=== PATIENT | female | born 1940 | race Caucasian/White ===

== ENCOUNTER 2016-05-11 00:45 | Inpatient (IN) | payer MEDICARE, OTHER ==
[2016-05-11] MEDS ORDERED: ONDANSETRON 4 MG TAB.RAPDIS PO ONE (01:03)
[2016-05-11] MEDS ORDERED: NORMAL SALINE 1000 ML 1,000 ML IV ONE (01:06)
--- NOTE | 2016-05-11 01:10 | ER Document Report ---
ED Medical Screen (RME) - General Stated Complaint: VOMITING Time seen by provider: 01:00 Notes: 75 year old female that comes to the ED for repeated vomiting, vomiting started after [facility] tonight, non-bloody. Patient reports chills, she has an ileostomy bag which she has seen stool fill into, denies blood in stool. Denies fever, chest pain, shortness of breath. She states right now she is very nauseated but she denies current abdominal pain. TRAVEL OUTSIDE OF THE [place] IN LAST 30 DAYS: No - Related Data Allergies/Adverse Reactions: meperidine HCl [From Demerol] Allergy (Intermediate, Verified 05/11/16 00:57) Hives Sulfa (Sulfonamide Antibiotics) Allergy (Intermediate, Verified 05/11/16 00:57) Hives ciprofloxacin HCl [From Cipro] Allergy (Verified 05/11/16 00:57) RASH prednisone [Prednisone] Allergy (Verified 05/11/16 00:57) MAKES HER CRAZY Past Medical History - Past Medical History Cardiac Medical History: Reports: Hx Heart Attack - 2001 HAD STENTS, Hx Hypertension Pulmonary Medical History: Denies: Hx Asthma, Hx Tuberculosis Neurological Medical History: Reports: Hx Cerebrovascular Accident - AFFECTED LEFT EYE. Denies: Hx Seizures Malignancy Medical History: Reports: Hx Renal (Kidney) Cancer - Left GI Medical History: Denies: Hx Hepatitis, Hx Hiatal Hernia, Hx Ulcer Musculoskeltal Medical History: Reports Hx Gout - left foot Psychiatric Medical History: Denies: Hx Depression Infectious Medical History: Denies: Hx Hepatitis Past Surgical History: Reports: Hx Abdominal Surgery, Hx Bowel Surgery - colostomy, Hx Cardiac Catheterization, Hx Kidney (Renal Surgery) - left removed , Hx Orthopedic Surgery - bilat cataracts. Denies: Hx Mastectomy, Hx Open Heart Surgery, Hx Pacemaker - Immunizations Hx Diphtheria, Pertussis, Tetanus Vaccination: Yes Physical Exam - Cardiovascular Rhythm: Regular, Bradycardia - borderline. No: Tachycardia Heart sounds: Normal auscultation, S1 appreciated, S2 appreciated - Abdominal Inspection: Normal Tenderness: Nontender. No: Tender Course - Re-evaluation Re-evalutation: Soft belly, but patient did vomit at triage. Denies any abd or chest pain. Giving meds, ordering workup.
[2016-05-11] MEDS ORDERED: DIPHENHYDRAMINE HCL 50 MG/ML VIAL IV ONE (01:50)
[2016-05-11 02:01] LABS: ABSOLUTE BASOPHILS # (AUTO) 0.1 10^3/uL (0.0-0.2); ABSOLUTE LYMPHOCYTES (AUTO) 1.8 10^3/uL (0.5-4.7); ABSOLUTE MONOCYTES (AUTO) 0.6 10^3/uL (0.1-1.4); ABSOLUTE NEUT (AUTO) 10.8 10^3/uL (1.7-8.2); BASOPHILS % (AUTO) 0.4 % (0-2); EOSINOPHILS % (AUTO) 0.3 % (0-6); HEMATOCRIT 33.2 % (36.0-47.0); HEMOGLOBIN 11.1 g/dL (12.0-15.5); HGB HCT DIFFERENCE 0.1; LYMPHOCYTES % (AUTO) 13.6 % (13-45); MEAN CORPUSCULAR HEMOGLOBIN 31.2 pg (27.0-33.4); MEAN CORPUSCULAR HGB CONC 33.4 g/dL (32.0-36.0); MEAN CORPUSCULAR VOLUME 94 fl (80-97); MONOCYTES % (AUTO) 4.2 % (3-13); RED BLOOD COUNT 3.55 10^6/uL (3.72-5.28); RED CELL DISTRIBUTION WIDTH 15.3 % (11.5-14.0); SEGMENTED NEUTROPHILS % (AUTO) 81.5 % (42-78); WHITE BLOOD COUNT 13.3 10^3/uL (4.0-10.5)
[2016-05-11] MEDS ORDERED: PROMETHAZINE HCL INJ 25 MG/1 ML VIAL IM ONE (03:31)
--- NOTE | 2016-05-11 03:34 | ER Document Report ---
ED General - General TRAVEL OUTSIDE OF THE [place] IN LAST 30 DAYS: No <CONCETTA GOULD - Last Filed: 05/11/16 03:32> <BORIS DENNEY - Last Filed: 05/11/16 10:11> - General Chief Complaint: Nausea/Vomiting Stated Complaint: VOMITING Notes: Patient is a 75-year-old female who presents with complaint of vomiting since eating at [facility]. No associated abdominal pain. She does have an ileostomy bag which has been draining a properly. No fevers. No blood in emesis. No other complaints at this time. Patient says that she had pot roast and clam chowder at [facility]. (CONCETTA GOULD) - Related Data Allergies/Adverse Reactions: meperidine HCl [From Demerol] Allergy (Intermediate, Verified 05/11/16 00:57) Hives Sulfa (Sulfonamide Antibiotics) Allergy (Intermediate, Verified 05/11/16 00:57) Hives ciprofloxacin HCl [From Cipro] Allergy (Verified 05/11/16 00:57) RASH prednisone [Prednisone] Allergy (Verified 05/11/16 00:57) MAKES HER CRAZY Past Medical History - Social History Smoking Status: Never Smoker Chew tobacco use (# tins/day): No Frequency of alcohol use: None Drug Abuse: None Family History: Reviewed & Not Pertinent Patient has suicidal ideation: No Patient has homicidal ideation: No - Past Medical History Cardiac Medical History: Reports: Hx Heart Attack - 2001 HAD STENTS, Hx Hypertension Pulmonary Medical History: Denies: Hx Asthma, Hx Tuberculosis Neurological Medical History: Reports: Hx Cerebrovascular Accident - AFFECTED LEFT EYE. Denies: Hx Seizures Renal/ Medical History: Denies: Hx Peritoneal Dialysis Malignancy Medical History: Reports: Hx Renal (Kidney) Cancer - Left GI Medical History: Denies: Hx Hepatitis, Hx Hiatal Hernia, Hx Ulcer Musculoskeltal Medical History: Reports Hx Gout - left foot Psychiatric Medical History: Denies: Hx Depression Infectious Medical History: Denies: Hx Hepatitis Past Surgical History: Reports: Hx Abdominal Surgery, Hx Bowel Surgery - colostomy, Hx Cardiac Catheterization, Hx Kidney (Renal Surgery) - left removed , Hx Orthopedic Surgery - bilat cataracts. Denies: Hx Mastectomy, Hx Open Heart Surgery, Hx Pacemaker - Immunizations Hx Diphtheria, Pertussis, Tetanus Vaccination: Yes <CONCETTA GOULD - Last Filed: 05/11/16 03:32> Review of Systems <CONCETTA GOULD - Last Filed: 05/11/16 03:32> <BORIS DENNEY - Last Filed: 05/11/16 10:11> - Review of Systems Notes: My Normal Review Basic REVIEW OF SYSTEMS: CONSTITUTIONAL : Denies fever, chills, or sweats. Denies recent illness. EENT: Denies eye, ear, throat, or mouth pain or symptoms. Denies nasal or sinus congestion. CARDIOVASCULAR: Denies chest pain. RESPIRATORY: Denies cough, cold, or chest congestion. Denies shortness of breath, difficulty breathing, or wheezing. GASTROINTESTINAL: Denies abdominal pain. Vomiting. GENITOURINARY: Denies difficulty urinating, painful urination, burning, frequency, or blood in urine. MUSCULOSKELETAL: Denies neck or back pain or joint pain or swelling. SKIN: Denies rash or skin lesions. NEUROLOGICAL: Denies altered mental status or loss of consciousness. Denies headache. Denies weakness or paralysis or loss of use of either side. Denies problems with gait or speech. Denies sensory or motor loss. ALL OTHER SYSTEMS REVIEWED AND NEGATIVE. (CONCETTA GOULD) Physical Exam <CONCETTA GOULD - Last Filed: 05/11/16 03:32> <BORIS DENNEY - Last Filed: 05/11/16 10:11> - Vital signs Vitals: Temp Pulse Resp BP Pulse Ox 97.9 F 57 L 24 H 120/44 L 100 05/11/16 01:08 05/11/16 01:08 05/11/16 01:08 05/11/16 01:08 05/11/16 01:08 - Notes Notes: General Appearance: Well nourished, alert, cooperative, no acute distress, no obvious discomfort. Well-appearing. Vitals: reviewed, See vital signs table. Head: no swelling or tenderness to the head Eyes: PERRL, EOMI, Conjuctiva clear Mouth: No decreasd moisture Neck: Supple, no neck tenderness, No thyromegaly Lungs: No wheezing, No rales, No rhonci, No accessory muscle use, good air exchange bilaterally. Heart: Normal rate, Regular rythm, No murmur, no rub Abdomen: Normal BS, soft, No rigidity, No abdominal tenderness, No guarding, no rebound, no abdominal masses, no organomegaly. Ileostomy bag in place. Normal- appearing no stool coming from ileostomy site. No blood in the back. Extremities: strength 5/5 in all extremities, good pulses in all extremities, no swelling or tenderness in the extremities, no edema. Skin: warm, dry, appropriate color, no rash Neuro: speech clear, oriented x 3, normal affect, responds appropriately to questions. (CONCETTA GOULD) Course - Laboratory Result Diagrams: 05/11/16 01:40 05/11/16 03:05 <CONCETTA GOULD - Last Filed: 05/11/16 03:32> - Laboratory Result Diagrams: 05/11/16 01:40 05/11/16 03:29 - Diagnostic Test Radiology reviewed: Reports reviewed - CT scan is read as questionable ileus versus distal ileum obstruction at the level of the ostomy - Consults Dr. Castle Time consulted: 10:00 Consulted provider: other - Does not feel this is a surgical problem and requests the hospitalist be called. Dr. Hampton Time consulted: 10:05 Consulted provider: will come to ER <BORIS DENNEY - Last Filed: 05/11/16 10:11> - Vital Signs Vital signs: Temp Pulse Resp BP Pulse Ox 98.6 F 61 18 127/68 H 99 05/11/16 08:21 05/11/16 08:21 05/11/16 08:21 05/11/16 08:21 05/11/16 08:21 - Laboratory Laboratory results interpreted by me: 05/11/16 05/11/16 05/11/16 01:25 01:40 03:29 WBC 13.3 H RBC 3.55 L Hgb 11.1 L Hct 33.2 L RDW 15.3 H Seg Neutrophils % 81.5 H Absolute Neutrophils 10.8 H Chloride 109 H BUN 26 H Creatinine 2.02 H Est GFR ( Amer) 29 L Est GFR (Non-Af Amer) 24 L Glucose 121 H POC Glucose 118 H AST 44 H Discharge <CONCETTA GOULD - Last Filed: 05/11/16 03:32> - Discharge Admitting Provider: Hospitalist Unit Admitted: Telemetry <BORIS DENNEY - Last Filed: 05/11/16 10:11> - Discharge Clinical Impression: Ileus versus distal ileum obstruction, Ileostomy present Nausea and vomiting Qualifiers: Vomiting type: unspecified Vomiting Intractability: intractable Qualified Code( s): R11.2 - Nausea with vomiting, unspecified Condition: Stable Disposition: ADMITTED INPATIENT
[2016-05-11 03:57] LABS: ALANINE AMINOTRANSFERASE 31 U/L (9-52); ALBUMIN 3.7 g/dL (3.5-5.0); ALKALINE PHOSPHATASE 117 U/L (38-126); ANION GAP 13 (5-19); ASPARTATE AMINO TRANSFERASE 44 U/L (14-36); BILIRUBIN,DIRECT 0.3 mg/dL (0.0-0.4); BILIRUBIN,TOTAL 0.7 mg/dL (0.2-1.3); BLOOD UREA NITROGEN 26 mg/dL (7-20); CALCIUM 9.2 mg/dL (8.4-10.2); CARBON DIOXIDE 23 mmol/L (22-30); CHLORIDE 109 mmol/L (98-107); CREATININE RESULT 2.02 mg/dL (0.52-1.25); GLUCOSE 121 mg/dL (75-110); POTASSIUM 4.2 mmol/L (3.6-5.0); SODIUM 144.8 mmol/L (137-145); TOTAL PROTEIN 6.8 g/dL (6.3-8.2)
[2016-05-11] MEDS ORDERED: PROMETHAZINE HCL INJ 25 MG/1 ML VIAL ONE (04:15)
[2016-05-11] MEDS ORDERED: ONDANSETRON HCL INJ/PF 4 MG/2 ML SDV IV ONE (09:20)
[2016-05-11] MEDS ORDERED: MORPHINE SULFATE 10 MG/ML INJ IV ONE (10:04)
[2016-05-11 11:22] LABS: APPEARANCE,URINE CLEAR; BILIRUBIN,URINE NEGATIVE (NEGATIVE); GLUCOSE, URINE NEGATIVE (NEGATIVE); KETONES,URINE NEGATIVE (NEGATIVE); LEUKOCYTE ESTERASE,URINE NEGATIVE (NEGATIVE); NITRITE,URINE NEGATIVE (NEGATIVE); PROTEIN,URINE NEGATIVE (NEGATIVE); URINE SPECIFIC GRAVITY 1.013; UROBILINOGEN,URINE NEGATIVE mg/dL (<2.0)
[2016-05-11] MEDS ORDERED: ACETAMINOPHEN 325 MG TABLET PO PRN (13:26)
[2016-05-11] MEDS ORDERED: ONDANSETRON 4 MG TAB.RAPDIS PO PRN (13:36)
[2016-05-11] MEDS ORDERED: PROMETHAZINE HCL INJ 25 MG/1 ML VIAL IV PRN (13:36)
--- NOTE | 2016-05-11 15:22 | PDOC H&P ---
History of Present Illness Admission Date/PCP: 05/11/16 10:50 BETH WYATT MD Patient complains of: Nausea and vomiting History of Present Illness: SOURAV ALVES is a 75 year old female, with history of renal cell carcinoma, colostomy placement and bowel resection apparently had multiple small bowel obstruction episodes in the past presents to the hospital with nausea and vomiting and abdominal pain of one-day duration. Patient was doing well in her usual state of health until about last night after eating from [employer], the patient started to develop abdominal cramping with associated nausea and vomiting. She is the only one sick compared to the rest of the family with her. There is no noted increasing output on the colostomy. Patient developed chills but no definite fever. The patient thought she only had foot poisoning went home and rest however the symptoms persisted the following day therefore she was concerned about obstruction which she had in the past, went to the emergency room where CT of the abdomen suggestive of ileus, patient was then referred for admission. No obstruction was noted as the contrast went through all the way to the ostomy bag. Past Medical History Past Medical History: Medication reconciliation pending verification from the patient's pharmacist. Cardiac Medical History: Reports: Myocardial Infarction - 2001 HAD STENTS, Hypertension Pulmonary Medical History: Denies: Asthma, Tuberculosis Neurological Medical History: Denies: Seizures Renal/ Medical History: Reports: Chronic Kidney Disease Malignancy Medical History: Reports: Renal (Kidney) Cancer - Left GI Medical History: Denies: Hepatitis, Hiatal Hernia Musculoskeltal Medical History: Reports: Gout - left foot Psychiatric Medical History: Denies: Depression Hematology: Reports: Anemia - AFTER SURGERY FEB 16 2011 Denies: Sickle Cell Disease Past Surgical History Past Surgical History: Reports: Cardiac Catheterization, Orthopedic Surgery - bilat cataracts, Other - Colostomy and bowel resection, nephrectomy Denies: Amputation, Mastectomy, Pacemaker Social History Information Source: Patient Smoking Status: Never Smoker Frequency of Alcohol Use: None Hx Recreational Drug Use: No Drugs: None Hx Prescription Drug Abuse: No - Advance Directive Resuscitation Status: Full Code Family History Family History: None Parental Family History Reviewed: Yes Children Family History Reviewed: Yes Sibling(s) Family History Reviewed.: Yes Medication/Allergy Home Medications: Bupropion HCl [Bupropion Xl] 150 mg PO DAILY 05/11/16 Cyanocobalamin (Vitamin B-12) [Vitamin B-12 1000 mcg Tablet] 1,000 mcg PO DAILY 05/11/16 Folic Acid 1 mg PO DAILY 05/11/16 Gabapentin [Neurontin 100 mg Capsule] 100 mg PO BIDBL 05/11/16 Gabapentin [Neurontin 100 mg Capsule] 200 mg PO QHS 05/11/16 Magnesium Oxide [Mag-Ox 400 mg Tablet] 400 mg PO Q12 05/11/16 Oxycodone HCl [Oxy-Ir 5 mg Tablet] 5 mg PO Q6HP PRN 05/11/16 Propranolol HCl [Inderal 10 mg Tablet] 10 mg PO Q8 05/11/16 Pyridoxine HCl [Vitamin B-6 Tablet 50 mg] 50 mg PO BID 05/11/16 Zolpidem Tartrate [Ambien] 10 mg PO QHS 05/11/16 Allergies/Adverse Reactions: meperidine HCl [From Demerol] Allergy (Intermediate, Verified 05/11/16 00:57) Hives Sulfa (Sulfonamide Antibiotics) Allergy (Intermediate, Verified 05/11/16 00:57) Hives ciprofloxacin HCl [From Cipro] Allergy (Verified 05/11/16 00:57) RASH prednisone [Prednisone] Allergy (Verified 05/11/16 00:57) MAKES HER CRAZY Review of Systems Constitutional: PRESENT: chills. ABSENT: fever(s), headache(s), weight gain, weight loss Eyes: ABSENT: visual disturbances Ears: ABSENT: hearing changes Nose, Mouth, and Throat: ABSENT: mouth pain, sore throat Cardiovascular: ABSENT: chest pain, dyspnea on exertion, edema, orthropnea, palpitations Respiratory: ABSENT: cough, hemoptysis, sputum Gastrointestinal: PRESENT: abdominal pain, nausea, vomiting. ABSENT: constipation, diarrhea, hematemesis, hematochezia, melena Genitourinary: ABSENT: difficulty urinating, dysuria, hematuria Musculoskeletal: PRESENT: other - Recent left shoulder surgery for a remote fracture. ABSENT: joint swelling Integumentary: ABSENT: rash, wounds Neurological: ABSENT: abnormal gait, abnormal speech, confusion, dizziness, focal weakness, syncope Psychiatric: ABSENT: anxiety, depression, homidical ideation, suicidal ideation Endocrine: ABSENT: cold intolerance, heat intolerance, polydipsia, polyuria Hematologic/Lymphatic: ABSENT: easy bleeding, easy bruising Physical Exam Vital Signs: Temp Pulse Resp BP Pulse Ox 97.4 F 54 L 16 142/55 H 100 05/11/16 14:30 05/11/16 14:30 05/11/16 14:30 05/11/16 14:30 05/11/16 14:30 Intake & Output 05/10/16 05/11/16 05/12/16 06:59 06:59 06:59 Weight 62.7 kg General appearance: PRESENT: no acute distress, cooperative, well-developed, well-nourished Head exam: PRESENT: atraumatic, normocephalic Eye exam: PRESENT: conjunctiva pink, EOMI, PERRLA. ABSENT: scleral icterus Ear exam: PRESENT: normal external ear exam. ABSENT: drainage Mouth exam: PRESENT: moist, neck supple, tongue midline Neck exam: ABSENT: carotid bruit, JVD, lymphadenopathy, thyromegaly Respiratory exam: PRESENT: clear to auscultation randa, unlabored. ABSENT: rales , rhonchi, wheezes Cardiovascular exam: PRESENT: RRR, +S1, +S2. ABSENT: diastolic murmur, gallop, rubs, systolic murmur Pulses: PRESENT: normal dorsalis pedis pul Vascular exam: PRESENT: normal capillary refill GI/Abdominal exam: PRESENT: hyperactive bowel sounds, soft, tenderness - Mild diffusely, other - Colostomy in place in the left. ABSENT: distended, guarding , mass, organolmegaly, rebound Rectal exam: PRESENT: deferred Extremities exam: PRESENT: full ROM. ABSENT: calf tenderness, clubbing, pedal edema Musculoskeletal exam: PRESENT: other - Patient wears a shoulder sling left side Neurological exam: PRESENT: alert, awake, oriented to person, oriented to place , oriented to time, oriented to situation Psychiatric exam: PRESENT: appropriate affect, normal mood. ABSENT: homicidal ideation, suicidal ideation Skin exam: PRESENT: dry, intact, warm. ABSENT: cyanosis, rash Results Laboratory Results: 05/11/16 11:10 Urine Color YELLOW Urine Appearance CLEAR Urine pH 5.0 Ur Specific Tony 1.013 Urine Protein NEGATIVE Urine Glucose (UA) NEGATIVE Urine Ketones NEGATIVE Urine Blood NEGATIVE Urine Nitrite NEGATIVE Ur Leukocyte Esterase NEGATIVE Urine WBC (Auto) 1 Urine RBC (Auto) 1 Impressions: Acute Abdomen Series 05/11/16 01:04 IMPRESSION: Air-fluid levels within nondilated small bowel loops, may represent ileus versus developing obstruction. Abdomen/Pelvis CT 05/11/16 05:51 IMPRESSION: Oral contrast is seen throughout the distended stomach and small bowel down to the level of the ileostomy. There is contrast in the ileostomy bag. No intra-abdominal transition point identified. Question ileus versus distal ileum obstruction at the level of the ostomy. Tiny stones in the gallbladder Old left nephrectomy Assessment & Plan - Diagnosis (1) Nausea and vomiting Qualifiers: Vomiting type: unspecified Vomiting Intractability: intractable Qualified Code(s): R11.2 - Nausea with vomiting, unspecified Is this a current diagnosis for this admission?: Yes (2) Adynamic ileus Is this a current diagnosis for this admission?: Yes (3) Leukocytosis Qualifiers: Leukocytosis type: unspecified Qualified Code(s): D72.829 - Elevated white blood cell count, unspecified Is this a current diagnosis for this admission?: Yes (4) Cholelithiasis Qualifiers: Cholelithiasis location: gallbladder Cholecystitis presence: without cholecystitis Biliary obstruction: without biliary obstruction Qualified Code(s): K80.20 - Calculus of gallbladder without cholecystitis without obstruction Is this a current diagnosis for this admission?: Yes (5) Gout Qualifiers: Gout etiology: unspecified cause Laterality: unspecified laterality Chronicity: unspecified Is this a current diagnosis for this admission?: Yes (6) Renal carcinoma Qualifiers: Laterality: unspecified laterality Qualified Code(s): C64.9 - Malignant neoplasm of unspecified kidney, except renal pelvis Is this a current diagnosis for this admission?: Yes (7) Hypertension Qualifiers: Hypertension type: essential hypertension Qualified Code(s): I10 - Essential (primary) hypertension Is this a current diagnosis for this admission?: Yes (8) Chronic kidney disease, stage IV (severe) Is this a current diagnosis for this admission?: Yes (9) Coronary artery disease Qualifiers: Coronary Disease-Associated Artery/Lesion type: [place] artery [place] vs. transplanted heart: tribe heart Associated angina: without angina Qualified Code(s): I25.10 - Atherosclerotic heart disease of tribe coronary artery without angina pectoris Is this a current diagnosis for this admission?: Yes - Time Time Spent: 30 to 50 Minutes - Inpatient Certification Based on my medical assessment, after consideration of the patient's comorbidities, presenting symptoms, or acuity I expect that the services needed warrant INPATIENT care.: Yes I certify that my determination is in accordance with my understanding of Medicare's requirements for reasonable and necessary INPATIENT services [42 CFR 412.3e].: Yes Medical Necessity: Need Close Monitoring Due to Risk of Patient Decompensation, Need For IV Fluids, Risk of Complication if Not Cared For in Hospital, Risk of Diagnosis Which Will Require Inpatient Eval/Care/Monitoring Post Hospital Care: 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 I will keep her nothing by mouth except medications. I will hydrate her with normal saline, give DVT prophylaxis with Lovenox, monitor electrolytes and KUB. Further testing depends on the initial evaluation as outlined above. Unlikely to have obstruction due to passage of contrast material down to the osteotomy bag.
[2016-05-11] MEDS: MORPHINE SULFATE 10 MG/ML INJ IV PRN (18:10)
[2016-05-11] MEDS: NORMAL SALINE 1000 ML 1,000 ML IV PRN (18:11)
[2016-05-11] MEDS: FAMOTIDINE INJ/PF 20 MG/2 ML SDV IV SCH (21:31)
[2016-05-11] MEDS: GABAPENTIN 100 MG CAPSULE PO SCH (21:32)
[2016-05-12] MEDS: NORMAL SALINE 1000 ML 1,000 ML IV PRN ×2 (02:11→20:54)
[2016-05-12 06:06] LABS: ABSOLUTE EOSINOPHILS # (AUTO) 0.2 10^3/uL (0.0-0.6); ABSOLUTE MONOCYTES (AUTO) 0.6 10^3/uL (0.1-1.4); ABSOLUTE NEUT (AUTO) 4.2 10^3/uL (1.7-8.2); BASOPHILS % (AUTO) 0.4 % (0-2); EOSINOPHILS % (AUTO) 2.3 % (0-6); HEMATOCRIT 30.8 % (36.0-47.0); HGB HCT DIFFERENCE -0.8; LYMPHOCYTES % (AUTO) 28.9 % (13-45); MEAN CORPUSCULAR HEMOGLOBIN 30.9 pg (27.0-33.4); MEAN CORPUSCULAR HGB CONC 32.5 g/dL (32.0-36.0); MEAN CORPUSCULAR VOLUME 95 fl (80-97); MONOCYTES % (AUTO) 9.2 % (3-13); RED BLOOD COUNT 3.24 10^6/uL (3.72-5.28); RED CELL DISTRIBUTION WIDTH 15.5 % (11.5-14.0); SEGMENTED NEUTROPHILS % (AUTO) 59.2 % (42-78); WHITE BLOOD COUNT 7.1 10^3/uL (4.0-10.5)
[2016-05-12 06:26] LABS: ANION GAP 15 (5-19); BLOOD UREA NITROGEN 24 mg/dL (7-20); CALCIUM 9.1 mg/dL (8.4-10.2); CARBON DIOXIDE 22 mmol/L (22-30); CHLORIDE 109 mmol/L (98-107); CREATININE RESULT 2.38 mg/dL (0.52-1.25); GLUCOSE 85 mg/dL (75-110); MAGNESIUM 1.8 mg/dL (1.6-2.3); PHOSPHORUS 4.5 mg/dL (2.5-4.5); POTASSIUM 4.1 mmol/L (3.6-5.0); SODIUM 145.6 mmol/L (137-145)
[2016-05-12] MEDS ORDERED: ENOXAPARIN SODIUM INJ 40 MG/0.4 ML DISP.SYRIN SUBCUT SCH (08:00)
[2016-05-12] MEDS: ENOXAPARIN SODIUM INJ 30 MG/0.3 ML DISP.SYRIN SUBCUT SCH (09:14)
--- NOTE | 2016-05-12 09:59 | PDOC PROGRESS REPORT ---
Subjective Progress Note for:: 05/12/16 Subjective:: Patient is feeling much better this morning. Abdominal pain resolved. Nausea and vomiting resolved as well. No increasing output on the osteotomy. Denies any chills or fever. No shortness of breath or chest pain. Creatinine slightly worse today. Physical Exam Vital Signs: Temp Pulse Resp BP Pulse Ox 97.4 F 58 L 17 127/59 H 99 05/12/16 07:29 05/12/16 07:29 05/12/16 07:29 05/12/16 07:29 05/12/16 07:29 Intake & Output 05/11/16 05/12/16 05/13/16 06:59 06:59 06:59 Intake Total 300 Output Total 1120 Balance -820 Weight 63.2 kg General appearance: PRESENT: no acute distress, cooperative Head exam: PRESENT: normocephalic Eye exam: PRESENT: EOMI Mouth exam: PRESENT: moist, neck supple Neck exam: ABSENT: JVD Respiratory exam: PRESENT: clear to auscultation randa. ABSENT: rhonchi, wheezes Cardiovascular exam: PRESENT: RRR. ABSENT: gallop GI/Abdominal exam: PRESENT: hyperactive bowel sounds, soft. ABSENT: distended, tenderness Extremities exam: PRESENT: other - Trace pretibial edema Neurological exam: PRESENT: alert, awake, oriented to situation Skin exam: PRESENT: dry, warm. ABSENT: cyanosis Results Laboratory Results: 05/12/16 05:30 05/12/16 05:30 05/12/16 05/12/16 05:30 05:30 WBC 7.1 RBC 3.24 L Hgb 10.0 L Hct 30.8 L MCV 95 MCH 30.9 MCHC 32.5 RDW 15.5 H Plt Count 207 Seg Neutrophils % 59.2 Lymphocytes % 28.9 Monocytes % 9.2 Eosinophils % 2.3 Basophils % 0.4 Absolute Neutrophils 4.2 Absolute Lymphocytes 2.0 Absolute Monocytes 0.6 Absolute Eosinophils 0.2 Absolute Basophils 0.0 Sodium 145.6 H Potassium 4.1 Chloride 109 H Carbon Dioxide 22 Anion Gap 15 BUN 24 H Creatinine 2.38 H Est GFR ( Amer) 24 L Est GFR (Non-Af Amer) 20 L Glucose 85 Calcium 9.1 Phosphorus 4.5 Magnesium 1.8 Impressions: Acute Abdomen Series 05/11/16 01:04 IMPRESSION: Air-fluid levels within nondilated small bowel loops, may represent ileus versus developing obstruction. Abdomen/Pelvis CT 05/11/16 05:51 IMPRESSION: Oral contrast is seen throughout the distended stomach and small bowel down to the level of the ileostomy. There is contrast in the ileostomy bag. No intra-abdominal transition point identified. Question ileus versus distal ileum obstruction at the level of the ostomy. Tiny stones in the gallbladder Old left nephrectomy KUB X-Ray 05/12/16 06:00 IMPRESSION: MILD PROMINENCE OF THE SMALL BOWEL LOOPS IN THE LOWER ABDOMEN. POSSIBLE ILEUS. NO CHANGE. Assessment & Plan - Diagnosis (1) Nausea and vomiting Qualifiers: Vomiting type: unspecified Vomiting Intractability: intractable Qualified Code(s): R11.2 - Nausea with vomiting, unspecified Is this a current diagnosis for this admission?: Yes (2) Adynamic ileus Is this a current diagnosis for this admission?: Yes (3) Leukocytosis Qualifiers: Leukocytosis type: unspecified Qualified Code(s): D72.829 - Elevated white blood cell count, unspecified Is this a current diagnosis for this admission?: Yes (4) Cholelithiasis Qualifiers: Cholelithiasis location: gallbladder Cholecystitis presence: without cholecystitis Biliary obstruction: without biliary obstruction Qualified Code(s): K80.20 - Calculus of gallbladder without cholecystitis without obstruction Is this a current diagnosis for this admission?: Yes (5) Gout Qualifiers: Gout etiology: unspecified cause Laterality: unspecified laterality Chronicity: unspecified Is this a current diagnosis for this admission?: Yes (6) Renal carcinoma Qualifiers: Laterality: unspecified laterality Qualified Code(s): C64.9 - Malignant neoplasm of unspecified kidney, except renal pelvis Is this a current diagnosis for this admission?: Yes (7) Hypertension Qualifiers: Hypertension type: essential hypertension Qualified Code(s): I10 - Essential (primary) hypertension Is this a current diagnosis for this admission?: Yes (8) Chronic kidney disease, stage IV (severe) Is this a current diagnosis for this admission?: Yes (9) Coronary artery disease Qualifiers: Coronary Disease-Associated Artery/Lesion type: [place] artery [place] vs. transplanted heart: [place] heart Associated angina: without angina Qualified Code(s): I25.10 - Atherosclerotic heart disease of [place] coronary artery without angina pectoris Is this a current diagnosis for this admission?: Yes - Time Time Spent with patient: 25-34 minutes - Plan Summary Plan Summary: We will try the patient on liquid diet today. We will increase intravenous fluids and recheck creatinine in the morning. Continue current medication and supportive care. Patient clinically improving and if continues to improve we' ll discharge in the morning..
[2016-05-12] MEDS: MORPHINE SULFATE 10 MG/ML INJ IV PRN (20:35)
[2016-05-13] MEDS: FAMOTIDINE INJ/PF 20 MG/2 ML SDV IV SCH (00:16)
[2016-05-13] MEDS: GABAPENTIN 100 MG CAPSULE PO SCH (00:16)
[2016-05-13] MEDS: NORMAL SALINE 1000 ML 1,000 ML IV PRN (04:32)
[2016-05-13 05:10] LABS: ANION GAP 10 (5-19); BLOOD UREA NITROGEN 20 mg/dL (7-20); CALCIUM 8.6 mg/dL (8.4-10.2); CARBON DIOXIDE 21 mmol/L (22-30); CHLORIDE 113 mmol/L (98-107); CREATININE RESULT 2.01 mg/dL (0.52-1.25); GLUCOSE 81 mg/dL (75-110); POTASSIUM 3.8 mmol/L (3.6-5.0); SODIUM 143.5 mmol/L (137-145)
[2016-05-13] MEDS: ENOXAPARIN SODIUM INJ 30 MG/0.3 ML DISP.SYRIN SUBCUT SCH (08:17)
--- NOTE | 2016-05-13 09:25 | PDOC DISCHARGE SUMMARY ---
General - Admit/Disc Date/PCP Admission Date/Primary Care Provider: 05/11/16 13:27 BETH WYATT MD Discharge Date: 05/13/16 - Discharge Diagnosis (1) Adynamic ileus Is this a current diagnosis for this admission?: Yes (2) Acute gastroenteritis Is this a current diagnosis for this admission?: Yes (3) Cholelithiasis Is this a current diagnosis for this admission?: Yes (4) Gout Is this a current diagnosis for this admission?: Yes (5) Renal carcinoma Is this a current diagnosis for this admission?: Yes (6) Hypertension Is this a current diagnosis for this admission?: Yes (7) Chronic kidney disease, stage IV (severe) Is this a current diagnosis for this admission?: Yes (8) Coronary artery disease Is this a current diagnosis for this admission?: Yes - Additional Information Resuscitation Status: Full Code Discharge Diet: Cardiac - low fat, low salt, Other (Comments) - soft, mechanical , ground meats Discharge Activity: Activity As Tolerated, Balance Activity w/Rest Home Medications: Bupropion HCl [Bupropion Xl] 150 mg PO DAILY 05/11/16 Cyanocobalamin (Vitamin B-12) [Vitamin B-12 1000 mcg Tablet] 1,000 mcg PO DAILY 05/11/16 Folic Acid 1 mg PO DAILY 05/11/16 Gabapentin [Neurontin 100 mg Capsule] 100 mg PO BIDBL 05/11/16 Gabapentin [Neurontin 100 mg Capsule] 200 mg PO QHS 05/11/16 Magnesium Oxide [Mag-Ox 400 mg Tablet] 400 mg PO Q12 05/11/16 Oxycodone HCl [Oxy-Ir 5 mg Tablet] 5 mg PO Q6HP PRN 05/11/16 Propranolol HCl [Inderal 10 mg Tablet] 10 mg PO Q8 05/11/16 Pyridoxine HCl [Vitamin B-6 Tablet 50 mg] 50 mg PO BID 05/11/16 Zolpidem Tartrate [Ambien] 10 mg PO QHS 05/11/16 Additional Information: Return to the emergency room if symptoms recur. History of Present Illness Patient complains of: Abdominal pain nausea or vomiting History of Present Illness: SOURAV ALVES is a 75 year old female, with history of renal cell carcinoma, colostomy placement and bowel resection apparently had multiple small bowel obstruction episodes in the past presents to the hospital with nausea and vomiting and abdominal pain of one-day duration. Patient was doing well in her usual state of health until about last night after eating from [employer], the patient started to develop abdominal cramping with associated nausea and vomiting. She is the only one sick compared to the rest of the family with her. There is no noted increasing output on the colostomy. Patient developed chills but no definite fever. The patient thought she only had foot poisoning went home and rest however the symptoms persisted the following day therefore she was concerned about obstruction which she had in the past, went to the emergency room where CT of the abdomen suggestive of ileus, patient was then referred for admission. No obstruction was noted as the contrast went through all the way to the ostomy bag. Hospital Course Hospital Course: The patient was admitted to telemetry. Patient was placed on nothing by mouth, intravenous fluid was administered, electrolytes were monitored. Anti-emetics and analgesics were given as needed for comfort. Patient did well with conservative measures. Diet eventually was resumed and the patient tolerated it. She requested to be discharged and she stated she is back to baseline. She has been dealing with this done within 24 while. The rest of the hospital stays unremarkable. She was advised to return back to the emergency room if symptoms recur. No noted increasing output in the osteotomy bag. Patient had a CT scan however showing flow of contrast through the osteotomy. No obstruction was reported. Physical Exam Vital Signs: Temp Pulse Resp BP Pulse Ox 97.9 F 58 L 17 130/53 H 100 05/13/16 07:00 05/13/16 07:00 05/13/16 07:00 05/13/16 07:00 05/13/16 07:00 Intake & Output 05/12/16 05/13/16 05/14/16 06:59 06:59 06:59 Intake Total 300 3880 Output Total 1120 2200 Balance -820 1680 Weight 63.2 kg 63.5 kg General appearance: PRESENT: no acute distress, cooperative Head exam: PRESENT: normocephalic Eye exam: PRESENT: EOMI Mouth exam: PRESENT: moist, neck supple Neck exam: ABSENT: JVD Respiratory exam: PRESENT: clear to auscultation randa Cardiovascular exam: PRESENT: RRR. ABSENT: gallop GI/Abdominal exam: PRESENT: normal bowel sounds, soft. ABSENT: distended, tenderness Extremities exam: ABSENT: pedal edema Neurological exam: PRESENT: alert, awake, oriented to situation Skin exam: PRESENT: dry, warm. ABSENT: cyanosis Results Laboratory Results: 05/12/16 05:30 05/13/16 04:05 05/13/16 04:05 Sodium 143.5 Potassium 3.8 Chloride 113 H Carbon Dioxide 21 L Anion Gap 10 BUN 20 Creatinine 2.01 H Est GFR ( Amer) 29 L Est GFR (Non-Af Amer) 24 L Glucose 81 Calcium 8.6 Impressions: Acute Abdomen Series 05/11/16 01:04 IMPRESSION: Air-fluid levels within nondilated small bowel loops, may represent ileus versus developing obstruction. Abdomen/Pelvis CT 05/11/16 05:51 IMPRESSION: Oral contrast is seen throughout the distended stomach and small bowel down to the level of the ileostomy. There is contrast in the ileostomy bag. No intra-abdominal transition point identified. Question ileus versus distal ileum obstruction at the level of the ostomy. Tiny stones in the gallbladder Old left nephrectomy KUB X-Ray 05/12/16 06:00 IMPRESSION: MILD PROMINENCE OF THE SMALL BOWEL LOOPS IN THE LOWER ABDOMEN. POSSIBLE ILEUS. NO CHANGE. Qualifiers PATEINT BEING DISCHARGED WITH ANY OF THE FOLLOWING DIAGNOSIS?: No Plan Discharge Plan: Follow-up with primary care physician in one week. Time Spent: Less than 30 Minutes
[2016-05-13 12:13] VITALS: BP 133/50
== END 2016-05-13 12:30 | disposition home health service (06) | DRG 389 ==
LOC: ER 00:45 → EH 10:50 → UNDOADMIN 10:50 → EH 13:27 → 5 14:29
DX: K56.0 Paralytic ileus (principal); N18.4 Chronic kidney disease, stage 4 (severe); K52.9 Noninfective gastroenteritis and colitis, unspecified; M10.9 Gout, unspecified; I25.2 Old myocardial infarction; I12.9 Hypertensive chronic kidney disease with stage 1 through stage 4 chronic kidney disease, or unspecified chronic kidney disease; K80.20 Calculus of gallbladder without cholecystitis without obstruction; Z93.2 Ileostomy status; Z90.5 Acquired absence of kidney; Z90.49 Acquired absence of other specified parts of digestive tract; Z85.528 Personal history of other malignant neoplasm of kidney; Z95.5 Presence of coronary angioplasty implant and graft; Z79.82 Long term (current) use of aspirin; Z79.899 Other long term (current) drug therapy; Z88.2 Allergy status to sulfonamides; Z88.6 Allergy status to analgesic agent; Z88.3 Allergy status to other anti-infective agents; Z88.8 Allergy status to other drugs, medicaments and biological substances; D72.829 Elevated white blood cell count, unspecified
CPT/HCPCS: 36415; 74000; 74022; 74176; 80048; 80053; 81001; 82962; 83735; 84100; 84443; 85025; J1200; J1650; J2270; J2405; J2550; J7030; S0028; S0119

== ENCOUNTER 2016-12-08 07:28 | Emergency (ER) | payer MEDICARE, OTHER ==
--- NOTE | 2016-12-08 08:02 | ER Document Report ---
ED Extremity Problem, Lower - General Chief Complaint: Leg Injury Stated Complaint: FALL/LEFT LEG INJURY Time Seen by Provider: 12/08/16 07:59 Mode of Arrival: Ambulatory Information source: Patient Notes: Patient is a 68-year-old female who presents to the ER today for fall that happened prior to arrival where she tripped while walking and fell onto her left leg and left shoulder. Patient denies hitting her head. She is concerned because she has a blood blister that has popped up on her left lower leg and is "very scared that there is a blood clot." Patient is also concerned because she had a left shoulder replacement in April of this year and is hoping that everything still looks okay surgically. She denies any pain or limited range of motion that is abnormal for her to that left arm/shoulder. Patient denies any history of blood clots. She is not on any blood thinners. TRAVEL OUTSIDE OF THE [place] IN LAST 30 DAYS: No - Related Data Allergies/Adverse Reactions: meperidine HCl [From Demerol] Allergy (Intermediate, Verified 12/08/16 07:30) Hives Sulfa (Sulfonamide Antibiotics) Allergy (Intermediate, Verified 12/08/16 07:30) Hives ciprofloxacin HCl [From Cipro] Allergy (Verified 12/08/16 07:30) RASH prednisone [Prednisone] Allergy (Verified 12/08/16 07:30) MAKES HER CRAZY Home Medications: Current Home Medications Cholecalciferol (Vitamin D3) [Vitamin D3 5000 unit Capsule] 5,000 unit PO [id number] 12/08/16 [History] Past Medical History - General Information source: Patient - Social History Smoking Status: Never Smoker Family History: None Patient has suicidal ideation: No Patient has homicidal ideation: No - Past Medical History Cardiac Medical History: Reports: Hx Heart Attack - 2001 HAD STENTS, Hx Hypertension Pulmonary Medical History: Denies: Hx Asthma, Hx Tuberculosis Neurological Medical History: Reports: Hx Cerebrovascular Accident - AFFECTED LEFT EYE. Denies: Hx Seizures Renal/ Medical History: Denies: Hx Peritoneal Dialysis Malignancy Medical History: Reports: Hx Renal (Kidney) Cancer - Left GI Medical History: Denies: Hx Hepatitis, Hx Hiatal Hernia, Hx Ulcer Musculoskeltal Medical History: Reports Hx Gout - left foot Psychiatric Medical History: Denies: Hx Depression Infectious Medical History: Denies: Hx Hepatitis Past Surgical History: Reports: Hx Abdominal Surgery, Hx Bowel Surgery - colostomy, Hx Cardiac Catheterization, Hx Kidney (Renal Surgery) - left removed , Hx Orthopedic Surgery - bilat cataracts, Other - Colostomy and bowel resection , nephrectomy. Denies: Hx Mastectomy, Hx Open Heart Surgery, Hx Pacemaker - Immunizations Hx Diphtheria, Pertussis, Tetanus Vaccination: Yes Review of Systems - Review of Systems Constitutional: No symptoms reported EENT: No symptoms reported Cardiovascular: No symptoms reported Respiratory: No symptoms reported Gastrointestinal: No symptoms reported Genitourinary: No symptoms reported Female Genitourinary: No symptoms reported Musculoskeletal: See HPI Skin: See HPI Hematologic/Lymphatic: No symptoms reported Neurological/Psychological: No symptoms reported Physical Exam - Vital signs Vitals: Temp Pulse Resp BP Pulse Ox 97.5 F 63 20 131/57 H 96 12/08/16 07:31 12/08/16 07:31 12/08/16 07:31 12/08/16 07:31 12/08/16 07:31 - Notes Notes: PHYSICAL EXAMINATION: GENERAL: Well-appearing and in no acute distress. HEAD: Atraumatic, normocephalic. EYES: Pupils equal round and reactive to light, extraocular movements intact, sclera anicteric, conjunctiva are normal. NECK: Normal range of motion, supple without lymphadenopathy LUNGS: CTAB and equal. No wheezes rales or rhonchi. HEART: Regular rate and rhythm without murmurs ABDOMEN: Soft, no tenderness. No guarding, no rebound BACK: no vertebral tenderness, normal ROM GI/: no CVA tenderness EXTREMITIES: limited range of motion of the left shoulder, can only abduct to 90 degrees, no tenderness, no pitting edema. No cyanosis. NEUROLOGICAL: Cranial nerves grossly intact. Normal sensory/motor exams. PSYCH: Normal mood, normal affect. SKIN: Warm, Dry, normal turgor, 3cm by 1cm hematoma to anterior left lower leg Course - Re-evaluation Re-evalutation: 12/08/16 09:18 doppler negative for DVT, left shoulder x ray negative for acute pathology, surgical equipment in place appropriately. - Vital Signs Vital signs: Temp Pulse Resp BP Pulse Ox 97.5 F 63 20 131/57 H 96 12/08/16 07:31 12/08/16 07:31 12/08/16 07:31 12/08/16 07:31 12/08/16 07:31 Discharge - Discharge Clinical Impression: Hematoma Fall Qualifiers: Encounter type: initial encounter Qualified Code(s): W19.XXXA - Unspecified fall, initial encounter Condition: Stable Disposition: HOME, SELF-CARE Additional Instructions: Return immediately for any new or worsening symptoms. Follow up with primary care provider, call tomorrow to make followup appointment.
--- NOTE | 2016-12-08 08:31 | RADIOLOGY REPORT (SQ) ---
EXAM DESCRIPTION: SHOULDER LEFT 2 OR MORE VIEWS COMPLETED DATE/TIME: 12/08/2016 8:13 am REASON FOR STUDY: fall, recent surgery COMPARISON: None. NUMBER OF VIEWS: Three views. TECHNIQUE: Internal rotation, external rotation, and Y view images acquired of the left shoulder. LIMITATIONS: None. FINDINGS: MINERALIZATION: Normal. BONES: No acute fracture is identified. JOINTS: Patient is status post left total shoulder replacement. The prosthesis appears well seated i n the glenoid and proximal humeral medullary canal. VISUALIZED LUNGS AND RIBS: No pneumothorax. No rib fracture. SOFT TISSUES: No radiopaque foreign body. OTHER: No other significant finding. IMPRESSION: Status post left total shoulder replacement. No acute fractures are identified. Other findings as noted above TECHNICAL DOCUMENTATION: JOB ID: [id number] [employer]- All Rights Reserved
[2016-12-08 09:34] VITALS: BP 127/69
--- NOTE | 2016-12-08 11:37 | XCELERA REPORT ---
[address] [address] Lower Extremity Venous Evaluation Name: SOUARV ALVES Age: 76 yrs Gender: Female : 1940 Patient Status: Emergency Patient Location: ER Study Date: 12/08/2016 08:37 AM Procedure: Color flow and duplex imaging of the veins of the left lower extremity as well as the right Common Femoral vein. Reason For Study: fall, left leg injury, concern for dvt by pt Ordering Physician: BRIANNA RAMOS PA-C Performed By: Akua Mike Right Sided Venous Evaluation The right common femoral vein is fully compressible. Spontaneous and phasic flow is present in the right common femoral vein. Left Sided Venous Evaluation Normal vessel filling wall to wall, compression and augmentation as well as Colour flow down to the infrageniculate veins. Interpretation Summary No duplex evidence of DVT or obstruction in the left lower extremity nor in the right Common Femoral vein. : BRIANNA RAMOS PA-C > [facility] [place]
== END 2016-12-08 09:33 | disposition home or self-care (01) ==
LOC: ER 07:28
DX: S80.12XA Contusion of left lower leg, initial encounter (principal); W19.XXXA Unspecified fall, initial encounter; Y93.01 Activity, walking, marching and hiking; Z96.612 Presence of left artificial shoulder joint; Z88.5 Allergy status to narcotic agent; Z88.2 Allergy status to sulfonamides; Z88.1 Allergy status to other antibiotic agents; Z88.8 Allergy status to other drugs, medicaments and biological substances; I10 Essential (primary) hypertension; I25.2 Old myocardial infarction; Z95.5 Presence of coronary angioplasty implant and graft; Z85.528 Personal history of other malignant neoplasm of kidney; Z90.5 Acquired absence of kidney
CPT/HCPCS: 93971; 99284

== ENCOUNTER 2017-05-07 00:02 | Inpatient (IN) | payer MEDICARE, OTHER ==
[2017-05-07] MEDS ORDERED: NORMAL SALINE 500 ML IV ONE (01:38)
[2017-05-07] MEDS ORDERED: NORMAL SALINE 1000 ML 1,000 ML IV ONE ×2 (01:38→05:00)
[2017-05-07] MEDS ORDERED: ONDANSETRON HCL INJ/PF 4 MG/2 ML SDV IV ONE (01:39)
--- NOTE | 2017-05-07 02:18 | ER Document Report ---
ED General - General Chief Complaint: Abdominal Pain Stated Complaint: ABDOMINAL PAIN Time Seen by Provider: 05/07/17 01:25 TRAVEL OUTSIDE OF THE [place] IN LAST 30 DAYS: No - HPI Patient complains to provider of: Abdominal pain Notes: Patient coming in for a four-day history of nausea vomiting abdominal pain. Patient has history of ileus and small bowel obstruction in the past due to multiple abdominal surgeries. Patient does have ileostomy. Patient states decreased output from the ileostomy over the last 2 days. Patient does have his emesis bag at bedside with vomitus in it. Patient denies any fevers chills. States abdominal pain as diffuse achy. - Related Data Allergies/Adverse Reactions: meperidine HCl [From Demerol] Allergy (Intermediate, Verified 12/08/16 07:30) Hives Sulfa (Sulfonamide Antibiotics) Allergy (Intermediate, Verified 12/08/16 07:30) Hives ciprofloxacin HCl [From Cipro] Allergy (Verified 12/08/16 07:30) RASH prednisone [Prednisone] Allergy (Verified 12/08/16 07:30) MAKES HER CRAZY Past Medical History - Social History Smoking Status: Unknown if Ever Smoked Family History: None - Past Medical History Cardiac Medical History: Reports: Hx Heart Attack - 2001 HAD STENTS, Hx Hypertension Pulmonary Medical History: Denies: Hx Asthma, Hx Tuberculosis Neurological Medical History: Reports: Hx Cerebrovascular Accident - AFFECTED LEFT EYE. Denies: Hx Seizures Renal/ Medical History: Denies: Hx Peritoneal Dialysis Malignancy Medical History: Reports: Hx Renal (Kidney) Cancer - Left GI Medical History: Denies: Hx Hepatitis, Hx Hiatal Hernia, Hx Ulcer Musculoskeltal Medical History: Reports Hx Gout - left foot Psychiatric Medical History: Denies: Hx Depression Infectious Medical History: Denies: Hx Hepatitis Past Surgical History: Reports: Hx Abdominal Surgery, Hx Bowel Surgery - colostomy, Hx Cardiac Catheterization, Hx Kidney (Renal Surgery) - left removed , Hx Orthopedic Surgery - bilat cataracts, Other - Colostomy and bowel resection , nephrectomy. Denies: Hx Mastectomy, Hx Open Heart Surgery, Hx Pacemaker - Immunizations Hx Diphtheria, Pertussis, Tetanus Vaccination: Yes Review of Systems - Review of Systems Constitutional: No symptoms reported EENT: No symptoms reported Cardiovascular: No symptoms reported Respiratory: No symptoms reported Gastrointestinal: Abdominal pain, Nausea, Vomiting Genitourinary: No symptoms reported Female Genitourinary: No symptoms reported Musculoskeletal: No symptoms reported Skin: No symptoms reported Hematologic/Lymphatic: No symptoms reported Neurological/Psychological: No symptoms reported -: Yes All other systems reviewed and negative Physical Exam - Vital signs Vitals: Temp Pulse Resp BP Pulse Ox 98.0 F 91 20 118/74 97 05/07/17 00:21 05/07/17 00:21 05/07/17 00:21 05/07/17 00:21 05/07/17 00:21 Interpretation: Normal - General General appearance: Appears well, Alert - HEENT Head: Normocephalic, Atraumatic Eyes: Normal Pupils: PERRL - Respiratory Respiratory status: No respiratory distress Chest status: Nontender Breath sounds: Normal Chest palpation: Normal - Cardiovascular Rhythm: Regular Heart sounds: Normal auscultation Murmur: No - Abdominal Inspection: Other - Ileostomy midline incision. Light brown material in the back stoma for malignancy looks to be pink no signs of ischemia Distension: No distension Bowel sounds: Normal Tenderness: Nontender Organomegaly: No organomegaly - Back Back: Normal, Nontender - Extremities General upper extremity: Normal inspection, Nontender, Normal color, Normal ROM , Normal temperature General lower extremity: Normal inspection, Nontender, Normal color, Normal ROM , Normal temperature, Normal weight bearing. No: Florence's sign - Neurological Neuro grossly intact: Yes Cognition: Normal Orientation: AAOx4 Joselo Coma Scale Eye Opening: Spontaneous Brinson Coma Scale Verbal: Oriented Joselo Coma Scale Motor: Obeys Commands Brinson Coma Scale Total: 15 Speech: Normal Motor strength normal: LUE, RUE, LLE, RLE Sensory: Normal - Psychological Associated symptoms: Normal affect, Normal mood - Skin Skin Temperature: Warm Skin Moisture: Dry Skin Color: Normal Course - Re-evaluation Re-evalutation: 05/07/17 05:22 Concern for SBO upon initial evaluation of the patient. Patient was unable to tolerate oral contrast therefore CT scan was performed without which shows SPO2. Did consult our surgical team Dr. Zurita at bedside to evaluate patient initially requesting a hospitalist admission discussed with hospitalist Dr. Andre who at this time declines to be the primary on patient states that he would not be the attending on a small bowel obstruction to admit to surgery and they can consult for the acute renal failure. I did inform Dr. Meredith of this information who agreed to admit the patient to the surgical service - Vital Signs Vital signs: Temp Pulse Resp BP Pulse Ox 98.0 F 91 20 118/74 97 05/07/17 00:21 05/07/17 00:21 05/07/17 00:21 05/07/17 00:21 05/07/17 00:21 - Laboratory Result Diagrams: 05/07/17 02:20 05/07/17 02:20 Laboratory results interpreted by me: 05/07/17 05/07/17 02:20 02:20 RDW 14.6 H Carbon Dioxide 15 L BUN 56 H Creatinine 4.34 H Est GFR ( Amer) 12 L Est GFR (Non-Af Amer) 10 L Glucose 115 H Direct Bilirubin 0.6 H Alkaline Phosphatase 138 H Lipase 19.2 L Critical Care Note - Critical Care Note Total time excluding time spent on procedures (mins): 35 Comments: Multiple evaluation for someone with small bowel obstruction acute on chronic renal failure Discharge - Discharge Clinical Impression: SBO (small bowel obstruction), Solitary kidney, acquired, Dehydration Acute on chronic kidney failure Qualifiers: Acute renal failure type: unspecified Chronic kidney disease stage: unspecified stage Qualified Code(s): N17.9 - Acute kidney failure, unspecified Condition: Fair Disposition: ADMITTED INPATIENT Admitting Provider: Surgicalist Unit Admitted: Surgical Floor
[2017-05-07 02:37] LABS: ABSOLUTE EOSINOPHILS # (AUTO) 0.1 10^3/uL (0.0-0.6); ABSOLUTE LYMPHOCYTES (AUTO) 1.5 10^3/uL (0.5-4.7); ABSOLUTE MONOCYTES (AUTO) 0.9 10^3/uL (0.1-1.4); BASOPHILS % (AUTO) 0.2 % (0-2); EOSINOPHILS % (AUTO) 0.9 % (0-6); HEMATOCRIT 36.6 % (36.0-47.0); HEMOGLOBIN 12.3 g/dL (12.0-15.5); LYMPHOCYTES % (AUTO) 20.4 % (13-45); MEAN CORPUSCULAR HEMOGLOBIN 30.1 pg (27.0-33.4); MEAN CORPUSCULAR HGB CONC 33.6 g/dL (32.0-36.0); MEAN CORPUSCULAR VOLUME 89 fl (80-97); MONOCYTES % (AUTO) 11.6 % (3-13); PLATELET COUNT 315 10^3/uL (150-450); RED CELL DISTRIBUTION WIDTH 14.6 % (11.5-14.0); SEGMENTED NEUTROPHILS % (AUTO) 66.9 % (42-78); TOTAL CELLS COUNTED % (AUTO) 100 %; WHITE BLOOD COUNT 7.5 10^3/uL (4.0-10.5)
[2017-05-07 02:58] LABS: ALANINE AMINOTRANSFERASE 29 U/L (9-52); ALBUMIN 3.7 g/dL (3.5-5.0); ALKALINE PHOSPHATASE 138 U/L (38-126); ANION GAP 16 (5-19); ASPARTATE AMINO TRANSFERASE 25 U/L (14-36); BILIRUBIN,DIRECT 0.6 mg/dL (0.0-0.4); BILIRUBIN,TOTAL 0.6 mg/dL (0.2-1.3); BLOOD UREA NITROGEN 56 mg/dL (7-20); CALCIUM 9.3 mg/dL (8.4-10.2); CARBON DIOXIDE 15 mmol/L (22-30); CHLORIDE 107 mmol/L (98-107); GLUCOSE 115 mg/dL (75-110); LIPASE 19.2 U/L (23-300); POTASSIUM 4.4 mmol/L (3.6-5.0); TOTAL PROTEIN 6.8 g/dL (6.3-8.2)
--- NOTE | 2017-05-07 03:52 | RADIOLOGY REPORT (SQ) ---
EXAM DESCRIPTION: CT ABD/PELVIS ORAL ONLY CLINICAL HISTORY: 76 years Female, sbo COMPARISON: 3. TECHNIQUE: No contrast. Oral contrast. Coronal and sagittal reformat. This exam was performed according to our departmental dose-optimization program, which includes automated exposure control, adjustment of the mA and/or kV according to patient size and/or use of iterative reconstruction technique. FINDINGS: 4.2 cm diameter small bowel dilation with air-fluid levels extending to the left lower abdominal ileostomy site. Orally administered contrast is seen mildly diffuse through a distended stomach and proximal small bowel. Mid and distal small bowel is not opacified. No significant free fluid. No free air. Moderate coronary arterial calcification stent. Atherosclerosis. Small atelectasis or scar bilateral lower lungs. Left nephrectomy clips. Severe fatty replacement of the pancreas. Contrast material is seen within the colon. Moderate L5-S1 vacuum disc. Unenhanced inferior chest, remaining abdominopelvic structures, and musculoskeleton appear otherwise grossly unremarkable. IMPRESSION: 1. Moderate grade small bowel obstruction/ileus pattern. 2. Left nephrectomy.
--- NOTE | 2017-05-07 04:22 | PDOC H&P ---
History of Present Illness Admission Date/PCP: 05/07/17 Patient complains of: obstipation x 3 days History of Present Illness: SOURAV ALVES is a 76 year old female with a 3 day hx of obstipation via endileostomy bag. A CT scan A/P with oral contrast was attempted but she is vomited most of the contrast. Since then she feels better and there is brown liquid matter in the ileostomy bag. The CT scan A/P shows oral contrast in the stomach and proximal small bowel. The patient has a hx of left nephrectomy for cancer @ 8 years ago complicated by colon injury, colectomy, endileostomy. Since then she has been admitted several time for partial mechanical small bowel obstruction and treated conservatively. She has developed ARF on CRF due to dehydration. Past Medical History Cardiac Medical History: Reports: Myocardial Infarction - 2001 HAD STENTS, Hypertension Pulmonary Medical History: Denies: Asthma, Tuberculosis Neurological Medical History: Denies: Seizures Malignancy Medical History: Reports: Renal (Kidney) Cancer - Left GI Medical History: Denies: Hepatitis, Hiatal Hernia Musculoskeltal Medical History: Reports: Gout - left foot Psychiatric Medical History: Denies: Depression Hematology: Reports: Anemia - AFTER SURGERY FEB 16 2011 Denies: Sickle Cell Disease Past Surgical History Past Surgical History: Reports: Cardiac Catheterization, Orthopedic Surgery - bilat cataracts, Other - Ileostomy and colon resection, left nephrectomy Denies: Amputation, Mastectomy, Pacemaker Social History Smoking Status: Unknown if Ever Smoked Frequency of Alcohol Use: None Hx Recreational Drug Use: No Drugs: None Hx Prescription Drug Abuse: No Family History Family History: None Parental Family History Reviewed: No Children Family History Reviewed: No Sibling(s) Family History Reviewed.: No Medication/Allergy Home Medications: Cyanocobalamin (Vitamin B-12) [Vitamin B-12 1000 mcg Tablet] 1,000 mcg PO DAILY 05/11/16 Folic Acid 1 mg PO DAILY 05/11/16 Gabapentin [Neurontin 100 mg Capsule] 400 mg PO TID 05/11/16 Magnesium Oxide [Mag-Ox 400 mg Tablet] 400 mg PO Q12 05/11/16 Pyridoxine HCl [Vitamin B-6 Tablet 50 mg] 50 mg PO BID 05/11/16 Zolpidem Tartrate [Ambien] 5 mg PO QHS 05/11/16 Cholecalciferol (Vitamin D3) [Vitamin D3 5000 unit Capsule] 5,000 unit PO [id number] 12/08/16 Allergies/Adverse Reactions: meperidine HCl [From Demerol] Allergy (Intermediate, Verified 12/08/16 07:30) Hives Sulfa (Sulfonamide Antibiotics) Allergy (Intermediate, Verified 12/08/16 07:30) Hives ciprofloxacin HCl [From Cipro] Allergy (Verified 12/08/16 07:30) RASH prednisone [Prednisone] Allergy (Verified 12/08/16 07:30) MAKES HER CRAZY Physical Exam Vital Signs: Temp Pulse Resp BP Pulse Ox 98.0 F 91 20 118/74 97 05/07/17 00:21 05/07/17 00:21 05/07/17 00:21 05/07/17 00:21 05/07/17 00:21 Intake & Output 05/05/17 05/06/17 05/07/17 06:59 06:59 06:59 Output Total 1100 Balance -1100 Weight 59.874 kg General appearance: PRESENT: no acute distress, cooperative Mouth exam: PRESENT: dry mucosa Neck exam: PRESENT: full ROM Respiratory exam: PRESENT: clear to auscultation arnda Cardiovascular exam: PRESENT: RRR GI/Abdominal exam: PRESENT: hypoactive bowel sounds, soft, other - ileostomy pink with brown liquid matter old, midline, surgical scar well healed Musculoskeletal exam: PRESENT: full ROM Neurological exam: PRESENT: alert, altered Results Laboratory Results: 05/07/17 02:20 05/07/17 02:20 05/07/17 05/07/17 05/07/17 02:20 02:20 02:20 WBC 7.5 RBC 4.10 Hgb 12.3 Hct 36.6 MCV 89 MCH 30.1 MCHC 33.6 RDW 14.6 H Plt Count 315 Seg Neutrophils % 66.9 Lymphocytes % 20.4 Monocytes % 11.6 Eosinophils % 0.9 Basophils % 0.2 Absolute Neutrophils 5.0 Absolute Lymphocytes 1.5 Absolute Monocytes 0.9 Absolute Eosinophils 0.1 Absolute Basophils 0.0 Sodium 138.0 Potassium 4.4 Chloride 107 Carbon Dioxide 15 L Anion Gap 16 BUN 56 H Creatinine 4.34 H Est GFR ( Amer) 12 L Est GFR (Non-Af Amer) 10 L Glucose 115 H Lactic Acid 1.0 Calcium 9.3 Total Bilirubin 0.6 AST 25 ALT 29 Alkaline Phosphatase 138 H Total Protein 6.8 Albumin 3.7 Lipase 19.2 L Impressions: Abdomen/Pelvis CT 05/07/17 01:39 IMPRESSION: 1. Moderate grade small bowel obstruction/ileus pattern. 2. Left nephrectomy. Assessment & Plan - Diagnosis (1) Nausea and vomiting Qualifiers: Vomiting type: unspecified Vomiting Intractability: intractable Qualified Code(s): R11.2 - Nausea with vomiting, unspecified - Plan Summary Plan Summary: A/ Obstipation x 3 days in patient with endileostomy Small amount of brown liquid matter in ileostomy bag Nausea vomiting ARF on CRF secondary to dehydration (BUN/Creatinine = 56/4.3 today, elevated from previous creatinine of @2.0) Hx of multiple previous episodes of partial mechanical small bowel obstruction treated conservatively, last one in 2015 P/ Admit NGT to [facility] Vásquez catheter Aggressive rehydration Monitor labs daily Conservative management at this point Oral laxatives are not indicated at this time until she rehydrated, as she has ARF on CRF 3 view abdominal obstructive series in Am 05/08/18
[2017-05-07] MEDS ORDERED: LIDOCAINE 2% URO-JET 5 ML KIT MM ONE (04:31)
[2017-05-07] MEDS ORDERED: MIDAZOLAM 2 MG/2 ML INJ IV ONE (04:34)
[2017-05-07] MEDS ORDERED: ONDANSETRON HCL INJ/PF 4 MG/2 ML SDV IV PRN (04:48)
[2017-05-07] MEDS ORDERED: NORMAL SALINE 1000 ML 1,000 ML IV PRN (05:46)
--- NOTE | 2017-05-07 05:48 | PDOC CONSULTATION ---
Consultation Consult Date: 05/07/17 Attending physician:: ANDERSON GOMEZ Consult reason:: Renal failure History of Present Illness Admission Date/PCP: 05/07/17 05:17 Patient complains of: Abdominal pain History of Present Illness: SOURAV ALVES is a 76 year old female with a history of recurrent small bowel obstruction following remote partial colectomy and left nephrectomy for colon cancer and stage IV chronic kidney disease.. She presents with a 3 day hx of abdominal pain nausea and vomiting, prompting evaluation emergency room where she is found to have a CT suggestive of a bowel obstruction and acute on chronic renal failure. She is admitted to surgery with hospitalist consultation. She denies any new medications, chest pain or shortness of breath Past Medical History Cardiac Medical History: Reports: Myocardial Infarction - 2001 HAD STENTS, Hypertension Pulmonary Medical History: Denies: Asthma, Tuberculosis Neurological Medical History: Denies: Seizures Renal/ Medical History: Reports: Chronic Kidney Disease Malignancy Medical History: Reports: Colorectal Cancer, Renal (Kidney) Cancer - Left GI Medical History: Denies: Hepatitis, Hiatal Hernia Musculoskeltal Medical History: Reports: Gout - left foot Psychiatric Medical History: Denies: Depression Hematology: Reports: Anemia - AFTER SURGERY FEB 16 2011 Denies: Sickle Cell Disease Past Surgical History Past Surgical History: Reports: Cardiac Catheterization, Orthopedic Surgery - bilat cataracts, Other - Colostomy and bowel resection, nephrectomy Denies: Amputation, Mastectomy, Pacemaker Social History Information Source: Patient Lives with: Alone Smoking Status: Unknown if Ever Smoked Frequency of Alcohol Use: None Hx Recreational Drug Use: No Drugs: None Hx Prescription Drug Abuse: No - Advance Directive Resuscitation Status: Full Code Family History Family History: Hypertension Parental Family History Reviewed: Yes Children Family History Reviewed: Yes Sibling(s) Family History Reviewed.: Yes Medication/Allergy Home Medications: Cyanocobalamin (Vitamin B-12) [Vitamin B-12 1000 mcg Tablet] 1,000 mcg PO DAILY 05/11/16 Folic Acid 1 mg PO DAILY 05/11/16 Gabapentin [Neurontin 100 mg Capsule] 400 mg PO TID 05/11/16 Magnesium Oxide [Mag-Ox 400 mg Tablet] 400 mg PO Q12 05/11/16 Pyridoxine HCl [Vitamin B-6 Tablet 50 mg] 50 mg PO BID 05/11/16 Zolpidem Tartrate [Ambien] 5 mg PO QHS 05/11/16 Cholecalciferol (Vitamin D3) [Vitamin D3 5000 unit Capsule] 5,000 unit PO [id number] 12/08/16 Allergies/Adverse Reactions: meperidine HCl [From Demerol] Allergy (Intermediate, Verified 12/08/16 07:30) Hives Sulfa (Sulfonamide Antibiotics) Allergy (Intermediate, Verified 12/08/16 07:30) Hives ciprofloxacin HCl [From Cipro] Allergy (Verified 12/08/16 07:30) RASH prednisone [Prednisone] Allergy (Verified 12/08/16 07:30) MAKES HER CRAZY Review of Systems Constitutional: ABSENT: chills, fever(s), headache(s), weight gain, weight loss Eyes: ABSENT: visual disturbances Ears: ABSENT: hearing changes Cardiovascular: ABSENT: chest pain, dyspnea on exertion, edema, orthropnea, palpitations Respiratory: ABSENT: cough, hemoptysis Gastrointestinal: ABSENT: abdominal pain, constipation, diarrhea, hematemesis, hematochezia, nausea, vomiting Genitourinary: ABSENT: dysuria, hematuria Musculoskeletal: ABSENT: joint swelling Integumentary: ABSENT: rash, wounds Neurological: ABSENT: abnormal gait, abnormal speech, confusion, dizziness, focal weakness, syncope Psychiatric: ABSENT: anxiety, depression, homidical ideation, suicidal ideation Endocrine: ABSENT: cold intolerance, heat intolerance, polydipsia, polyuria Hematologic/Lymphatic: ABSENT: easy bleeding, easy bruising Physical Exam Vital Signs: Temp Pulse Resp BP Pulse Ox 98.0 F 91 20 118/74 97 05/07/17 00:21 05/07/17 00:21 05/07/17 00:21 05/07/17 00:21 05/07/17 00:21 General appearance: PRESENT: cooperative, mild distress, well-developed, well- nourished Head exam: PRESENT: atraumatic, normocephalic Eye exam: PRESENT: conjunctiva pink, EOMI, PERRLA. ABSENT: scleral icterus Ear exam: PRESENT: normal external ear exam Mouth exam: PRESENT: dry mucosa, tongue midline Neck exam: ABSENT: carotid bruit, JVD, lymphadenopathy, thyromegaly Respiratory exam: PRESENT: clear to auscultation randa. ABSENT: rales, rhonchi, wheezes Cardiovascular exam: PRESENT: RRR. ABSENT: diastolic murmur, rubs, systolic murmur Pulses: PRESENT: normal dorsalis pedis pul Vascular exam: PRESENT: normal capillary refill GI/Abdominal exam: PRESENT: diminished bowel sounds, distended, hypoactive bowel sounds, soft, tenderness. ABSENT: guarding, mass, organolmegaly, rebound Rectal exam: PRESENT: deferred Extremities exam: PRESENT: full ROM. ABSENT: calf tenderness, clubbing, pedal edema Neurological exam: PRESENT: alert, awake, oriented to person, oriented to place , oriented to time, oriented to situation, CN II-XII grossly intact. ABSENT: motor sensory deficit Psychiatric exam: PRESENT: appropriate affect, normal mood. ABSENT: homicidal ideation, suicidal ideation Skin exam: PRESENT: dry, intact, warm. ABSENT: cyanosis, rash Results Impressions: Abdomen/Pelvis CT 05/07/17 01:39 IMPRESSION: 1. Moderate grade small bowel obstruction/ileus pattern. 2. Left nephrectomy. Assessment & Plan - Diagnosis (1) Acute on chronic kidney failure Qualifiers: Acute renal failure type: unspecified Chronic kidney disease stage: unspecified stage Qualified Code(s): N17.9 - Acute kidney failure, unspecified ; N18.9 - Chronic kidney disease, unspecified; N18.9 - Chronic kidney disease, unspecified Is this a current diagnosis for this admission?: Yes Plan: Baseline GFR of 20 currently 10. IV fluid challenge, nephrology consult awaiting nephrotoxic meds and doses. (2) Dehydration Is this a current diagnosis for this admission?: Yes Plan: Secondary to small bowel obstruction, IV fluid challenge reevaluate chemistry (3) SBO (small bowel obstruction) Is this a current diagnosis for this admission?: Yes Plan: Defer to surgery - Time Time Spent: 50 to 70 Minutes - Inpatient Certification Medical Necessity: Need Close Monitoring Due to Risk of Patient Decompensation
[2017-05-07] MEDS ORDERED: FAMOTIDINE INJ/PF 20 MG/2 ML SDV IV SCH (10:00)
[2017-05-07] MEDS: NORMAL SALINE 1000 ML 1,000 ML IV PRN (10:57)
[2017-05-07] MEDS: FAMOTIDINE INJ/PF 20 MG/2 ML SDV IV SCH (11:35)
[2017-05-07] MEDS: HEPARIN SOD (PORCINE) 5,000 UNIT/ML 1 ML SYRINGE SUBCUT SCH ×2 (11:36→23:20)
[2017-05-07] MEDS: PYRIDOXINE HCL 50 MG TABLET PO SCH (18:30)
[2017-05-07] MEDS: MAGNESIUM OXIDE 400 MG TABLET PO SCH (18:30)
--- NOTE | 2017-05-07 19:14 | PDOC PROGRESS REPORT ---
Subjective Progress Note for:: 05/07/17 Reason For Visit: SHORTNESS OF BREATH Patient admitted early this morning for partial small bowel obstruction. According the patient she is up on the floor, doing much better, having no pain , and now gradually having ileostomy output. SHe is thirsty. Physical Exam Vital Signs: Temp Pulse Resp BP Pulse Ox 98.0 F 70 17 109/66 100 05/07/17 16:00 05/07/17 16:00 05/07/17 16:00 05/07/17 16:00 05/07/17 16:00 Intake & Output 05/06/17 05/07/17 05/08/17 06:59 06:59 06:59 Output Total 300 Balance -300 Weight 59.874 kg General appearance: PRESENT: no acute distress GI/Abdominal exam: PRESENT: other - Abdomen is soft, not distended no peritoneal signs no rigidity. There is some liquid stool in the ileostomy minimal gas. Results Impressions: Abdomen/Pelvis CT 05/07/17 01:39 IMPRESSION: 1. Moderate grade small bowel obstruction/ileus pattern. 2. Left nephrectomy. Assessment & Plan - Diagnosis (1) SBO (small bowel obstruction) Is this a current diagnosis for this admission?: Yes Plan: Impression: Partial small bowel obstruction, recurrent, now clinically resolving with ileostomy output, diminished pain, no nausea or vomiting. Plan: 1. we will start clear liquids 2. Anticipate uneventful diet advancement and discharge home in the next 24-48 hours.
[2017-05-07] MEDS ORDERED: (PENDING PHARMACY ID) (Pravastatin Sodium [Pravachol] 40 MG) PO SCH (22:00)
[2017-05-07] MEDS ORDERED: ATORVASTATIN CALCIUM 10 MG TABLET PO SCH (22:00)
[2017-05-07] MEDS ORDERED: ZOLPIDEM TARTRATE 5 MG TABLET PO SCH (22:00)
[2017-05-07] MEDS: GABAPENTIN 300 MG CAPSULE PO SCH (23:17)
[2017-05-07] MEDS: PROPRANOLOL HCL 10 MG TABLET PO SCH (23:18)
[2017-05-07] MEDS: BUPROPION HCL 75 MG TABLET PO SCH (23:19)
[2017-05-08] MEDS: NORMAL SALINE 1000 ML 1,000 ML IV PRN ×3 (02:55→23:40)
[2017-05-08] MEDS: GABAPENTIN 300 MG CAPSULE PO SCH ×2 (05:51→18:57)
[2017-05-08] MEDS: PROPRANOLOL HCL 10 MG TABLET PO SCH ×2 (05:51→18:57)
[2017-05-08 07:55] LABS: ABSOLUTE EOSINOPHILS # (AUTO) 0.1 10^3/uL (0.0-0.6); ABSOLUTE MONOCYTES (AUTO) 0.6 10^3/uL (0.1-1.4); BASOPHILS % (AUTO) 0.6 % (0-2); EOSINOPHILS % (AUTO) 1.6 % (0-6); HEMATOCRIT 31.6 % (36.0-47.0); HEMOGLOBIN 10.8 g/dL (12.0-15.5); LYMPHOCYTES % (AUTO) 21.3 % (13-45); MEAN CORPUSCULAR HEMOGLOBIN 30.6 pg (27.0-33.4); MEAN CORPUSCULAR HGB CONC 34.2 g/dL (32.0-36.0); MEAN CORPUSCULAR VOLUME 89 fl (80-97); MONOCYTES % (AUTO) 12.1 % (3-13); PLATELET COUNT 270 10^3/uL (150-450); RED BLOOD COUNT 3.53 10^6/uL (3.72-5.28); RED CELL DISTRIBUTION WIDTH 14.9 % (11.5-14.0); SEGMENTED NEUTROPHILS % (AUTO) 64.4 % (42-78); TOTAL CELLS COUNTED % (AUTO) 100 %; WHITE BLOOD COUNT 4.7 10^3/uL (4.0-10.5)
[2017-05-08 08:11] LABS: ANION GAP 14 (5-19); BLOOD UREA NITROGEN 39 mg/dL (7-20); CALCIUM 8.5 mg/dL (8.4-10.2); CARBON DIOXIDE 16 mmol/L (22-30); CHLORIDE 112 mmol/L (98-107); GLUCOSE 82 mg/dL (75-110); SODIUM 141.9 mmol/L (137-145)
[2017-05-08] MEDS: MAGNESIUM OXIDE 400 MG TABLET PO SCH ×2 (09:13→18:57)
[2017-05-08] MEDS: BUPROPION HCL 75 MG TABLET PO SCH (09:13)
[2017-05-08] MEDS: PYRIDOXINE HCL 50 MG TABLET PO SCH ×2 (09:13→18:57)
[2017-05-08] MEDS: HEPARIN SOD (PORCINE) 5,000 UNIT/ML 1 ML SYRINGE SUBCUT SCH ×2 (10:00→21:25)
[2017-05-08] MEDS ORDERED: BUPRENORPHINE 15 MCG TOP SCH (10:00)
[2017-05-08] MEDS ORDERED: CYANOCOBALAMIN (VITAMIN B-12) 1,000 MCG TABLET PO SCH (10:00)
[2017-05-08] MEDS ORDERED: FOLIC ACID 1 MG TABLET PO SCH (10:00)
[2017-05-08] MEDS ORDERED: (PENDING PHARMACY ID) (Bupropion Hcl [Bupropion Xl] 150 MG) PO SCH (10:00)
[2017-05-08] MEDS ORDERED: ALLOPURINOL 100 MG TABLET PO SCH (10:00)
--- NOTE | 2017-05-08 12:28 | PDOC PROGRESS REPORT ---
Subjective Progress Note for:: 05/08/17 Subjective:: small emesis today, comfortable now Reason For Visit: SHORTNESS OF BREATH Physical Exam Vital Signs: Temp Pulse Resp BP Pulse Ox 98.5 F 63 16 106/67 98 05/08/17 07:40 05/08/17 07:40 05/08/17 07:40 05/08/17 07:40 05/08/17 07:40 Intake & Output 05/07/17 05/08/17 05/09/17 06:59 06:59 06:59 Intake Total 2625 Output Total 700 Balance 1925 Weight 59.874 kg General appearance: PRESENT: no acute distress Respiratory exam: PRESENT: clear to auscultation randa Cardiovascular exam: PRESENT: RRR GI/Abdominal exam: PRESENT: hyperactive bowel sounds Results Laboratory Results: 05/08/17 06:19 05/08/17 06:19 05/08/17 05/08/17 06:19 06:19 WBC 4.7 RBC 3.53 L Hgb 10.8 L Hct 31.6 L MCV 89 MCH 30.6 MCHC 34.2 RDW 14.9 H Plt Count 270 Seg Neutrophils % 64.4 Lymphocytes % 21.3 Monocytes % 12.1 Eosinophils % 1.6 Basophils % 0.6 Absolute Neutrophils 3.0 Absolute Lymphocytes 1.0 Absolute Monocytes 0.6 Absolute Eosinophils 0.1 Absolute Basophils 0.0 Sodium 141.9 Potassium 4.0 Chloride 112 H Carbon Dioxide 16 L Anion Gap 14 BUN 39 H Creatinine 2.55 H Est GFR ( Amer) 22 L Est GFR (Non-Af Amer) 18 L Glucose 82 Calcium 8.5 Impressions: Abdomen/Pelvis CT 05/07/17 01:39 IMPRESSION: 1. Moderate grade small bowel obstruction/ileus pattern. 2. Left nephrectomy. Assessment & Plan - Diagnosis (1) Nausea and vomiting Qualifiers: Vomiting type: unspecified Vomiting Intractability: intractable Qualified Code(s): R11.2 - Nausea with vomiting, unspecified - Plan Summary Plan Summary: A/ Partial mechanical small bowel obstruction VSS, AF 200 mL of liquid stools drained from ileostomy CBC normal Bun / creatinine improved since admission (39/2.5, respectively) P/ Due to emesis this AM, Keep patient NPO Check 3 view obstructive series before resuming diet
--- NOTE | 2017-05-08 12:41 | RADIOLOGY REPORT (SQ) ---
EXAM DESCRIPTION: ACUTE ABDOMEN SERIES COMPLETED DATE/TIME: 05/08/2017 12:14 pm REASON FOR STUDY: ABD PAIN COMPARISON: CT abdomen pelvis 05/07/2017 Three-way abdomen 05/11/2016 NUMBER OF VIEWS: Three views. TECHNIQUE: Frontal chest, supine abdomen and upright abdomen radiographic images acquired. LIMITATIONS: None. FINDINGS: CHEST: Lungs clear of infiltrates. Minimal left basilar atelectasis or scarring. No fluf fy alveolar infiltrates worrisome for edema or pneumonia. No pleural effusion. No pneumothorax. FREE AIR: None. No abnormal gas collections. BOWEL GAS PATTERN: Distended stomach with air-fluid level. Abnormal bowel gas pattern, with air-fluid levels in multiple small bowel loops. Left lower quadrant ileostomy. Subtotal colectomy with decompressed descending colon present. CALCIFICATIONS: No suspicious calcifications. HARDWARE: Surgical clips scattered throughout the abdomen SOFT TISSUES: No gross mass or suggestion of organomegaly. BONES: No acute fracture. No worrisome bone lesions. OTHER: No other significant finding. IMPRESSION: No acute infiltrates Air-fluid levels on the upright view throughout the small bowel loops. Distended stomach with air-fl uid level. Findings are worrisome for bowel obstruction. No nasogastric tube. TECHNICAL DOCUMENTATION: JOB ID: [id number] [employer]- All Rights Reserved Reading location - IP/workstation name: [email or web address]-RR
[2017-05-08] MEDS: FAMOTIDINE INJ/PF 20 MG/2 ML SDV IV SCH (13:47)
[2017-05-08] MEDS ORDERED: BENZOCAINE 20% AEROSOL SPRAY 60 GM TP ONE (14:30)
[2017-05-08] MEDS ORDERED: LIDOCAINE 2% JELLY 30 ML TUBE MM ONE (14:30)
--- NOTE | 2017-05-08 16:22 | RADIOLOGY REPORT (SQ) ---
EXAM DESCRIPTION: KUB/ABDOMEN (SINGLE VIEW) COMPLETED DATE/TIME: 05/08/2017 4:01 pm REASON FOR STUDY: for NGT placement COMPARISON: 05/08/2017 NUMBER OF VIEWS: One view. TECHNIQUE: Supine radiographic image of the abdomen acquired. LIMITATIONS: None. FINDINGS: BOWEL GAS PATTERN: Normal bowel gas pattern. No dilated loops. CALCIFICATIONS: No suspicious calcifications. SOFT TISSUES: No gross mass or suggestion of organomegaly. HARDWARE: And NG tube extends just inside the stomach. Surgical clips are present BONES: No acute fracture. No worrisome bone lesions. OTHER: No other significant finding. IMPRESSION: An NG tube extends just inside the stomach. TECHNICAL DOCUMENTATION: JOB ID: [id number] [employer]- All Rights Reserved Reading location - IP/workstation name: [email or web address]
--- NOTE | 2017-05-08 17:56 | PDOC PROGRESS REPORT ---
Subjective Progress Note for:: 05/08/17 Subjective:: Patient was admitted with recurrent small bowel obstruction following a history of remote partial colectomy and left nephrectomy for colon cancer. She has been followed primarily by surgery with the medicine consultation due to history of coronary artery disease which is stable. Reason For Visit: SHORTNESS OF BREATH Physical Exam Vital Signs: Temp Pulse Resp BP Pulse Ox 98.1 F 52 L 15 143/47 H 97 05/08/17 16:00 05/08/17 16:00 05/08/17 16:00 05/08/17 16:00 05/08/17 16:00 Intake & Output 05/07/17 05/08/17 05/09/17 06:59 06:59 06:59 Intake Total 2625 Output Total 700 Balance 1925 Weight 59.874 kg General appearance: PRESENT: no acute distress Head exam: PRESENT: atraumatic Ear exam: PRESENT: normal external ear exam Neck exam: ABSENT: carotid bruit, JVD, lymphadenopathy, thyromegaly Cardiovascular exam: PRESENT: RRR. ABSENT: diastolic murmur, rubs, systolic murmur GI/Abdominal exam: PRESENT: hyperactive bowel sounds, soft, other - Colostomy bag. ABSENT: ascites Rectal exam: PRESENT: deferred Extremities exam: PRESENT: full ROM. ABSENT: calf tenderness, clubbing, pedal edema Musculoskeletal exam: PRESENT: ambulatory Neurological exam: PRESENT: alert, awake, oriented to person, oriented to place , oriented to time, oriented to situation, CN II-XII grossly intact. ABSENT: motor sensory deficit Results Laboratory Results: 05/08/17 06:19 05/08/17 06:19 05/08/17 05/08/17 06:19 06:19 WBC 4.7 RBC 3.53 L Hgb 10.8 L Hct 31.6 L MCV 89 MCH 30.6 MCHC 34.2 RDW 14.9 H Plt Count 270 Seg Neutrophils % 64.4 Lymphocytes % 21.3 Monocytes % 12.1 Eosinophils % 1.6 Basophils % 0.6 Absolute Neutrophils 3.0 Absolute Lymphocytes 1.0 Absolute Monocytes 0.6 Absolute Eosinophils 0.1 Absolute Basophils 0.0 Sodium 141.9 Potassium 4.0 Chloride 112 H Carbon Dioxide 16 L Anion Gap 14 BUN 39 H Creatinine 2.55 H Est GFR ( Amer) 22 L Est GFR (Non-Af Amer) 18 L Glucose 82 Calcium 8.5 Impressions: Abdomen/Pelvis CT 05/07/17 01:39 IMPRESSION: 1. Moderate grade small bowel obstruction/ileus pattern. 2. Left nephrectomy. Acute Abdomen Series 05/08/17 00:00 IMPRESSION: No acute infiltrates Air-fluid levels on the upright view throughout the small bowel loops. Distended stomach with air-fluid level. Findings are worrisome for bowel obstruction. No nasogastric tube. KUB X-Ray 05/08/17 00:00 IMPRESSION: An NG tube extends just inside the stomach. Assessment & Plan - Time Time Spent with patient: 15-24 minutes Medications reviewed and adjusted accordingly: Yes Anticipated discharge: Home Within: within 48 hours - Plan Summary Plan Summary: 1.Acute on chronic kidney disease stage III. Patient is currently receiving IV fluids. Continue to monitor her kidney function. Creatinine increased from 4.3 at admission to 2.5 today. 2. Dehydration secondary to small bowel obstruction with extra cellular volume depletion. Continue cautious fluid 3. Small bowel obstruction further management as per surgery 4. Stable coronary artery disease with no interventions planned
[2017-05-08] MEDS ORDERED: LORAZEPAM INJ 2 MG/1 ML VIAL IV PRN (20:17)
[2017-05-08] MEDS ORDERED: PHENOL/SODIUM PHENOLATE 100 SPRAY/177 ML BOTTLE PO PRN (20:20)
[2017-05-09 07:38] LABS: ABSOLUTE EOSINOPHILS # (AUTO) 0.1 10^3/uL (0.0-0.6); ABSOLUTE LYMPHOCYTES (AUTO) 1.1 10^3/uL (0.5-4.7); ABSOLUTE MONOCYTES (AUTO) 0.6 10^3/uL (0.1-1.4); ABSOLUTE NEUT (AUTO) 3.2 10^3/uL (1.7-8.2); BASOPHILS % (AUTO) 0.5 % (0-2); EOSINOPHILS % (AUTO) 1.8 % (0-6); HEMATOCRIT 31.1 % (36.0-47.0); HEMOGLOBIN 10.5 g/dL (12.0-15.5); LYMPHOCYTES % (AUTO) 21.6 % (13-45); MEAN CORPUSCULAR HGB CONC 33.6 g/dL (32.0-36.0); MEAN CORPUSCULAR VOLUME 89 fl (80-97); MONOCYTES % (AUTO) 12.1 % (3-13); PLATELET COUNT 236 10^3/uL (150-450); RED BLOOD COUNT 3.48 10^6/uL (3.72-5.28); RED CELL DISTRIBUTION WIDTH 14.8 % (11.5-14.0); TOTAL CELLS COUNTED % (AUTO) 100 %
[2017-05-09 07:50] LABS: ANION GAP 12 (5-19); BLOOD UREA NITROGEN 31 mg/dL (7-20); CALCIUM 8.3 mg/dL (8.4-10.2); CARBON DIOXIDE 17 mmol/L (22-30); CHLORIDE 115 mmol/L (98-107); GLUCOSE 65 mg/dL (75-110); POTASSIUM 3.4 mmol/L (3.6-5.0); SODIUM 144.2 mmol/L (137-145)
--- NOTE | 2017-05-09 07:51 | PDOC PROGRESS REPORT ---
Subjective Progress Note for:: 05/09/17 Subjective:: comfortable and hungry Reason For Visit: SHORTNESS OF BREATH Physical Exam Vital Signs: Temp Pulse Resp BP Pulse Ox 98.2 F 47 L 16 125/42 L 95 05/09/17 04:03 05/09/17 04:03 05/09/17 04:03 05/09/17 04:03 05/09/17 04:03 Intake & Output 05/08/17 05/09/17 05/10/17 06:59 06:59 06:59 Intake Total 2625 375 Output Total 700 1600 Balance 1925 -1225 Weight 59.874 kg General appearance: PRESENT: no acute distress Mouth exam: PRESENT: dry mucosa Respiratory exam: PRESENT: clear to auscultation randa Cardiovascular exam: PRESENT: RRR GI/Abdominal exam: PRESENT: hypoactive bowel sounds, soft Results Laboratory Results: 05/09/17 06:28 05/08/17 05/08/17 05/09/17 06:19 06:19 06:28 WBC 4.7 5.0 RBC 3.53 L 3.48 L Hgb 10.8 L 10.5 L Hct 31.6 L 31.1 L MCV 89 89 MCH 30.6 30.0 MCHC 34.2 33.6 RDW 14.9 H 14.8 H Plt Count 270 236 Seg Neutrophils % 64.4 64.0 Lymphocytes % 21.3 21.6 Monocytes % 12.1 12.1 Eosinophils % 1.6 1.8 Basophils % 0.6 0.5 Absolute Neutrophils 3.0 3.2 Absolute Lymphocytes 1.0 1.1 Absolute Monocytes 0.6 0.6 Absolute Eosinophils 0.1 0.1 Absolute Basophils 0.0 0.0 Sodium 141.9 Potassium 4.0 Chloride 112 H Carbon Dioxide 16 L Anion Gap 14 BUN 39 H Creatinine 2.55 H Est GFR ( Amer) 22 L Est GFR (Non-Af Amer) 18 L Glucose 82 Calcium 8.5 Impressions: Abdomen/Pelvis CT 05/07/17 01:39 IMPRESSION: 1. Moderate grade small bowel obstruction/ileus pattern. 2. Left nephrectomy. Acute Abdomen Series 05/08/17 00:00 IMPRESSION: No acute infiltrates Air-fluid levels on the upright view throughout the small bowel loops. Distended stomach with air-fluid level. Findings are worrisome for bowel obstruction. No nasogastric tube. KUB X-Ray 05/08/17 00:00 IMPRESSION: An NG tube extends just inside the stomach. Assessment & Plan - Diagnosis (1) Nausea and vomiting Qualifiers: Vomiting type: unspecified Vomiting Intractability: intractable Qualified Code(s): R11.2 - Nausea with vomiting, unspecified - Plan Summary Plan Summary: A/ S/p multiple abdominal surgeries Partial mechanical small bowel obstruction on admission (05/05/17) NGT inserted yesterday afternoon due to worsening of clinical picture and abdominal obstructive series Large NGT aspirate last night Ileostomy output picked up this am (200 mL) with gas in bag Abdomen soft P/ Clamp NGT x 4 hrs, if residual is < 150 mL, the NGT can be pulld pout and diet can be advanced to clears Abdominal obstructive series pending this AM
[2017-05-09] MEDS: NORMAL SALINE 1000 ML 1,000 ML IV PRN (08:34)
--- NOTE | 2017-05-09 08:45 | RADIOLOGY REPORT (SQ) ---
EXAM DESCRIPTION: ACUTE ABDOMEN SERIES COMPLETED DATE/TIME: 05/09/2017 8:14 am REASON FOR STUDY: f/u small bowel obstruction COMPARISON: Three-way abdomen 05/08/2017, 05/11/2016 CT abdomen pelvis 05/07/2017 NUMBER OF VIEWS: Three views. TECHNIQUE: Frontal chest, supine abdomen and upright abdomen radiographic images acquired. LIMITATIONS: None. FINDINGS: CHEST: Lungs clear of infiltrates. Cardiac silhouette size, elham unremarkable. Old left humeral head replacement FREE AIR: None. No abnormal gas collections. BOWEL GAS PATTERN: Decrease in distention of stomach and small bowel loops compared to previous studi es CALCIFICATIONS: No suspicious calcifications. HARDWARE: Left lower quadrant ostomy. Multiple surgical clips. The nasogastric tube has been pulled back, the tip is in the stomach, side port in the distal esophagus SOFT TISSUES: No gross mass or suggestion of organomegaly. BONES: No acute fracture. No worrisome bone lesions. OTHER: No other significant finding. IMPRESSION: Decrease in distention of stomach and small bowel compared to previous exams Nasogastric tube pulled back, with the tip in the stomach, side port in the distal esophagus. TECHNICAL DOCUMENTATION: JOB ID: [id number] [employer]- All Rights Reserved Reading location - IP/workstation name: [email or web address]
[2017-05-09] MEDS: HEPARIN SOD (PORCINE) 5,000 UNIT/ML 1 ML SYRINGE SUBCUT SCH ×2 (09:55→22:12)
[2017-05-09] MEDS: FAMOTIDINE INJ/PF 20 MG/2 ML SDV IV SCH (09:55)
[2017-05-09] MEDS ORDERED: CALCITRIOL 0.25 MCG CAPSULE PO SCH (10:00)
--- NOTE | 2017-05-09 10:06 | PDOC PROGRESS REPORT ---
Subjective Progress Note for:: 05/09/17 Subjective:: Patient seen in morning rounds with nurse awake and alert talkative readily able to sit up at the edge of the bed and ambulate. Patient states she is feeling much better requests to advance activity. No nursing issues. Auscultation of her lungs reveal rhonchi on the right side. Reason For Visit: SHORTNESS OF BREATH Physical Exam Vital Signs: Temp Pulse Resp BP Pulse Ox 97.5 F 57 L 18 126/53 H 100 05/09/17 08:29 05/09/17 08:29 05/09/17 08:29 05/09/17 08:29 05/09/17 08:29 Intake & Output 05/07/17 05/08/17 05/09/17 11:59 11:59 11:59 Intake Total 2625 375 Output Total 700 1600 Balance 1925 -1225 Weight 59.874 kg General appearance: PRESENT: no acute distress, cooperative Head exam: PRESENT: atraumatic, normocephalic Eye exam: PRESENT: conjunctiva pink, EOMI, PERRLA. ABSENT: scleral icterus Ear exam: PRESENT: normal external ear exam Mouth exam: PRESENT: moist, tongue midline Neck exam: ABSENT: carotid bruit, JVD, lymphadenopathy, thyromegaly Respiratory exam: PRESENT: prolonged expiratory phas, rhonchi. ABSENT: rales, wheezes Cardiovascular exam: PRESENT: RRR. ABSENT: diastolic murmur, rubs, systolic murmur Pulses: PRESENT: normal dorsalis pedis pul Vascular exam: PRESENT: normal capillary refill GI/Abdominal exam: PRESENT: hypoactive bowel sounds, normal bowel sounds, soft. ABSENT: distended, guarding, mass, organolmegaly, rebound, tenderness Rectal exam: PRESENT: deferred Extremities exam: PRESENT: full ROM. ABSENT: calf tenderness, clubbing, pedal edema Neurological exam: PRESENT: alert, awake, oriented to person, oriented to place , oriented to time, oriented to situation, CN II-XII grossly intact. ABSENT: motor sensory deficit Psychiatric exam: PRESENT: appropriate affect, normal mood. ABSENT: homicidal ideation, suicidal ideation Skin exam: PRESENT: dry, intact, warm. ABSENT: cyanosis, rash Results Laboratory Results: 05/09/17 06:28 05/09/17 06:28 05/09/17 05/09/17 06:28 06:28 WBC 5.0 RBC 3.48 L Hgb 10.5 L Hct 31.1 L MCV 89 MCH 30.0 MCHC 33.6 RDW 14.8 H Plt Count 236 Seg Neutrophils % 64.0 Lymphocytes % 21.6 Monocytes % 12.1 Eosinophils % 1.8 Basophils % 0.5 Absolute Neutrophils 3.2 Absolute Lymphocytes 1.1 Absolute Monocytes 0.6 Absolute Eosinophils 0.1 Absolute Basophils 0.0 Sodium 144.2 Potassium 3.4 L Chloride 115 H Carbon Dioxide 17 L Anion Gap 12 BUN 31 H Creatinine 2.36 H Est GFR ( Amer) 24 L Est GFR (Non-Af Amer) 20 L Glucose 65 L Calcium 8.3 L Impressions: Abdomen/Pelvis CT 05/07/17 01:39 IMPRESSION: 1. Moderate grade small bowel obstruction/ileus pattern. 2. Left nephrectomy. KUB X-Ray 05/08/17 00:00 IMPRESSION: An NG tube extends just inside the stomach. Acute Abdomen Series 05/09/17 06:00 IMPRESSION: Decrease in distention of stomach and small bowel compared to previous exams Nasogastric tube pulled back, with the tip in the stomach, side port in the distal esophagus. Assessment & Plan - Diagnosis (1) Acute on chronic kidney failure Qualifiers: Acute renal failure type: unspecified Chronic kidney disease stage: unspecified stage Qualified Code(s): N17.9 - Acute kidney failure, unspecified ; N18.9 - Chronic kidney disease, unspecified; N18.9 - Chronic kidney disease, unspecified Is this a current diagnosis for this admission?: Yes (2) Dehydration Is this a current diagnosis for this admission?: Yes (3) SBO (small bowel obstruction) Is this a current diagnosis for this admission?: Yes (4) Rhonchi Is this a current diagnosis for this admission?: Yes Plan: Concern for developing atelectasis versus pneumonia, DuoNeb, incentive spirometry, flutter valve and chest x-ray ordered for follow-up. - Time Time Spent with patient: 15-24 minutes
[2017-05-09] MEDS ORDERED: CHLORPHENIRAMINE MALEATE 4 MG TABLET PO ONE (11:00)
[2017-05-09] MEDS ORDERED: FLUTICASONE NASAL SPRAY 50 MCG/SPRY 120 SPRAY/16 GM NASL ONE (11:00)
[2017-05-09] MEDS ORDERED: IPRATROPIUM/ALBUTEROL 0.5-2.5 MG/3 ML AMPUL NEB ONE (11:00)
[2017-05-09] MEDS ORDERED: POTASSI CL 20 MEQ/50 ML RIDER 20 MEQ/50 ML RTUPB IV ONE (11:00)
--- NOTE | 2017-05-09 11:32 | RADIOLOGY REPORT (SQ) ---
EXAM DESCRIPTION: CHEST PA/LAT COMPLETED DATE/TIME: 05/09/2017 10:41 am REASON FOR STUDY: right side viviane COMPARISON: March 2014 EXAM PARAMETERS: NUMBER OF VIEWS: two views TECHNIQUE: Digital Frontal and Lateral radiographic views of the chest acquired. RADIATION DOSE: NA LIMITATIONS: none FINDINGS: LUNGS AND PLEURA: There are patchy lung parenchymal densities in the left retrocardiac are a which could represent a patchy pneumonic infiltrate. Remaining lung albarado are clear. No pleural effusions are identified. MEDIASTINUM AND HILAR STRUCTURES: No masses or contour abnormalities. HEART AND VASCULAR STRUCTURES: Heart normal size. No evidence for failure. BONES: No acute findings. HARDWARE: NG tube is identified with its tip projected in the left upper quadrant. Left shoulder pro sthesis is identified. OTHER: No other significant finding. IMPRESSION: Patchy lung parenchymal densities in the left retrocardiac area which could represent a patchy pneumonic infiltrate. Remaining lung albarado are clear. Other findings as noted above TECHNICAL DOCUMENTATION: JOB ID: [id number] [employer]- All Rights Reserved Reading location - IP/workstation name: [email or web address]
[2017-05-09] MEDS: IPRATROPIUM/ALBUTEROL 0.5-2.5 MG/3 ML AMPUL NEB SCH ×2 (14:41→19:50)
[2017-05-09] MEDS: PYRIDOXINE HCL 50 MG TABLET PO SCH (17:39)
[2017-05-09] MEDS: MAGNESIUM OXIDE 400 MG TABLET PO SCH (17:39)
[2017-05-09] MEDS: PROPRANOLOL HCL 10 MG TABLET PO SCH (21:51)
[2017-05-09] MEDS: GABAPENTIN 300 MG CAPSULE PO SCH (21:51)
[2017-05-09] MEDS: BUPROPION HCL 75 MG TABLET PO SCH (21:52)
[2017-05-09] MEDS: FLUTICASONE NASAL SPRAY 50 MCG/SPRY 120 SPRAY/16 GM NASL SCH (21:52)
[2017-05-09] MEDS ORDERED: ZOLPIDEM TARTRATE 5 MG TABLET PO SCH (22:00)
[2017-05-09] MEDS ORDERED: ATORVASTATIN CALCIUM 10 MG TABLET PO SCH (22:00)
[2017-05-10] MEDS: IPRATROPIUM/ALBUTEROL 0.5-2.5 MG/3 ML AMPUL NEB SCH ×2 (01:56→09:20)
[2017-05-10] MEDS: NORMAL SALINE 1000 ML 1,000 ML IV PRN (04:05)
[2017-05-10] MEDS: GABAPENTIN 300 MG CAPSULE PO SCH (06:26)
[2017-05-10] MEDS: PROPRANOLOL HCL 10 MG TABLET PO SCH (06:26)
[2017-05-10] MEDS ORDERED: POTASSIUM CHLORIDE 20 MEQ/15 ML UDCUP PO ONE (08:00)
--- NOTE | 2017-05-10 09:29 | PDOC PROGRESS REPORT ---
Subjective Subjective:: Patient seen in morning rounds after the removal of her NG tube tolerating clear liquids, awake and alert talkative readily able to sit up at the edge of the bed and ambulate. Patient states she is feeling much better requests to advance activity. No nursing issues. Auscultation of her lungs reveal resolution of the rhonchi on the right side. Reason For Visit: SHORTNESS OF BREATH Physical Exam Vital Signs: Temp Pulse Resp BP Pulse Ox 97.9 F 67 18 126/57 H 97 05/10/17 08:49 05/10/17 08:49 05/10/17 08:49 05/10/17 08:49 05/10/17 08:49 Intake & Output 05/08/17 05/09/17 05/10/17 11:59 11:59 11:59 Intake Total 2625 375 3597 Output Total 700 1600 2100 Balance 1925 -1225 1497 General appearance: PRESENT: no acute distress, well-developed, well-nourished Head exam: PRESENT: atraumatic, normocephalic Eye exam: PRESENT: conjunctiva pink, EOMI, PERRLA. ABSENT: scleral icterus Ear exam: PRESENT: normal external ear exam Mouth exam: PRESENT: moist, tongue midline Neck exam: ABSENT: carotid bruit, JVD, lymphadenopathy, thyromegaly Respiratory exam: PRESENT: clear to auscultation randa. ABSENT: rales, rhonchi, wheezes Cardiovascular exam: PRESENT: RRR. ABSENT: diastolic murmur, rubs, systolic murmur Pulses: PRESENT: normal dorsalis pedis pul Vascular exam: PRESENT: normal capillary refill GI/Abdominal exam: PRESENT: normal bowel sounds, soft. ABSENT: distended, guarding, mass, organolmegaly, rebound, tenderness Rectal exam: PRESENT: deferred Extremities exam: PRESENT: full ROM. ABSENT: calf tenderness, clubbing, pedal edema Neurological exam: PRESENT: alert, awake, oriented to person, oriented to place , oriented to time, oriented to situation, CN II-XII grossly intact. ABSENT: motor sensory deficit Psychiatric exam: PRESENT: appropriate affect, normal mood. ABSENT: homicidal ideation, suicidal ideation Skin exam: PRESENT: dry, intact, warm. ABSENT: cyanosis, rash Results Laboratory Results: 05/09/17 06:28 05/09/17 06:28 Impressions: Abdomen/Pelvis CT 05/07/17 01:39 IMPRESSION: 1. Moderate grade small bowel obstruction/ileus pattern. 2. Left nephrectomy. KUB X-Ray 05/08/17 00:00 IMPRESSION: An NG tube extends just inside the stomach. Chest X-Ray 05/09/17 00:00 IMPRESSION: Patchy lung parenchymal densities in the left retrocardiac area which could represent a patchy pneumonic infiltrate. Remaining lung albarado are clear. Other findings as noted above Acute Abdomen Series 05/09/17 06:00 IMPRESSION: Decrease in distention of stomach and small bowel compared to previous exams Nasogastric tube pulled back, with the tip in the stomach, side port in the distal esophagus. Assessment & Plan - Diagnosis (1) Acute on chronic kidney failure Qualifiers: Acute renal failure type: unspecified Chronic kidney disease stage: unspecified stage Qualified Code(s): N17.9 - Acute kidney failure, unspecified ; N18.9 - Chronic kidney disease, unspecified; N18.9 - Chronic kidney disease, unspecified Is this a current diagnosis for this admission?: Yes Plan: Baseline GFR of 20 has returned to baseline. Continue to avoid nephrotoxic meds and doses. (2) Dehydration Is this a current diagnosis for this admission?: Yes Plan: Secondary to small bowel obstruction is resolved continue to encourage p.o. fluids. (3) SBO (small bowel obstruction) Is this a current diagnosis for this admission?: Yes Plan: Defer to surgery (4) Rhonchi Is this a current diagnosis for this admission?: Yes Plan: Concern for developing atelectasis has resolved with pulmonary toilet. Thank you for the opportunity to participate in the care of this patient. She is currently at baseline from medicine standpoint will sign off. - Time Time Spent with patient: 15-24 minutes
[2017-05-10] MEDS ORDERED: FOLIC ACID 1 MG TABLET PO SCH (10:00)
[2017-05-10] MEDS ORDERED: CYANOCOBALAMIN (VITAMIN B-12) 1,000 MCG TABLET PO SCH (10:00)
[2017-05-10] MEDS ORDERED: ERGOCALCIFEROL (VITAMIN D2) 50000 UNIT (1.25 MG) CAPSULE PO SCH ×3 (10:00)
[2017-05-10] MEDS ORDERED: ALLOPURINOL 100 MG TABLET PO SCH (10:00)
[2017-05-10] MEDS: PYRIDOXINE HCL 50 MG TABLET PO SCH (10:06)
[2017-05-10] MEDS: BUPROPION HCL 75 MG TABLET PO SCH (10:07)
[2017-05-10] MEDS: FAMOTIDINE INJ/PF 20 MG/2 ML SDV IV SCH (10:07)
[2017-05-10] MEDS: MAGNESIUM OXIDE 400 MG TABLET PO SCH (10:07)
[2017-05-10] MEDS: FLUTICASONE NASAL SPRAY 50 MCG/SPRY 120 SPRAY/16 GM NASL SCH (10:08)
[2017-05-10] MEDS: HEPARIN SOD (PORCINE) 5,000 UNIT/ML 1 ML SYRINGE SUBCUT SCH (10:09)
--- NOTE | 2017-05-10 10:51 | PDOC PROGRESS REPORT ---
Subjective Progress Note for:: 05/10/17 Subjective:: Feels well. No abdominal symptoms. Tolerating a low residue diet. Reason For Visit: SHORTNESS OF BREATH Physical Exam Vital Signs: Temp Pulse Resp BP Pulse Ox 97.9 F 64 16 126/57 H 96 05/10/17 08:49 05/10/17 09:20 05/10/17 09:20 05/10/17 08:49 05/10/17 09:20 Intake & Output 05/09/17 05/10/17 05/11/17 06:59 06:59 06:59 Intake Total 375 3597 Output Total 1600 2100 Balance -1225 1497 General appearance: PRESENT: no acute distress, cooperative Respiratory exam: PRESENT: clear to auscultation randa Cardiovascular exam: PRESENT: RRR GI/Abdominal exam: PRESENT: other - Soft, nondistended, nontender to palpation. Ileostomy functioning well. Results Laboratory Results: 05/09/17 06:28 05/09/17 06:28 Impressions: Abdomen/Pelvis CT 05/07/17 01:39 IMPRESSION: 1. Moderate grade small bowel obstruction/ileus pattern. 2. Left nephrectomy. KUB X-Ray 05/08/17 00:00 IMPRESSION: An NG tube extends just inside the stomach. Chest X-Ray 05/09/17 00:00 IMPRESSION: Patchy lung parenchymal densities in the left retrocardiac area which could represent a patchy pneumonic infiltrate. Remaining lung albarado are clear. Other findings as noted above Acute Abdomen Series 05/09/17 06:00 IMPRESSION: Decrease in distention of stomach and small bowel compared to previous exams Nasogastric tube pulled back, with the tip in the stomach, side port in the distal esophagus. Assessment & Plan - Diagnosis (1) SBO (small bowel obstruction) Is this a current diagnosis for this admission?: Yes Plan: Resolved. Discharge patient home on low residue diet.
--- NOTE | 2017-05-10 11:09 | [facility] DISCHARGE SUMMARY E ---
[facility] Discharge Summary NAME: SOURAV ALVES AGE: 76Y ADMITTED: 05/07/2017 DISCHARGED: 05/10/2017 FINAL DIAGNOSIS: Partial small bowel obstruction. HOSPITAL COURSE: The patient was admitted, managed conservatively with NG decompression. She had resumption of bowel function with good ileostomy function. She was tolerating a low residue diet well at the time of discharge. The patient had no symptoms at the time of discharge with no abdominal pain. The patient is now being discharged to home in good condition. She will follow up on an as needed basis. She may resume her home medications. She is follow a low residue diet. She is stay active at home. DICTATING PHYSICIAN: POLLO GODFREY M.D. [id number] Y#: [id number] ID: [id number] JOB#: [id number] ACCT: [id number] cc:Felix MURRAY M.D. >
[2017-05-10 12:15] VITALS: BP 138/52
[2017-05-11] MEDS ORDERED: CALCITRIOL 0.25 MCG CAPSULE PO SCH (10:00)
== END 2017-05-10 12:20 | disposition home or self-care (01) | DRG 389 ==
LOC: ER 00:02 → EH 05:17 → 2S 07:55
PROVIDERS: ADMIT Surgery; ATTEND Surgery
DX: K56.600 Partial intestinal obstruction, unspecified as to cause (principal); N17.9 Acute kidney failure, unspecified; E86.0 Dehydration; I12.9 Hypertensive chronic kidney disease with stage 1 through stage 4 chronic kidney disease, or unspecified chronic kidney disease; N18.3 Chronic kidney disease, stage 3 (moderate); Z90.5 Acquired absence of kidney; I25.2 Old myocardial infarction; Z86.73 Personal history of transient ischemic attack (TIA), and cerebral infarction without residual deficits; Z85.528 Personal history of other malignant neoplasm of kidney; Z93.2 Ileostomy status
CPT/HCPCS: 36415; 71046; 74018; 74022; 74176; 80048; 80053; 83605; 83690; 85025; 94640; 94667; 94668; 94799; 96361; 96374; 96375; 99285; J1644; J2060; J2250; J2405; J3480; J3490; J7030; J7040; J7620; S0028

== ENCOUNTER → 2017-07-27 | Outpatient (CLI) | payer MEDICARE, OTHER ==
[2017-07-27 12:02] LABS: HEMATOCRIT 31.7 % (36.0-47.0); HEMOGLOBIN 10.5 g/dL (12.0-15.5); MEAN CORPUSCULAR HEMOGLOBIN 32.3 pg (27.0-33.4); MEAN CORPUSCULAR HGB CONC 33.3 g/dL (32.0-36.0); MEAN CORPUSCULAR VOLUME 97 fl (80-97); PLATELET COUNT 275 10^3/uL (150-450); RED BLOOD COUNT 3.26 10^6/uL (3.72-5.28); WHITE BLOOD COUNT 8.8 10^3/uL (4.0-10.5)
[2017-07-27 12:06] LABS: APPEARANCE,URINE CLOUDY; BILIRUBIN,URINE NEGATIVE (NEGATIVE); GLUCOSE, URINE NEGATIVE (NEGATIVE); KETONES,URINE NEGATIVE (NEGATIVE); LEUKOCYTE ESTERASE,URINE LARGE (NEGATIVE); NITRITE,URINE NEGATIVE (NEGATIVE); PROTEIN,URINE 30 mg/dL (NEGATIVE); URINE SPECIFIC GRAVITY 1.014; UROBILINOGEN,URINE NEGATIVE mg/dL (<2.0)
[2017-07-27 12:07] LABS: COLOR,URINE YELLOW
[2017-07-27 12:29] LABS: BLOOD UREA NITROGEN 88 mg/dL (7-20); CHLORIDE 102 mmol/L (98-107); GLUCOSE 150 mg/dL (75-110); POTASSIUM 5.1 mmol/L (3.6-5.0)
[2017-07-27 12:35] LABS: CARBON DIOXIDE 21 mmol/L (22-30); SODIUM 143.6 mmol/L (137-145)
[2017-07-27 12:38] LABS: ANION GAP 21 (5-19)
== END ==
LOC: OD 10:59
PROVIDERS: ATTEND Internal Medicine Nephrology
DX: E87.6 Hypokalemia (principal); E87.1 Hypo-osmolality and hyponatremia; N17.9 Acute kidney failure, unspecified
CPT/HCPCS: 36415; 80048; 81001; 85027

== ENCOUNTER → 2017-08-31 | Outpatient (CLI) | payer MEDICARE, OTHER ==
[2017-08-31 12:28] LABS: ABSOLUTE EOSINOPHILS # (AUTO) 0.2 10^3/uL (0.0-0.6); ABSOLUTE LYMPHOCYTES (AUTO) 2.1 10^3/uL (0.5-4.7); ABSOLUTE MONOCYTES (AUTO) 0.7 10^3/uL (0.1-1.4); ABSOLUTE NEUT (AUTO) 5.6 10^3/uL (1.7-8.2); BASOPHILS % (AUTO) 0.5 % (0-2); EOSINOPHILS % (AUTO) 2.4 % (0-6); HEMATOCRIT 31.6 % (36.0-47.0); HEMOGLOBIN 10.7 g/dL (12.0-15.5); LYMPHOCYTES % (AUTO) 24.5 % (13-45); MEAN CORPUSCULAR HEMOGLOBIN 32.9 pg (27.0-33.4); MEAN CORPUSCULAR HGB CONC 33.9 g/dL (32.0-36.0); MEAN CORPUSCULAR VOLUME 97 fl (80-97); MONOCYTES % (AUTO) 7.6 % (3-13); PLATELET COUNT 254 10^3/uL (150-450); RED BLOOD COUNT 3.25 10^6/uL (3.72-5.28); RED CELL DISTRIBUTION WIDTH 15.1 % (11.5-14.0); TOTAL CELLS COUNTED % (AUTO) 100 %; WHITE BLOOD COUNT 8.6 10^3/uL (4.0-10.5)
[2017-08-31 12:31] LABS: APPEARANCE,URINE CLOUDY; BILIRUBIN,URINE NEGATIVE (NEGATIVE); COLOR,URINE YELLOW; GLUCOSE, URINE NEGATIVE (NEGATIVE); KETONES,URINE NEGATIVE (NEGATIVE); LEUKOCYTE ESTERASE,URINE LARGE (NEGATIVE); NITRITE,URINE POSITIVE (NEGATIVE); PROTEIN,URINE 30 mg/dL (NEGATIVE); URINE SPECIFIC GRAVITY 1.016; UROBILINOGEN,URINE NEGATIVE mg/dL (<2.0)
[2017-08-31 12:44] LABS: UR PRO/CREAT RATIO RESULT 0.2 mg/mg (0.0-0.2); URINE PROTEIN 28.2 mg/dL (<12)
[2017-08-31 12:55] LABS: ALANINE AMINOTRANSFERASE 23 U/L (9-52); ALBUMIN 4.3 g/dL (3.5-5.0); ALKALINE PHOSPHATASE 63 U/L (38-126); ASPARTATE AMINO TRANSFERASE 30 U/L (14-36); BILIRUBIN,DIRECT 0.4 mg/dL (0.0-0.4); BILIRUBIN,TOTAL 0.4 mg/dL (0.2-1.3); BLOOD UREA NITROGEN 74 mg/dL (7-20); CALCIUM 9.5 mg/dL (8.4-10.2); GLUCOSE 81 mg/dL (75-110); IRON(TIBC) 117.1 ug/dL (37-170); PHOSPHORUS 6.9 mg/dL (2.5-4.5); POTASSIUM 5.4 mmol/L (3.6-5.0); TOTAL PROTEIN 7.6 g/dL (6.3-8.2)
[2017-08-31 13:54] LABS: CARBON DIOXIDE 19 mmol/L (22-30); CHLORIDE 107 mmol/L (98-107); SODIUM 145.4 mmol/L (137-145)
[2017-08-31 13:57] LABS: ANION GAP 19 (5-19)
== END ==
LOC: OD 11:28
PROVIDERS: ATTEND Internal Medicine Nephrology
DX: I12.9 Hypertensive chronic kidney disease with stage 1 through stage 4 chronic kidney disease, or unspecified chronic kidney disease (principal); N18.4 Chronic kidney disease, stage 4 (severe); D64.9 Anemia, unspecified
CPT/HCPCS: 36415; 80053; 81001; 82570; 82728; 83540; 83550; 83970; 84100; 84156; 84165; 84443; 85025

== ENCOUNTER → 2017-10-03 | Outpatient (CLI) | payer MEDICARE, OTHER ==
[2017-10-03 15:00] LABS: HEMATOCRIT 32.7 % (36.0-47.0); HEMOGLOBIN 11.2 g/dL (12.0-15.5); MEAN CORPUSCULAR HEMOGLOBIN 32.6 pg (27.0-33.4); MEAN CORPUSCULAR HGB CONC 34.3 g/dL (32.0-36.0); MEAN CORPUSCULAR VOLUME 95 fl (80-97); PLATELET COUNT 240 10^3/uL (150-450); RED BLOOD COUNT 3.45 10^6/uL (3.72-5.28); RED CELL DISTRIBUTION WIDTH 14.1 % (11.5-14.0); WHITE BLOOD COUNT 8.6 10^3/uL (4.0-10.5)
[2017-10-03 15:07] LABS: APPEARANCE,URINE SLIGHTLY-CLOUDY; BILIRUBIN,URINE NEGATIVE (NEGATIVE); COLOR,URINE YELLOW; GLUCOSE, URINE NEGATIVE (NEGATIVE); KETONES,URINE NEGATIVE (NEGATIVE); LEUKOCYTE ESTERASE,URINE TRACE (NEGATIVE); NITRITE,URINE NEGATIVE (NEGATIVE); PROTEIN,URINE 30 mg/dL (NEGATIVE); URINE SPECIFIC GRAVITY 1.015; UROBILINOGEN,URINE NEGATIVE mg/dL (<2.0)
[2017-10-03 15:24] LABS: BLOOD UREA NITROGEN 80 mg/dL (7-20); CALCIUM 9.6 mg/dL (8.4-10.2); GLUCOSE 105 mg/dL (75-110); PHOSPHORUS 8.4 mg/dL (2.5-4.5); POTASSIUM 3.6 mmol/L (3.6-5.0)
[2017-10-03 15:29] LABS: CARBON DIOXIDE 25 mmol/L (22-30); CHLORIDE 98 mmol/L (98-107); SODIUM 143.3 mmol/L (137-145)
[2017-10-03 15:32] LABS: ANION GAP 20 (5-19)
== END ==
LOC: OD 13:49
PROVIDERS: ATTEND Physician Assistant Medical
DX: I12.9 Hypertensive chronic kidney disease with stage 1 through stage 4 chronic kidney disease, or unspecified chronic kidney disease (principal); N18.5 Chronic kidney disease, stage 5; D64.9 Anemia, unspecified; E87.5 Hyperkalemia
CPT/HCPCS: 36415; 80048; 81001; 83735; 83970; 84100; 85027

== ENCOUNTER 2017-11-28 20:21 | Emergency (ER) | payer MEDICARE, OTHER ==
[2017-11-28 20:29] VITALS: BP 130/62
[2017-11-28] MEDS ORDERED: HYDROXYZINE HCL INJ 50 MG/1 ML VIAL IM ONE (21:59)
--- NOTE | 2017-11-28 22:00 | ER Document Report ---
ED General - General Chief Complaint: Rash Stated Complaint: POSSIBLE RASH Time Seen by Provider: 11/28/17 21:35 Notes: 77-year-old female to the emergency department complaining of itching. Patient states that this is been going on for approximately 2 months. Patient states that she has frequent coughs. Is a renal failure patient waiting on dialysis. Followed by Dr. Juares. Was started on hydrocodone liquid and takes it every day. Since that time she has been itching. Denies any other major symptoms at this time. States that she is always short of breath. Denies any fever, chills , sweats. Denies any abdominal pain. Denies any other major issues. Patient states that she scratches her skin so much that sometimes it bleeds. Not taking anything for the itching. TRAVEL OUTSIDE OF THE [place] IN LAST 30 DAYS: No - HPI Onset/Duration: Gradual, Constant Quality of pain: No pain Severity: Moderate - Related Data Allergies/Adverse Reactions: meperidine HCl [From Demerol] Allergy (Intermediate, Verified 12/08/16 07:30) Hives Sulfa (Sulfonamide Antibiotics) Allergy (Intermediate, Verified 12/08/16 07:30) Hives ciprofloxacin HCl [From Cipro] Allergy (Verified 12/08/16 07:30) RASH prednisone [Prednisone] Allergy (Verified 12/08/16 07:30) MAKES HER CRAZY Past Medical History - General Information source: Patient, [facility] Records - Social History Smoking Status: Never Smoker Cigarette use (# per day): No Frequency of alcohol use: None Drug Abuse: None Lives with: Spouse/Significant other Family History: Hypertension - Past Medical History Cardiac Medical History: Reports: Hx Heart Attack - 2001 HAD STENTS, Hx Hypertension Pulmonary Medical History: Denies: Hx Asthma, Hx Tuberculosis Neurological Medical History: Reports: Hx Cerebrovascular Accident - AFFECTED LEFT EYE. Denies: Hx Seizures Renal/ Medical History: Denies: Hx Peritoneal Dialysis Malignancy Medical History: Reports: Hx Colorectal Cancer, Hx Renal (Kidney) Cancer - Left GI Medical History: Denies: Hx Hepatitis, Hx Hiatal Hernia, Hx Ulcer Musculoskeletal Medical History: Reports Hx Gout - left foot Psychiatric Medical History: Denies: Hx Depression Infectious Medical History: Denies: Hx Hepatitis Past Surgical History: Reports: Hx Abdominal Surgery, Hx Bowel Surgery - colostomy, Hx Cardiac Catheterization, Hx Kidney (Renal Surgery) - left removed , Hx Orthopedic Surgery - bilat cataracts, Other - Colostomy and bowel resection , nephrectomy. Denies: Hx Mastectomy, Hx Open Heart Surgery, Hx Pacemaker - Immunizations Hx Diphtheria, Pertussis, Tetanus Vaccination: Yes Hx Pneumococcal Vaccination: 02/19/17 Review of Systems - Review of Systems Notes: Constitutional: denies: Chills, Diaphoresis, Fever, Malaise, Weakness EENT: denies: Eye discharge, Blurred vision, Tearing, Double vision, Nose congestion, Nose discharge, Throat swelling, Mouth pain Cardiovascular: denies: Palpitations, Heart racing, Orthopnea, Dyspnea, Chest pain Respiratory: denies: Cough, Hurts to breathe, Wheezing, Shortness of breath Gastrointestinal: denies: Abdominal pain, Diarrhea, Nausea, Vomiting, Black stools, bright red blood in stool Genitourinary: denies: Burning, Dysuria, Discharge, Frequency, Flank pain, Hematuria Musculoskeletal: denies: Joint pain, Joint swelling, Muscle pain, Muscle stiffness, back pain Hematologic/Lymphatic: denies: Anemia, Easy bleeding, Easy bruising, Blood clots Neurological/Psychological: denies: Confusion, Dementia, Depression, Loss of consciousness Skin: No lesions, no masses, no skin breakdown, no abscesses. Complaining of itching skin Physical Exam - Vital signs Vitals: Temp Pulse Resp BP Pulse Ox 98.7 F 97 16 130/62 H 99 11/28/17 20:28 11/28/17 20:28 11/28/17 20:28 11/28/17 20:28 11/28/17 20:28 Interpretation: Normal - General General appearance: Appears well, Alert - HEENT Head: Normocephalic, Atraumatic Eyes: Normal Conjunctiva: No: Icteric Pupils: PERRL - Respiratory Respiratory status: No respiratory distress Chest status: Nontender Breath sounds: Normal Chest palpation: Normal - Cardiovascular Rhythm: Regular Heart sounds: Normal auscultation Murmur: No - Abdominal Inspection: Normal Distension: No distension Bowel sounds: Normal Tenderness: Nontender Organomegaly: No organomegaly - Back Back: Normal, Nontender - Extremities General upper extremity: Normal inspection, Nontender, Normal color, Normal ROM , Normal temperature General lower extremity: Normal inspection, Nontender, Normal color, Normal ROM , Normal temperature, Normal weight bearing. No: Florence's sign - Neurological Neuro grossly intact: Yes Cognition: Normal Orientation: AAOx4 [place] Coma Scale Eye Opening: Spontaneous Joselo Coma Scale Verbal: Oriented Joselo Coma Scale Motor: Obeys Commands Joselo Coma Scale Total: 15 Speech: Normal Motor strength normal: LUE, RUE, LLE, RLE Sensory: Normal - Psychological Associated symptoms: Normal affect, Normal mood - Skin Skin Temperature: Warm Skin Moisture: Dry Skin Color: Other - Patient does not have any major significant rashes present. You can see some of the dermatographia on the back where her has been scratching her skin. There are no open lesions. There is no signs of cellulitis. There are no pustules. The skin is not abnormally colored. Course - Re-evaluation Re-evalutation: 11/28/17 22:25 Patient has been taking hydrocodone syrup which can definitely cause a histamine release. The beginning of this itching corresponds with the beginning of this medicine she has been taking. At this time I do not know if her renal failure could be contributing to some of the itching as well. She definitely has significantly elevated BUN and creatinine. Her last BUN was 80. Patient is followed by nephrology. 11/28/17 23:15 Patient feeling much better after getting shot of the Vistaril. Itching is better. Consult with the neurologist regarding her worsening uremia. This could potentially be a cause of pruritus. He wants to see patient on Sunday or Sunday of next week. Recommends writing her for repeat CBC and chemistry on Sunday. Will advise patient stop the hydrocodone, take the Vistaril, hydrate and return for any worsening symptoms. - Vital Signs Vital signs: Temp Pulse Resp BP Pulse Ox 98.7 F 97 16 130/62 H 99 11/28/17 20:28 11/28/17 20:28 11/28/17 20:28 11/28/17 20:28 11/28/17 20:28 - Laboratory Result Diagrams: 11/28/17 22:15 Laboratory results interpreted by me: 11/28/17 11/28/17 22:15 22:56 Chloride 96 L Anion Gap 23 H BUN 109 H Creatinine 6.35 H Est GFR ( Amer) 8 L Est GFR (Non-Af Amer) 6 L Glucose 130 H Calcium 10.5 H Ur Leukocyte Esterase SMALL H Discharge - Discharge Clinical Impression: Pruritus, Uremia due to inadequate renal perfusion, Dysuria Condition: Good Disposition: HOME, SELF-CARE Instructions: Itching, Nonspecific ([facility]), Urinary Tract Infection ([facility]) Prescriptions: Benzonatate [Tessalon Perle 100 mg Capsule] 100 mg PO Q8HP PRN 10 Days #30 cap PRN Reason: Cephalexin Monohydrate [Keflex 500 mg Capsule] 500 mg PO Q8H 5 Days #15 capsule Hydroxyzine HCl 25 mg PO TID PRN 10 Days #30 tablet PRN Reason: Itching Forms: Follow-Up Laboratory Testing Referrals: BIRD RAMIREZ PA-C [Primary Care Provider] - Follow up as needed Gus JUARES MD [ACTIVE STAFF] - 12/03/17 8:00 am
[2017-11-28 22:43] LABS: BLOOD UREA NITROGEN 109 mg/dL (7-20); CALCIUM 10.5 mg/dL (8.4-10.2); GLUCOSE 130 mg/dL (75-110); POTASSIUM 4.7 mmol/L (3.6-5.0)
[2017-11-28 22:49] LABS: ANION GAP 23 (5-19); CARBON DIOXIDE 22 mmol/L (22-30); CHLORIDE 96 mmol/L (98-107); SODIUM 140.9 mmol/L (137-145)
[2017-11-28 23:26] LABS: APPEARANCE,URINE SLIGHTLY-CLOUDY; BILIRUBIN,URINE NEGATIVE (NEGATIVE); COLOR,URINE YELLOW; GLUCOSE, URINE NEGATIVE (NEGATIVE); KETONES,URINE NEGATIVE (NEGATIVE); LEUKOCYTE ESTERASE,URINE SMALL (NEGATIVE); NITRITE,URINE NEGATIVE (NEGATIVE); PROTEIN,URINE NEGATIVE (NEGATIVE); URINE SPECIFIC GRAVITY 1.017; UROBILINOGEN,URINE NEGATIVE mg/dL (<2.0)
[2017-11-28] MEDS ORDERED: FAMOTIDINE 20 MG TABLET PO ONE (23:41)
== END 2017-11-28 23:50 | disposition home or self-care (01) ==
LOC: ER 20:21
DX: L29.9 Pruritus, unspecified (principal); N19 Unspecified kidney failure; R30.0 Dysuria; R21 Rash and other nonspecific skin eruption; I10 Essential (primary) hypertension; Z88.2 Allergy status to sulfonamides; Z88.3 Allergy status to other anti-infective agents; I25.2 Old myocardial infarction; Z86.73 Personal history of transient ischemic attack (TIA), and cerebral infarction without residual deficits
CPT/HCPCS: 99283; 96372; 36415; 87086; 87088; 80048; 81001; 87186; A9270; J3490

== ENCOUNTER → 2017-12-03 | Outpatient (CLI) | payer MEDICARE, OTHER ==
[2017-12-03 11:50] LABS: ABSOLUTE BASOPHILS # (AUTO) 0.1 10^3/uL (0.0-0.2); ABSOLUTE EOSINOPHILS # (AUTO) 0.6 10^3/uL (0.0-0.6); ABSOLUTE LYMPHOCYTES (AUTO) 1.9 10^3/uL (0.5-4.7); ABSOLUTE NEUT (AUTO) 6.3 10^3/uL (1.7-8.2); BASOPHILS % (AUTO) 0.6 % (0-2); EOSINOPHILS % (AUTO) 5.7 % (0-6); HEMATOCRIT 31.5 % (36.0-47.0); HEMOGLOBIN 10.9 g/dL (12.0-15.5); LYMPHOCYTES % (AUTO) 19.2 % (13-45); MEAN CORPUSCULAR HEMOGLOBIN 33.7 pg (27.0-33.4); MEAN CORPUSCULAR HGB CONC 34.7 g/dL (32.0-36.0); MEAN CORPUSCULAR VOLUME 97 fl (80-97); MONOCYTES % (AUTO) 9.9 % (3-13); PLATELET COUNT 211 10^3/uL (150-450); RED BLOOD COUNT 3.24 10^6/uL (3.72-5.28); RED CELL DISTRIBUTION WIDTH 14.4 % (11.5-14.0); SEGMENTED NEUTROPHILS % (AUTO) 64.6 % (42-78); TOTAL CELLS COUNTED % (AUTO) 100 %; WHITE BLOOD COUNT 9.7 10^3/uL (4.0-10.5)
[2017-12-03 12:11] LABS: ALANINE AMINOTRANSFERASE 47 U/L (9-52); ALKALINE PHOSPHATASE 64 U/L (38-126); ANION GAP 17 (5-19); ASPARTATE AMINO TRANSFERASE 46 U/L (14-36); BILIRUBIN,DIRECT 0.4 mg/dL (0.0-0.4); BILIRUBIN,TOTAL 0.7 mg/dL (0.2-1.3); BLOOD UREA NITROGEN 81 mg/dL (7-20); CALCIUM 10.7 mg/dL (8.4-10.2); CARBON DIOXIDE 20 mmol/L (22-30); CHLORIDE 105 mmol/L (98-107); GLUCOSE 88 mg/dL (75-110); PHOSPHORUS 8.3 mg/dL (2.5-4.5); POTASSIUM 4.9 mmol/L (3.6-5.0); SODIUM 141.8 mmol/L (137-145); TOTAL PROTEIN 7.3 g/dL (6.3-8.2)
== END ==
LOC: OD 10:35
PROVIDERS: ATTEND Emergency Medicine
DX: N19 Unspecified kidney failure (principal); L29.9 Pruritus, unspecified
CPT/HCPCS: 36415; 80053; 84100; 85025

== ENCOUNTER 2018-06-21 07:24 | Outpatient (CLI) | payer MEDICARE, OTHER ==
[2018-06-21 09:21] VITALS: BP 134/58
[2018-06-21] MEDS: NORMAL SALINE 1000 ML 1,000 ML IV PRN ×2 (09:38→13:40)
== END 2018-06-21 16:43 | disposition home or self-care (01) ==
LOC: II 07:24 → 5TH 07:28 → II 16:43
PROVIDERS: ATTEND Internal Medicine Nephrology
PROC: 3E0337Z Introduction of Electrolytic and Water Balance Substance into Peripheral Vein, Percutaneous Approach (ICD-10-PCS; principal; 2018-06-21)
DX: E86.0 Dehydration (principal); N17.8 Other acute kidney failure
CPT/HCPCS: 96360; 96361; J1642

== ENCOUNTER 2018-07-23 09:03 | Emergency (ER) | payer MEDICARE, OTHER ==
--- NOTE | 2018-07-23 09:26 | ER Document Report ---
ED Medical Screen (RME) - General Chief Complaint: Abnormal Lab Results Stated Complaint: ABNORMAL LABS Time Seen by Provider: 07/23/18 09:16 Primary Care Provider: LADARIUS LEYVA DO [Primary Care Provider] - Follow up as needed Mode of Arrival: Wheelchair Information source: Patient Notes: Patient presents to the emergency department with reports of abnormal labs. She reports she was contacted by Dr. Juares's office yesterday and told to come to the emergency department. She reports she had labs drawn on July 19. She is not sure what the abnormal lab is. Patient reports she is getting ready to be placed on dialysis. She denies symptoms at this point. Reports she feels fine. She has a PermCath in place which reports has never been flushed. She also reports she has stitches on the left side of her neck since March which have never been removed. I have greeted and performed a rapid initial assessment of this patient. A comprehensive ED assessment and evaluation of the patient, analysis of test results and completion of the medical decision making process will be conducted by additional ED providers. Dictation of this chart was performed using voice recognition software; therefore, there may be some unintended grammatical errors. TRAVEL OUTSIDE OF THE [place] IN LAST 30 DAYS: No - Related Data Allergies/Adverse Reactions: meperidine HCl [From Demerol] Allergy (Intermediate, Verified 07/23/18 09:07) Hives Sulfa (Sulfonamide Antibiotics) Allergy (Intermediate, Verified 07/23/18 09:07) Hives ciprofloxacin HCl [From Cipro] Allergy (Verified 07/23/18 09:07) RASH prednisone [Prednisone] Allergy (Verified 07/23/18 09:07) MAKES HER CRAZY Past Medical History - Past Medical History Cardiac Medical History: Reports: Hx Heart Attack - 2001 HAD STENTS, Hx Hypertension Pulmonary Medical History: Denies: Hx Asthma, Hx Tuberculosis Neurological Medical History: Reports: Hx Cerebrovascular Accident - AFFECTED LEFT EYE. Denies: Hx Seizures Renal/ Medical History: Denies: Hx Peritoneal Dialysis Malignancy Medical History: Reports: Hx Colorectal Cancer, Hx Renal (Kidney) Cancer - Left GI Medical History: Denies: Hx Hepatitis, Hx Hiatal Hernia, Hx Ulcer Musculoskeltal Medical History: Reports Hx Gout - left foot Psychiatric Medical History: Denies: Hx Depression Infectious Medical History: Denies: Hx Hepatitis Past Surgical History: Reports: Hx Abdominal Surgery, Hx Bowel Surgery - colostomy, Hx Cardiac Catheterization, Hx Kidney (Renal Surgery) - left removed, Hx Orthopedic Surgery - bilat cataracts, Other - Colostomy and bowel resection, nephrectomy. Denies: Hx Mastectomy, Hx Open Heart Surgery, Hx Pacemaker - Immunizations Hx Diphtheria, Pertussis, Tetanus Vaccination: Yes History of Influenza Vaccine for 11/2016 - 04/2017 Season: Yes Influenza Administration Date for 11/2016 - 04/2017 Season: 11/19/16 Physical Exam - Vital signs Vitals: Temp Pulse Resp BP Pulse Ox 97.7 F 103 H 16 120/53 L 100 07/23/18 09:10 07/23/18 09:10 07/23/18 09:10 07/23/18 09:10 07/23/18 09:10 Course - Vital Signs Vital signs: Temp Pulse Resp BP Pulse Ox 97.7 F 103 H 16 120/53 L 100 07/23/18 09:10 07/23/18 09:10 07/23/18 09:10 07/23/18 09:10 07/23/18 09:10 Doctor's Discharge - Discharge Referrals: LADARIUS LEYVA DO [Primary Care Provider] - Follow up as needed
[2018-07-23 09:59] LABS: ABSOLUTE BASOPHILS # (AUTO) 0.1 10^3/uL (0.0-0.2); ABSOLUTE EOSINOPHILS # (AUTO) 0.2 10^3/uL (0.0-0.6); ABSOLUTE LYMPHOCYTES (AUTO) 2.3 10^3/uL (0.5-4.7); ABSOLUTE NEUT (AUTO) 7.3 10^3/uL (1.7-8.2); EOSINOPHILS % (AUTO) 2.2 % (0-6); HEMATOCRIT 28.4 % (36.0-47.0); HEMOGLOBIN 9.9 g/dL (12.0-15.5); LYMPHOCYTES % (AUTO) 21.2 % (13-45); MEAN CORPUSCULAR HEMOGLOBIN 33.1 pg (27.0-33.4); MEAN CORPUSCULAR HGB CONC 34.8 g/dL (32.0-36.0); MEAN CORPUSCULAR VOLUME 95 fl (80-97); MONOCYTES % (AUTO) 9.2 % (3-13); PLATELET COUNT 229 10^3/uL (150-450); RED BLOOD COUNT 2.99 10^6/uL (3.72-5.28); RED CELL DISTRIBUTION WIDTH 14.6 % (11.5-14.0); SEGMENTED NEUTROPHILS % (AUTO) 66.4 % (42-78); TOTAL CELLS COUNTED % (AUTO) 100 %
[2018-07-23 10:19] LABS: ALANINE AMINOTRANSFERASE 27 U/L (9-52); ALBUMIN 4.8 g/dL (3.5-5.0); ALKALINE PHOSPHATASE 45 U/L (38-126); ANION GAP 16 (5-19); ASPARTATE AMINO TRANSFERASE 47 U/L (14-36); BILIRUBIN,DIRECT 0.5 mg/dL (0.0-0.4); BILIRUBIN,TOTAL 0.9 mg/dL (0.2-1.3); BLOOD UREA NITROGEN 77 mg/dL (7-20); CALCIUM 11.6 mg/dL (8.4-10.2); CARBON DIOXIDE 30 mmol/L (22-30); CHLORIDE 90 mmol/L (98-107); GLUCOSE 101 mg/dL (75-110); POTASSIUM 4.4 mmol/L (3.6-5.0); SODIUM 135.9 mmol/L (137-145); TOTAL PROTEIN 7.8 g/dL (6.3-8.2)
[2018-07-23 10:48] LABS: APPEARANCE,URINE CLEAR; BILIRUBIN,URINE NEGATIVE (NEGATIVE); COLOR,URINE YELLOW; GLUCOSE, URINE NEGATIVE (NEGATIVE); KETONES,URINE NEGATIVE (NEGATIVE); LEUKOCYTE ESTERASE,URINE TRACE (NEGATIVE); NITRITE,URINE NEGATIVE (NEGATIVE); PROTEIN,URINE 30 mg/dL (NEGATIVE); URINE SPECIFIC GRAVITY 1.013; UROBILINOGEN,URINE NEGATIVE mg/dL (<2.0)
--- NOTE | 2018-07-23 11:12 | ER Document Report ---
ED General - General Chief Complaint: Abnormal Lab Results Stated Complaint: ABNORMAL LABS Time Seen by Provider: 07/23/18 09:16 Primary Care Provider: LADARIUS LEYVA DO [Primary Care Provider] - Follow up as needed Mode of Arrival: Wheelchair Notes: 77-year-old female patient emergency department no significant complaints. States that she had outpatient labs performed. Was called today because her labs were abnormal. Patient does not know which labs were abnormal. Has had elevated calcium in the past. Has had elevated BUN and creatinine in the past but not on dialysis. Has been followed by vascular surgery to try and get a fistula graft placed so that she can start dialysis but the grafts have been unsuccessful. TRAVEL OUTSIDE OF THE [place] IN LAST 30 DAYS: No - HPI Severity: None Pain Level: Denies Associated symptoms: Other - She does complain of worsening itching. - Related Data Allergies/Adverse Reactions: meperidine HCl [From Demerol] Allergy (Intermediate, Verified 07/23/18 09:07) Hives Sulfa (Sulfonamide Antibiotics) Allergy (Intermediate, Verified 07/23/18 09:07) Hives ciprofloxacin HCl [From Cipro] Allergy (Verified 07/23/18 09:07) RASH prednisone [Prednisone] Allergy (Verified 07/23/18 09:07) MAKES HER CRAZY Past Medical History - General Information source: Patient - Social History Smoking Status: Former Smoker Chew tobacco use (# tins/day): No Frequency of alcohol use: None Drug Abuse: None Family History: Hypertension Patient has suicidal ideation: No Patient has homicidal ideation: No - Past Medical History Cardiac Medical History: Reports: Hx Heart Attack - 2001 HAD STENTS, Hx Hypertension Pulmonary Medical History: Denies: Hx Asthma, Hx Tuberculosis Neurological Medical History: Reports: Hx Cerebrovascular Accident - AFFECTED LEFT EYE. Denies: Hx Seizures Renal/ Medical History: Denies: Hx Peritoneal Dialysis Malignancy Medical History: Reports: Hx Colorectal Cancer, Hx Renal (Kidney) Cancer - Left GI Medical History: Denies: Hx Hepatitis, Hx Hiatal Hernia, Hx Ulcer Musculoskeletal Medical History: Reports Hx Gout - left foot Psychiatric Medical History: Denies: Hx Depression Infectious Medical History: Denies: Hx Hepatitis Past Surgical History: Reports: Hx Abdominal Surgery, Hx Bowel Surgery - colostomy, Hx Cardiac Catheterization, Hx Kidney (Renal Surgery) - left removed, Hx Orthopedic Surgery - bilat cataracts, Other - Colostomy and bowel resection, nephrectomy. Denies: Hx Mastectomy, Hx Open Heart Surgery, Hx Pacemaker - Immunizations Hx Diphtheria, Pertussis, Tetanus Vaccination: Yes Hx Pneumococcal Vaccination: 02/19/17 Review of Systems - Review of Systems Notes: Constitutional: denies: Chills, Diaphoresis, Fever, Malaise, Weakness EENT: denies: Eye discharge, Blurred vision, Tearing, Double vision, Nose congestion, Nose discharge, Throat swelling, Mouth pain Cardiovascular: denies: Palpitations, Heart racing, Orthopnea, Dyspnea, Chest pain Respiratory: denies: Cough, Hurts to breathe, Wheezing, Shortness of breath Gastrointestinal: denies: Abdominal pain, Diarrhea, Nausea, Vomiting, Black stools, bright red blood in stool Genitourinary: denies: Burning, Dysuria, Discharge, Frequency, Flank pain, Hematuria Musculoskeletal: denies: Joint pain, Joint swelling, Muscle pain, Muscle stiffness, back pain Hematologic/Lymphatic: denies: Anemia, Easy bleeding, Easy bruising, Blood clots Neurological/Psychological: denies: Confusion, Dementia, Depression, Loss of consciousness Skin: No lesions, no masses, no skin breakdown, no abscesses. Does complain of significant itching Physical Exam - Vital signs Vitals: Temp Pulse Resp BP Pulse Ox 97.7 F 103 H 16 120/53 L 100 07/23/18 09:10 07/23/18 09:10 07/23/18 09:10 07/23/18 09:10 07/23/18 09:10 Interpretation: Normal - General General appearance: Appears well, Alert - HEENT Head: Normocephalic, Atraumatic Eyes: Normal Pupils: PERRL - Respiratory Respiratory status: No respiratory distress Chest status: Nontender Breath sounds: Normal Chest palpation: Normal - Cardiovascular Rhythm: Regular Heart sounds: Normal auscultation Murmur: No - Abdominal Inspection: Normal Distension: No distension Bowel sounds: Normal Tenderness: Nontender Organomegaly: No organomegaly - Back Back: Normal, Nontender - Extremities General upper extremity: Normal inspection, Nontender, Normal color, Normal ROM, Normal temperature General lower extremity: Normal inspection, Nontender, Normal color, Normal ROM, Normal temperature, Normal weight bearing. No: Florence's sign - Neurological Neuro grossly intact: Yes Cognition: Normal Orientation: AAOx4 [place] Coma Scale Eye Opening: Spontaneous [place] Coma Scale Verbal: Oriented Joselo Coma Scale Motor: Obeys Commands Joselo Coma Scale Total: 15 Speech: Normal Motor strength normal: LUE, RUE, LLE, RLE Sensory: Normal - Psychological Associated symptoms: Normal affect, Normal mood - Skin Skin Temperature: Warm Skin Moisture: Dry Skin Color: Normal Course - Re-evaluation Re-evalutation: 07/23/18 12:19 Laboratory 07/23/18 07/23/18 07/23/18 09:38 09:38 09:38 WBC 11.0 H RBC 2.99 L Hgb 9.9 L Hct 28.4 L MCV 95 MCH 33.1 MCHC 34.8 RDW 14.6 H Plt Count 229 Seg Neutrophils % 66.4 Lymphocytes % 21.2 Monocytes % 9.2 Eosinophils % 2.2 Basophils % 1.0 Absolute Neutrophils 7.3 Absolute Lymphocytes 2.3 Absolute Monocytes 1.0 Absolute Eosinophils 0.2 Absolute Basophils 0.1 Sodium 135.9 L Potassium 4.4 Chloride 90 L Carbon Dioxide 30 Anion Gap 16 BUN 77 H Creatinine 7.85 H Est GFR ( Amer) 6 L Est GFR (Non-Af Amer) 5 L Glucose 101 Calcium 11.6 H Total Bilirubin 0.9 Direct Bilirubin 0.5 H Neonat Total Bilirubin Not Reportable Neonat Direct Bilirubin Not Reportable Neonat Indirect Bili Not Reportable AST 47 H ALT 27 Alkaline Phosphatase 45 Total Protein 7.8 Albumin 4.8 Urine Color YELLOW Urine Appearance CLEAR Urine pH 8.0 Ur Specific [place] 1.013 Urine Protein 30 H Urine Glucose (UA) NEGATIVE Urine Ketones NEGATIVE Urine Blood NEGATIVE Urine Nitrite NEGATIVE Urine Bilirubin NEGATIVE Urine Urobilinogen NEGATIVE Ur Leukocyte Esterase TRACE H Urine WBC (Auto) 7 Urine RBC (Auto) 1 Urine Bacteria (Auto) TRACE Squamous Epi Cells Auto 2 Urine Mucus (Auto) RARE Urine Ascorbic Acid NEGATIVE 07/23/18 12:19 Patient has an elevated calcium at 11.7. Worsening creatinine. Spoke with Dr. Quintero who is on-call for Dr. Juares. Recommends giving 1 L of fluid followed by 20 mg of Lasix IV followed by another liter of fluid and rechecking labs. Patient is also complaining of quite a bit of itching so we will give her a shot of Vistaril while she is here. Anticipate patient will be able to go home sh ortly. - Vital Signs Vital signs: Temp Pulse Resp BP Pulse Ox 97.7 F 103 H 16 120/53 L 100 07/23/18 09:10 07/23/18 09:10 07/23/18 09:10 07/23/18 09:10 07/23/18 09:10 - Laboratory Result Diagrams: 07/23/18 09:38 07/23/18 09:38 Laboratory results interpreted by me: 07/23/18 07/23/18 07/23/18 09:38 09:38 09:38 WBC 11.0 H RBC 2.99 L Hgb 9.9 L Hct 28.4 L RDW 14.6 H Sodium 135.9 L Chloride 90 L BUN 77 H Creatinine 7.85 H Est GFR ( Amer) 6 L Est GFR (Non-Af Amer) 5 L Calcium 11.6 H Direct Bilirubin 0.5 H AST 47 H Urine Protein 30 H Ur Leukocyte Esterase TRACE H Discharge - Discharge Clinical Impression: Hypercalcemia Chronic renal failure Qualifiers: Chronic kidney disease stage: unspecified stage Qualified Code(s): N18.9 - Chronic kidney disease, unspecified Condition: Good Disposition: HOME, SELF-CARE Instructions: Kidney Failure ([facility]) Additional Instructions: Please continue to take all of your regular medications as instructed. Follow- up with your sound engineer audio control as soon as possible for discussion on the future of your kidney failure management. In the event that you develop worsening symptoms such as severe body pain, worsening itching, chest pain, palpitations or other symptoms please return. Referrals: Gus JUARES MD [ACTIVE STAFF] - Follow up in 3-5 days
[2018-07-23] MEDS ORDERED: NORMAL SALINE 1000 ML 1,000 ML IV ONE ×3 (11:15→14:30)
[2018-07-23] MEDS ORDERED: FUROSEMIDE INJ/PF 20 MG/2 ML SDV IV ONE ×2 (11:24→14:30)
[2018-07-23] MEDS ORDERED: HYDROXYZINE HCL INJ 50 MG/1 ML VIAL IM ONE (11:31)
[2018-07-23 16:58] LABS: ANION GAP 11 (5-19); BLOOD UREA NITROGEN 69 mg/dL (7-20); CARBON DIOXIDE 29 mmol/L (22-30); CHLORIDE 97 mmol/L (98-107); GLUCOSE 79 mg/dL (75-110); POTASSIUM 3.8 mmol/L (3.6-5.0)
[2018-07-23 17:37] VITALS: BP 114/55
== END 2018-07-23 17:37 | disposition home or self-care (01) ==
LOC: ER 09:03
DX: E83.52 Hypercalcemia (principal); N18.9 Chronic kidney disease, unspecified; I12.9 Hypertensive chronic kidney disease with stage 1 through stage 4 chronic kidney disease, or unspecified chronic kidney disease; Z88.3 Allergy status to other anti-infective agents; Z88.2 Allergy status to sulfonamides; Z85.038 Personal history of other malignant neoplasm of large intestine; Z85.528 Personal history of other malignant neoplasm of kidney; I25.2 Old myocardial infarction
CPT/HCPCS: 99283; 96372; 96361; 96374; 36415; 82570; 85025; 80053; 81001; J1940; J3410; J7030

== ENCOUNTER 2018-10-03 07:56 | Outpatient (CLI) | payer MEDICARE, OTHER ==
[2018-10-03 08:27] VITALS: BP 116/58
[2018-10-03 08:38] LABS: POTASSIUM 3.3 mmol/L (3.6-5.0)
[2018-10-03] MEDS ORDERED: MAGNESIUM SULFATE/D5W 2 GM/200 ML RTUPB IV ONE (09:16)
[2018-10-03] MEDS: MAGNESIUM SULFATE 1 GM/D5W 100 ML IV SCH ×2 (09:20→10:25)
[2018-10-03] MEDS: POTASSIUM CHLORIDE 20 MEQ/50 ML RTU IV SCH ×2 (11:29→13:17)
== END 2018-10-03 15:26 | disposition home or self-care (01) ==
LOC: II 07:56 → 5TH 07:57 → II 15:26
PROVIDERS: ATTEND Internal Medicine Nephrology
PROC: 3E033GC Introduction of Other Therapeutic Substance into Peripheral Vein, Percutaneous Approach (ICD-10-PCS; principal; 2018-10-03)
DX: E83.42 Hypomagnesemia (principal); E87.6 Hypokalemia
CPT/HCPCS: 36415; 83735; 84132; 96365; 96366; 96367; J3475; J3480

== ENCOUNTER 2018-10-29 00:51 | Inpatient (IN) | payer MEDICARE, OTHER ==
--- NOTE | 2018-10-29 01:24 | ER Document Report ---
ED Dizziness/Weakness - General Chief Complaint: General Weakness Stated Complaint: WEAKNESS Time Seen by Provider: 10/29/18 01:23 Primary Care Provider: Gus KRISHNAMURTHY MD [Primary Care Provider] - Follow up as needed Mode of Arrival: Stretcher Information source: Patient, Relative Notes: HISTORY OF PRESENT ILLNESS: Patient is a 78-year-old female with an extensive past medical history including coronary artery disease and chronic renal failure who presents with weakness after mechanical fall getting out of bed. Patient reports that she felt so weak that she thought she was "going to ," she attempted to get out of bed but fell reporting that she had no energy and was weak. She denies blacking out but does report hitting her head. She denies chest pain or shortness of breath currently. Location: Global Onset: Sudden Alleviation: None Provocation: Unknown Quality: Weakness, back pain Radiation: None Severity: Severe Timing: Persistent History of CAD: Yes Associated symptoms: Denies fevers or chills, no cough or congestion, no chest pain or shortness of breath REVIEW OF SYSTEMS: CONSTITUTIONAL : Positive for general weakness. Denies fever or chills, no sweats. Denies recent illness. EENT: Denies eye, ear, throat, or mouth pain or symptoms. Denies nasal or sinus congestion. CARDIOVASCULAR: Denies chest pain. Denies swelling of the legs. RESPIRATORY: Denies cough, cold, or chest congestion. Denies shortness of breath or difficulty breathing. Denies wheezing. GASTROINTESTINAL: Denies abdominal pain. Denies nausea, vomiting, or diarrhea. Denies constipation. GENITOURINARY: Denies difficulty urinating, painful urination, burning, frequency, or blood in urine. MUSCULOSKELETAL: Positive for back pain but no joint pain or swelling. SKIN: Denies rash or skin lesions. HEMATOLOGIC : Denies easy bruising or bleeding. LYMPHATIC: Denies swollen, enlarged glands. NEUROLOGICAL: Positive for resting tremors. Denies altered mental status or loss of consciousness. Denies headache. Denies weakness or paralysis or loss o f use of either side. Denies problems with gait or speech. Denies sensory or motor loss. PSYCHIATRIC: Denies anxiety or stress or depression. All other systems reviewed and negative. PHYSICAL EXAMINATION: GENERAL: Frail-appearing, well-nourished and in mild acute distress. HEAD: Atraumatic, normocephalic. No scalp deformity, depression, or crepitance. EYES: Pupils are 2mm and equal/round/reactive to light, extraocular movements intact, sclera anicteric, conjunctiva are normal. ENT: Nares patent bilaterally, oropharynx. Moist mucous membranes. No tonsil hypertrophy. NECK: Normal range of motion, supple without lymphadenopathy. LUNGS: Breath sounds present, equal, and clear to auscultation bilaterally. No wheezes, rales, or rhonchi. HEART: Increased rate. Normal rhythm without murmurs, rubs, or gallops. 2+ peripheral pulses. Normal capillary refill. ABDOMEN: Soft, nontender, nondistended. Normoactive bowel sounds. No guarding, no rebound. No masses appreciated. BACK: Normal contour, no midline tenderness. Rectal exam deferred. GENITAL/PELVIC: Deferred. EXTREMITIES: Normal range of motion, no pitting or edema. No cyanosis. NEUROLOGICAL: No focal neurological deficits. Moves all extremities spontaneously and on command. PSYCH: Normal mood, normal affect. No suicidal thoughts/ideations. No homicidal thoughts/ideations. No hallucinations. SKIN: Warm, dry, normal turgor, no rashes or lesions noted. ASSESSMENT AND PLAN: This patient is a 78-year-old female who presents with weakness and back pain after mechanical fall at home. Unknown etiology at this time but could include acute LA versus UTI versus mechanical fall 1. Will obtain labs, urine, cardiac enzymes, CT head, and reassess. 2. Will consider admission. TRAVEL OUTSIDE OF THE [place] IN LAST 30 DAYS: No - HPI Patient complains to provider of: Weakness Onset: Just prior to arrival Onset/Duration: Sudden Quality of pain: Cramping, Throbbing Severity: Moderate Pain Level: 3 Associated symptoms: Almost fainted, Lightheaded, Other - Back pain. denies: Chest pain Baseline gait: Uses a walker - Related Data Allergies/Adverse Reactions: meperidine HCl [From Demerol] Allergy (Intermediate, Verified 07/23/18 09:07) Hives Sulfa (Sulfonamide Antibiotics) Allergy (Intermediate, Verified 07/23/18 09:07) Hives ciprofloxacin HCl [From Cipro] Allergy (Verified 07/23/18 09:07) RASH prednisone [Prednisone] Allergy (Verified 07/23/18 09:07) MAKES HER CRAZY Past Medical History - General Information source: Patient, Relative - Social History Smoking Status: Never Smoker Chew tobacco use (# tins/day): No Frequency of alcohol use: None Drug Abuse: None Lives with: Family Family History: Hypertension Patient has suicidal ideation: No Patient has homicidal ideation: No - Past Medical History Cardiac Medical History: Reports: Hx Heart Attack - 2001 HAD STENTS, Hx Hypertension Pulmonary Medical History: Reports: None Denies: Hx Asthma, Hx Tuberculosis EENT Medical History: Reports: None Neurological Medical History: Reports: Hx Cerebrovascular Accident - AFFECTED LEFT EYE. Denies: Hx Seizures Endocrine Medical History: Reports: None Renal/ Medical History: Reports: None. Denies: Hx Peritoneal Dialysis Malignancy Medical History: Reports: Hx Colorectal Cancer, Hx Renal (Kidney) Cancer - Left GI Medical History: Reports: None. Denies: Hx Hepatitis, Hx Hiatal Hernia, Hx Ulcer Musculoskeletal Medical History: Reports Hx Gout - left foot Skin Medical History: Reports None Psychiatric Medical History: Reports: None Denies: Hx Depression Traumatic Medical History: Reports: None Infectious Medical History: Reports: None. Denies: Hx Hepatitis Past Surgical History: Reports: Hx Abdominal Surgery, Hx Bowel Surgery - colostomy, Hx Cardiac Catheterization, Hx Kidney (Renal Surgery) - left removed, Hx Orthopedic Surgery - bilat cataracts, Other - Colostomy and bowel resection, nephrectomy. Denies: Hx Mastectomy, Hx Open Heart Surgery, Hx Pacemaker - Immunizations Hx Diphtheria, Pertussis, Tetanus Vaccination: Yes Hx Pneumococcal Vaccination: 02/19/17 Review of Systems - Review of Systems Constitutional: See HPI, Weakness EENT: No symptoms reported Cardiovascular: No symptoms reported Respiratory: No symptoms reported Gastrointestinal: No symptoms reported Genitourinary: No symptoms reported Female Genitourinary: No symptoms reported Musculoskeletal: See HPI, Back pain Skin: No symptoms reported Hematologic/Lymphatic: No symptoms reported Neurological/Psychological: No symptoms reported -: Yes All other systems reviewed and negative Physical Exam - Vital signs Vitals: Pulse Ox 100 10/29/18 01:08 Interpretation: Normal - General General appearance: Appears well, Alert - HEENT Head: Normocephalic, Atraumatic Eyes: Normal Pupils: PERRL - Respiratory Respiratory status: No respiratory distress Chest status: Nontender Breath sounds: Normal Chest palpation: Normal - Cardiovascular Rhythm: Regular Heart sounds: Normal auscultation Murmur: No - Abdominal Inspection: Normal Distension: No distension Bowel sounds: Normal Tenderness: Nontender Organomegaly: No organomegaly - Back Back: Normal, Nontender - Extremities General upper extremity: Normal inspection, Nontender, Normal color, Normal ROM, Normal temperature General lower extremity: Normal inspection, Nontender, Normal color, Normal ROM, Normal temperature, Normal weight bearing. No: Florence's sign - Neurological Neuro grossly intact: Yes Cognition: Normal Orientation: AAOx4 [place] Coma Scale Eye Opening: Spontaneous [place] Coma Scale Verbal: Oriented [place] Coma Scale Motor: Obeys Commands [place] Coma Scale Total: 15 Speech: Normal Motor strength normal: LUE, RUE, LLE, RLE Sensory: Normal - Psychological Associated symptoms: Normal affect, Normal mood - Skin Skin Temperature: Warm Skin Moisture: Dry Skin Color: Normal Course - Re-evaluation Re-evalutation: 10/29/18 04:27 Patient has elevated troponin above the threshold but EKG does not show acute ischemic changes other than tachycardia. Most likely could be element of demand ischemia from tachycardia versus chronic renal failure. Patient does not need emergent dialysis. Head CT is negative. She will be admitted to the hospital. - Vital Signs Vital signs: Temp Pulse Resp BP Pulse Ox 98 F 120 H 20 116/59 L 91 L 10/29/18 03:00 10/29/18 01:18 10/29/18 03:01 10/29/18 03:01 10/29/18 03:01 - Laboratory Result Diagrams: 10/29/18 02:05 10/29/18 02:05 Laboratory results interpreted by me: 10/29/18 10/29/18 10/29/18 02:05 02:05 02:05 WBC 13.0 H RBC 2.65 L Hgb 9.0 L Hct 25.7 L MCH 33.9 H Lymph % (Auto) 6.5 L Absolute Neuts (auto) 11.4 H Seg Neutrophils % 87.4 H Chloride 92 L Anion Gap 20 H BUN 98 H Creatinine 8.88 H Est GFR ( Amer) 5 L Est GFR (MDRD) Non-Af 4 L Glucose 156 H AST 43 H Creatine Kinase 215 H CK-MB (CK-2) 6.10 H Urine Protein Urine Blood 10/29/18 02:20 WBC RBC Hgb Hct MCH Lymph % (Auto) Absolute Neuts (auto) Seg Neutrophils % Chloride Anion Gap BUN Creatinine Est GFR ( Amer) Est GFR (MDRD) Non-Af Glucose AST Creatine Kinase CK-MB (CK-2) Urine Protein 30 H Urine Blood MODERATE H - Diagnostic Test Radiology reviewed: Image reviewed, Reports reviewed - EKG Interpretation by Me EKG shows normal: Sinus rhythm Rate: Tachycardia Rhythm: No: NSR, SVT, Arrthymia, A.Fib, A.Flutter, with a 2:1 Block, V.Tach, Torsades, V. Fib, MAT, PVC's, APC's, Other [place]/QRS: No: Right axis deviation, Left axis deviation, RBBB, LBBB, IVCD, LAHB/LAFB, LPHB/LPFB, Bifasicular block Voltage: No: Increased voltage, Consistant with LVH, Decreased voltage, Through out, Limb leads P Waves: No: NAHUM, LAE, Absent, AV Dissociation, Other Heart block present: No: 1st Degree, Mobitz 1, Mobitz 2, CHB (3rd degree block) When compared to previous EKG there are: No significant change - Consults Dr. Mcarthur Time consulted: 04:15 - will admit Consulted provider: will come to ER Discharge - Discharge Clinical Impression: NSTEMI (non-ST elevated myocardial infarction) Fall Qualifiers: Encounter type: initial encounter Qualified Code(s): W19.XXXA - Unspecified fall, initial encounter Chronic renal disease Qualifiers: Chronic kidney disease stage: stage 4 (severe) Qualified Code(s): N18.4 - Chronic kidney disease, stage 4 (severe) Condition: Stable Disposition: ADMITTED INPATIENT Admitting Provider: Blue (Hospitalist) Unit Admitted: Telemetry Referrals: Gus KRISHNAMURTHY MD [Primary Care Provider] - Follow up as needed
[2018-10-29 02:32] LABS: ABSOLUTE BASOPHILS # (AUTO) 0.1 10^3/uL (0.0-0.2); ABSOLUTE LYMPHOCYTES (AUTO) 0.8 10^3/uL (0.5-4.7); ABSOLUTE MONOCYTES (AUTO) 0.7 10^3/uL (0.1-1.4); ABSOLUTE NEUT (AUTO) 11.4 10^3/uL (1.7-8.2); BASOPHILS % (AUTO) 0.5 % (0-2); EOSINOPHILS % (AUTO) 0.2 % (0-6); HEMATOCRIT 25.7 % (36.0-47.0); LYMPHOCYTES % (AUTO) 6.5 % (13-45); MEAN CORPUSCULAR HEMOGLOBIN 33.9 pg (27.0-33.4); MEAN CORPUSCULAR HGB CONC 34.9 g/dL (32.0-36.0); MEAN CORPUSCULAR VOLUME 97 fl (80-97); MONOCYTES % (AUTO) 5.4 % (3-13); PLATELET COUNT 166 10^3/uL (150-450); RED BLOOD COUNT 2.65 10^6/uL (3.72-5.28); SEGMENTED NEUTROPHILS % (AUTO) 87.4 % (42-78); TOTAL CELLS COUNTED % (AUTO) 100 %
[2018-10-29 02:53] LABS: ALBUMIN 4.4 g/dL (3.5-5.0); ALKALINE PHOSPHATASE 39 U/L (38-126); ASPARTATE AMINO TRANSFERASE 43 U/L (14-36); BILIRUBIN,DIRECT 0.4 mg/dL (0.0-0.4); BILIRUBIN,TOTAL 0.7 mg/dL (0.2-1.3); BLOOD UREA NITROGEN 98 mg/dL (7-20); CALCIUM 10.2 mg/dL (8.4-10.2); CREATINE KINASE 215 U/L (30-135); GLUCOSE 156 mg/dL (75-110); POTASSIUM 4.1 mmol/L (3.6-5.0); TOTAL PROTEIN 6.9 g/dL (6.3-8.2)
[2018-10-29 02:58] LABS: CARBON DIOXIDE 25 mmol/L (22-30); CHLORIDE 92 mmol/L (98-107)
[2018-10-29 03:00] LABS: ANION GAP 20 (5-19)
[2018-10-29 03:04] LABS: CREATINE KINASE MB 6.1 ng/mL (<4.55)
[2018-10-29 03:09] LABS: TROPONIN I 0.263 ng/mL
[2018-10-29 03:24] LABS: APPEARANCE,URINE SLIGHTLY-CLOUDY; BILIRUBIN,URINE NEGATIVE (NEGATIVE); COLOR,URINE YELLOW; GLUCOSE, URINE NEGATIVE (NEGATIVE); KETONES,URINE NEGATIVE (NEGATIVE); LEUKOCYTE ESTERASE,URINE NEGATIVE (NEGATIVE); NITRITE,URINE NEGATIVE (NEGATIVE); PROTEIN,URINE 30 mg/dL (NEGATIVE); URINE SPECIFIC GRAVITY 1.015; UROBILINOGEN,URINE NEGATIVE mg/dL (<2.0)
--- NOTE | 2018-10-29 03:37 | RADIOLOGY REPORT (SQ) ---
CT head without contrast on 10/29/2018 at 2:29 AM CLINICAL INDICATION: Fall, per protocol for mechanism of injury TECHNIQUE: Multiple axial images are obtained throughout the head without the administration of contrast. This exam was performed according to our departmental dose-optimization program, which includes automated exposure control, adjustment of the mA and/or kV according to patient size and/or use of iterative reconstruction technique. Total DLP is 1028.78 mGy*cm. COMPARISON: 07/08/2013 FINDINGS: There is mild generalized cerebral atrophy. There is low-density in the periventricular white matter consistent with chronic small vessel ischemic changes. There is no hydrocephalus. There is no CT evidence of acute infarct. There is no hemorrhage. There are no abnormal extra-axial fluid collections. There is no mass, mass effect or midline shift. No bony abnormality is noted. IMPRESSION: Mild atrophy and chronic small vessel ischemic changes with no acute intracranial abnormality.
[2018-10-29] MEDS ORDERED: ENOXAPARIN SODIUM INJ 60 MG/0.6 ML DISP.SYRIN SUBCUT ONE (03:40)
[2018-10-29] MEDS ORDERED: NORMAL SALINE 1000 ML 1,000 ML IV ONE (03:41)
[2018-10-29] MEDS ORDERED: MORPHINE SULFATE 10 MG/ML INJ IV ONE (03:41)
[2018-10-29] MEDS ORDERED: MORPHINE SULFATE 10 MG/ML INJ IV PRN ×3 (04:24→04:43)
[2018-10-29 05:19] LABS: FREE T3 3.12 pg/mL (2.77-5.27); FREE T4 (FREE THYROXINE) 1.44 ng/dL (0.78-2.19)
[2018-10-29 05:33] LABS: THYROID STIMULATING HORMONE 5.17 uIU/mL (0.47-4.68)
[2018-10-29] MEDS ORDERED: MAG HYDROX/AL HYDROX/SIMETH SUSP 30 ML UDCUP PO PRN (05:56)
[2018-10-29] MEDS ORDERED: ZOLPIDEM TARTRATE 5 MG TABLET PO PRN (05:56)
[2018-10-29] MEDS ORDERED: ONDANSETRON HCL INJ/PF 4 MG/2 ML SDV IV PRN (05:56)
[2018-10-29] MEDS ORDERED: MAGNESIUM HYDROXIDE SUSP 30 ML UDCUP PO PRN (05:56)
--- NOTE | 2018-10-29 05:56 | PDOC H&P ---
History of Present Illness Admission Date/PCP: 10/29/18 04:27 Gus KRISHNAMURTHY MD Patient complains of: Weakness History of Present Illness: SOURAV ALVES is a 78 year old female who presented to the ER with acute generalized weakness. She admits several recent falls including one just prior to her arrival at the ER. She got up out of bed and felt extremely weak all over and fell to the floor striking her head but not losing consciousness. Her extreme weakness has persisted since its onset. She denies accompanying or associated signs and symptoms. She has not identified any aggravating or ameliorating factors for her weakness. In the ER her CT scan of the head showed no evidence of stroke, hemorrhage or skull fracture. Her serum troponin was noted to be elevated and there was no baseline for comparison. She was there admitted to observation for further evaluation. Past Medical History Cardiac Medical History: Reports: Coronary Artery Disease, Myocardial Infarction, Hypertension Pulmonary Medical History: Denies: Asthma, Chronic Obstructive Pulmonary Disease (COPD), Tuberculosis EENT Medical History: Reports: Cataracts Denies: Eyes, Ears Neurological Medical History: Denies: Hemorrhagic CVA, Ischemic CVA, Seizures Endocrine Medical History: Denies: Diabetes Mellitus Type 1, Diabetes Mellitus Type 2, Hyperthyroidism, Hypothyroidism Renal/ Medical History: Reports: End Stage Renal Disease Denies: Nephrolithiasis Malignancy Medical History: Reports: Colorectal Cancer, Renal (Kidney) Cancer - Left GI Medical History: Denies: Cirrhosis, Crohn's Disease, Hepatitis, Hiatal Hernia, Ulcerative Colitis Musculoskeltal Medical History: Reports: Arthritis - Degenerative arthritis of the spine, Gout - left foot Skin Medical History: Denies: Eczema, Psoriasis Psychiatric Medical History: Denies: Alcohol Dependency, Substance Abuse, Tobacco Dependency Traumatic Medical History: Reports: None Hematology: Reports: Anemia - AFTER SURGERY FEB 16 2011 Denies: Bleeding Tendencies Infectious Medical History: Reports: None Past Surgical History Past Surgical History: Reports: Cardiac Catheterization, Colostomy - And bowel resection, Coronary Stent - X 2, Other - bilateral cataracts Social History Information Source: Patient Lives with: Spouse/Significant other Smoking Status: Never Smoker Frequency of Alcohol Use: None Hx Recreational Drug Use: No Drugs: None Hx Prescription Drug Abuse: No - Advance Directive Resuscitation Status: Full Code Surrogate healthcare decision maker:: Nitish Alves Family History Family History: CAD, Hypertension. denies: DM, Malignancy Parental Family History Reviewed: Yes Children Family History Reviewed: No Sibling(s) Family History Reviewed.: Yes Medication/Allergy Home Medications: Allopurinol [Zyloprim 100 mg Tablet] 200 mg PO DAILY 05/07/17 Buprenorphine [Butrans] 15 mcg TOP TU@1000 05/07/17 Bupropion HCl [Bupropion Xl] 150 mg PO DAILY 05/07/17 Calcitriol [Rocaltrol 0.25 mcg Capsule] 0.25 mcg PO MOWEFR@1000 05/07/17 Cyanocobalamin (Vitamin B-12) [Vitamin B-12 1000 mcg Tablet] 1,000 mcg PO DAILY 05/07/17 Ergocalciferol (Vitamin D2) [Vitamin D2] 50,000 units PO TH@1000 05/07/17 Folic Acid [Folvite 1 mg Tablet] 1 mg PO DAILY 05/07/17 Gabapentin [Neurontin 300 mg Capsule] 300 mg PO TID 05/07/17 Magnesium Oxide [Magnesium] 400 mg PO BID 05/07/17 Pravastatin Sodium [Pravachol] 40 mg PO QHS 05/07/17 Propranolol HCl [Inderal 10 mg Tablet] 10 mg PO TID 05/07/17 Pyridoxine HCl [Vitamin B-6 Tablet 50 mg] 50 mg PO BID 05/07/17 Zolpidem Tartrate [Ambien 5 mg Tablet] 5 mg PO QHS 05/07/17 Benzonatate [Tessalon Perle 100 mg Capsule] 100 mg PO Q8HP PRN 10 Days #30 cap 11/28/17 Cephalexin Monohydrate [Keflex 500 mg Capsule] 500 mg PO Q8H 5 Days #15 capsule 11/28/17 Hydroxyzine HCl 25 mg PO TID PRN 10 Days #30 tablet 11/28/17 Allergies/Adverse Reactions: meperidine HCl [From Demerol] Allergy (Intermediate, Verified 07/23/18 09:07) Hives Sulfa (Sulfonamide Antibiotics) Allergy (Intermediate, Verified 07/23/18 09:07) Hives ciprofloxacin HCl [From Cipro] Allergy (Verified 07/23/18 09:07) RASH prednisone [Prednisone] Allergy (Verified 07/23/18 09:07) MAKES HER CRAZY Review of Systems Constitutional: PRESENT: as per HPI, weakness. ABSENT: chills, fever(s) Eyes: ABSENT: visual disturbances, other - Eye pain Ears: ABSENT: hearing changes, other - Ear pain Nose, Mouth, and Throat: ABSENT: mouth pain, sore throat Cardiovascular: ABSENT: chest pain, palpitations Respiratory: ABSENT: cough, dyspnea Gastrointestinal: ABSENT: abdominal pain, constipation, diarrhea, nausea, vomiting Genitourinary: ABSENT: dysuria, hematuria Musculoskeletal: PRESENT: as per HPI, back pain - Chronic, muscle weakness - Acute generalized weakness. ABSENT: joint swelling Integumentary: ABSENT: pruritus, rash Neurological: ABSENT: confusion, convulsions, focal weakness, memory loss, syncope Psychiatric: ABSENT: anxiety, depression Endocrine: ABSENT: cold intolerance, heat intolerance Hematologic/Lymphatic: ABSENT: easy bleeding, easy bruising Allergic/Immunologic: ABSENT: seasonal rhinorrhea Physical Exam Vital Signs: Temp Pulse Resp BP Pulse Ox 98 F 120 H 20 116/59 L 91 L 10/29/18 03:00 10/29/18 01:18 10/29/18 03:01 10/29/18 03:01 10/29/18 03:01 General appearance: PRESENT: no acute distress, cooperative Head exam: PRESENT: normocephalic. ABSENT: atraumatic - contusion and abrasion of left lateral supraorbital ridge. Eye exam: PRESENT: conjunctiva pink. ABSENT: conjunctival injection, scleral icterus Ear exam: PRESENT: normal external ear exam. ABSENT: bleeding, drainage Mouth exam: PRESENT: dry mucosa, neck supple Neck exam: ABSENT: thyromegaly, tracheal deviation Respiratory exam: PRESENT: clear to auscultation randa, symmetrical, unlabored Cardiovascular exam: PRESENT: RRR. ABSENT: clicks, gallop, rubs Pulses: PRESENT: normal radial pulses, normal dorsalis pedis pul Vascular exam: PRESENT: normal capillary refill. ABSENT: pallor GI/Abdominal exam: PRESENT: normal bowel sounds, soft Rectal exam: PRESENT: deferred Extremities exam: ABSENT: joint swelling, pedal edema Musculoskeletal exam: ABSENT: deformity, dislocation Neurological exam: PRESENT: alert, oriented to person, oriented to place, orie nted to time, oriented to situation, CN II-XII grossly intact. ABSENT: motor sensory deficit Psychiatric exam: PRESENT: appropriate affect, normal mood Skin exam: PRESENT: dry, intact, warm. ABSENT: jaundice, rash, urticaria Results Laboratory Results: 10/29/18 02:05 10/29/18 02:05 10/29/18 10/29/18 10/29/18 02:05 02:05 02:20 WBC 13.0 H RBC 2.65 L Hgb 9.0 L Hct 25.7 L MCV 97 MCH 33.9 H MCHC 34.9 RDW 13.0 Plt Count 166 Seg Neutrophils % 87.4 H Sodium 137.2 Potassium 4.1 Chloride 92 L Carbon Dioxide 25 Anion Gap 20 H BUN 98 H Creatinine 8.88 H Est GFR ( Amer) 5 L Glucose 156 H Calcium 10.2 Total Bilirubin 0.7 AST 43 H Alkaline Phosphatase 39 Total Protein 6.9 Albumin 4.4 Urine Color YELLOW Urine Appearance SLIGHTLY-CLOUDY Urine pH 7.0 Ur Specific [place] 1.015 Urine Protein 30 H Urine Glucose (UA) NEGATIVE Urine Ketones NEGATIVE Urine Blood MODERATE H Urine Nitrite NEGATIVE Ur Leukocyte Esterase NEGATIVE Urine WBC (Auto) 1 Urine RBC (Auto) 1 10/29/18 10/29/18 02:05 02:05 Creatine Kinase 215 H CK-MB (CK-2) 6.10 H Troponin I 0.263 Impressions: Head CT 10/29/18 01:23 IMPRESSION: Mild atrophy and chronic small vessel ischemic changes with no acute intracranial abnormality. Assessment and Plan - Diagnosis (1) Elevated troponin I level Is this a current diagnosis for this admission?: Yes Plan: Patient will have serial cardiac enzymes performed in order to evaluate her equivocal troponin level. (2) Episode of generalized weakness Is this a current diagnosis for this admission?: Yes Plan: Patient will be observed for her generalized weakness and physical therapy consultation will be obtained. Patient will be encouraged to increase activity as she is able. (3) CKD (chronic kidney disease) stage 5, GFR less than 15 ml/min Is this a current diagnosis for this admission?: Yes Plan: Patient's chronic kidney disease will be taken into consideration for all medication dosing, testing and treatments. (4) Hypertension Qualifiers: Hypertension type: essential hypertension Qualified Code(s): I10 - Essential (primary) hypertension Is this a current diagnosis for this admission?: Yes Plan: Patient be continued on her current antihypertensive regimen and her blood pressure be checked frequently throughout her hospital course. - Time Time Spent with patient: 25-34 minutes Medications reviewed and adjusted accordingly: Yes Anticipated discharge: Home Within: within 24 hours - Inpatient Certification Based on my medical assessment, after consideration of the patient's comorbidities, presenting symptoms, or acuity I expect that the services needed warrant INPATIENT care.: No I certify that my determination is in accordance with my understanding of Medicare's requirements for reasonable and necessary INPATIENT services [42 CFR 412.3e].: No Medical Necessity: Significant Comorbidiites Make Outpatient Treatment Too Risky, Need Close Monitoring Due to Risk of Patient Decompensation, Need For Continuous Telemetry Monitoring
[2018-10-29] MEDS: PROPRANOLOL HCL 10 MG TABLET PO SCH ×3 (07:08→22:43)
[2018-10-29] MEDS: PANTOPRAZOLE SODIUM 20 MG TABLET.DR PO SCH (07:08)
[2018-10-29] MEDS: HEPARIN SOD (PORCINE) 5,000 UNIT/ML 1 ML VIAL SUBCUT SCH ×3 (07:09→22:43)
[2018-10-29] MEDS: MORPHINE SULFATE 10 MG/ML INJ IV PRN (07:42)
--- NOTE | 2018-10-29 08:13 | EKG REPORT ---
SEVERITY:- OTHERWISE NORMAL ECG - SINUS TACHYCARDIA VENTRICULAR PREMATURE COMPLEX : Confirmed by: Christina Rodríguez MD 29-Oct-2018 08:12:45
[2018-10-29 08:30] LABS: CREATINE KINASE MB 13.7 ng/mL (<4.55)
[2018-10-29 08:41] LABS: TROPONIN I 2.61 ng/mL
[2018-10-29] MEDS ORDERED: ASPIRIN 325 MG TABLET PO ONE (09:08)
[2018-10-29] MEDS ORDERED: ASPIRIN 325 MG TABLET ONE (09:18)
[2018-10-29] MEDS: ALLOPURINOL 100 MG TABLET PO SCH (10:56)
[2018-10-29] MEDS: MAGNESIUM OXIDE 400 MG TABLET PO SCH ×2 (10:56→19:07)
[2018-10-29] MEDS: DOCUSATE SODIUM 100 MG CAPSULE PO SCH ×2 (10:56→19:07)
[2018-10-29] MEDS: BUPROPION HCL 75 MG TABLET PO SCH ×2 (10:56→22:44)
[2018-10-29] MEDS: GABAPENTIN 300 MG CAPSULE PO SCH ×2 (10:56→22:44)
--- NOTE | 2018-10-29 14:10 | RADIOLOGY REPORT (SQ) ---
EXAM DESCRIPTION: NM MYOCARDIAL INFARCT AVID COMPLETED DATE/TIME: 10/29/2018 12:57 pm REASON FOR STUDY: CAD with elevated Troponin:Radiologist to read COMPARISON: None. RADIONUCLIDE AND DOSE: 24.4 mCi Tc 9 M labeled PYP ADDITIONAL DRUGS AND DOSES: None. TECHNIQUE: Patient is injected intravenously. Images were obtained in multiple projections. LIMITATIONS: None. FINDINGS: The study demonstrates physiologic uptake in the lungs and bone. Equivocal uptake in the myocardium best demonstrated on the left lateral images. Activity is rated at 1+. IMPRESSION: Equivocal findings as described above. Probable mild myocardial uptake with 1+ activity at most. TECHNICAL DOCUMENTATION: JOB ID: [id number] [employer]- All Rights Reserved Reading location - IP/workstation name: [email or web address]
[2018-10-29] MEDS: NORMAL SALINE 1000 ML 1,000 ML IV PRN (15:01)
[2018-10-29 15:58] LABS: CREATINE KINASE MB 22.9 ng/mL (<4.55)
[2018-10-29 16:04] LABS: TROPONIN I 4.66 ng/mL
--- NOTE | 2018-10-29 20:31 | PDOC CONSULTATION ---
Consultation Consult Date: 10/29/18 Provider Consulted: Gus KRISHNAMURTHY Consult reason:: WILFREDO on CKD stage IV. History of Present Illness Admission Date/PCP: 10/29/18 04:27 Gus KRISHNAMURTHY MD History of Present Illness: SOURAV ALVES is a 78 year old female With a history of CKD stage IV with base creatinine of around 5-6 with intermittent acute decompensation from severe dehydration was admitted with a history of generalized weakness, orthostasis and falls. Her who is the main caregiver was recently admitted with stroke and just discharged back home from [facility]. She is quite dependent on him for her care. Patient admits to the fact that she has been having large volume liquid stools into her illeostomy and has not been using her antimotility agents judiciously as she has been instructed. She thinks she has also seen dark- colored liquid stools for the last couple of days. However no complaints of any abdominal pains. She denies any history of chest pain or shortness of breath. Evaluations in the ER revealed that the patient was quiet debilitated and fragile and was hypotensive. She had also deranged labs including anemia, acute on chronic kidney disease.Besides that she had troponins ordered by ER physicians which came back as being elevated and cardiology has also been consulted for the evaluation and management. J. Past Medical History Cardiac Medical History: Reports: Coronary Artery Disease, Myocardial Infarction Pulmonary Medical History: Reports: None Denies: Asthma, Chronic Obstructive Pulmonary Disease (COPD), Tuberculosis EENT Medical History: Reports: None, Cataracts Denies: Eyes, Ears Neurological Medical History: Denies: Hemorrhagic CVA, Ischemic CVA, Seizures Endocrine Medical History: Reports: None Denies: Diabetes Mellitus Type 1, Diabetes Mellitus Type 2, Hyperthyroidism, Hypothyroidism Complications of Diabetes: Reports: None Renal/ Medical History: Reports: None, Chronic Kidney Disease Stage V, Secondary Hyperparathyroidism Denies: Nephrolithiasis Malignancy Medical History: Reports: Colorectal Cancer, Renal (Kidney) Cancer - Left GI Medical History: Reports: None Denies: Cirrhosis, Crohn's Disease, Hepatitis, Hiatal Hernia, Ulcerative Colitis Musculoskeltal Medical History: Reports: Arthritis - Degenerative arthritis of the spine, Gout - left foot Skin Medical History: Reports: None Denies: Eczema, Psoriasis Psychiatric Medical History: Reports: None Denies: Alcohol Dependency, Depression, Substance Abuse, Tobacco Dependency Traumatic Medical History: Reports: None Infectious Medical History: Reports: None Past Surgical History Past Surgical History: Reports: Cardiac Catheterization, Colostomy - And bowel resection, Coronary Stent - X 2, Orthopedic Surgery - bilat cataracts, Other - bilateral cataracts Denies: Mastectomy, Pacemaker Social History Lives with: Spouse/Significant other Smoking Status: Never Smoker Frequency of Alcohol Use: None Hx Recreational Drug Use: No Drugs: None Hx Prescription Drug Abuse: No - Advance Directive Resuscitation Status: Full Code Family History Parental Family History Reviewed: Yes - Negative for ESRD Children Family History Reviewed: No Sibling(s) Family History Reviewed.: No Medication/Allergy Home Medications: Bupropion HCl [Bupropion Xl] 150 mg PO DAILY 10/29/18 Calcitriol [Rocaltrol 0.5 mcg Capsule] 0.5 mcg PO DAILY 10/29/18 Cetirizine HCl [Zyrtec 10 mg Tablet] 10 mg PO QHS 10/29/18 Colestipol HCl [Colestid 1 gm Tablet] 2 gm PO TID 10/29/18 Cyanocobalamin (Vitamin B-12) [Vitamin B-12 1000 mcg Tablet] 1,000 mcg PO DAILY 10/29/18 Diphenoxylate HCl/Atrop Sulf [Lomotil 2.5 mg Tablet] 1 tab PO QIDP PRN 10/29/18 Febuxostat [Uloric 80 mg Tablet] 80 mg PO DAILY 10/29/18 Folic Acid [Folvite 1 mg Tablet] 1 mg PO DAILY 10/29/18 Hydroxyzine HCl [Atarax 25 mg Tablet] 25 mg PO QPM 10/29/18 Magnesium Oxide [Mag-Ox 400 mg Tablet] 400 mg PO QID 10/29/18 Midodrine HCl 2.5 mg PO TID 10/29/18 Pravastatin Sodium [Pravachol] 40 mg PO QPM 10/29/18 Propranolol HCl [Inderal 10 mg Tablet] 10 mg PO TID 10/29/18 Pyridoxine HCl (Vitamin B6) [Vitamin B-6] 50 mg PO BID 10/29/18 Sevelamer Carbonate [Renvela] 1,600 mg PO .SNACKS 10/29/18 Sevelamer Carbonate [Renvela] 2,400 mg PO MEALS 10/29/18 Tramadol HCl [Ultram 50 mg Tablet] 100 mg PO Q6HP PRN 10/29/18 Allergies/Adverse Reactions: meperidine HCl [From Demerol] Allergy (Intermediate, Verified 07/23/18 09:07) Hives Sulfa (Sulfonamide Antibiotics) Allergy (Intermediate, Verified 07/23/18 09:07) Hives ciprofloxacin HCl [From Cipro] Allergy (Verified 07/23/18 09:07) RASH prednisone [Prednisone] Allergy (Verified 07/23/18 09:07) MAKES HER CRAZY Review of Systems Constitutional: PRESENT: anorexia, fatigue, weakness, weight loss. ABSENT: fever(s), headache(s), night sweats Nose, Mouth, and Throat: ABSENT: mouth pain, sore throat Cardiovascular: PRESENT: dyspnea on exertion. ABSENT: chest pain, edema, orthropnea Respiratory: PRESENT: dyspnea. ABSENT: hemoptysis Gastrointestinal: PRESENT: diarrhea. ABSENT: abdominal pain, bloating, coffee ground emesis, constipation, vomiting Genitourinary: ABSENT: dysuria, hematuria Musculoskeletal: ABSENT: deformity, joint swelling Integumentary: ABSENT: erythema, lesions, pruritus, rash Neurological: PRESENT: dizziness, frequent falls. ABSENT: confusion, convulsions, focal weakness Psychiatric: PRESENT: depression Hematologic/Lymphatic: ABSENT: easy bleeding, easy bruising Physical Exam Vital Signs: Temp Pulse Resp BP Pulse Ox 97.5 F 72 14 104/61 98 10/29/18 15:27 10/29/18 12:40 10/29/18 19:31 10/29/18 19:31 10/29/18 19:15 Intake & Output 10/28/18 10/29/18 10/30/18 06:59 06:59 06:59 Intake Total 1092 Balance 1092 Weight 50.8 kg General appearance: PRESENT: disheveled Exam: She looks very weak and debilitated. Eye exam: PRESENT: EOMI, PERRLA Ear exam: PRESENT: normal external ear exam Mouth exam: PRESENT: neck supple. ABSENT: moist Neck exam: ABSENT: meningismus, tenderness, thyromegaly, tracheal deviation Respiratory exam: PRESENT: clear to auscultation randa. ABSENT: crackles Cardiovascular exam: PRESENT: +S1, +S2 GI/Abdominal exam: PRESENT: normal bowel sounds - Has an ileostomy bag with dark brown liquid stools., soft. ABSENT: organomegaly, tenderness Musculoskeletal exam: ABSENT: ambulatory Neurological exam: PRESENT: alert, awake, oriented to person, oriented to place Psychiatric exam: PRESENT: depressed Skin exam: PRESENT: dry. ABSENT: erythema, mottled, rash Results Laboratory Results: 10/29/18 02:05 10/29/18 02:05 10/29/18 10/29/18 10/29/18 02:05 02:05 02:05 WBC 13.0 H RBC 2.65 L Hgb 9.0 L Hct 25.7 L MCV 97 MCH 33.9 H MCHC 34.9 RDW 13.0 Plt Count 166 Seg Neutrophils % 87.4 H Sodium 137.2 Potassium 4.1 Chloride 92 L Carbon Dioxide 25 Anion Gap 20 H BUN 98 H Creatinine 8.88 H Est GFR ( Amer) 5 L Glucose 156 H Calcium 10.2 Total Bilirubin 0.7 AST 43 H Alkaline Phosphatase 39 Total Protein 6.9 Albumin 4.4 TSH 5.17 H Free T4 1.44 Free T3 pg/mL 3.12 Urine Color Urine Appearance Urine pH Ur Specific [place] Urine Protein Urine Glucose (UA) Urine Ketones Urine Blood Urine Nitrite Ur Leukocyte Esterase Urine WBC (Auto) Urine RBC (Auto) 10/29/18 02:20 WBC RBC Hgb Hct MCV MCH MCHC RDW Plt Count Seg Neutrophils % Sodium Potassium Chloride Carbon Dioxide Anion Gap BUN Creatinine Est GFR ( Amer) Glucose Calcium Total Bilirubin AST Alkaline Phosphatase Total Protein Albumin TSH Free T4 Free T3 pg/mL Urine Color YELLOW Urine Appearance SLIGHTLY-CLOUDY Urine pH 7.0 Ur Specific [place] 1.015 Urine Protein 30 H Urine Glucose (UA) NEGATIVE Urine Ketones NEGATIVE Urine Blood MODERATE H Urine Nitrite NEGATIVE Ur Leukocyte Esterase NEGATIVE Urine WBC (Auto) 1 Urine RBC (Auto) 1 10/29/18 10/29/18 10/29/18 02:05 02:05 07:49 Creatine Kinase 215 H 394 H CK-MB (CK-2) 6.10 H Troponin I 0.263 10/29/18 10/29/18 10/29/18 07:49 15:05 15:05 Creatine Kinase 491 H CK-MB (CK-2) 13.70 H 22.90 H Troponin I 2.610 4.660 Impressions: Cardiac Imaging Nuclear Medicine 10/29/18 00:00 IMPRESSION: Equivocal findings as described above. Probable mild myocardial uptake with 1+ activity at most. Head CT 10/29/18 01:23 IMPRESSION: Mild atrophy and chronic small vessel ischemic changes with no acute intracranial abnormality. Assessment & Plan - Diagnosis (1) WILFREDO (acute kidney injury) Plan: Has been admitted with WILFREDO on top of CKD stage V with base creatinine of 5-6. Patient is clinically dehydrated and symptomatic with hypotension. Will replace IV fluids vigorously and monitor. Currently no acute indications for renal replacements. (2) CKD (chronic kidney disease) stage 5, GFR less than 15 ml/min Is this a current diagnosis for this admission?: Yes Plan: She has got a solitary kidney after undergoing nephrectomy for renal cell carcinoma in the past. Patient has been progressively getting debilitated especially with her ileostomy producing intermittent high volume outputs leading to acute on chronic kidney disease. She has not been using her antimotility agents judiciously as has been instructed. Her is her main caregiver and since he has recently become sick I think the patient will have more difficulties in looking after herself. (3) Elevated troponin I level Is this a current diagnosis for this admission?: Yes Plan: As per cardiology.Currently patient had no history of chest pain on presentation or during my evaluations. (4) Dehydration Plan: Correct with IV fluids. Monitor. (5) Ileostomy present Plan: Discussed with her about monitoring her ileostomy output patient has not been following instructions unfortunately. (6) Renal osteodystrophy Plan: Continue with calcitriol as well as Renagel prior to meals. (7) Hypotension Plan: Likely secondary to dehydration. See response to fluid resuscitation. Monitor closely. (8) Anemia Plan: She mentions dark-colored stools and ileostomy bag. I would recommend checking that for Hemoccults. Meanwhile get iron studies. Later consider for erythropoietin. (9) Hypomagnesemia Plan: Check mag levels.
[2018-10-29 21:07] LABS: CREATINE KINASE MB 25.4 ng/mL (<4.55)
[2018-10-29 21:12] LABS: TROPONIN I 4.89 ng/mL
--- NOTE | 2018-10-29 21:12 | PDOC CONSULTATION ---
Consultation-Blank Consultation: CARDIOLOGY CONSULTATION by Dr. Christina Rodríguez on 10/29/2018. Patient seen at 9:30 AM. 60 minutes spent on this patient with more than 50% of time spent in direct patient care. REASON FOR CONSULTATION: Patient with history of coronary artery disease, history of myocardial infarction and stent placement with elevated troponin levels. CONSULT REQUESTING PHYSICIAN: Dr. Juaquin Mcarthur. [facility]. HISTORY PRESENT ILLNESS: Patient is a 78-year-old female with known history of coronary artery disease, prior history of myocardial infarction and stent placement, and chronic kidney disease stage IV-V admitted with complaints of generalized weakness and frequent falls without loss of consciousness. She also states that she finds a sensation of bugs crawling over her legs, and also has pruritus. She denies any chest pain or discomfort. There is no shortness of breath. There is no PND orthopnea. Her troponin levels have been elevated consistent with a non-ST elevation AZ. The patient denies any palpitations or syncopal episodes. There is no focal weakness. There is no seizures. The patient denies any fever chills or rigors. There is no wheezing or cough or sputum production. Review of the patient's elevated troponin I, and lack of signal EKG changes and no symptoms of from the patient of myocardial infarction, a technetium pyrophosphate scan was ordered to see if indeed the patient did have an AZ. Please see my interpretation below. Past Medical History Cardiac Medical History: Reports: Coronary Artery Disease, Myocardial Infarction, Hypertension Pulmonary Medical History: Denies: Asthma, Chronic Obstructive Pulmonary Disease (COPD), Tuberculosis EENT Medical History: Reports: Cataracts Denies: Eyes, Ears Neurological Medical History: Denies: Hemorrhagic CVA, Ischemic CVA, Seizures Endocrine Medical History: Denies: Diabetes Mellitus Type 1, Diabetes Mellitus Type 2, Hyperthyroidism, Hypothyroidism Renal/ Medical History: Reports: End Stage Renal Disease, not yet on dialysis. Denies: Nephrolithiasis Malignancy Medical History: Reports: Colorectal Cancer, Renal (Kidney) Cancer - Left GI Medical History: Denies: Cirrhosis, Crohn's Disease, Hepatitis, Hiatal Hernia, Ulcerative Colitis. She has a colectomy and a colostomy bag. And he has had multiple admissions for bowel obstruction. She is not able to keep up taking fluids orally due to the amount of fluid loss in the colostomy bag. Musculoskeltal Medical History: Reports: Arthritis - Degenerative arthritis of the spine, Gout - left foot Skin Medical History: Denies: Eczema, Psoriasis complains of pruritus. Psychiatric Medical History: Denies: Alcohol Dependency, Substance Abuse, Tobacco Dependency Traumatic Medical History: Reports: None Hematology: Reports: Anemia - AFTER SURGERY FEB 16 2011 Denies: Bleeding Tendencies Infectious Medical History: Reports: None Past Surgical History Past Surgical History: Reports: Cardiac Catheterization, Colostomy - And bowel resection, Coronary Stent - X 2, Other - bilateral cataracts. Has had 2 AV fistulas placed one in the left arm and the other on the right arm, for possible need for dialysis in the immediate future, but both of them are failed. Social History Information Source: Patient Lives with: Spouse/Significant other Smoking Status: Never Smoker Frequency of Alcohol Use: None Hx Recreational Drug Use: No Drugs: None Hx Prescription Drug Abuse: No - Advance Directive Resuscitation Status: Full Code Surrogate healthcare decision maker:: Nitish Garner Family History Family History: CAD, Hypertension. denies: DM, Malignancy Parental Family History Reviewed: Yes Children Family History Reviewed: No Sibling(s) Family History Reviewed.: Yes Medication/Allergy Home Medications: Allopurinol [Zyloprim 100 mg Tablet] 200 mg PO DAILY 05/07/17 Buprenorphine [Butrans] 15 mcg TOP TU@1000 05/07/17 Bupropion HCl [Bupropion Xl] 150 mg PO DAILY 05/07/17 Calcitriol [Rocaltrol 0.25 mcg Capsule] 0.25 mcg PO MOWEFR@1000 05/07/17 Cyanocobalamin (Vitamin B-12) [Vitamin B-12 1000 mcg Tablet] 1,000 mcg PO DAILY 05/07/17 Ergocalciferol (Vitamin D2) [Vitamin D2] 50,000 units PO TH@1000 05/07/17 Folic Acid [Folvite 1 mg Tablet] 1 mg PO DAILY 05/07/17 Gabapentin [Neurontin 300 mg Capsule] 300 mg PO TID 05/07/17 Magnesium Oxide [Magnesium] 400 mg PO BID 05/07/17 Pravastatin Sodium [Pravachol] 40 mg PO QHS 05/07/17 Propranolol HCl [Inderal 10 mg Tablet] 10 mg PO TID 05/07/17 Pyridoxine HCl [Vitamin B-6 Tablet 50 mg] 50 mg PO BID 05/07/17 Zolpidem Tartrate [Ambien 5 mg Tablet] 5 mg PO QHS 05/07/17 Benzonatate [Tessalon Perle 100 mg Capsule] 100 mg PO Q8HP PRN 10 Days #30 cap 11/28/17 Cephalexin Monohydrate [Keflex 500 mg Capsule] 500 mg PO Q8H 5 Days #15 capsule 11/28/17 Hydroxyzine HCl 25 mg PO TID PRN 10 Days #30 tablet 11/28/17 Allergies/Adverse Reactions: meperidine HCl [From Demerol] Allergy (Intermediate, Verified 07/23/18 09:07) Hives Sulfa (Sulfonamide Antibiotics) Allergy (Intermediate, Verified 07/23/18 09:07) Hives ciprofloxacin HCl [From Cipro] Allergy (Verified 07/23/18 09:07) RASH prednisone [Prednisone] Allergy (Verified 07/23/18 09:07) MAKES HER CRAZY Review of Systems Constitutional: PRESENT: as per HPI, weakness. ABSENT: chills, fever(s) Eyes: ABSENT: visual disturbances, other - Eye pain Ears: ABSENT: hearing changes, other - Ear pain Nose, Mouth, and Throat: ABSENT: mouth pain, sore throat Cardiovascular: ABSENT: chest pain, palpitations Respiratory: ABSENT: cough, dyspnea Gastrointestinal: ABSENT: abdominal pain, constipation, diarrhea, nausea, vomiting Genitourinary: ABSENT: dysuria, hematuria Musculoskeletal: PRESENT: as per HPI, back pain - Chronic, muscle weakness - Acute generalized weakness. ABSENT: joint swelling Integumentary: ABSENT: pruritus, rash Neurological: ABSENT: confusion, convulsions, focal weakness, memory loss, syncope Psychiatric: ABSENT: anxiety, depression Endocrine: ABSENT: cold intolerance, heat intolerance Hematologic/Lymphatic: ABSENT: easy bleeding, easy bruising Allergic/Immunologic: ABSENT: seasonal rhinorrhea PHYSICAL EXAMINATION: Patient appears to be cachectic and chronically ill. Selected Entries 10/29/18 10/29/18 10/29/18 01:10 03:00 08:04 Temperature 97.9 F 98 F Heart Rate ( 88 Monitors) Respiratory 17 Rate Blood Pressure 91/52 L Blood Pressure 65 Mean O2 Sat by Pulse 94 Oximetry Oxygen Delivery Method ( includes room air) Oxygen Flow Rate 10/29/18 10/29/18 09:02 10:00 Temperature Heart Rate ( 81 Monitors) Respiratory 13 Rate Blood Pressure 93/61 L Blood Pressure 71 Mean O2 Sat by Pulse 92 Oximetry Oxygen Delivery Nasal Cannula Method ( includes room air) Oxygen Flow 3 Rate HEAD: Is atraumatic normocephalic. EYES: Pupils are equal round regular reactive to light and accommodation. Extraocular movements are normal. There is no conjunctival pallor. There is no scleral icterus. EARS: Tympanic mem branes are intact. External auditory canals. NOSE: There is no deviated nasal septum. There is no inflammation nasal mucous membrane. MOUTH: Mucous memories of mouth is very dry tongue is dry there is no ulcers. THROAT: There is no exudates. There is no redness of the oropharynx. SKIN: There are a few scratch maynard. There is no petechia or ecchymosis. There is no skin lesions or skin rashes. NECK: Is supple. There is no JVD. Carotids are equal there is no bruit. There is no lymphadenopathy. There is no accessory muscle off respiration use. Trachea central. LUNGS: Is clear to auscultation percussion. There is no rhonchi rales or wheezing. HEART: S1-S2 is heard. There is no S3 gallop. There is no S4 gallop. There is systolic murmur left sternal border and the apex there is no rub. ABDOMEN: Is soft. Skin turgor is lost. There is no hepatospleno megaly. Bowel sounds are heard. There is a colostomy bag in situ. EXTREMITIES: Femorals are diminished. There is no femoral bruits. Leg pulses are diminished. There is no pedal edema. There is no DVT or cellulitis. There is no cyanosis or clubbing. 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 With no focal deficits. PSYCHIATRIC: The patient is slightly anxious and agitated. Her judgment and insight seem to be intact. Current Medications Generic Name Dose Route Start Last Admin Trade Name Freq PRN Reason Stop Dose Admin Al Hydrox/Mg Hydrox/Simethicone 30 ml 10/29/18 05:56 Maalox Plus Susp 30 Udcup PO 11/28/18 05:55 Q6HP PRN HEARTBURN Allopurinol 100 mg 10/29/18 10:00 10/29/18 10:56 Zyloprim 100 Mg Tablet PO 11/28/18 09:59 100 mg DAILY MOIZ Administration Atorvastatin Calcium 10 mg 10/29/18 22:00 10/29/18 22:44 Lipitor 10 Mg Tablet PO 11/28/18 21:59 10 mg QHS MOIZ Administration Bupropion HCl 75 mg 10/29/18 10:00 10/29/18 22:44 Wellbutrin 75 Mg Tablet PO 11/28/18 09:59 75 mg Q12 MOIZ Administration Docusate Sodium 100 mg 10/29/18 10:00 10/29/18 19:07 Colace 100 Mg Capsule PO 11/28/18 09:59 Not Given BID MOIZ Gabapentin 300 mg 10/29/18 10:00 10/29/18 22:44 Neurontin 300 Mg Capsule PO 11/28/18 09:59 300 mg Q12 MOIZ Administration Heparin Sodium (Porcine) 5,000 unit 10/29/18 06:00 10/29/18 22:43 Heparin Inj 5,000 Units/Ml 1 Ml Vial SUBCUT 11/28/18 05:59 5,000 unit Q8 MOIZ Administration Sodium Chloride 1,000 mls @ 75 mls/hr 10/29/18 14:44 10/29/18 16:15 Nacl 0.9% 1000 Ml Iv Soln IV 11/28/18 14:43 100 mls/hr CONTINUOUS PRN Infusion THIS MED IS NOT "PRN" Magnesium Hydroxide 30 ml 10/29/18 05:56 Milk Of Magnesia 30 Ml Udcup PO 11/28/18 05:55 DAILYP PRN FOR CONSTIPATION Magnesium Oxide 400 mg 10/29/18 10:00 10/29/18 19:07 Mag-Ox 400 Mg Tablet PO 11/28/18 09:59 Not Given BID [facility] Morphine Sulfate 2 mg 10/29/18 04:42 10/29/18 07:42 Morphine 10 Mg/Ml Inj IV 11/05/18 04:41 2 mg Q2HP PRN Administration PAIN SCALE 1-2/5 Morphine Sulfate 3 mg 10/29/18 04:42 Morphine 10 Mg/Ml Inj IV 11/05/18 04:41 Q2HP PRN PAIN SCALE 3-4/5 Morphine Sulfate 4 mg 10/29/18 04:43 Morphine 10 Mg/Ml Inj IV 11/05/18 04:42 Q2HP PRN PAIN SCALE 5/5 Ondansetron HCl 4 mg 10/29/18 05:56 Zofran Inj/Pf 4 Mg/2 Ml Sdv IV 11/28/18 05:55 Q4HP PRN FOR NAUSEA/VOMITING Pantoprazole Sodium 20 mg 10/29/18 06:00 10/29/18 07:[address] Tablet PO 11/28/18 05:59 20 mg Q6AM MOIZ Administration Propranolol HCl 10 mg 10/29/18 06:00 10/29/18 22:43 Inderal 10 Mg Tablet PO 11/28/18 05:59 10 mg Q8 MOIZ Administration Sodium Chloride 2.5 ml 10/29/18 06:00 10/29/18 22:44 Saline Flush 2.5 Ml Monoject Prefil Syrin IV 11/28/18 05:59 2.5 ml Q8 MOIZ Administration Zolpidem Tartrate 5 mg 10/29/18 05:56 Ambien 5 Mg Tablet PO 11/05/18 05:55 HSP PRN SLEEP OR INSOMNIA Discontinued Medications Generic Name Dose Route Start Last Admin Trade Name Freq PRN Reason Stop Dose Admin Aspirin 325 mg 10/29/18 09:08 10/29/18 09:21 Aspirin 325 Mg Tablet PO 10/29/18 09:09 325 mg NOW ONE Administration Aspirin Confirm 10/29/18 09:18 10/29/18 09:22 Aspirin 325 Mg Tablet Administered 10/29/18 09:19 Not Given Dose 325 mg .ROUTE .STK-MED ONE Enoxaparin Sodium 60 mg 10/29/18 03:40 10/29/18 07:24 Lovenox Inj 60 Mg/0.6 Ml Disp.Syrin SUBCUT 10/29/18 03:41 Not Given NOW ONE Sodium Chloride 1,000 mls @ 0 mls/hr 10/29/18 03:41 10/29/18 09:00 Nacl 0.9% 1000 Ml Iv Soln IV 10/29/18 03:42 Infused BOLUS ONE Infusion Wide Open Morphine Sulfate 2 mg 10/29/18 03:41 10/29/18 04:27 Morphine 10 Mg/Ml Inj IV 10/29/18 03:42 2 mg NOW ONE Administration Labs- Entire Visit 10/29/18 10/29/18 10/29/18 02:05 02:05 02:05 WBC 13.0 H RBC 2.65 L Hgb 9.0 L Hct 25.7 L MCV 97 MCH 33.9 H MCHC 34.9 RDW 13.0 Plt Count 166 Lymph % (Auto) 6.5 L [place] % (Auto) 5.4 Eos % (Auto) 0.2 Baso % (Auto) 0.5 Absolute Neuts (auto) 11.4 H Absolute Lymphs (auto) 0.8 Absolute Monos (auto) 0.7 Absolute Eos (auto) 0.0 Absolute Basos (auto) 0.1 Seg Neutrophils % 87.4 H Sodium 137.2 Potassium 4.1 Chloride 92 L Carbon Dioxide 25 Anion Gap 20 H BUN 98 H Creatinine 8.88 H Est GFR ( Amer) 5 L Est GFR (MDRD) Non-Af 4 L Glucose 156 H Calcium 10.2 Total Bilirubin 0.7 Direct Bilirubin 0.4 Neonat Total Bilirubin Not Reportable Neonat Direct Bilirubin Not Reportable Neonat Indirect Bili Not Reportable AST 43 H ALT 36 Alkaline Phosphatase 39 Creatine Kinase 215 H CK-MB (CK-2) 6.10 H Troponin I 0.263 Total Protein 6.9 Albumin 4.4 TSH Free T4 Free T3 pg/mL Urine Color Urine Appearance Urine pH Ur Specific [place] Urine Protein Urine Glucose (UA) Urine Ketones Urine Blood Urine Nitrite Urine Bilirubin Urine Urobilinogen Ur Leukocyte Esterase Urine WBC (Auto) Urine RBC (Auto) U Hyaline Cast (Auto) Squamous Epi Cells Auto Urine Ascorbic Acid 10/29/18 10/29/18 10/29/18 02:05 02:20 07:49 WBC RBC Hgb Hct MCV MCH MCHC RDW Plt Count Lymph % (Auto) [place] % (Auto) Eos % (Auto) Baso % (Auto) Absolute Neuts (auto) Absolute Lymphs (auto) Absolute Monos (auto) Absolute Eos (auto) Absolute Basos (auto) Seg Neutrophils % Sodium Potassium Chloride Carbon Dioxide Anion Gap BUN Creatinine Est GFR ( Amer) Est GFR (MDRD) Non-Af Glucose Calcium Total Bilirubin Direct Bilirubin Neonat Total Bilirubin Neonat Direct Bilirubin Neonat Indirect Bili AST ALT Alkaline Phosphatase Creatine Kinase 394 H CK-MB (CK-2) Troponin I Total Protein Albumin TSH 5.17 H Free T4 1.44 Free T3 pg/mL 3.12 Urine Color YELLOW Urine Appearance SLIGHTLY-CLOUDY Urine pH 7.0 Ur Specific [place] 1.015 Urine Protein 30 H Urine Glucose (UA) NEGATIVE Urine Ketones NEGATIVE Urine Blood MODERATE H Urine Nitrite NEGATIVE Urine Bilirubin NEGATIVE Urine Urobilinogen NEGATIVE Ur Leukocyte Esterase NEGATIVE Urine WBC (Auto) 1 Urine RBC (Auto) 1 U Hyaline Cast (Auto) 3 Squamous Epi Cells Auto 3 Urine Ascorbic Acid NEGATIVE 10/29/18 10/29/18 10/29/18 07:49 15:05 15:05 WBC RBC Hgb Hct MCV MCH MCHC RDW Plt Count Lymph % (Auto) [place] % (Auto) Eos % (Auto) Baso % (Auto) Absolute Neuts (auto) Absolute Lymphs (auto) Absolute Monos (auto) Absolute Eos (auto) Absolute Basos (auto) Seg Neutrophils % Sodium Potassium Chloride Carbon Dioxide Anion Gap BUN Creatinine Est GFR ( Amer) Est GFR (MDRD) Non-Af Glucose Calcium Total Bilirubin Direct Bilirubin Neonat Total Bilirubin Neonat Direct Bilirubin Neonat Indirect Bili AST ALT Alkaline Phosphatase Creatine Kinase 491 H CK-MB (CK-2) 13.70 H 22.90 H Troponin I 2.610 4.660 Total Protein Albumin TSH Free T4 Free T3 pg/mL Urine Color Urine Appearance Urine pH Ur Specific [place] Urine Protein Urine Glucose (UA) Urine Ketones Urine Blood Urine Nitrite Urine Bilirubin Urine Urobilinogen Ur Leukocyte Esterase Urine WBC (Auto) Urine RBC (Auto) U Hyaline Cast (Auto) Squamous Epi Cells Auto Urine Ascorbic Acid 10/29/18 10/29/18 20:30 20:30 WBC RBC Hgb Hct MCV MCH MCHC RDW Plt Count Lymph % (Auto) [place] % (Auto) Eos % (Auto) Baso % (Auto) Absolute Neuts (auto) Absolute Lymphs (auto) Absolute Monos (auto) Absolute Eos (auto) Absolute Basos (auto) Seg Neutrophils % Sodium Potassium Chloride Carbon Dioxide Anion Gap BUN Creatinine Est GFR ( Amer) Est GFR (MDRD) Non-Af Glucose Calcium Total Bilirubin Direct Bilirubin Neonat Total Bilirubin Neonat Direct Bilirubin Neonat Indirect Bili AST ALT Alkaline Phosphatase Creatine Kinase 414 H CK-MB (CK-2) 25.40 H Troponin I 4.890 Total Protein Albumin TSH Free T4 Free T3 pg/mL Urine Color Urine Appearance Urine pH Ur Specific [place] Urine Protein Urine Glucose (UA) Urine Ketones Urine Blood Urine Nitrite Urine Bilirubin Urine Urobilinogen Ur Leukocyte Esterase Urine WBC (Auto) Urine RBC (Auto) U Hyaline Cast (Auto) Squamous Epi Cells Auto Urine Ascorbic Acid Cardiac Imaging Nuclear Medicine 10/29/18 00:00 IMPRESSION: Equivocal findings as described above. Probable mild myocardial uptake with 1+ activity at most. I have reviewed the images. There seems to be diffuse myocardial uptake of mild degree. Rather than a focal area of accumulation suggestive of a area of myocardial infarction. Hence the differential diagnosis would be cardiac amyloidosis. Note that the patient is significant risk factors for amyloidosis. Head CT 10/29/18 01:23 IMPRESSION: Mild atrophy and chronic small vessel ischemic changes with no acute intracranial abnormality. EKG: Shows sinus tachycardia. One PVC. This seems to be no acute ischemia on the EKG. IMPRESSION/RECOMMENDATION: 1. Elevated troponin I in a patient with a history of coronary artery disease and prior myocardial infarction. The differential diagnosis is non-ST elevation AZ. Another possibility is cardiac amyloidosis. The patient's history is not very accurate by her description, and hence will have to treated also as a non- ST elevation AZ. The patient did receive a dose of Lovenox which should order for 24 hours. We will get an echocardiogram to see if there is any features of amyloidosis such as scintillating speckling of the myocardium with LVH, and biatrial abnormalities. Later would recommend that the patient have a cardiac MRI. The other option would be to get a abdominal fat pad biopsy with [place] red stain. The patient's blood pressure and at present is not permissible to start the patient on nitrates or beta-blockers. We will start the patient on aspirin. Later when the blood pressure does come up then would start the patient on beta-blockers and nitrates. 2. Severe dehydration: Would rehydrate the patient gently with normal saline at 100 mL/h. This has been discussed with the blanker operator. 3. Hypotension: Relative. Most likely due to the patient's significant dehydration. Hopefully this will improve. 4. End-stage renal disease not yet on dialysis. Nephrology believes that the patient's GFR might improve with hydration, with which I concur. 5. Coronary artery disease: History of myocardial infarction in the past, and history of stents. We will try to get the patient records. Note patient has not had any recent anginal symptoms. 6. History of hypertension in the past. At present low blood pressure secondary to most likely dehydration. 7. History of intermittent bowel obstruction, and history of colectomy. 8. Malnourished state. Medications reviewed. Management plan discussed with the hospitalist attending physician, and the blanker operator. Medical decision making is of high complexity. Also spoke with patient's daughter regarding the patient several times. As per the daughter the patient and the patient's wished that the patient be a full code. Hence we will honor this. Note 60 minutes spent on this patient more than 50% time spent in direct patient care. Will follow
[2018-10-29] MEDS: ATORVASTATIN CALCIUM 10 MG TABLET PO SCH (22:44)
[2018-10-30] MEDS: MORPHINE SULFATE 10 MG/ML INJ IV PRN (00:45)
[2018-10-30] MEDS: HEPARIN SOD (PORCINE) 5,000 UNIT/ML 1 ML VIAL SUBCUT SCH ×3 (06:21→22:06)
[2018-10-30] MEDS: PANTOPRAZOLE SODIUM 20 MG TABLET.DR PO SCH (06:22)
[2018-10-30] MEDS: PROPRANOLOL HCL 10 MG TABLET PO SCH ×4 (06:27→22:09)
[2018-10-30] MEDS: NORMAL SALINE 1000 ML 1,000 ML IV PRN ×2 (06:31→22:18)
[2018-10-30 07:20] LABS: ABSOLUTE EOSINOPHILS # (AUTO) 0.1 10^3/uL (0.0-0.6); ABSOLUTE LYMPHOCYTES (AUTO) 0.9 10^3/uL (0.5-4.7); ABSOLUTE MONOCYTES (AUTO) 0.7 10^3/uL (0.1-1.4); ABSOLUTE NEUT (AUTO) 11.1 10^3/uL (1.7-8.2); BASOPHILS % (AUTO) 0.3 % (0-2); EOSINOPHILS % (AUTO) 1.1 % (0-6); HEMATOCRIT 25.6 % (36.0-47.0); HEMOGLOBIN 8.7 g/dL (12.0-15.5); LYMPHOCYTES % (AUTO) 6.8 % (13-45); MEAN CORPUSCULAR HEMOGLOBIN 33.5 pg (27.0-33.4); MEAN CORPUSCULAR HGB CONC 33.9 g/dL (32.0-36.0); MEAN CORPUSCULAR VOLUME 99 fl (80-97); MONOCYTES % (AUTO) 5.3 % (3-13); PLATELET COUNT 174 10^3/uL (150-450); RED BLOOD COUNT 2.59 10^6/uL (3.72-5.28); RED CELL DISTRIBUTION WIDTH 13.3 % (11.5-14.0); SEGMENTED NEUTROPHILS % (AUTO) 86.5 % (42-78); TOTAL CELLS COUNTED % (AUTO) 100 %; WHITE BLOOD COUNT 12.9 10^3/uL (4.0-10.5)
[2018-10-30 07:41] LABS: ALBUMIN 3.6 g/dL (3.5-5.0); ALKALINE PHOSPHATASE 36 U/L (38-126); ANION GAP 14 (5-19); ASPARTATE AMINO TRANSFERASE 61 U/L (14-36); BILIRUBIN,DIRECT 0.2 mg/dL (0.0-0.4); BILIRUBIN,TOTAL 0.6 mg/dL (0.2-1.3); BLOOD UREA NITROGEN 89 mg/dL (7-20); CALCIUM 8.8 mg/dL (8.4-10.2); CARBON DIOXIDE 25 mmol/L (22-30); CHLORIDE 98 mmol/L (98-107); GLUCOSE 97 mg/dL (75-110); POTASSIUM 3.8 mmol/L (3.6-5.0); TOTAL PROTEIN 6.2 g/dL (6.3-8.2)
--- NOTE | 2018-10-30 09:23 | EKG REPORT ---
SEVERITY:- ABNORMAL ECG - SINUS RHYTHM LOW VOLTAGE IN FRONTAL LEADS NONSPECIFIC T ABNORMALITIES, DIFFUSE LEADS PROLONGED QT INTERVAL : Confirmed by: Christina Rodríguez MD 30-Oct-2018 09:22:49
[2018-10-30] MEDS: GABAPENTIN 300 MG CAPSULE PO SCH ×2 (10:09→22:06)
[2018-10-30] MEDS: DOCUSATE SODIUM 100 MG CAPSULE PO SCH ×2 (10:09→17:16)
[2018-10-30] MEDS: BUPROPION HCL 75 MG TABLET PO SCH ×2 (10:09→22:05)
[2018-10-30] MEDS: MAGNESIUM OXIDE 400 MG TABLET PO SCH ×2 (10:09→17:16)
[2018-10-30] MEDS: ALLOPURINOL 100 MG TABLET PO SCH (10:20)
--- NOTE | 2018-10-30 11:21 | CRITICAL CARE ADMISSION REPORT ---
HPI Date:: 10/30/18 Time:: 10:45 Reason for ICU Reason:: Increasing Troponin; Suspicionof NSTEMI HPI: SOURAV ALVES is a 78 year old female With a history of CKD stage IV with base creatinine of around 5-6 with intermittent acute decompensation from severe dehydration was admitted with a history of generalized weakness, orthostasis and falls. Her who is the main caregiver was recently admitted with stroke and just discharged back home from [facility]. She is quite dependent on him for her care. Patient admits to the fact that she has been having large volume liquid stools into her illeostomy and has not been using her antimotility agents judiciously as she has been instructed. She thinks she has also seen dark- colored liquid stools for the last couple of days. However no complaints of any abdominal pains. She denies any history of chest pain or shortness of breath. Evaluations in the ER revealed that the patient was quiet debilitated and fragile and was hypotensive. She had also deranged labs including anemia, acute on chronic kidney disease.Besides that she had troponins ordered by ER physicians which came back as being elevated and cardiology has also been consulted for the evaluation and management. 10/30 This is an 78 yo who presented to the ED after a series fo falls and hypotension I was asked to thave thepatient transferred to ICU because of rising troponin by the hospitlaist. She denies chest pain. Howver her troponin went up the high 4 range last night. her ECG is abnormal with TWI in 1L and the lateral precordia. The patient had a technetium pyrophosphate scan that showed diffuse mild uptake. Dr. Arroyo feels it could suggest possible amyloidosis. The patient just had a new ECHO. She was sen by Dr. arroyo. Was never started on IV heparin. From what I understand she is to be started on ASA. The patient has stage 5 CKD and has beenn on the cusp of dialysis thepast little while and Dr. Juares was asked to see her. J. - Diagnosis/Plan (1) Anemia Is this a current diagnosis for this admission?: Yes Plan: We should check her stools for occult blood. Unsure if patient needs to be started on erthropoietin. can check her iron studies. her Hb has dropped 1.5-2 pts. ion thepast 3 months. (2) Chronic renal disease Qualifiers: Chronic kidney disease stage: stage 4 (severe) Qualified Code(s): N18.4 - Chronic kidney disease, stage 4 (severe) Plan: The patient hads had a progressive worsening of her renal fn. She is lkikely to need dialysis in the near future. there is a feeling she may be dehydrated presently. She isgetting some IV fluid presently/ She does have a portacath were we to pursue dialysis at this time. (3) Elevated troponin I level Is this a current diagnosis for this admission?: Yes Plan: The patient was moved to the ICU. Dr. Arroyo is reluctant to cath the patient . He may suggest a bucal fat pad biopsy to r/o amyloid. The patient is not having any chest pain and this time. He does not feel she needs to be on a heparin drip. Got one dose of 60mg of Ralph enox yesterday which should hang around given her renal status. Past Medical History Cardiac Medical History: Reports: Coronary Artery Disease, Myocardial Infa rction, Hypertension Pulmonary Medical History: Reports: None Denies: Asthma, Chronic Obstructive Pulmonary Disease (COPD), Tuberculosis EENT Medical History: Reports: None, Cataracts Denies: Eyes, Ears Neurological Medical History: Denies: Hemorrhagic CVA, Ischemic CVA, Seizures Endocrine Medical History: Reports: None Denies: Diabetes Mellitus Type 1, Diabetes Mellitus Type 2, Hyperthyroidism, Hypothyroidism Renal/ Medical History: Reports: None, End Stage Renal Disease Denies: Nephrolithiasis Malignancy Medical History: Reports: Colorectal Cancer, Renal (Kidney) Cancer - Left GI Medical History: Reports: None Denies: Cirrhosis, Crohn's Disease, Hepatitis, Hiatal Hernia, Ulcerative Colitis Musculoskeltal Medical History: Reports: Arthritis - Degenerative arthritis of the spine, Gout - left foot Skin Medical History: Reports: None Denies: Eczema, Psoriasis Psychiatric Medical History: Reports: None Denies: Alcohol Dependency, Depression, Substance Abuse, Tobacco Dependency Traumatic Medical History: Reports: None Hematology: Reports: Anemia - AFTER SURGERY FEB 16 2011 Denies: Bleeding Tendencies Infectious Medical History: Reports: None Past Surgical History Past Surgical History: Reports: Cardiac Catheterization, Colostomy - And bowel resection, Coronary Stent - X 2, Orthopedic Surgery - bilat cataracts, Other - bilateral cataracts Denies: Mastectomy, Pacemaker Social/Family History - Social History Lives with: Spouse/Significant other - 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 Smoking Status: Never Smoker Last Time Smoked: Valerie last smoked in 1984. Frequency of Alcohol Use: None Hx Recreational Drug Use: No Drugs: None Hx Prescription Drug Abuse: No - Medication/Allergies Home Medications: Bupropion HCl [Bupropion Xl] 150 mg PO DAILY 10/29/18 Calcitriol [Rocaltrol 0.5 mcg Capsule] 0.5 mcg PO DAILY 10/29/18 Cetirizine HCl [Zyrtec 10 mg Tablet] 10 mg PO QHS 10/29/18 Colestipol HCl [Colestid 1 gm Tablet] 2 gm PO TID 10/29/18 Cyanocobalamin (Vitamin B-12) [Vitamin B-12 1000 mcg Tablet] 1,000 mcg PO DAILY 10/29/18 Diphenoxylate HCl/Atrop Sulf [Lomotil 2.5 mg Tablet] 1 tab PO QIDP PRN 10/29/18 Febuxostat [Uloric 80 mg Tablet] 80 mg PO DAILY 10/29/18 Folic Acid [Folvite 1 mg Tablet] 1 mg PO DAILY 10/29/18 Hydroxyzine HCl [Atarax 25 mg Tablet] 25 mg PO QPM 10/29/18 Magnesium Oxide [Mag-Ox 400 mg Tablet] 400 mg PO QID 10/29/18 Midodrine HCl 2.5 mg PO TID 10/29/18 Pravastatin Sodium [Pravachol] 40 mg PO QPM 10/29/18 Propranolol HCl [Inderal 10 mg Tablet] 10 mg PO TID 10/29/18 Pyridoxine HCl (Vitamin B6) [Vitamin B-6] 50 mg PO BID 10/29/18 Sevelamer Carbonate [Renvela] 1,600 mg PO .SNACKS 10/29/18 Sevelamer Carbonate [Renvela] 2,400 mg PO MEALS 10/29/18 Tramadol HCl [Ultram 50 mg Tablet] 100 mg PO Q6HP PRN 10/29/18 Allergies/Adverse Reactions: meperidine HCl [From Demerol] Allergy (Intermediate, Verified 07/23/18 09:07) Hives Sulfa (Sulfonamide Antibiotics) Allergy (Intermediate, Verified 07/23/18 09:07) Hives ciprofloxacin HCl [From Cipro] Allergy (Verified 07/23/18 09:07) RASH prednisone [Prednisone] Allergy (Verified 07/23/18 09:07) MAKES HER CRAZY Review of Systems Constitutional: ABSENT: anorexia, headache(s) Nose, Mouth, and Throat: ABSENT: mouth pain Cardiovascular: ABSENT: chest pain Respiratory: ABSENT: cough Gastrointestinal: ABSENT: abdominal pain, diarrhea, dysphagia Musculoskeletal: ABSENT: joint swelling Integumentary: ABSENT: diaphoresis Neurological: PRESENT: abnormal gait, frequent falls. ABSENT: focal weakness Psychiatric: PRESENT: as per HPI Physical Exam Vital Signs: Temp Pulse Resp BP Pulse Ox 98.6 F 98 15 100/68 89 L 10/30/18 08:00 10/30/18 09:03 10/30/18 10:00 10/30/18 09:45 10/30/18 09:00 Intake & Output 10/29/18 10/30/18 10/31/18 06:59 06:59 06:59 Intake Total 2000 Output Total 100 Balance 1900 Weight 50.8 kg 50 kg Weight/Height Weight 50 kg Height 5 ft 8 in General appearance: PRESENT: no acute distress Head exam: PRESENT: atraumatic, normocephalic Eye exam: PRESENT: conjunctiva pink Neck exam: PRESENT: full ROM. ABSENT: JVD, thyromegaly Respiratory exam: PRESENT: symmetrical, unlabored, wheezes Cardiovascular exam: PRESENT: RRR Pulses: PRESENT: +2 pedal pulses bilateral GI/Abdominal exam: PRESENT: soft. ABSENT: tenderness Rectal exam: PRESENT: deferred Musculoskeletal exam: PRESENT: ambulatory Neurological exam: PRESENT: alert, altered, awake, oriented to person, oriented to time Laboratory/Radiographs Laboratory Results: 10/30/18 07:13 10/30/18 07:13 10/30/18 10/30/18 07:13 07:13 WBC 12.9 H RBC 2.59 L Hgb 8.7 L Hct 25.6 L MCV 99 H MCH 33.5 H MCHC 33.9 RDW 13.3 Plt Count 174 Seg Neutrophils % 86.5 H Sodium 136.8 L Potassium 3.8 Chloride 98 Carbon Dioxide 25 Anion Gap 14 BUN 89 H Creatinine 7.49 H Est GFR ( Amer) 6 L Glucose 97 Calcium 8.8 Total Bilirubin 0.6 AST 61 H Alkaline Phosphatase 36 L Total Protein 6.2 L Albumin 3.6 10/29/18 10/29/18 10/29/18 02:05 02:05 07:49 Creatine Kinase 215 H 394 H CK-MB (CK-2) 6.10 H Troponin I 0.263 10/29/18 10/29/18 10/29/18 07:49 15:05 15:05 Creatine Kinase 491 H CK-MB (CK-2) 13.70 H 22.90 H Troponin I 2.610 4.660 10/29/18 10/29/18 10/30/18 20:30 20:30 03:27 Creatine Kinase 414 H CK-MB (CK-2) 25.40 H Troponin I 4.890 3.750 Impressions: Cardiac Imaging Nuclear Medicine 10/29/18 00:00 IMPRESSION: Equivocal findings as described above. Probable mild myocardial uptake with 1+ activity at most. Head CT 10/29/18 01:23 IMPRESSION: Mild atrophy and chronic small vessel ischemic changes with no acute intracranial abnormality. Critical Time -: The care of a critically ill patient is dynamic. This note represents a static moment in the admission process. orders and treatments may be given simulataneously and urgentl, and time is not senior outside sales representative of the treatment process. This patient requires Critical Care secondary to life threating organ or limb dysfunction. Without the need for Critical Care services, the patient is at risk for increasid mortality and morbidity. Assessment & Plan - Diagnosis (1) Anemia Is this a current diagnosis for this admission?: Yes Plan: The patient appears to be chronically anemia. I'm sure a part of this is due to chronic diseases and her CKD. No recent melna or hematemesis, (2) Chronic renal disease Qualifiers: Chronic kidney disease stage: stage 4 (severe) Qualified Code(s): N18.4 - Chronic kidney disease, stage 4 (severe) Is this a current diagnosis for this admission?: Yes Plan: The patient is thought to be dehydrated. She is getting cautious fluid replacement a tthis time. She has a portacath in place in case dialysis is required at this time. has seen this patient. (3) Elevated troponin I level Is this a current diagnosis for this admission?: Yes
--- NOTE | 2018-10-30 12:12 | PDOC PROGRESS REPORT ---
Subjective Progress Note for:: 10/30/18 Reason For Visit: Patient seen in the ICU today. She has been admitted to the ICU for markedly elevated troponins. However she denies any history of chest pains. She feels she is a bit short of breath this morning. She has been on IV fluids at 75 cc/h. No complaints of any fever or chills. No abdominal pains or any andrew hematochezia she is here into the ileostomy back. Labs and medications were reviewed that show stable creatinine of 8.7/9.0, creatinine is down to 7.4 from yesterday of 8.8. Other electrolytes are within normal limits.Discussed patient with Dr. Rodríguez/cardiology who after reviewing the myocardial infarct scan opined that she may have amyloid affecting her heart and may be other organs as well. Physical Exam Vital Signs: Temp Pulse Resp BP Pulse Ox 98.6 F 69 16 100/68 95 10/30/18 08:00 10/30/18 10:00 10/30/18 10:00 10/30/18 10:00 10/30/18 10:00 Intake & Output 10/29/18 10/30/18 10/31/18 06:59 06:59 06:59 Intake Total 2000 Output Total 100 0 Balance 1900 0 Weight 50.8 kg 50 kg General appearance: PRESENT: no acute distress Respiratory exam: PRESENT: clear to auscultation randa, crackles - Scattered especially in the left mid zone. Midsized., rhonchi Cardiovascular exam: PRESENT: +S1, +S2. ABSENT: rubs GI/Abdominal exam: PRESENT: normal bowel sounds - Has an ileostomy bag with dark brown liquid stools., soft. ABSENT: organomegaly, tenderness Neurological exam: PRESENT: alert, awake, oriented to person, oriented to place, oriented to time, other - No asterixis Skin exam: ABSENT: cyanosis, erythema, mottled Results Laboratory Results: 10/30/18 07:13 10/30/18 07:13 10/30/18 10/30/18 07:13 07:13 WBC 12.9 H RBC 2.59 L Hgb 8.7 L Hct 25.6 L MCV 99 H MCH 33.5 H MCHC 33.9 RDW 13.3 Plt Count 174 Seg Neutrophils % 86.5 H Sodium 136.8 L Potassium 3.8 Chloride 98 Carbon Dioxide 25 Anion Gap 14 BUN 89 H Creatinine 7.49 H Est GFR ( Amer) 6 L Glucose 97 Calcium 8.8 Total Bilirubin 0.6 AST 61 H Alkaline Phosphatase 36 L Total Protein 6.2 L Albumin 3.6 10/29/18 10/29/18 10/29/18 02:05 02:05 07:49 Creatine Kinase 215 H 394 H CK-MB (CK-2) 6.10 H Troponin I 0.263 10/29/18 10/29/18 10/29/18 07:49 15:05 15:05 Creatine Kinase 491 H CK-MB (CK-2) 13.70 H 22.90 H Troponin I 2.610 4.660 10/29/18 10/29/18 10/30/18 20:30 20:30 03:27 Creatine Kinase 414 H CK-MB (CK-2) 25.40 H Troponin I 4.890 3.750 Impressions: Cardiac Imaging Nuclear Medicine 10/29/18 00:00 IMPRESSION: Equivocal findings as described above. Probable mild myocardial uptake with 1+ activity at most. Head CT 10/29/18 01:23 IMPRESSION: Mild atrophy and chronic small vessel ischemic changes with no acute intracranial abnormality. Assessment & Plan - Diagnosis (1) WILFREDO (acute kidney injury) Plan: Nonoliguric. Improving with gentle hydration. I want to cut back her fluid rate to 50 cc an hour given her mild shortness of breath. We will get a chest x-ray. I believe she probably has more atelectasis and I do not believe that she has congestive heart failure. However now given the new possibility of amyloid disease of the heart we have to be more careful with fluid resuscitation as well. (2) CKD (chronic kidney disease) stage 5, GFR less than 15 ml/min Is this a current diagnosis for this admission?: Yes Plan: Her base creatinine is around 5+ with intermittent exaggeration of these numbers because of dehydration from her high output ileostomy. In the past her renal numbers/creatinine has also dropped below 5 with outpatient fluid resuscitation. Therefore even though I says she has CKD stage V, I do not think it is a concrete stage as if she was well hydrated it is possible that the creatinine could be lower. Currently no indications for renal replacements. Given her fragility and debilitation I do not think she would be a good candidate for long-term dialysis. But that would be a bridge to be crossed when the time comes. (3) Elevated troponin I level Is this a current diagnosis for this admission?: Yes Plan: As per senior specialist. (4) Dehydration Plan: The face of high output ileostomy. Continue gentle hydration. (5) Ileostomy present Plan: Monitor for high output and use antimotility agents as needed. (6) Renal osteodystrophy Plan: Continue current medications. (7) Hypotension Plan: Continues to be hypotensive. Reintroduce Midodrin that she was on at home and also continue gentle hydration at the same time. (8) Anemia Is this a current diagnosis for this admission?: Yes Plan: Stable iron studies have been ordered but not done. Later for erythropoietin. (9) Hypomagnesemia Plan: Labs ordered.
--- NOTE | 2018-10-30 12:53 | RADIOLOGY REPORT (SQ) ---
EXAM DESCRIPTION: CHEST SINGLE VIEW COMPLETED DATE/TIME: 10/30/2018 12:38 pm REASON FOR STUDY: dyspnea COMPARISON: None. EXAM PARAMETERS: NUMBER OF VIEWS: One view. TECHNIQUE: Single frontal radiographic view of the chest acquired. RADIATION DOSE: NA LIMITATIONS: None. FINDINGS: LUNGS AND PLEURA: Increased perihilar opacities compared to 05/09/2017. The costophrenic s ulci are blunted. There is no pneumothorax. MEDIASTINUM AND HILAR STRUCTURES: No mediastinal hilar contour abnormality. HEART AND VASCULAR STRUCTURES: The cardiac silhouette and pulmonary vasculature are within normal moreno its. BONES: Left total shoulder arthroplasty. HARDWARE: Right IJ tunnel HD catheter ; the tip of the catheter projects within the right age. OTHER: Surgical clips in the gallbladder fossa and left upper quadrant. IMPRESSION: Increased bilateral perihilar opacity and probable bilateral pleural effusions. Correla te with clinical findings to exclude volume overload. TECHNICAL DOCUMENTATION: JOB ID: [id number] [employer]- All Rights Reserved Reading location - IP/workstation name: [email or web address]
[2018-10-30] MEDS: MIDODRINE HCL 5 MG TABLET PO SCH ×2 (14:06→17:16)
[2018-10-30] MEDS ORDERED: (PENDING PHARMACY ID) (Pravastatin Sodium [Pravachol] 40 MG) PO SCH (18:00)
--- NOTE | 2018-10-30 21:13 | XCELERA REPORT ---
[address] [address] Transthoracic Echocardiogram Report Name: SOURAV ALVES Age: 78 yrs Gender: Female : 1940 Patient Status: Inpatient Patient Location: ICU^[id number] Study Date: 10/30/2018 09:25 AM Height: 68 in Weight: 110 lb BSA: 1.6 m2 Procedure: A two-dimensional transthoracic echocardiogram with color flow and Doppler was performed. Study Quality: Good. Reason For Study: Elevated Troponin / Cardiac Amylodosis. History: Elevated Troponin / Cardiac Amylodosis. Ordering Physician: CHRISTINA EDWARDS Performed By: Akua Mike Interpretation Summary The left ventricle is normal in size. There is normal left ventricular wall thickness. There is somewhat of a 'Scintilating speckled LV devine'.Although this is non specific,it can be found in cardiac amylodosisBut this is not diagnostic. LV EF is 65% The left ventricular ejection fraction is within normal limits. Doppler measurements suggest impaired left ventricular relaxation, which is associated with grade I/IV or mild diastolic dysfunction The left ventricular wall motion is normal. There is no thrombus. No ASD ,VSD , or PFO seen. The right ventricle is normal in size and function. The right ventricle is not well visualized secondary to technical limitations There seems to be mild biatrial enlargement. Interatrial septal thickening is noted. There is no evidence of mitral valve prolapse. There is no vegetation seen on the mitral valve. There is no mitral valve stenosis. There is a moderate amount of mitral regurgitation This MR jet is directed posteriorly. There is no aortic valvular vegetation. There is no aortic valve stenosis There is no LVOT obstruction. No aortic regurgitation is present. There is no tricuspid stenosis. There is a moderate amount of tricuspid regurgitation There is mild to moderate pulmonary hypertension by echo RVSP is 47 to 52 mm of HG , with RA mean of 5 to 10. There is no pulmonic valvular stenosis. Trace to mild AR. The aortic root is normal size. The inferior vena cava appeared normal and decreased > 50% with respiration (RAP 5-10 mmHg) There is no pericardial effusion. MMode/2D Measurements & Calculations RVDd: 3.3 cm LVIDd: 4.7 cm FS: 43.3 % Ao root diam: 2.2 cm IVSd: 0.99 cm LVIDs: 2.7 cm EDV(Teich): Ao root area: LVPWd: 0.97 cm 104.4 ml 3.8 cm2 ESV(Teich): 26.7 mlLA dimension: 3.0 cm EF(Teich): 74.5 % LVLd ap4: 7.3 cm SV(MOD-sp4): EDV(MOD-sp4): 44.0 ml 63.0 ml LVLs ap4: 6.3 cm ESV(MOD-sp4): 19.0 ml EF(MOD-sp4): 69.8 % Doppler Measurements & Calculations MV E max frances: MV P1/2t max frances: Ao V2 max: LV V1 max P.0 cm/sec 126.0 cm/sec 144.2 cm/sec 2.8 mmHg MV A max frances: MV P1/2t: 56.0 msec Ao max PG: LV V1 max: 134.0 cm/sec MVA(P1/2t): 3.9 cm2 8.3 mmHg 83.4 cm/sec MV E/A: 0.93 MV dec slope: 659.0 cm/sec2 MV dec time: 0.14 sec PA V2 max: PI end-d frances: TR max frances: MV P1/2t-pr_phl: 74.5 cm/sec 199.5 cm/sec 323.1 cm/sec 56.0 msec PA max P.2 mmHg TR max P.7 mmHg Left Ventricle The left ventricle is normal in size. There is normal left ventricular wall thickness. There is somewhat of a 'Scintilating speckled LV devine'.Although this is non specific,it can be found in cardiac amylodosisBut this is not diagnostic. LV EF is 65%. The left ventricular ejection fraction is within normal limits. Doppler measurements suggest impaired left ventricular relaxation, which is associated with grade I/IV or mild diastolic dysfunction. The left ventricular wall motion is normal. There is no thrombus. No ASD ,VSD , or PFO seen. Right Ventricle The right ventricle is normal in size and function. The right ventricle is not well visualized secondary to technical limitations. Atria There seems to be mild biatrial enlargement. Interatrial septal thickening is noted. Mitral Valve There is no evidence of mitral valve prolapse. There is no vegetation seen on the mitral valve. There is no mitral valve stenosis. There is a moderate amount of mitral regurgitation. This MR jet is directed posteriorly. Aortic Valve There is no aortic valvular vegetation. There is no aortic valve stenosis. There is no LVOT obstruction. No aortic regurgitation is present. Tricuspid Valve There is no tricuspid stenosis. There is a moderate amount of tricuspid regurgitation. There is mild to moderate pulmonary hypertension by echo. RVSP is 47 to 52 mm of HG , with RA mean of 5 to 10. Pulmonic Valve There is no pulmonic valvular stenosis. Trace to mild AR. Great Vessels The aortic root is normal size. The inferior vena cava appeared normal and decreased > 50% with respiration (RAP 5-10 mmHg). Effusions There is no pericardial effusion. : CHRISTNIA EDWARDS Lakshmi
[2018-10-30] MEDS: ATORVASTATIN CALCIUM 10 MG TABLET PO SCH (22:06)
--- NOTE | 2018-10-30 22:58 | Progress Note ---
Provider Note Provider Note: CARDIOLOGY PROGRESS NOTE by Dr. Christina Rodríguez on 10/30/2018. SUBJECTIVE: The patient denies any chest pain or discomfort. There is no shortness of breath. There is no PND orthopnea. The patient does have some dry crackles which resolved when the patient coughs or takes a deep breath. Hence this is more due to atelectasis rather than heart failure or pneumonia. There is no arrhythmia seen on the monitor. The patient's troponin and had peaked and is now trending down. PHYSICAL EXAMINATION: The patient appears to be a frail build and chronically ill looking and malnourished. But in no acute distress. Selected Entries 10/30/18 10/30/18 16:00 19:00 Temperature 97.5 F Temperature Oral Source Pulse Rate 74 Respiratory 18 Rate Blood Pressure 93/47 L [Left upper arm ] Blood Pressure 62 Mean [Left upper arm] Blood Pressure Supine Position [Left upper arm] O2 Sat by Pulse 97 Oximetry Oxygen Delivery Nasal Cannula Method ( includes room air) Oxygen Flow 4 Rate HEAD: Is atraumatic normocephalic. EYES: Pupils are equal round regular reactive to light and accommodation. Extraocular movements are normal. There is no conjunctival pallor. There is no scleral icterus. EARS: Tympanic membranes are intact. External auditory canals. NOSE: There is no deviated nasal septum. There is no inflammation nasal mucous membrane. MOUTH: Mucous memories of mouth is very dry tongue is dry there is no ulcers. THROAT: There is no exudates. There is no redness of the oropharynx. SKIN: There are a few scratch maynard. There is no petechia or ecchymosis. There is no skin lesions or skin rashes. NECK: Is supple. There is no JVD. Carotids are equal there is no bruit. There is no lymphadenopathy. There is no accessory muscle off respiration use. Trachea central. LUNGS: Is clear to auscultation percussion. There is no rhonchi rales or wheezing. HEART: S1-S2 is heard. There is no S3 gallop. There is no S4 gallop. There is systolic murmur left sternal border and the apex there is no rub. ABDOMEN: Is soft. Skin turgor is lost. There is no hepatospleno megaly. Bowel sounds are heard. There is a colostomy bag in situ. EXTREMITIES: Femorals are diminished. There is no femoral bruits. Leg pulses are diminished. There is no pedal edema. There is no DVT or cellulitis. There is no cyanosis or clubbing. ACID SUPERVISOR: The patient is conscious slightly agitated due to complaints of pruritus of her legs. With no focal deficits. PSYCHIATRIC: The patient is slightly anxious and agitated. Her judgment and insight seem to be intact. Labs- All tests 24 hr 10/30/18 10/30/18 10/30/18 03:27 07:13 07:13 WBC 12.9 H RBC 2.59 L Hgb 8.7 L Hct 25.6 L MCV 99 H MCH 33.5 H MCHC 33.9 RDW 13.3 Plt Count 174 Lymph % (Auto) 6.8 L Davidson % (Auto) 5.3 Eos % (Auto) 1.1 Baso % (Auto) 0.3 Absolute Neuts (auto) 11.1 H Absolute Lymphs (auto) 0.9 Absolute Monos (auto) 0.7 Absolute Eos (auto) 0.1 Absolute Basos (auto) 0.0 Seg Neutrophils % 86.5 H Sodium 136.8 L Potassium 3.8 Chloride 98 Carbon Dioxide 25 Anion Gap 14 BUN 89 H Creatinine 7.49 H Est GFR ( Amer) 6 L Est GFR (MDRD) Non-Af 5 L Glucose 97 Calcium 8.8 Total Bilirubin 0.6 Direct Bilirubin 0.2 Neonat Total Bilirubin Not Reportable Neonat Direct Bilirubin Not Reportable Neonat Indirect Bili Not Reportable AST 61 H ALT 32 Alkaline Phosphatase 36 L Troponin I 3.750 Total Protein 6.2 L Albumin 3.6 Stl Occult Blood (ICT) 10/30/18 12:55 WBC RBC Hgb Hct MCV MCH MCHC RDW Plt Count Lymph % (Auto) Davidson % (Auto) Eos % (Auto) Baso % (Auto) Absolute Neuts (auto) Absolute Lymphs (auto) Absolute Monos (auto) Absolute Eos (auto) Absolute Basos (auto) Seg Neutrophils % Sodium Potassium Chloride Carbon Dioxide Anion Gap BUN Creatinine Est GFR ( Amer) Est GFR (MDRD) Non-Af Glucose Calcium Total Bilirubin Direct Bilirubin Neonat Total Bilirubin Neonat Direct Bilirubin Neonat Indirect Bili AST ALT Alkaline Phosphatase Troponin I Total Protein Albumin Stl Occult Blood (ICT) POSITIVE Cardiac Imaging Nuclear Medicine 10/29/18 00:00 IMPRESSION: Equivocal findings as described above. Probable mild myocardial uptake with 1+ activity at most. Head CT 10/29/18 01:23 IMPRESSION: Mild atrophy and chronic small vessel ischemic changes with no acute intracranial abnormality. Chest X-Ray 10/30/18 12:00 IMPRESSION: Increased bilateral perihilar opacity and probable bilateral pleural effusions. Correlate with clinical findings to exclude volume overload. EKG: Sinus rhythm with nonspecific T inversion diffusely. IMPRESSION/RECOMMENDATION: 1. Elevated troponin I in a patient with a history of coronary artery disease and prior myocardial infarction. The differential diagnosis is non-ST elevation SC. Another possibility is cardiac amyloidosis. The patient's history is not very accurate by her description, and hence will have to treated also as a non- ST elevation SC. The patient did receive a dose of Lovenox which should order for 24 hours. We will get an echocardiogram to see if there is any features of amyloidosis such as scintillating speckling of the myocardium with LVH, and biatrial abnormalities. Later would recommend that the patient have a cardiac MRI. The other option would be to get a abdominal fat pad biopsy with Congo red stain. The patient's blood pressure and at present is not permissible to start the patient on nitrates or beta-blockers. We will start the patient on aspirin. Later when the blood pressure does come up then would start the patient on beta-blockers and nitrates the patient's blood pressure still on the low normal side and hence cannot start nitrates or beta-blockers. We will continue aspirin. The patient has no chest pain or discomfort and hence in view of the patient's high risk for bleeding will not start the patient on full dose anticoagulation. Also the echo shows normal LV ejection fraction with wall no wall motion of normality. But also there is some suggestion that amyloidosis of the heart needs to be excluded. Hence discussed with the patient and the patient's and explained the minor procedure in the form of a abdominal fat pad biopsy with Congo red stain to see if the patient does indeed have amyloidosis. If this is the case then with insurance it can be inferred that there is a myeloid involvement of the heart. This has been discussed at length with the patient's daughter, the patient, and the patient's . Also discussed with the caregiving providers on the case. Will arrange for a fat pad biopsy under local and sedation by the surgical list tomorrow morning.. 2. Severe dehydration: Would rehydrate the patient gently with normal saline at 100 mL/h. This has been discussed with the marine steam fitter. Reviewed the chest x- ray findings will further decrease the patient's IV fluids. 3. Hypotension: Relative. Most likely due to the patient's significant dehydration. Hopefully this will improve. 4. End-stage renal disease not yet on dialysis. Nephrology believes that the patient's GFR might improve with hydration, with which I concur. 5. Coronary artery disease: History of myocardial infarction in the past, and history of stents. We will try to get the patient records. Note patient has not had any recent anginal symptoms. 6. History of hypertension in the past. At present low blood pressure secondary to most likely dehydration. 7. History of intermittent bowel obstruction, and history of colectomy. 8. Malnourished state. Medications reviewed.Managrment plan discussed with the care giving providers on the case. Medical patient making is of high complexity. 40 minutes spent on this patient with more than 50% of time spent in direct patient care. Will follow.
[2018-10-31 03:57] LABS: ABSOLUTE RETICS # 0.041 10^6/uL (0.028-0.122); HEMATOCRIT 25.1 % (36.0-47.0); HEMOGLOBIN 8.7 g/dL (12.0-15.5); MEAN CORPUSCULAR HEMOGLOBIN 33.9 pg (27.0-33.4); MEAN CORPUSCULAR HGB CONC 34.5 g/dL (32.0-36.0); MEAN CORPUSCULAR VOLUME 98 fl (80-97); PLATELET COUNT 159 10^3/uL (150-450); RED BLOOD COUNT 2.56 10^6/uL (3.72-5.28); RED CELL DISTRIBUTION WIDTH 13.3 % (11.5-14.0); WHITE BLOOD COUNT 9.8 10^3/uL (4.0-10.5)
[2018-10-31 04:22] LABS: ANION GAP 11 (5-19); BLOOD UREA NITROGEN 86 mg/dL (7-20); CALCIUM 8.3 mg/dL (8.4-10.2); CARBON DIOXIDE 24 mmol/L (22-30); CHLORIDE 97 mmol/L (98-107); GLUCOSE 102 mg/dL (75-110); IRON(TIBC) 24.5 ug/dL (37-170); POTASSIUM 3.7 mmol/L (3.6-5.0)
[2018-10-31] MEDS: PROPRANOLOL HCL 10 MG TABLET PO SCH ×3 (05:22→21:37)
[2018-10-31 05:35] LABS: FOLATE > 20.00 ng/mL (>2.76)
[2018-10-31] MEDS: HEPARIN SOD (PORCINE) 5,000 UNIT/ML 1 ML VIAL SUBCUT SCH ×3 (05:35→21:38)
[2018-10-31] MEDS: PANTOPRAZOLE SODIUM 20 MG TABLET.DR PO SCH (05:36)
--- NOTE | 2018-10-31 06:32 | PDOC PROGRESS REPORT ---
Subjective Progress Note for:: 10/31/18 Subjective:: The patient is resting comfortably in the ICU. She had developed increasing troponins recently. her ECG shows non-specific changes The was diffuse uptake during a pyrophosphate cardiac scan Dr. Townsend wishes to r/o cardiac amyloodoisi. Arrangements have been made for an abdominal fat pad biopsy today. Her peak troioponin was 4.89. The patient denoes chest pain. However, she does have knwon ischemic heart disease and stents in the past. Reason For Visit: ELEVATED TROPONIN Physical Exam Vital Signs: Temp Pulse Resp BP Pulse Ox 97.3 F 78 16 95/63 L 98 10/31/18 01:00 10/31/18 01:00 10/31/18 06:02 10/31/18 06:02 10/31/18 06:02 Intake & Output 10/29/18 10/30/18 10/31/18 06:59 06:59 06:59 Intake Total 2000 1120 Output Total 100 254 Balance 1900 866 Weight 50.8 kg 50 kg General appearance: PRESENT: no acute distress, well-developed, well-nourished Head exam: PRESENT: atraumatic, normocephalic Eye exam: PRESENT: conjunctiva pink, EOMI, PERRLA. ABSENT: scleral icterus Ear exam: PRESENT: normal external ear exam Mouth exam: PRESENT: moist, tongue midline Neck exam: PRESENT: full ROM. ABSENT: carotid bruit, JVD, lymphadenopathy, thyromegaly Cardiovascular exam: PRESENT: RRR. ABSENT: diastolic murmur, rubs, systolic murmur Pulses: PRESENT: normal dorsalis pedis pul, +2 pedal pulses bilateral Vascular exam: PRESENT: normal capillary refill GI/Abdominal exam: PRESENT: normal bowel sounds, soft. ABSENT: distended, guarding, mass, organolmegaly, rebound, tenderness Rectal exam: PRESENT: deferred Neurological exam: PRESENT: alert, awake, oriented to person, oriented to place, oriented to time, oriented to situation, CN II-XII grossly intact. ABSENT: motor sensory deficit Psychiatric exam: PRESENT: appropriate affect, normal mood. ABSENT: homicidal ideation, suicidal ideation Skin exam: PRESENT: dry, intact, warm. ABSENT: cyanosis, rash Results Laboratory Results: 10/31/18 03:46 10/31/18 03:46 10/30/18 10/30/18 10/31/18 07:13 07:13 03:46 WBC 12.9 H RBC 2.59 L Hgb 8.7 L Hct 25.6 L MCV 99 H MCH 33.5 H MCHC 33.9 RDW 13.3 Plt Count 174 Seg Neutrophils % 86.5 H Retic Count (auto) Sodium 136.8 L 132.4 L Potassium 3.8 3.7 Chloride 98 97 L Carbon Dioxide 25 24 Anion Gap 14 11 BUN 89 H 86 H Creatinine 7.49 H 6.44 H Est GFR ( Amer) 6 L 8 L Glucose 97 102 Calcium 8.8 8.3 L Magnesium 1.7 Iron 24.5 L TIBC 251 % Saturation 10 Ferritin 229.00 Total Bilirubin 0.6 AST 61 H Alkaline Phosphatase 36 L Total Protein 6.2 L Albumin 3.6 Vitamin B12 710.0 Folate > 20.00 10/31/18 03:46 WBC 9.8 RBC 2.56 L Hgb 8.7 L Hct 25.1 L MCV 98 H MCH 33.9 H MCHC 34.5 RDW 13.3 Plt Count 159 Seg Neutrophils % Retic Count (auto) 1.60 Sodium Potassium Chloride Carbon Dioxide Anion Gap BUN Creatinine Est GFR ( Amer) Glucose Calcium Magnesium Iron TIBC % Saturation Ferritin Total Bilirubin AST Alkaline Phosphatase Total Protein Albumin Vitamin B12 Folate 10/29/18 10/29/18 10/29/18 02:05 02:05 07:49 Creatine Kinase 215 H 394 H CK-MB (CK-2) 6.10 H Troponin I 0.263 10/29/18 10/29/18 10/29/18 07:49 15:05 15:05 Creatine Kinase 491 H CK-MB (CK-2) 13.70 H 22.90 H Troponin I 2.610 4.660 10/29/18 10/29/18 10/30/18 20:30 20:30 03:27 Creatine Kinase 414 H CK-MB (CK-2) 25.40 H Troponin I 4.890 3.750 Impressions: Cardiac Imaging Nuclear Medicine 10/29/18 00:00 IMPRESSION: Equivocal findings as described above. Probable mild myocardial uptake with 1+ activity at most. Head CT 10/29/18 01:23 IMPRESSION: Mild atrophy and chronic small vessel ischemic changes with no acute intracranial abnormality. Chest X-Ray 10/30/18 12:00 IMPRESSION: Increased bilateral perihilar opacity and probable bilateral pleural effusions. Correlate with clinical findings to exclude volume overload. Assessment & Plan - Diagnosis (1) Anemia Is this a current diagnosis for this admission?: Yes Plan: The patient appears to be chronically anemia. I'm sure a part of this is due to chronic diseases and her CKD. No recent melna or hematemesis, (2) Chronic renal disease Qualifiers: Chronic kidney disease stage: stage 4 (severe) Qualified Code(s): N18.4 - Chronic kidney disease, stage 4 (severe) Is this a current diagnosis for this admission?: Yes Plan: The patient is thought to be dehydrated. She is getting cautious fluid replacement a tthis time. She has a portacath in place in case dialysis is required at this time. has seen this patient. The patient is fairly oliguric presently. She has been placed on cautious hydration as she was though to be dehydrates. (3) Elevated troponin I level Is this a current diagnosis for this admission?: Yes - Time Time Spent with patient: 15-24 minutes
[2018-10-31] MEDS: MAGNESIUM OXIDE 400 MG TABLET PO SCH ×2 (09:28→18:03)
[2018-10-31] MEDS: ALLOPURINOL 100 MG TABLET PO SCH (09:28)
[2018-10-31] MEDS: BUPROPION HCL 75 MG TABLET PO SCH ×2 (09:28→21:37)
[2018-10-31] MEDS: DOCUSATE SODIUM 100 MG CAPSULE PO SCH ×2 (09:28→18:03)
[2018-10-31] MEDS: GABAPENTIN 300 MG CAPSULE PO SCH ×2 (09:28→21:37)
[2018-10-31] MEDS: MIDODRINE HCL 5 MG TABLET PO SCH ×2 (09:31→13:26)
--- NOTE | 2018-10-31 09:31 | EKG REPORT ---
SEVERITY:- BORDERLINE ECG - SINUS RHYTHM BORDERLINE PROLONGED QT INTERVAL : Confirmed by: Christina Rodríguez MD 31-Oct-2018 09:31:28
--- NOTE | 2018-10-31 14:42 | PDOC PROGRESS REPORT ---
Subjective Progress Note for:: 10/31/18 Subjective:: I saw the patient today with her and daughter at bedside. They are concerned about her new onset tremors involving her right hand and both her legs. She was just started on midodrine and Dr. Hansen held the midodrine just in case it is the culprit. On her home med list she has been on propanolol for which the patient does not know why she is being given. It has been on hold because of hypotension. In terms of the kidney function her creatinine is coming down every day and is currently at 6.44. She came in with creatinine of 8.7-9.0 with a baseline creatinine of around 5. Her urine output for the last 24 hours was only 304 so I had her inserted a Vásquez catheter and immediately we were able to obtain another 300 mL of urine for today. Patient states she is still not feeling very well. I was told that she is scheduled for fat pad biopsy by the surgeon sometime this afternoon for consideration for amyloidosis due to the echocardiographic findings of speckled LV wall. Reason For Visit: ELEVATED TROPONIN Physical Exam Vital Signs: Temp Pulse Resp BP Pulse Ox 97.2 F 89 18 112/48 L 100 10/31/18 12:00 10/31/18 12:00 10/31/18 12:00 10/31/18 12:00 10/31/18 12:00 Intake & Output 10/30/18 10/31/18 11/01/18 06:59 06:59 06:59 Intake Total 2000 1220 Output Total 100 954 400 Balance 1900 266 -400 Weight 50 kg 53.9 kg Exam: General appearance: PRESENT: no acute distress, cooperative, well-developed, well-nourished Head exam: PRESENT: atraumatic, normocephalic Eye exam: PRESENT: conjunctiva pale, PERRLA. ABSENT: scleral icterus Neck exam: ABSENT: JVD, she has a right IJ PermCath in place. Respiratory exam: PRESENT: Diminished breath sounds. ABSENT: crackles, rales, rhonchi, unlabored, wheezes Cardiovascular exam: PRESENT: Regular rate rhythm -+S1, +S2. ABSENT: diastolic murmur, systolic murmur GI/Abdominal exam: PRESENT: normal bowel sounds, soft. Ileostomy in the left lower quadrant area ABSENT: guarding, mass, tenderness Extremities exam: ABSENT: No edema Neurological exam: PRESENT: alert, awake, oriented to person, place and time. She has involuntary tremors of her bilateral lower extremities and right hand Skin exam: PRESENT: dry, warm, Cardiovascular exam: PRESENT: +S1, +S2. ABSENT: rubs GI/Abdominal exam: PRESENT: normal bowel sounds - Has an ileostomy bag with dark brown liquid stools., soft. ABSENT: organomegaly, tenderness Results Laboratory Results: 10/31/18 03:46 10/31/18 03:46 10/31/18 10/31/18 03:46 03:46 WBC 9.8 RBC 2.56 L Hgb 8.7 L Hct 25.1 L MCV 98 H MCH 33.9 H MCHC 34.5 RDW 13.3 Plt Count 159 Retic Count (auto) 1.60 Sodium 132.4 L Potassium 3.7 Chloride 97 L Carbon Dioxide 24 Anion Gap 11 BUN 86 H Creatinine 6.44 H Est GFR ( Amer) 8 L Glucose 102 Calcium 8.3 L Magnesium 1.7 Iron 24.5 L TIBC 251 % Saturation 10 Ferritin 229.00 Vitamin B12 710.0 Folate > 20.00 10/29/18 10/29/18 10/29/18 02:05 02:05 07:49 Creatine Kinase 215 H 394 H CK-MB (CK-2) 6.10 H Troponin I 0.263 10/29/18 10/29/18 10/29/18 07:49 15:05 15:05 Creatine Kinase 491 H CK-MB (CK-2) 13.70 H 22.90 H Troponin I 2.610 4.660 10/29/18 10/29/18 10/30/18 20:30 20:30 03:27 Creatine Kinase 414 H CK-MB (CK-2) 25.40 H Troponin I 4.890 3.750 10/31/18 09:27 Creatine Kinase CK-MB (CK-2) Troponin I 1.620 Impressions: Cardiac Imaging Nuclear Medicine 10/29/18 00:00 IMPRESSION: Equivocal findings as described above. Probable mild myocardial uptake with 1+ activity at most. Head CT 10/29/18 01:23 IMPRESSION: Mild atrophy and chronic small vessel ischemic changes with no acute intracranial abnormality. Chest X-Ray 10/30/18 12:00 IMPRESSION: Increased bilateral perihilar opacity and probable bilateral pleural effusions. Correlate with clinical findings to exclude volume overload. Assessment & Plan - Diagnosis (1) WILFREDO (acute kidney injury) Is this a current diagnosis for this admission?: Yes Plan: Most likely secondary to dehydration due to high output ileostomy. Kidney function is currently slowly improving. Patient is nonoliguric. There is no indication for initiation of renal replacement therapy at this time. Given the patient's age and comorbidity her threshold for initiating renal replacement therapy is high. We will hold off until it is really necessary to start dialysis. Patient has a PermCath that can be used for hemodialysis if needed. (2) CKD (chronic kidney disease) stage 5, GFR less than 15 ml/min Is this a current diagnosis for this admission?: Yes Plan: Her baseline creatinine is around 5's. (3) Anemia Is this a current diagnosis for this admission?: Yes Plan: This is a combination of anemia of chronic kidney disease and iron deficiency with low Tsat at 10. I will give her a dose of IV Injectafer. She may need to be initiated on Procrit at one point. (4) Elevated troponin I level Is this a current diagnosis for this admission?: Yes Plan: Levels are going down. Cardiology is following care of Dr. Rodríguez. Patient is also being evaluated for cardiac amyloidosis pending fat pad biopsy. (5) Hypotension Is this a current diagnosis for this admission?: Yes Plan: Currently improved. (6) Coarse tremors Is this a current diagnosis for this admission?: Yes Plan: Could be drug-induced versus a baseline essential tremors. We will see how she does with holding of the midodrine which was the only new medication added. Need to consider recent initiation of propanolol which could be good for tremors. (7) Dehydration Is this a current diagnosis for this admission?: Yes Plan: Currently on maintenance IV fluids. (8) Ileostomy present Is this a current diagnosis for this admission?: Yes (9) Solitary kidney, acquired Is this a current diagnosis for this admission?: Yes Plan: Status post nephrectomy due to renal cell carcinoma. - Notes Notes: Discussed assessment and plan and answered questions of the patient and her h band and daughter. - Time Time with patient: Greater than 35 minutes
[2018-10-31] MEDS ORDERED: LIDOCAINE 1% INJ-PF (10 MG/ML) 30 ML SDV ONE (15:17)
[2018-10-31] MEDS ORDERED: FERRIC CARBOXYMALTOSE 750 MG in NORMAL SALINE 100 ML IV ONE (16:00)
--- NOTE | 2018-10-31 16:00 | Operative Report ---
Operative Report DATE OF SURGERY: 10/31/18 PREOPERATIVE DIAGNOSIS: Amyloidosis POSTOPERATIVE DIAGNOSIS: Same OPERATION: Excision biopsy of skin and fat from the right lower quadrant abdominal wall SURGEON: SCARLET IBARRA ANESTHESIA: Local TISSUE REMOVED OR ALTERED: fat and skin COMPLICATIONS: none ESTIMATED BLOOD LOSS: 5 ccs INTRAOPERATIVE FINDINGS: normal skin and fat PROCEDURE: Patient was supine on her bed in the right lower abdominal wall was then prepped and draped in the usual sterile fashion. A timeout was called and patient agrees to skin and fat biopsy of the abdominal wall. Local anesthesia was then infiltrated and an ellipse of skin and fatty tissue was removed. About 2 cm of the skin and 2 cm wide of fatty tissue was excised still using 11 blade. The area was then closed with running suture using 3-0 nylon going deep to control also for hemostasis. The wound was then closed and sterile 4 x 4 and adhesive tape was placed over the operative site. The specimen was then placed in a sterile container to be sent to the lab for primarily for fat biopsy to rule out [place] red with me will indicate amyloidosis. Patient tolerated procedure well
[2018-10-31] MEDS ORDERED: OXYCODONE-ACETAMINOPHEN 5-325 MG TABLET PO PRN (16:24)
[2018-10-31] MEDS: NORMAL SALINE 1000 ML 1,000 ML IV PRN (18:23)
[2018-10-31] MEDS: ATORVASTATIN CALCIUM 10 MG TABLET PO SCH (21:37)
--- NOTE | 2018-10-31 21:41 | Progress Note ---
Provider Note Provider Note: CARDIOLOGY PROGRESS NOTE by Dr. Christina Rodríguez on 10/31/2018. SUBJECTIVE: The patient denies any chest pain or discomfort. There is no shortness of breath. There is no PND orthopnea. She had a abdominal fat pad biopsy done by Dr. Flores, at the bedside with local infiltration of Xylocaine. The patient tolerated the procedure well. There is no arrhythmia seen on the monitor. There is no TIA CVA symptoms. PHYSICAL EXAMINATION: The patient is a frail build and appears malnourished. She is in no acute distress Selected Entries 10/31/18 10/31/18 10/31/18 15:29 17:16 17:17 Core 98.4 F Temperature Heart Rate ( 93 Monitors) Respiratory 15 Rate Blood Pressure 129/50 H Blood Pressure 76 Mean O2 Sat by Pulse 100 100 Oximetry Fraction of 36 Inspired Oxygen (FIO2) Oxygen Flow 4 Rate HEAD: Is atraumatic normocephalic. EYES: Pupils are equal round regular reactive to light and accommodation. Extraocular movements are normal. There is no conjunctival pallor. There is no scleral icterus. EARS: Tympanic membranes are intact. External auditory canals. NOSE: There is no deviated nasal septum. There is no inflammation nasal mucous membrane. MOUTH: Mucous memories of mouth is very dry tongue is dry there is no ulcers. THROAT: There is no exudates. There is no redness of the oropharynx. SKIN: There are a few scratch maynard. There is no petechia or ecchymosis. There is no skin lesions or skin rashes. NECK: Is supple. There is no JVD. Carotids are equal there is no bruit. There is no lymphadenopathy. There is no accessory muscle off respiration use. Trachea central. LUNGS: Is clear to auscultation percussion. There is no rhonchi rales or wheezing. HEART: S1-S2 is heard. There is no S3 gallop. There is no S4 gallop. There is systolic murmur left sternal border and the apex there is no rub. ABDOMEN: Is soft. Skin turgor is lost. There is no hepatospleno megaly. Bowel sounds are heard. There is a colostomy bag in situ. EXTREMITIES: Femorals are diminished. There is no femoral bruits. Leg pulses are diminished. There is no pedal edema. There is no DVT or cellulitis. There is no cyanosis or clubbing. 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 With no focal deficits. PSYCHIATRIC: The patient is slightly anxious and agitated. Her judgment and insight seem to be intact. Labs- All tests 24 hr 10/31/18 10/31/18 10/31/18 03:46 03:46 09:27 WBC 9.8 RBC 2.56 L Hgb 8.7 L Hct 25.1 L MCV 98 H MCH 33.9 H MCHC 34.5 RDW 13.3 Plt Count 159 Reticulocyte # 0.041 Retic Count (auto) 1.60 Sodium 132.4 L Potassium 3.7 Chloride 97 L Carbon Dioxide 24 Anion Gap 11 BUN 86 H Creatinine 6.44 H Est GFR ( Amer) 8 L Est GFR (MDRD) Non-Af 6 L Glucose 102 Calcium 8.3 L Magnesium 1.7 Iron 24.5 L TIBC 251 % Saturation 10 Ferritin 229.00 Troponin I 1.620 Vitamin B12 710.0 Folate > 20.00 Cardiac Imaging Nuclear Medicine 10/29/18 00:00 IMPRESSION: Equivocal findings as described above. Probable mild myocardial uptake with 1+ activity at most. Head CT 10/29/18 01:23 IMPRESSION: Mild atrophy and chronic small vessel ischemic changes with no acute intracranial abnormality. Chest X-Ray 10/30/18 12:00 IMPRESSION: Increased bilateral perihilar opacity and probable bilateral pleural effusions. Correlate with clinical findings to exclude volume overload. EKG: Shows sinus rhythm with diffuse nonspecific T wave changes and prolonged QT interval. IMPRESSION/RECOMMENDATION: 1. Elevated troponin I which is trending down the differential diagnosis of non-ST elevation IA versus supply demand mismatch type II IA versus secondary to amyloid involvement of the heart. The patient did have a abnormal fat pad biopsy which is been sent for [place] red stain. Of note the patient's blood pressure is tenuous, hence apart from aspirin unable to start the patient on any anti-CAD medications. Of note the patient has no chest pain or discomfort. And no shortness of breath. 2. Severe dehydration: The patient has been rehydrated. 3. Hypotension: Relative. Most likely due to the patient's significant dehydration. Hopefully this will improve. If the blood pressure remains borderline, would give a trial of midodrine. 4. End-stage renal disease not yet on dialysis. Nephrology believes that the patient's GFR might improve with hydration, with which I concur. 5. Coronary artery disease: History of myocardial infarction in the past, and history of stents. We will try to get the patient records. Note patient has not had any recent anginal symptoms. 6. History of hypertension in the past. At present low blood pressure secondary to most likely dehydration. 7. History of intermittent bowel obstruction, and history of colectomy. 8. Malnourished state. Medications reviewed. Management plan discussed with the caregiving providers on the case.. Medical decision making is of high complexity. 40 minutes spent on this patient with more than 50% of time spent in direct patient care. Will follow.
[2018-11-01] MEDS: HEPARIN SOD (PORCINE) 5,000 UNIT/ML 1 ML VIAL SUBCUT SCH ×3 (06:05→21:53)
[2018-11-01] MEDS: PROPRANOLOL HCL 10 MG TABLET PO SCH ×3 (07:01→21:52)
[2018-11-01] MEDS: PANTOPRAZOLE SODIUM 20 MG TABLET.DR PO SCH (07:02)
[2018-11-01 10:01] LABS: ABSOLUTE EOSINOPHILS # (AUTO) 0.2 10^3/uL (0.0-0.6); ABSOLUTE LYMPHOCYTES (AUTO) 0.8 10^3/uL (0.5-4.7); ABSOLUTE MONOCYTES (AUTO) 0.6 10^3/uL (0.1-1.4); ABSOLUTE NEUT (AUTO) 9.2 10^3/uL (1.7-8.2); BASOPHILS % (AUTO) 0.1 % (0-2); EOSINOPHILS % (AUTO) 2.2 % (0-6); HEMATOCRIT 22.3 % (36.0-47.0); LYMPHOCYTES % (AUTO) 7.4 % (13-45); MEAN CORPUSCULAR HEMOGLOBIN 33.9 pg (27.0-33.4); MEAN CORPUSCULAR HGB CONC 34.3 g/dL (32.0-36.0); MEAN CORPUSCULAR VOLUME 99 fl (80-97); MONOCYTES % (AUTO) 5.5 % (3-13); PLATELET COUNT 177 10^3/uL (150-450); RED BLOOD COUNT 2.25 10^6/uL (3.72-5.28); RED CELL DISTRIBUTION WIDTH 13.5 % (11.5-14.0); SEGMENTED NEUTROPHILS % (AUTO) 84.8 % (42-78); TOTAL CELLS COUNTED % (AUTO) 100 %; WHITE BLOOD COUNT 10.8 10^3/uL (4.0-10.5)
[2018-11-01 10:04] LABS: HEMOGLOBIN 7.6 g/dL (12.0-15.5)
[2018-11-01 10:16] LABS: ALBUMIN 2.8 g/dL (3.5-5.0); ALKALINE PHOSPHATASE 42 U/L (38-126); ANION GAP 12 (5-19); ASPARTATE AMINO TRANSFERASE 28 U/L (14-36); BILIRUBIN,DIRECT 0.2 mg/dL (0.0-0.4); BILIRUBIN,TOTAL 0.7 mg/dL (0.2-1.3); BLOOD UREA NITROGEN 70 mg/dL (7-20); CALCIUM 8.4 mg/dL (8.4-10.2); CARBON DIOXIDE 22 mmol/L (22-30); CHLORIDE 100 mmol/L (98-107); GLUCOSE 84 mg/dL (75-110); POTASSIUM 3.5 mmol/L (3.6-5.0); TOTAL PROTEIN 5.3 g/dL (6.3-8.2)
[2018-11-01 12:05] LABS: ABSOLUTE RETICS # 0.045 10^6/uL (0.028-0.122); RETICULOCYTE COUNT (AUTO) 2.01 % (0.66-2.85)
[2018-11-01 12:06] LABS: IRON(TIBC) 574.4 ug/dL (37-170)
[2018-11-01] MEDS: BUPROPION HCL 75 MG TABLET PO SCH ×2 (12:25→21:52)
[2018-11-01] MEDS: MAGNESIUM OXIDE 400 MG TABLET PO SCH ×2 (12:25→18:35)
[2018-11-01] MEDS: GABAPENTIN 300 MG CAPSULE PO SCH ×2 (12:25→21:52)
[2018-11-01] MEDS: DOCUSATE SODIUM 100 MG CAPSULE PO SCH ×2 (12:26→18:30)
[2018-11-01] MEDS: ALLOPURINOL 100 MG TABLET PO SCH (12:26)
[2018-11-01 13:15] LABS: FOLATE > 20.00 ng/mL (>2.76)
[2018-11-01] MEDS ORDERED: EPOETIN ALFA-EPBX 3,000 UNIT/ML VIAL (NON-ESRD) SUBCUT SCH (13:30)
[2018-11-01] MEDS ORDERED: EPOETIN ALFA-EPBX 10,000 UNIT/ML VIAL (NON-ESRD) SUBCUT ONE (14:00)
[2018-11-01] MEDS ORDERED: EPOETIN ALFA-EPBX 20,000 UNITS (ESRD) in SYRINGE SUBCUT ONE (15:00)
[2018-11-01] MEDS: NORMAL SALINE 1000 ML 1,000 ML IV PRN (15:38)
--- NOTE | 2018-11-01 18:55 | PDOC PROGRESS REPORT ---
Subjective Progress Note for:: 11/01/18 Reason For Visit: ELEVATED TROPONIN Physical Exam Vital Signs: Temp Pulse Resp BP Pulse Ox 99.3 F 90 25 H 121/57 L 100 11/01/18 12:00 11/01/18 12:00 11/01/18 18:00 11/01/18 14:59 11/01/18 18:00 Intake & Output 10/31/18 11/01/18 11/02/18 06:59 06:59 06:59 Intake Total 1220 1000 1210 Output Total 954 1930 940 Balance 266 -930 270 Weight 53.9 kg 55.7 kg Exam: Biopsy site on right lower abdominal wall with small amount of bloody drainage. Ordered to place a dry dressing. Results Laboratory Results: 11/01/18 09:10 11/01/18 09:10 11/01/18 11/01/18 11/01/18 09:10 09:10 09:10 WBC 10.8 H RBC 2.25 L Hgb 7.6 L Hct 22.3 L MCV 99 H MCH 33.9 H MCHC 34.3 RDW 13.5 Plt Count 177 Seg Neutrophils % 84.8 H Retic Count (auto) 2.01 Sodium 133.7 L Potassium 3.5 L Chloride 100 Carbon Dioxide 22 Anion Gap 12 BUN 70 H Creatinine 5.45 H Est GFR ( Amer) 9 L Glucose 84 Calcium 8.4 Magnesium 1.5 L Iron TIBC % Saturation Ferritin Total Bilirubin 0.7 AST 28 Alkaline Phosphatase 42 Total Protein 5.3 L Albumin 2.8 L Vitamin B12 Folate 11/01/18 09:10 WBC RBC Hgb Hct MCV MCH MCHC RDW Plt Count Seg Neutrophils % Retic Count (auto) Sodium Potassium Chloride Carbon Dioxide Anion Gap BUN Creatinine Est GFR ( Amer) Glucose Calcium Magnesium Iron 574.4 H TIBC 233 L % Saturation 247 Ferritin 342.00 H Total Bilirubin AST Alkaline Phosphatase Total Protein Albumin Vitamin B12 623.0 Folate > 20.00 10/29/18 10/29/18 10/29/18 02:05 02:05 07:49 Creatine Kinase 215 H 394 H CK-MB (CK-2) 6.10 H Troponin I 0.263 10/29/18 10/29/18 10/29/18 07:49 15:05 15:05 Creatine Kinase 491 H CK-MB (CK-2) 13.70 H 22.90 H Troponin I 2.610 4.660 10/29/18 10/29/18 10/30/18 20:30 20:30 03:27 Creatine Kinase 414 H CK-MB (CK-2) 25.40 H Troponin I 4.890 3.750 10/31/18 09:27 Creatine Kinase CK-MB (CK-2) Troponin I 1.620 Impressions: Cardiac Imaging Nuclear Medicine 10/29/18 00:00 IMPRESSION: Equivocal findings as described above. Probable mild myocardial uptake with 1+ activity at most. Head CT 10/29/18 01:23 IMPRESSION: Mild atrophy and chronic small vessel ischemic changes with no acute intracranial abnormality. Chest X-Ray 10/30/18 12:00 IMPRESSION: Increased bilateral perihilar opacity and probable bilateral pleural effusions. Correlate with clinical findings to exclude volume overload. Assessment & Plan - Diagnosis (1) Amyloidosis Is this a current diagnosis for this admission?: Yes - Time Time Spent with patient: 15-24 minutes - Plan Summary Plan Summary: Continue daily dry dressing,occlusive, to avoid possible contamination by colostomy spillage Expect biopsy report early next week Biopsy result Sutures can be taken off in the surgical clinic in 2 weeks
--- NOTE | 2018-11-01 18:58 | PDOC PROGRESS REPORT ---
Subjective Progress Note for:: 11/01/18 Subjective:: Patient has been noted to be sluggish and very sleepy today. She had a dose of Ambien and now discontinued. She seems to be still having some involuntary jerking movements. For the past 24 hours she made about 880 mL of urine and this morning she had 400 mL of urine so far. Patient was so sleepy when I saw her that she did not verbalize any complaints. Reason For Visit: ELEVATED TROPONIN Physical Exam Vital Signs: Temp Pulse Resp BP Pulse Ox 99.3 F 90 23 H 117/55 L 100 11/01/18 12:00 11/01/18 12:00 11/01/18 12:00 11/01/18 12:00 11/01/18 12:00 Intake & Output 10/31/18 11/01/18 11/02/18 06:59 06:59 06:59 Intake Total 1220 1000 210 Output Total 954 1930 740 Balance 266 -930 -530 Weight 53.9 kg 55.7 kg Exam: General appearance: PRESENT: no acute distress, cooperative, fairly-developed, fairly-nourished Head exam: PRESENT: atraumatic, normocephalic Eye exam: PRESENT: conjunctiva pale, PERRLA. ABSENT: scleral icterus Neck exam: ABSENT: JVD Respiratory exam: PRESENT: Diminished breath sounds. ABSENT: crackles, rales, rhonchi, unlabored, wheezes Cardiovascular exam: PRESENT: Regular rate rhythm -+S1, +S2. ABSENT: diastolic murmur, systolic murmur GI/Abdominal exam: PRESENT: normal bowel sounds, soft. Ileostomy in the left lower quadrant in place ABSENT: guarding, mass, tenderness Extremities exam: ABSENT: No edema Neurological exam: PRESENT: Lethargic Skin exam: PRESENT: dry, warm, Cardiovascular exam: PRESENT: +S1, +S2. ABSENT: rubs GI/Abdominal exam: PRESENT: normal bowel sounds - Has an ileostomy bag with dark brown liquid stools., soft. ABSENT: organomegaly, tenderness Results Laboratory Results: 11/01/18 09:10 11/01/18 09:10 11/01/18 11/01/18 11/01/18 09:10 09:10 09:10 WBC 10.8 H RBC 2.25 L Hgb 7.6 L Hct 22.3 L MCV 99 H MCH 33.9 H MCHC 34.3 RDW 13.5 Plt Count 177 Seg Neutrophils % 84.8 H Retic Count (auto) 2.01 Sodium 133.7 L Potassium 3.5 L Chloride 100 Carbon Dioxide 22 Anion Gap 12 BUN 70 H Creatinine 5.45 H Est GFR ( Amer) 9 L Glucose 84 Calcium 8.4 Magnesium 1.5 L Iron TIBC % Saturation Ferritin Total Bilirubin 0.7 AST 28 Alkaline Phosphatase 42 Total Protein 5.3 L Albumin 2.8 L Vitamin B12 Folate 11/01/18 09:10 WBC RBC Hgb Hct MCV MCH MCHC RDW Plt Count Seg Neutrophils % Retic Count (auto) Sodium Potassium Chloride Carbon Dioxide Anion Gap BUN Creatinine Est GFR ( Amer) Glucose Calcium Magnesium Iron 574.4 H TIBC 233 L % Saturation 247 Ferritin 342.00 H Total Bilirubin AST Alkaline Phosphatase Total Protein Albumin Vitamin B12 623.0 Folate > 20.00 10/29/18 10/29/18 10/29/18 02:05 02:05 07:49 Creatine Kinase 215 H 394 H CK-MB (CK-2) 6.10 H Troponin I 0.263 10/29/18 10/29/18 10/29/18 07:49 15:05 15:05 Creatine Kinase 491 H CK-MB (CK-2) 13.70 H 22.90 H Troponin I 2.610 4.660 10/29/18 10/29/18 10/30/18 20:30 20:30 03:27 Creatine Kinase 414 H CK-MB (CK-2) 25.40 H Troponin I 4.890 3.750 10/31/18 09:27 Creatine Kinase CK-MB (CK-2) Troponin I 1.620 Impressions: Cardiac Imaging Nuclear Medicine 10/29/18 00:00 IMPRESSION: Equivocal findings as described above. Probable mild myocardial uptake with 1+ activity at most. Head CT 10/29/18 01:23 IMPRESSION: Mild atrophy and chronic small vessel ischemic changes with no acute intracranial abnormality. Chest X-Ray 10/30/18 12:00 IMPRESSION: Increased bilateral perihilar opacity and probable bilateral pleur al effusions. Correlate with clinical findings to exclude volume overload. Assessment & Plan - Diagnosis (1) WILFREDO (acute kidney injury) Is this a current diagnosis for this admission?: Yes Plan: Most likely secondary to dehydration due to high output ileostomy. Kidney function is continues to slowly improving. Patient is nonoliguric. There is no indication for initiation of renal replacement therapy at this time. Given the patient's age and comorbidity her threshold for initiating renal replacement therapy is high. We will hold off until it is really necessary to start dialys is. Patient has a PermCath that can be used for hemodialysis if needed. (2) CKD (chronic kidney disease) stage 5, GFR less than 15 ml/min Is this a current diagnosis for this admission?: Yes Plan: Her baseline creatinine is around 5's. (3) Anemia Is this a current diagnosis for this admission?: Yes Plan: This is a combination of anemia of chronic kidney disease and iron deficiency with low Tsat at 10. Patient received a dose of IV Injectafer yesterday, 912. I will give her Procrit injection today. However if the hemoglobin continues to go down she may need blood transfusion. (4) Elevated troponin I level Is this a current diagnosis for this admission?: Yes Plan: Levels are going down. Cardiology is following care of Dr. Rodríguez. Patient is also being evaluated for cardiac amyloidosis pending fat pad biopsy report. (5) Hypotension Is this a current diagnosis for this admission?: Yes Plan: Currently improved. (6) Coarse tremors Is this a current diagnosis for this admission?: Yes Plan: Could be drug-induced versus a baseline essential tremors. We will see how she does with holding of the midodrine which was the only new medication added. Need to consider recent initiation of propanolol which could be good for tremors. (7) Dehydration Is this a current diagnosis for this admission?: Yes Plan: Currently on maintenance IV fluids. Resolving. (8) Ileostomy present Is this a current diagnosis for this admission?: Yes (9) Solitary kidney, acquired Is this a current diagnosis for this admission?: Yes Plan: Status post nephrectomy due to renal cell carcinoma. - Notes Notes: Discussed with Dr. Hansen. - Time Time with patient: 15-25 minutes
--- NOTE | 2018-11-01 20:12 | Progress Note ---
Provider Note Provider Note: CARDIOLOGY PROGRESS NOTE by Dr. Christina Rodríguez on 11/01/2018. SUBJECTIVE: The patient is slightly confused. But denies any chest pain or shortness of breath. Her hemoglobin is down and the patient will be receiving blood transfusion. There is no complaints of palpitations or dizziness or near syncope or syncope. There is no arrhythmia seen on the monitor. There is no leg edema. There is no TIA CVA symptoms. The patient also states that she has tremors of her right hand. The patient underwent fat pad biopsy yesterday and this specimen is been sent for [place] red stain. As per pathology report results will be available on Sunday. PHYSICAL EXAMINATION: The patient is a frail build and appears cachectic. Selected Entries 11/01/18 11/01/18 08:00 09:00 Core 99.0 F Temperature Heart Rate ( 90 Monitors) Respiratory 22 H Rate Blood Pressure 123/65 Blood Pressure 84 Mean O2 Sat by Pulse 100 Oximetry Oxygen Delivery Nasal Cannula Method ( includes room air) Oxygen Flow 2 Rate HEAD: Is atraumatic normocephalic. EYES: Pupils are equal round regular reactive to light and accommodation. Extraocular movements are normal. There is no conjunctival pallor. There is no scleral icterus. EARS: Tympanic membranes are intact. External auditory canals. NOSE: There is no deviated nasal septum. There is no inflammation nasal mucous membrane. MOUTH: Mucous memories of mouth is very dry tongue is dry there is no ulcers. THROAT: There is no exudates. There is no redness of the oropharynx. SKIN: There are a few scratch maynard. There is no petechia or ecchymosis. There is no skin lesions or skin rashes. NECK: Is supple. There is no JVD. Carotids are equal there is no bruit. There is no lymphadenopathy. There is no accessory muscle off respiration use. Trachea central. LUNGS: Is clear to auscultation percussion. There is no rhonchi rales or wheezing. HEART: S1-S2 is heard. There is no S3 gallop. There is no S4 gallop. There is systolic murmur left sternal border and the apex there is no rub. ABDOMEN: Is soft. Skin turgor is lost. There is no hepatospleno megaly. Bowel sounds are heard. There is a colostomy bag in situ. EXTREMITIES: Femorals are diminished. There is no femoral bruits. Leg pulses are diminished. There is no pedal edema. There is no DVT or cellulitis. There is no cyanosis or clubbing. 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 With no focal deficits. PSYCHIATRIC: The patient is slightly anxious and agitated. Her judgment and insight seem to be intact. Labs- All tests 24 hr 11/01/18 11/01/18 11/01/18 09:10 09:10 09:10 WBC 10.8 H RBC 2.25 L Hgb 7.6 L Hct 22.3 L MCV 99 H MCH 33.9 H MCHC 34.3 RDW 13.5 Plt Count 177 Lymph % (Auto) 7.4 L [place] % (Auto) 5.5 Eos % (Auto) 2.2 Baso % (Auto) 0.1 Reticulocyte # 0.045 Absolute Neuts (auto) 9.2 H Absolute Lymphs (auto) 0.8 Absolute Monos (auto) 0.6 Absolute Eos (auto) 0.2 Absolute Basos (auto) 0.0 Seg Neutrophils % 84.8 H Retic Count (auto) 2.01 Sodium 133.7 L Potassium 3.5 L Chloride 100 Carbon Dioxide 22 Anion Gap 12 BUN 70 H Creatinine 5.45 H Est GFR ( Amer) 9 L Est GFR (MDRD) Non-Af 8 L Glucose 84 Calcium 8.4 Magnesium 1.5 L Iron TIBC % Saturation Ferritin Total Bilirubin 0.7 Direct Bilirubin 0.2 Neonat Total Bilirubin Not Reportable Neonat Direct Bilirubin Not Reportable Neonat Indirect Bili Not Reportable AST 28 ALT 21 Alkaline Phosphatase 42 Total Protein 5.3 L Albumin 2.8 L Vitamin B12 Folate 11/01/18 09:10 WBC RBC Hgb Hct MCV MCH MCHC RDW Plt Count Lymph % (Auto) [place] % (Auto) Eos % (Auto) Baso % (Auto) Reticulocyte # Absolute Neuts (auto) Absolute Lymphs (auto) Absolute Monos (auto) Absolute Eos (auto) Absolute Basos (auto) Seg Neutrophils % Retic Count (auto) Sodium Potassium Chloride Carbon Dioxide Anion Gap BUN Creatinine Est GFR ( Amer) Est GFR (MDRD) Non-Af Glucose Calcium Magnesium Iron 574.4 H TIBC 233 L % Saturation 247 Ferritin 342.00 H Total Bilirubin Direct Bilirubin Neonat Total Bilirubin Neonat Direct Bilirubin Neonat Indirect Bili AST ALT Alkaline Phosphatase Total Protein Albumin Vitamin B12 623.0 Folate > 20.00 Cardiac Imaging Nuclear Medicine 10/29/18 00:00 IMPRESSION: Equivocal findings as described above. Probable mild myocardial uptake with 1+ activity at most. Head CT 10/29/18 01:23 IMPRESSION: Mild atrophy and chronic small vessel ischemic changes with no acute intracranial abnormality. Chest X-Ray 10/30/18 12:00 IMPRESSION: Increased bilateral perihilar opacity and probable bilateral pleural effusions. Correlate with clinical findings to exclude volume overload. IMPRESSION/RECOMMENDATION: 1. Elevated troponin I which is trending down the differential diagnosis of non-ST elevation MT versus supply demand mismatch type II MT versus secondary to amyloid involvement of the heart. The patient did have a abnormal fat pad biopsy which is been sent for [place] red stain. Of note the patient's blood pressure is tenuous, hence apart from aspirin unable to start the patient on any anti-CAD medications. Of note the patient has no chest pain or discomfort. And no shortness of breath. 2. Anemia. Patient has heme positive stools. Later would recommend that the patient have a GI work-up. This is all the more reason which justifies not using full dose anticoagulation on the patient. Recommend blood transfusion to get hemoglobin up to 10 or greater.. We will give the patient's Lasix when the patient receives the blood transfusion. 3.Severe dehydration: The patient has been rehydrated. 4. Hypotension: Relative. Most likely due to the patient's significant dehydration. Hopefully this will improve. If the blood pressure remains borderline, would give a trial of midodrine. 5. End-stage renal disease not yet on dialysis. Nephrology believes that the patient's GFR might improve with hydration, with which I concur. 6. Coronary artery disease: History of myocardial infarction in the past, and history of stents. We will try to get the patient records. Note patient has not had any recent anginal symptoms. 7. History of hypertension in the past. At present low blood pressure secondary to most likely dehydration. 8. History of intermittent bowel obstruction, and history of colectomy. 9. Malnourished state. Medications reviewed. Management plan discussed with the caregiving providers on the case.. Medical decision making is of high complexity. 40 minutes spent on this patient with more than 50% of time spent in direct patient care. Will follow.
[2018-11-01] MEDS: ATORVASTATIN CALCIUM 10 MG TABLET PO SCH (21:52)
[2018-11-02 04:51] LABS: ANION GAP 12 (5-19); BLOOD UREA NITROGEN 66 mg/dL (7-20); CALCIUM 8.3 mg/dL (8.4-10.2); CARBON DIOXIDE 19 mmol/L (22-30); CHLORIDE 100 mmol/L (98-107); GLUCOSE 102 mg/dL (75-110); POTASSIUM 3.5 mmol/L (3.6-5.0)
[2018-11-02] MEDS: PROPRANOLOL HCL 10 MG TABLET PO SCH ×3 (05:56→23:09)
[2018-11-02] MEDS: HEPARIN SOD (PORCINE) 5,000 UNIT/ML 1 ML VIAL SUBCUT SCH ×3 (05:57→23:08)
[2018-11-02] MEDS: PANTOPRAZOLE SODIUM 20 MG TABLET.DR PO SCH (05:57)
--- NOTE | 2018-11-02 07:25 | RADIOLOGY REPORT (SQ) ---
EXAM DESCRIPTION: XR CHEST 1 VIEW COMPLETED DATE/TME: 11/02/2018 00:00 CLINICAL HISTORY: 78 years Female, Increased SOB COMPARISON: 05/09/17 NUMBER OF VIEWS/TECHNIQUE: 1/AP FINDINGS: Moderate mixed interstitial and airspace opacities, right more than left. Moderate left basilar opacity-effusion. Left total shoulder arthroplasty. Adequate appearing right jugular central line. Adequate lung volume, clear parenchyma, normal cardiac silhouette, and intact bony thorax. IMPRESSION: Moderate mixed interstitial and airpace opacities. Differential etiologies include infectious, inflammatory, and neoplastic processes. Interval worsening. A right jugular central line is present suggesting a pre-existing process. If not, consider further evaluation or short-term interval follow-up including contrast CT and/or CT PET as warranted.
[2018-11-02 08:49] LABS: ABSOLUTE EOSINOPHILS # (AUTO) 0.3 10^3/uL (0.0-0.6); ABSOLUTE MONOCYTES (AUTO) 0.9 10^3/uL (0.1-1.4); ABSOLUTE NEUT (AUTO) 9.3 10^3/uL (1.7-8.2); BASOPHILS % (AUTO) 0.3 % (0-2); EOSINOPHILS % (AUTO) 2.7 % (0-6); HEMATOCRIT 22.1 % (36.0-47.0); LYMPHOCYTES % (AUTO) 9.1 % (13-45); MEAN CORPUSCULAR HEMOGLOBIN 33.3 pg (27.0-33.4); MEAN CORPUSCULAR HGB CONC 33.6 g/dL (32.0-36.0); MEAN CORPUSCULAR VOLUME 99 fl (80-97); MONOCYTES % (AUTO) 7.6 % (3-13); PLATELET COUNT 203 10^3/uL (150-450); RED BLOOD COUNT 2.23 10^6/uL (3.72-5.28); RED CELL DISTRIBUTION WIDTH 13.8 % (11.5-14.0); SEGMENTED NEUTROPHILS % (AUTO) 80.3 % (42-78); TOTAL CELLS COUNTED % (AUTO) 100 %; WHITE BLOOD COUNT 11.6 10^3/uL (4.0-10.5)
[2018-11-02 08:57] LABS: HEMOGLOBIN 7.4 g/dL (12.0-15.5)
[2018-11-02 09:01] LABS: AMORPHOUS SEDIMENT,URINE TRACE /HPF; APPEARANCE,URINE TURBID; BILIRUBIN,URINE NEGATIVE (NEGATIVE); COLOR,URINE YELLOW; GLUCOSE, URINE 50 mg/dL (NEGATIVE); KETONES,URINE NEGATIVE (NEGATIVE); LEUKOCYTE ESTERASE,URINE LARGE (NEGATIVE); NITRITE,URINE NEGATIVE (NEGATIVE); PROTEIN,URINE 100 mg/dL (NEGATIVE); URINE SPECIFIC GRAVITY 1.012; UROBILINOGEN,URINE NEGATIVE mg/dL (<2.0)
--- NOTE | 2018-11-02 09:33 | RADIOLOGY REPORT (SQ) ---
EXAM DESCRIPTION: CHEST SINGLE VIEW COMPLETED DATE/TIME: 11/02/2018 9:22 am REASON FOR STUDY: possible aspiration COMPARISON: 11/02/2018 earlier. FINDINGS: Single-view chest AP portable upright. Globally slightly improved aeration. Patchy multifocal areas of airspace disease/ edema remain. Right dialysis catheter remains in place. No pneumothorax. TECHNICAL DOCUMENTATION: JOB ID: [id number] Reading location - IP/workstation name: [email or web address]
[2018-11-02] MEDS: MAGNESIUM OXIDE 400 MG TABLET PO SCH ×2 (09:53→17:51)
[2018-11-02] MEDS: DOCUSATE SODIUM 100 MG CAPSULE PO SCH ×2 (09:53→18:00)
[2018-11-02] MEDS: GABAPENTIN 300 MG CAPSULE PO SCH ×2 (09:54→23:08)
[2018-11-02] MEDS: ALLOPURINOL 100 MG TABLET PO SCH (09:54)
[2018-11-02] MEDS: BUPROPION HCL 75 MG TABLET PO SCH ×2 (09:54→23:08)
--- NOTE | 2018-11-02 10:06 | PDOC PROGRESS REPORT ---
Subjective Progress Note for:: 11/02/18 Subjective:: The patient is resting comfortably in the ICU. She had developed increasing troponins recently. her ECG shows non-specific changes The was diffuse uptake during a pyrophosphate cardiac scan Dr. Townsend wishes to r/o cardiac amyloodlexiei. Arrangements have been made for an abdominal fat pad biopsy today. Her peak troioponin was 4.89. The patient denoes chest pain. However, she does have knwon ischemic heart disease and stents in the past. Reason For Visit: ELEVATED TROPONIN Physical Exam Vital Signs: Temp Pulse Resp BP Pulse Ox 98.9 F 85 18 106/52 L 100 11/02/18 07:45 11/02/18 07:45 11/02/18 07:45 11/02/18 07:45 11/02/18 07:45 Intake & Output 11/01/18 11/02/18 11/03/18 06:59 06:59 06:59 Intake Total 1000 1450 Output Total 1930 2640 Balance -930 -1190 Weight 55.7 kg 53.9 kg General appearance: PRESENT: no acute distress Additional Comments: Had a bad coughing jag this morning whilst eating her breakfast Now appears to be ok Eye exam: PRESENT: conjunctiva pink Ear exam: PRESENT: normal external ear exam Mouth exam: PRESENT: moist Neck exam: ABSENT: thyromegaly Respiratory exam: PRESENT: symmetrical, unlabored. ABSENT: accessory muscle use Cardiovascular exam: PRESENT: RRR Vascular exam: PRESENT: normal capillary refill GI/Abdominal exam: PRESENT: normal bowel sounds, soft Rectal exam: PRESENT: deferred Results Laboratory Results: 11/02/18 08:28 11/02/18 04:22 11/01/18 11/01/18 11/01/18 09:10 09:10 09:10 WBC 10.8 H RBC 2.25 L Hgb 7.6 L Hct 22.3 L MCV 99 H MCH 33.9 H MCHC 34.3 RDW 13.5 Plt Count 177 Seg Neutrophils % 84.8 H Retic Count (auto) 2.01 Sodium 133.7 L Potassium 3.5 L Chloride 100 Carbon Dioxide 22 Anion Gap 12 BUN 70 H Creatinine 5.45 H Est GFR ( Amer) 9 L Glucose 84 Calcium 8.4 Magnesium 1.5 L Iron TIBC % Saturation Ferritin Total Bilirubin 0.7 AST 28 Alkaline Phosphatase 42 Total Protein 5.3 L Albumin 2.8 L Vitamin B12 Folate Urine Color Urine Appearance Urine pH Ur Specific [place] Urine Protein Urine Glucose (UA) Urine Ketones Urine Blood Urine Nitrite Ur Leukocyte Esterase Urine WBC (Auto) Urine RBC (Auto) 11/01/18 11/02/18 11/02/18 09:10 04:22 08:28 WBC RBC Hgb Hct MCV MCH MCHC RDW Plt Count Seg Neutrophils % Retic Count (auto) Sodium 130.8 L Potassium 3.5 L Chloride 100 Carbon Dioxide 19 L Anion Gap 12 BUN 66 H Creatinine 4.72 H Est GFR ( Amer) 11 L Glucose 102 Calcium 8.3 L Magnesium 1.3 L Iron 574.4 H TIBC 233 L % Saturation 247 Ferritin 342.00 H Total Bilirubin AST Alkaline Phosphatase Total Protein Albumin Vitamin B12 623.0 Folate > 20.00 Urine Color Urine Appearance Urine pH Ur Specific [place] Urine Protein Urine Glucose (UA) Urine Ketones Urine Blood Urine Nitrite Ur Leukocyte Esterase Urine WBC (Auto) Urine RBC (Auto) 11/02/18 11/02/18 08:28 08:28 WBC 11.6 H RBC 2.23 L Hgb 7.4 L Hct 22.1 L MCV 99 H MCH 33.3 MCHC 33.6 RDW 13.8 Plt Count 203 Seg Neutrophils % 80.3 H Retic Count (auto) Sodium Potassium Chloride Carbon Dioxide Anion Gap BUN Creatinine Est GFR ( Amer) Glucose Calcium Magnesium Iron TIBC % Saturation Ferritin Total Bilirubin AST Alkaline Phosphatase Total Protein Albumin Vitamin B12 Folate Urine Color YELLOW Urine Appearance TURBID Urine pH 7.0 Ur Specific [place] 1.012 Urine Protein 100 H Urine Glucose (UA) 50 H Urine Ketones NEGATIVE Urine Blood MODERATE H Urine Nitrite NEGATIVE Ur Leukocyte Esterase LARGE H Urine WBC (Auto) >182 Urine RBC (Auto) 28 10/29/18 10/29/18 10/29/18 02:05 02:05 07:49 Creatine Kinase 215 H 394 H CK-MB (CK-2) 6.10 H Troponin I 0.263 10/29/18 10/29/18 10/29/18 07:49 15:05 15:05 Creatine Kinase 491 H CK-MB (CK-2) 13.70 H 22.90 H Troponin I 2.610 4.660 09/10/19 09/10/19 09/11/19 20:30 20:30 03:27 Creatine Kinase 414 H CK-MB (CK-2) 25.40 H Troponin I 4.890 3.750 10/31/18 11/02/18 09:27 08:28 Creatine Kinase CK-MB (CK-2) Troponin I 1.620 0.548 Impressions: Cardiac Imaging Nuclear Medicine 10/29/18 00:00 IMPRESSION: Equivocal findings as described above. Probable mild myocardial uptake with 1+ activity at most. Head CT 10/29/18 01:23 IMPRESSION: Mild atrophy and chronic small vessel ischemic changes with no acute intracranial abnormality. Assessment & Plan - Diagnosis (1) Anemia Is this a current diagnosis for this admission?: Yes Plan: The patient appears to be chronically anemia. I'm sure a part of this is due to chronic diseases and her CKD. No recent melna or hematemesis, her hb has trckled dowmn a bit mopre. No overt gi bleeding. Patient administered Procrit yesterday (2) Chronic renal disease Qualifiers: Chronic kidney disease stage: stage 4 (severe) Qualified Code(s): N18.4 - Chronic kidney disease, stage 4 (severe) Is this a current diagnosis for this admission?: Yes Plan: The patient is thought to be dehydrated. She is getting cautious fluid replacement a tthis time. She has a portacath in place in case dialysis is required at this time. has seen this patient. The patient is fairly oliguric presently. She has been placed on cautious hydration as she was though to be dehydrates. 11/02 Her urine output has increased nicely with fluids. The patient had over 2 liters out in thepast 24 hours. can stop IV fluids. her creatinine is now down to 4.72 from the mid 7 range. (3) Elevated troponin I level Is this a current diagnosis for this admission?: Yes (4) Essential tremor Is this a current diagnosis for this admission?: Yes Plan: The aptient has a lonstanding essential tremor for which she ahs been reivng a small dose of beta cricket in the past. When the med had tpo be stopped and she was administered Proamatine this resulted in a recent exscerbstion of her undelying condition. (5) Elevated troponin Is this a current diagnosis for this admission?: Yes Plan: The apotient was originally transferred here for an elevated troponin. Does have a known history of CAD, The patient has had stents in the opast. Ci=onssitently denies chest pain. Her ECG never showed any major iscehemic ahnges. The patiet had apyrophosphate cardiac scan that suggested a spekled pattern consisrtent withpossibelamyuloidosis. this led Dr. Townsend to have a valerieo performa fat pad biopsy to r/o amyloidsoisis (results pending). - Time Time Spent with patient: 15-24 minutes Anticipated discharge: Home Within: within 72 hours
[2018-11-02] MEDS ORDERED: ACETAMINOPHEN 325 MG TABLET ONE (17:43)
[2018-11-02] MEDS: ACETAMINOPHEN 325 MG TABLET PO PRN (18:30)
[2018-11-02] MEDS ORDERED: CEFTRIAXONE 2 GM/D5W RTU 2 GM/50 ML RTUPB IV ONE (19:00)
--- NOTE | 2018-11-02 19:58 | Progress Note ---
Provider Note Provider Note: CARDIOLOGY PROGRESS NOTE by Dr. Christina Rodríguez on 11/02/2018. SUBJECTIVE: The patient states his tremors have been resolved with propranolol. Her blood pressure is better after she got Procrit. She did not receive blood transfusion. She denies any chest pain or discomfort. There is no PND orthopnea or leg edema. There is no arrhythmia seen on the monitor. There is no TIA CVA symptoms. Physical EXAMINATION: The patient is a frail build and appears to be chronically ill Selected Entries 11/02/18 11/02/18 11/02/18 12:00 12:26 12:27 Core 99.3 F Temperature Heart Rate ( 83 Monitors) Respiratory 18 15 Rate Blood Pressure 113/58 L Blood Pressure 113/58 L [Right Upper Arm] Blood Pressure 76 Mean Blood Pressure 76 Mean [Right Upper Arm] O2 Sat by Pulse 92 93 Oximetry Oxygen Delivery Nasal Cannula Method ( includes room air) Oxygen Flow 3.5 Rate HEAD: Is atraumatic normocephalic. EYES: Pupils are equal round regular reactive to light and accommodation. Extraocular movements are normal. There is no conjunctival pallor. There is no scleral icterus. EARS: Tympanic membranes are intact. External auditory canals. NOSE: There is no deviated nasal septum. There is no inflammation nasal mucous membrane. MOUTH: Mucous memories of mouth is very dry tongue is dry there is no ulcers. THROAT: There is no exudates. There is no redness of the oropharynx. SKIN: There are a few scratch maynard. There is no petechia or ecchymosis. There is no skin lesions or skin rashes. NECK: Is supple. There is no JVD. Carotids are equal there is no bruit. There is no lymphadenopathy. There is no accessory muscle off respiration use. Trachea central. LUNGS: Is clear to auscultation percussion. There is no rhonchi rales or wheezing. HEART: S1-S2 is heard. There is no S3 gallop. There is no S4 gallop. There is systolic murmur left sternal border and the apex there is no rub. ABDOMEN: Is soft. Skin turgor is lost. There is no hepatospleno megaly. Bowel sounds are heard. There is a colostomy bag in situ. EXTREMITIES: Femorals are diminished. There is no femoral bruits. Leg pulses are diminished. There is no pedal edema. There is no DVT or cellulitis. There is no cyanosis or clubbing. 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 With no focal deficits. PSYCHIATRIC: The patient is slightly anxious and agitated. Her judgment and insight seem to be intact. Labs- All tests 24 hr 11/02/18 11/02/18 11/02/18 04:22 08:28 08:28 WBC RBC Hgb Hct MCV MCH MCHC RDW Plt Count Lymph % (Auto) [place] % (Auto) Eos % (Auto) Baso % (Auto) Absolute Neuts (auto) Absolute Lymphs (auto) Absolute Monos (auto) Absolute Eos (auto) Absolute Basos (auto) Seg Neutrophils % Sodium 130.8 L Potassium 3.5 L Chloride 100 Carbon Dioxide 19 L Anion Gap 12 BUN 66 H Creatinine 4.72 H Est GFR ( Amer) 11 L Est GFR (MDRD) Non-Af 9 L Glucose 102 Calcium 8.3 L Magnesium 1.3 L Troponin I 0.548 Urine Color Urine Appearance Urine pH Ur Specific [place] Urine Protein Urine Glucose (UA) Urine Ketones Urine Blood Urine Nitrite Urine Bilirubin Urine Urobilinogen Ur Leukocyte Esterase Urine WBC (Auto) Urine RBC (Auto) Urine Bacteria (Auto) Urine WBC Clumps Squamous Epi Cells Auto U Non-Squamous Epis Auto Amorphous Sediment Auto Urine Ascorbic Acid 11/02/18 11/02/18 08:28 08:28 WBC 11.6 H RBC 2.23 L Hgb 7.4 L Hct 22.1 L MCV 99 H MCH 33.3 MCHC 33.6 RDW 13.8 Plt Count 203 Lymph % (Auto) 9.1 L [place] % (Auto) 7.6 Eos % (Auto) 2.7 Baso % (Auto) 0.3 Absolute Neuts (auto) 9.3 H Absolute Lymphs (auto) 1.0 Absolute Monos (auto) 0.9 Absolute Eos (auto) 0.3 Absolute Basos (auto) 0.0 Seg Neutrophils % 80.3 H Sodium Potassium Chloride Carbon Dioxide Anion Gap BUN Creatinine Est GFR ( Amer) Est GFR (MDRD) Non-Af Glucose Calcium Magnesium Troponin I Urine Color YELLOW Urine Appearance TURBID Urine pH 7.0 Ur Specific [place] 1.012 Urine Protein 100 H Urine Glucose (UA) 50 H Urine Ketones NEGATIVE Urine Blood MODERATE H Urine Nitrite NEGATIVE Urine Bilirubin NEGATIVE Urine Urobilinogen NEGATIVE Ur Leukocyte Esterase LARGE H Urine WBC (Auto) >182 Urine RBC (Auto) 28 Urine Bacteria (Auto) 1+ Urine WBC Clumps MANY Squamous Epi Cells Auto 1 U Non-Squamous Epis Auto 4 Amorphous Sediment Auto TRACE Urine Ascorbic Acid NEGATIVE Cardiac Imaging Nuclear Medicine 10/29/18 00:00 IMPRESSION: Equivocal findings as described above. Probable mild myocardial uptake with 1+ activity at most. Head CT 10/29/18 01:23 IMPRESSION: Mild atrophy and chronic small vessel ischemic changes with no acute intracranial abnormality. Chest X-Ray 10/30/18 12:00 IMPRESSION: Increased bilateral perihilar opacity and probable bilateral pleural effusions. Correlate with clinical findings to exclude volume overload. Chest X-Ray 11/02/18 00:00 IMPRESSION: Moderate mixed interstitial and airpace opacities. Differential etiologies include infectious, inflammatory, and neoplastic processes. Interval worsening. A right jugular central line is present suggesting a pre-existing process. If not, consider further evaluation or short-term interval follow-up including contrast CT and/or CT PET as warranted. IMPRESSION/RECOMMENDATION: 1. Elevated troponin I which is trending down the differential diagnosis of non-ST elevation AK versus supply demand mismatch type II AK versus secondary to amyloid involvement of the heart. The patient did have a abnormal fat pad biopsy which is been sent for [place] red stain. Of note the patient's blood pressure is tenuous, hence apart from aspirin unable to start the patient on any anti-CAD medications. Of note the patient has no chest pain or discomfort. And no shortness of breath. 2. Anemia. Patient has heme positive stools. Later would recommend that the patient have a GI work-up. This is all the more reason which justifies not using full dose anticoagulation on the patient. Recommend blood transfusion to get hemoglobin up to 10 or greater.. We will give the patient's Lasix when the patient receives the blood transfusion. 3.Severe dehydration: The patient has been rehydrated. 4. Hypotension: Relative. Most likely due to the patient's significant dehydration. Hopefully this will improve. If the blood pressure remains borderline, would give a trial of midodrine. 5. End-stage renal disease not yet on dialysis. Nephrology believes that the patient's GFR might improve with hydration, with which I concur. 6. Coronary artery disease: History of myocardial infarction in the past, and history of stents. We will try to get the patient records. Note patient has not had any recent anginal symptoms. 7. History of hypertension in the past. At present low blood pressure secondary to most likely dehydration. 8. History of intermittent bowel obstruction, and history of colectomy. 9. Abnormal CHEST X-ray:? 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 10. Essential tremors:: Resolved with propranolol. 11. malnourished state. Medications reviewed. Management plan discussed with the caregiving providers on the case.. Medical decision making is of high complexity. 40 minutes spent on this patient with more than 50% of time spent in direct patient care. Will follow.
[2018-11-02] MEDS: ATORVASTATIN CALCIUM 10 MG TABLET PO SCH (23:08)
[2018-11-03 03:54] LABS: HEMATOCRIT 20.4 % (36.0-47.0); MEAN CORPUSCULAR HEMOGLOBIN 34.2 pg (27.0-33.4); MEAN CORPUSCULAR HGB CONC 34.8 g/dL (32.0-36.0); MEAN CORPUSCULAR VOLUME 98 fl (80-97); PLATELET COUNT 194 10^3/uL (150-450); RED BLOOD COUNT 2.08 10^6/uL (3.72-5.28); RED CELL DISTRIBUTION WIDTH 13.8 % (11.5-14.0); WHITE BLOOD COUNT 9.2 10^3/uL (4.0-10.5)
[2018-11-03 03:57] LABS: HEMOGLOBIN 7.1 g/dL (12.0-15.5)
[2018-11-03 04:16] LABS: ANION GAP 12 (5-19); BLOOD UREA NITROGEN 61 mg/dL (7-20); CALCIUM 8.1 mg/dL (8.4-10.2); CARBON DIOXIDE 20 mmol/L (22-30); CHLORIDE 100 mmol/L (98-107); GLUCOSE 119 mg/dL (75-110); POTASSIUM 3.5 mmol/L (3.6-5.0)
[2018-11-03 04:17] LABS: ABSOLUTE LYMPHOCYTES# (MANUAL) 0.7 10^3/uL (0.5-4.7); ABSOLUTE MONOCYTES # (MANUAL) 0.4 10^3/uL (0.1-1.4); BAND NEUTROPHILS % (MANUAL) 1 % (3-5); BASOPHILS % (MANUAL) 0 % (0-2); EOSINOPHILS % (MANUAL) 2 % (0-6); HYPOCHROMASIA 1+; LYMPHOCYTES % (MANUAL) 8 % (13-45); MONOCYTES % (MANUAL) 4 % (3-13); PLATELET COMMENT ADEQUATE; SEGMENTED NEUTROPHILS % (MAN) 85 % (42-78); TOTAL CELLS COUNTED 100
[2018-11-03] MEDS: PROPRANOLOL HCL 10 MG TABLET PO SCH ×3 (07:02→21:15)
[2018-11-03] MEDS: PANTOPRAZOLE SODIUM 20 MG TABLET.DR PO SCH (07:02)
[2018-11-03] MEDS: HEPARIN SOD (PORCINE) 5,000 UNIT/ML 1 ML VIAL SUBCUT SCH ×3 (07:03→21:16)
[2018-11-03] MEDS ORDERED: NORMAL SALINE 250 ML IV PRN ×2 (07:59)
--- NOTE | 2018-11-03 08:08 | PDOC PROGRESS REPORT ---
Subjective Progress Note for:: 11/03/18 Subjective:: The patient is resting comfortably in the ICU. She had developed increasing troponins recently. her ECG shows non-specific changes The was diffuse uptake during a pyrophosphate cardiac scan Dr. Townsend wishes to r/o cardiac amyloodoisi. Arrangements have been made for an abdominal fat pad biopsy today. Her peak troioponin was 4.89. The patient denoes chest pain. However, she does have knwon ischemic heart disease and stents in the past. 11/03 The patient has had stedy improvemnt in her renal fn the past few days. She underwwent fat pad biopsy and the results are pending. She has dropped her Hb about 1.5 pts. wee will transfuse her today. her stool ob was positive. There was evidence of a UTI yesterday. The patient had a UA with +LE and many WBCs. She was started on abx therapy Reason For Visit: ELEVATED TROPONIN Physical Exam Vital Signs: Temp Pulse Resp BP Pulse Ox 97.5 F 83 22 H 116/50 L 100 11/02/18 12:00 11/02/18 21:00 11/03/18 07:00 11/03/18 04:26 11/03/18 05:00 Intake & Output 11/02/18 11/03/18 11/04/18 06:59 06:59 06:59 Intake Total 1450 676 Output Total 2640 2300 Balance -1190 -1624 Weight 53.9 kg 53.8 kg General appearance: PRESENT: no acute distress Eye exam: PRESENT: conjunctiva pink Mouth exam: PRESENT: dry mucosa Respiratory exam: PRESENT: clear to auscultation randa Pulses: PRESENT: +1 pedal pulses bilateral GI/Abdominal exam: PRESENT: normal bowel sounds Rectal exam: PRESENT: deferred Extremities exam: PRESENT: full ROM Neurological exam: PRESENT: alert, awake, oriented to time Results Laboratory Results: 11/03/18 03:43 11/03/18 03:43 11/02/18 11/02/18 11/02/18 08:28 08:28 08:28 WBC 11.6 H RBC 2.23 L Hgb 7.4 L Hct 22.1 L MCV 99 H MCH 33.3 MCHC 33.6 RDW 13.8 Plt Count 203 Seg Neutrophils % 80.3 H Sodium Potassium Chloride Carbon Dioxide Anion Gap BUN Creatinine Est GFR ( Amer) Glucose Calcium Magnesium 1.3 L Urine Color YELLOW Urine Appearance TURBID Urine pH 7.0 Ur Specific [place] 1.012 Urine Protein 100 H Urine Glucose (UA) 50 H Urine Ketones NEGATIVE Urine Blood MODERATE H Urine Nitrite NEGATIVE Ur Leukocyte Esterase LARGE H Urine WBC (Auto) >182 Urine RBC (Auto) 28 11/03/18 11/03/18 03:43 03:43 WBC 9.2 RBC 2.08 L Hgb 7.1 L Hct 20.4 L MCV 98 H MCH 34.2 H MCHC 34.8 RDW 13.8 Plt Count 194 Seg Neutrophils % Not Reportable Sodium 132.4 L Potassium 3.5 L Chloride 100 Carbon Dioxide 20 L Anion Gap 12 BUN 61 H Creatinine 4.37 H Est GFR ( Amer) 12 L Glucose 119 H Calcium 8.1 L Magnesium Urine Color Urine Appearance Urine pH Ur Specific [place] Urine Protein Urine Glucose (UA) Urine Ketones Urine Blood Urine Nitrite Ur Leukocyte Esterase Urine WBC (Auto) Urine RBC (Auto) 10/29/18 10/29/18 10/29/18 02:05 02:05 07:49 Creatine Kinase 215 H 394 H CK-MB (CK-2) 6.10 H Troponin I 0.263 10/29/18 10/29/18 10/29/18 07:49 15:05 15:05 Creatine Kinase 491 H CK-MB (CK-2) 13.70 H 22.90 H Troponin I 2.610 4.660 10/29/18 10/29/18 10/30/18 20:30 20:30 03:27 Creatine Kinase 414 H CK-MB (CK-2) 25.40 H Troponin I 4.890 3.750 10/31/18 11/02/18 09:27 08:28 Creatine Kinase CK-MB (CK-2) Troponin I 1.620 0.548 Impressions: Cardiac Imaging Nuclear Medicine 10/29/18 00:00 IMPRESSION: Equivocal findings as described above. Probable mild myocardial uptake with 1+ activity at most. Head CT 10/29/18 01:23 IMPRESSION: Mild atrophy and chronic small vessel ischemic changes with no acute intracranial abnormality. Assessment & Plan - Diagnosis (1) Anemia Qualifiers: Anemia type: due to chronic kidney disease Chronic kidney disease stage: stage 4 (severe) Qualified Code(s): N18.4 - Chronic kidney disease, stage 4 (severe); D63.1 - Anemia in chronic kidney disease Is this a current diagnosis for this admission?: Yes Plan: The patient appears to be chronically anemia. I'm sure a part of this is due to chronic diseases and her CKD. No recent melna or hematemesis, her hb has trckled dowmn a bit mopre. No overt gi bleeding. Patient administered Procrit yesterday (2) Chronic renal disease Qualifiers: Chronic kidney disease stage: stage 4 (severe) Qualified Code(s): N18.4 - Chronic kidney disease, stage 4 (severe) Is this a current diagnosis for this admission?: Yes Plan: The patient is thought to be dehydrated. She is getting cautious fluid replacement a tthis time. She has a portacath in place in case dialysis is required at this time. has seen this patient. The patient is fairly oliguric presently. She has been placed on cautious hydration as she was though to be dehydrates. 11/02 Her urine output has increased nicely with fluids. The patient had over 2 liters out in thepast 24 hours. can stop IV fluids. her creatinine is now down to 4.72 from the mid 7 range. (3) Elevated troponin I level Is this a current diagnosis for this admission?: Yes (4) Essential tremor Is this a current diagnosis for this admission?: Yes Plan: The aptient has a longstanding essential tremor for which she ahs been reivng a small dose of beta cricket in the past. When the med had to be stopped and she was administered Proamatine this resulted in a recent exacerbation of her underlying condition. (5) Elevated troponin Is this a current diagnosis for this admission?: Yes
[2018-11-03] MEDS: IPRATROPIUM/ALBUTEROL 0.5-2.5 MG/3 ML AMPUL NEB SCH ×3 (09:22→20:58)
[2018-11-03] MEDS: DOCUSATE SODIUM 100 MG CAPSULE PO SCH ×2 (11:52→19:30)
[2018-11-03] MEDS: ALLOPURINOL 100 MG TABLET PO SCH (11:52)
--- NOTE | 2018-11-03 11:52 | RADIOLOGY REPORT (SQ) ---
EXAM DESCRIPTION: CT CHEST WITHOUT COMPLETED DATE/TIME: 11/03/2018 11:32 am REASON FOR STUDY: Abnormal patchy densities bilaterally: Hi-RES COMPARISON: None. TECHNIQUE: Supine high resolution technique imaging performed through the lungs windowed for lung wi ndows. Limited evaluation of the mediastinum. All CT scanners at this facility use dose modulation, iterative reconstruction, and/or weight based d osing when appropriate to reduce radiation dose to as low as reasonably achievable (ALARA). [facility]: Dose Right [facility]: CareDose [facility]: Dose Right [facility]: Teradose 4D [facility]: Smart Blue Perch RADIATION DOSE: CT Rad equipment meets quality standard of care and radiation dose reduction techniq ues were employed. CTDIvol: 4.6 mGy. DLP: 128 mGy-cm. mGy. LIMITATIONS: None. FINDINGS: LUNGS AND PLEURA: Upper lobe variable geographic multifocal areas of ground-glass opacity, relatively mosaic attenuation. Lesser changes in the bilateral lower lobes and right middle lobe. No nodules. No dense consolidation. Bilateral small pleural effusions. Minimal calcified pleural p laque. LIMITED MEDIASTINUM: Poorly assessed. Small nodes are suspected. Heavy coronary calcification. No aortic aneurysm. Central line in place. BONES: Osteopenic. Limited assessment. OTHER: No other significant finding. IMPRESSION: Ground-glass opacities in the lungs. Considerations include pulmonary embolism, hyperse nsitivity pneumonitis and bronchiolitis obliterans among others. Generally, ground-glass opacities c an also be seen with pulmonary edema and hemorrhage as well as developing lung fibrosis. TECHNICAL DOCUMENTATION: JOB ID: [id number] Quality ID # [id number]: Final reports with documentation of one or more dose reduction techniques (e.g., Au tomated exposure control, adjustment of the mA and/or kV according to patient size, use of iterative reconstruction technique) 2010 [employer]- All Rights Reserved Reading location - IP/workstation name: [email or web address]
[2018-11-03] MEDS: BUPROPION HCL 75 MG TABLET PO SCH ×2 (11:53→21:15)
[2018-11-03] MEDS: MAGNESIUM OXIDE 400 MG TABLET PO SCH ×2 (11:53→19:30)
[2018-11-03] MEDS: GABAPENTIN 300 MG CAPSULE PO SCH ×2 (11:53→21:15)
[2018-11-03] MEDS: ACETAMINOPHEN 325 MG TABLET PO PRN (11:54)
[2018-11-03] MEDS ORDERED: METHYLPREDNISOLONE INJ 40 MG/1 ML SDV IV ONE (12:17)
--- NOTE | 2018-11-03 15:10 | Progress Note ---
Provider Note Provider Note: CARDIOLOGY PROGRESS NOTE by Dr. Christina Rodríguez: On 11/03/2018. SUBJECTIVE: The patient denies any chest pain or discomfort. There is no PND orthopnea. There is no atrial or ventricular arrhythmia seen on the monitor. The patient states she has been having cough with whitish scanty sputum production. There is no hemoptysis. There is no TIA CVA symptoms. Note that the patient has an antibody and hence at present blood transfusion is on hold. 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 PHYSICAL EXAMINATION: The patient is a frail build and appears to be chronically ill. Selected Entries 11/03/18 11/03/18 11/03/18 08:43 09:00 09:22 Core 99.1 F Temperature Heart Rate ( 91 Monitors) Respiratory 21 H 20 Rate Blood Pressure 142/62 H Blood Pressure 88 Mean O2 Sat by Pulse 100 96 Oximetry Oxygen Flow 2 Rate 11/03/18 13:00 Core 98.8 F Temperature Heart Rate ( 86 Monitors) Respiratory Rate Blood Pressure Blood Pressure Mean O2 Sat by Pulse Oximetry Oxygen Flow Rate HEAD: Is atraumatic normocephalic. EYES: Pupils are equal round regular reactive to light and accommodation. Extraocular movements are normal. There is no conjunctival pallor. There is no scleral icterus. EARS: Tympanic membranes are intact. External auditory canals. NOSE: There is no deviated nasal septum. There is no inflammation nasal mucous membrane. MOUTH: Mucous memories of mouth is very dry tongue is dry there is no ulcers. THROAT: There is no exudates. There is no redness of the oropharynx. SKIN: There are a few scratch maynard. There is no petechia or ecchymosis. There is no skin lesions or skin rashes. NECK: Is supple. There is no JVD. Carotids are equal there is no bruit. There is no lymphadenopathy. There is no accessory muscle off respiration use. Trachea central. LUNGS: Is clear to auscultation percussion. There is no rhonchi rales or wheezing. HEART: S1-S2 is heard. There is no S3 gallop. There is no S4 gallop. There is systolic murmur left sternal border and the apex there is no rub. ABDOMEN: Is soft. Skin turgor is lost. There is no hepatospleno megaly. Bowel sounds are heard. There is a colostomy bag in situ. EXTREMITIES: Femorals are diminished. There is no femoral bruits. Leg pulses are diminished. There is no pedal edema. There is no DVT or cellulitis. There is no cyanosis or clubbing. COMPANY DOCTOR: The patient is conscious slightly agitated due to complaints of pruritus of her legs. With no focal deficits. PSYCHIATRIC: The patient is slightly anxious and agitated. Her judgment and insight seem to be intact. Labs- All tests 24 hr 11/03/18 11/03/18 11/03/18 03:43 03:43 08:35 WBC 9.2 RBC 2.08 L Hgb 7.1 L Hct 20.4 L MCV 98 H MCH 34.2 H MCHC 34.8 RDW 13.8 Plt Count 194 Lymph % (Auto) Not Reportable [place] % (Auto) Not Reportable Eos % (Auto) Not Reportable Baso % (Auto) Not Reportable Absolute Neuts (auto) Not Reportable Absolute Lymphs (auto) Not Reportable Absolute Monos (auto) Not Reportable Absolute Eos (auto) Not Reportable Absolute Basos (auto) Not Reportable Total Counted 100 Seg Neutrophils % Not Reportable Seg Neuts % (Manual) 85 H Band Neutrophils % 1 L Lymphocytes % (Manual) 8 L Monocytes % (Manual) 4 Eosinophils % (Manual) 2 Basophils % (Manual) 0 Abs Neuts (Manual) 7.9 Abs Lymphs (Manual) 0.7 Abs Monocytes (Manual) 0.4 Absolute Eos (Manual) 0.2 Abs Basophils (Manual) 0.0 Platelet Comment ADEQUATE Hypochromasia 1+ Sodium 132.4 L Potassium 3.5 L Chloride 100 Carbon Dioxide 20 L Anion Gap 12 BUN 61 H Creatinine 4.37 H Est GFR ( Amer) 12 L Est GFR (MDRD) Non-Af 10 L Glucose 119 H Calcium 8.1 L Blood Type O POSITIVE Antibody Screen NEGATIVE Antigen Identification Fya Antigen - NEGATIVE Crossmatch See Detail Cardiac Imaging Nuclear Medicine 10/29/18 00:00 IMPRESSION: Equivocal findings as described above. Probable mild myocardial uptake with 1+ activity at most. Head CT 10/29/18 01:23 IMPRESSION: Mild atrophy and chronic small vessel ischemic changes with no acute intracranial abnormality. Chest X-Ray 10/30/18 12:00 IMPRESSION: Increased bilateral perihilar opacity and probable bilateral pleural effusions. Correlate with clinical findings to exclude volume overload. Chest X-Ray 11/02/18 00:00 IMPRESSION: Moderate mixed interstitial and airpace opacities. Differential etiologies include infectious, inflammatory, and neoplastic processes. Interval worsening. A right jugular central line is present suggesting a pre-existing process. If not, consider further evaluation or short-term interval follow-up including contrast CT and/or CT PET as warranted. Chest CT 11/03/18 00:00 IMPRESSION: Ground-glass opacities in the lungs. Considerations include pulmonary embolism, hypersensitivity pneumonitis and bronchiolitis obliterans among others. Generally, ground-glass opacities can also be seen with pulmonary edema and hemorrhage as well as developing lung fibrosis. IMPRESSION/RECOMMENDATION: 1. Elevated troponin I which is trending down the differential diagnosis of non-ST elevation NJ versus supply demand mismatch type II NJ versus secondary to amyloid involvement of the heart. The patient did have a abnormal fat pad biopsy which is been sent for [place] red stain. Of note the patient's blood pressure is tenuous, hence apart from aspirin unable to start the patient on any anti-CAD medications. Of note the patient has no chest pain or discomfort. And no shortness of breath. 2. Anemia. Patient has heme positive stools. Later would recommend that the patient have a GI work-up. This is all the more reason which justifies not using full dose anticoagulation on the patient. Recommend blood transfusion to get hemoglobin up to 10 or greater.. We will give the patient's Lasix when the patient receives the blood transfusion. 3.Severe dehydration: The patient has been rehydrated. 4. Hypotension: Relative. Most likely due to the patient's significant dehydration. Hopefully this will improve. If the blood pressure remains borderline, would give a trial of midodrine. 5. End-stage renal disease not yet on dialysis. Nephrology believes that the patient's GFR might improve with hydration, with which I concur. 6. Coronary artery disease: History of myocardial infarction in the past, and history of stents. We will try to get the patient records. Note patient has not had any recent anginal symptoms. 7. History of hypertension in the past. At present low blood pressure secondary to most likely dehydration. 8. History of intermittent bowel obstruction, and history of colectomy. 9. Abnormal CHEST X-ray:? 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 Versus interstitial lung disease versus secondary to amyloid deposits versus pulmonary hemorrhage versus infectious process. 10. Essential tremors:: Resolved with propranolol. 11. malnourished state. Medications reviewed. Management plan discussed with attending physician on the case. Discussed with the patient's daughter Ms. Ana Fitzgerald, and the patient's son-in-law also. Medical decision making is of moderate complexity. 40 minutes spent with the patient with more than 50% of time spent in direct patient care. Will follow.
[2018-11-03] MEDS: CEFTRIAXONE 2 GM/D5W RTU 2 GM/50 ML RTUPB IV SCH (19:30)
[2018-11-03] MEDS ORDERED: DIPHENHYDRAMINE HCL 25 MG CAPSULE ONE (21:14)
[2018-11-03] MEDS: ATORVASTATIN CALCIUM 10 MG TABLET PO SCH (21:15)
[2018-11-03] MEDS ORDERED: DIPHENHYDRAMINE HCL 25 MG CAPSULE PO ONE (21:30)
[2018-11-04] MEDS: IPRATROPIUM/ALBUTEROL 0.5-2.5 MG/3 ML AMPUL NEB SCH ×4 (02:30→20:25)
[2018-11-04] MEDS: MORPHINE SULFATE 10 MG/ML INJ IV PRN (04:39)
[2018-11-04] MEDS: PANTOPRAZOLE SODIUM 20 MG TABLET.DR PO SCH (05:00)
[2018-11-04] MEDS: PROPRANOLOL HCL 10 MG TABLET PO SCH ×3 (05:00→21:49)
[2018-11-04] MEDS: HEPARIN SOD (PORCINE) 5,000 UNIT/ML 1 ML VIAL SUBCUT SCH (05:00)
--- NOTE | 2018-11-04 09:15 | PDOC PROGRESS REPORT ---
Subjective Progress Note for:: 11/04/18 Subjective:: The patient is resting comfortably in the ICU. She had developed increasing troponins recently. her ECG shows non-specific changes The was diffuse uptake during a pyrophosphate cardiac scan Dr. Townsend wishes to r/o cardiac amyloodlexiei. Arrangements have been made for an abdominal fat pad biopsy today. Her peak troioponin was 4.89. The patient denoes chest pain. However, she does have knwon ischemic heart disease and stents in the past. 11/03 The patient has had stedy improvemnt in her renal fn the past few days. She underwwent fat pad biopsy and the results are pending. She has dropped her Hb about 1.5 pts. wee will transfuse her today. her stool ob was positive. There was evidence of a UTI yesterday. The patient had a UA with +LE and many WBCs. She was started on abx therapy 11/04 The patient apparently feels reasonably ok. Has developed worsening anemia. No complaints of sob or chest pain Renal fn remains beter with creatininer in the 4-5 range Has remained afebbrile the past 2 days. Reason For Visit: ELEVATED TROPONIN Physical Exam Vital Signs: Temp Pulse Resp BP Pulse Ox 97.3 F 87 16 113/64 98 11/04/18 08:00 11/04/18 08:24 11/04/18 08:24 11/04/18 08:00 11/04/18 08:24 Intake & Output 11/03/18 11/04/18 11/05/18 06:59 06:59 06:59 Intake Total 676 200 Output Total 2300 1600 150 Balance -1624 -1400 -150 Weight 53.8 kg 53.1 kg General appearance: PRESENT: no acute distress Eye exam: PRESENT: conjunctiva pink Ear exam: PRESENT: normal external ear exam Mouth exam: PRESENT: moist, neck supple Neck exam: ABSENT: JVD, lymphadenopathy, thyromegaly Respiratory exam: PRESENT: symmetrical, unlabored Cardiovascular exam: PRESENT: RRR, +S1, +S2 Pulses: PRESENT: normal dorsalis pedis pul Vascular exam: PRESENT: normal capillary refill GI/Abdominal exam: PRESENT: normal bowel sounds, soft Rectal exam: PRESENT: deferred Gentrourinary exam: ABSENT: ecchymosis Extremities exam: PRESENT: full ROM Musculoskeletal exam: PRESENT: full ROM Neurological exam: PRESENT: awake, oriented to person, oriented to place, oriented to time, oriented to situation Psychiatric exam: PRESENT: appropriate affect Results Laboratory Results: 11/03/18 03:43 11/03/18 03:43 11/03/18 08:35 Blood Type O POSITIVE Antibody Screen NEGATIVE 11/02/18 08:28 Catheterized Urine Urine Culture - Final Klebsiella Pneumoniae 10/29/18 10/29/18 10/29/18 02:05 02:05 07:49 Creatine Kinase 215 H 394 H CK-MB (CK-2) 6.10 H Troponin I 0.263 10/29/18 10/29/18 10/29/18 07:49 15:05 15:05 Creatine Kinase 491 H CK-MB (CK-2) 13.70 H 22.90 H Troponin I 2.610 4.660 10/29/18 10/29/18 10/30/18 20:30 20:30 03:27 Creatine Kinase 414 H CK-MB (CK-2) 25.40 H Troponin I 4.890 3.750 10/31/18 11/02/18 09:27 08:28 Creatine Kinase CK-MB (CK-2) Troponin I 1.620 0.548 Impressions: Cardiac Imaging Nuclear Medicine 10/29/18 00:00 IMPRESSION: Equivocal findings as described above. Probable mild myocardial uptake with 1+ activity at most. Head CT 10/29/18 01:23 IMPRESSION: Mild atrophy and chronic small vessel ischemic changes with no acute intracranial abnormality. Chest CT 11/03/18 00:00 IMPRESSION: Ground-glass opacities in the lungs. Considerations include pulmonary embolism, hypersensitivity pneumonitis and bronchiolitis obliterans among others. Generally, ground-glass opacities can also be seen with pulmonary edema and hemorrhage as well as developing lung fibrosis. Status: Imported from PACS Assessment & Plan - Diagnosis (1) Anemia Qualifiers: Anemia type: due to chronic kidney disease Chronic kidney disease stage: stage 4 (severe) Qualified Code(s): N18.4 - Chronic kidney disease, stage 4 (severe); D63.1 - Anemia in chronic kidney disease Is this a current diagnosis for this admission?: Yes Plan: The patient appears to be chronically anemia. I'm sure a part of this is due to chronic diseases and her CKD. No recent melna or hematemesis, her hb has trickled down a bit mopre. No overt gi bleeding. Patient administered Procrit yesterday 11/04 I have asked Hematology, Dr. Townsend to weigh in the patient reportedly has a history of Abs that have previously caused a hemolytic reaction. We have therefore been reluctant to readily transfuse her Will continue Procrit. If her Hb continues to drop we will need to transfuse. Does have + guaics as well but no overt gi bleed (2) Chronic renal disease Qualifiers: Chronic kidney disease stage: stage 4 (severe) Qualified Code(s): N18.4 - Chronic kidney disease, stage 4 (severe) Is this a current diagnosis for this admission?: Yes Plan: The patient is thought to be dehydrated. She is getting cautious fluid replacement a tthis time. She has a portacath in place in case dialysis is required at this time. has seen this patient. The patient is fairly oliguric presently. She has been placed on cautious hydration as she was though to be dehydrates. 11/02 Her urine output has increased nicely with fluids. The patient had over 2 liters out in thepast 24 hours. can stop IV fluids. her creatinine is now down to 4.72 from the mid 7 range. (3) Elevated troponin I level Is this a current diagnosis for this admission?: Yes Plan: Patient had fat oad bioposy. I dylan there si no plan to prerforma repeat cardiac cath at this time. (4) Essential tremor Is this a current diagnosis for this admission?: Yes Plan: The aptient has a longstanding essential tremor for which she ahs been reivng a small dose of beta cricket in the past. When the med had to be stopped and she was administered Proamatine this resulted in a recent exacerbation of her underlying condition. 11/04 Has been better lately sincve thepatient is getting the beta cricket once again. (5) Elevated troponin Is this a current diagnosis for this admission?: Yes
[2018-11-04] MEDS: GABAPENTIN 300 MG CAPSULE PO SCH ×2 (09:32→21:48)
[2018-11-04] MEDS: DOCUSATE SODIUM 100 MG CAPSULE PO SCH ×2 (09:32→17:19)
[2018-11-04] MEDS: HYDROXYZINE HCL 10 MG TABLET PO PRN ×2 (09:32→19:52)
[2018-11-04] MEDS: BUPROPION HCL 75 MG TABLET PO SCH ×2 (09:32→21:48)
[2018-11-04] MEDS: MAGNESIUM OXIDE 400 MG TABLET PO SCH ×2 (09:34→17:19)
[2018-11-04] MEDS: ALLOPURINOL 100 MG TABLET PO SCH (09:35)
[2018-11-04] MEDS ORDERED: EPOETIN ALFA EPBX IV SCH (10:00)
[2018-11-04] MEDS ORDERED: [UNRECOGNIZED DRUG - OTHER] IV SCH (10:00)
[2018-11-04] MEDS ORDERED: EPOETIN ALFA-EPBX 10,000 UNIT/ML VIAL (RENAL) IV SCH (10:00)
[2018-11-04] MEDS ORDERED: DISPOSABLE IV SCH (10:00)
[2018-11-04] MEDS ORDERED: POTASSIUM CHLORIDE 10 MEQ CAPSULE.ER PO ONE (10:16)
--- NOTE | 2018-11-04 10:16 | PDOC PROGRESS REPORT ---
Subjective Progress Note for:: 11/04/18 Subjective:: Patient has been looking good and has been feeling better. Her tremors are gone. She made about 1600 mL of urine output for the past 24 hours. He said she is starting to eat and drink a little bit better. No new complaints. Reason For Visit: ELEVATED TROPONIN Physical Exam Vital Signs: Temp Pulse Resp BP Pulse Ox 97.3 F 87 16 113/64 98 11/04/18 08:00 11/04/18 08:24 11/04/18 08:24 11/04/18 08:00 11/04/18 08:24 Intake & Output 11/03/18 11/04/18 11/05/18 06:59 06:59 06:59 Intake Total 676 200 Output Total 2300 1600 150 Balance -1624 -1400 -150 Weight 53.8 kg 53.1 kg Exam: General appearance: PRESENT: no acute distress, cooperative, well-developed, well-nourished Head exam: PRESENT: atraumatic, normocephalic Eye exam: PRESENT: conjunctiva pale, PERRLA. ABSENT: scleral icterus Neck exam: ABSENT: JVD Respiratory exam: PRESENT: Diminished breath sounds. ABSENT: crackles, rales, rhonchi, unlabored, wheezes Cardiovascular exam: PRESENT: Regular rate rhythm -+S1, +S2. ABSENT: diastolic murmur, systolic murmur GI/Abdominal exam: PRESENT: normal bowel sounds, soft. Ileostomy in the left lo wer quadrant area. ABSENT: guarding, mass, tenderness Extremities exam: ABSENT: No edema Neurological exam: PRESENT: alert, awake, oriented to person, place and time. Skin exam: PRESENT: dry, warm, Cardiovascular exam: PRESENT: +S1, +S2. ABSENT: rubs GI/Abdominal exam: PRESENT: normal bowel sounds - Has an ileostomy bag with dark brown liquid stools., soft. ABSENT: organomegaly, tenderness Results Laboratory Results: 11/03/18 03:43 11/03/18 03:43 11/03/18 08:35 Blood Type O POSITIVE Antibody Screen NEGATIVE 11/02/18 08:28 Catheterized Urine Urine Culture - Final Klebsiella Pneumoniae 10/29/18 10/29/18 10/29/18 02:05 02:05 07:49 Creatine Kinase 215 H 394 H CK-MB (CK-2) 6.10 H Troponin I 0.263 10/29/18 10/29/18 10/29/18 07:49 15:05 15:05 Creatine Kinase 491 H CK-MB (CK-2) 13.70 H 22.90 H Troponin I 2.610 4.660 10/29/18 10/29/18 10/30/18 20:30 20:30 03:27 Creatine Kinase 414 H CK-MB (CK-2) 25.40 H Troponin I 4.890 3.750 10/31/18 11/02/18 09:27 08:28 Creatine Kinase CK-MB (CK-2) Troponin I 1.620 0.548 Impressions: Cardiac Imaging Nuclear Medicine 10/29/18 00:00 IMPRESSION: Equivocal findings as described above. Probable mild myocardial uptake with 1+ activity at most. Head CT 10/29/18 01:23 IMPRESSION: Mild atrophy and chronic small vessel ischemic changes with no acute intracranial abnormality. Chest CT 11/03/18 00:00 IMPRESSION: Ground-glass opacities in the lungs. Considerations include pulmonary embolism, hypersensitivity pneumonitis and bronchiolitis obliterans among others. Generally, ground-glass opacities can also be seen with pulmonary edema and hemorrhage as well as developing lung fibrosis. Assessment & Plan - Diagnosis (1) WILFREDO (acute kidney injury) Is this a current diagnosis for this admission?: Yes Plan: Most likely secondary to dehydration due to high output ileostomy. Kidney function is almost at baseline at this time. No need for any renal replacement therapy. From nephrology standpoint , no further recommendations at this point. I think she can be discharged home from our standpoint to follow-up with Dr. Juares in 1 to 2 weeks. (2) CKD (chronic kidney disease) stage 5, GFR less than 15 ml/min Is this a current diagnosis for this admission?: Yes Plan: Her baseline creatinine is around 5's. Currently at baseline kidney function. (3) UTI (urinary tract infection) Is this a current diagnosis for this admission?: Yes Plan: Secondary to Klebsiella pneumonia. Patient on ceftriaxone. (4) Anemia Qualifiers: Anemia type: due to chronic kidney disease Chronic kidney disease stage: stage 4 (severe) Qualified Code(s): N18.4 - Chronic kidney disease, stage 4 (severe); D63.1 - Anemia in chronic kidney disease Is this a current diagnosis for this admission?: Yes Plan: This is a combination of anemia of chronic kidney disease and iron deficiency with low Tsat at 10. Patient received a dose of IV Injectafer yesterday, 10/31. She has antibodies so blood transfusion could be difficult. Patient is currently now on Procrit per Dr. Townsend. I think she needs to be continued on Procrit upon discharge. (5) Elevated troponin I level Is this a current diagnosis for this admission?: Yes Plan: Cardiology is following care of Dr. Rodríguez. According to Dr. Rodríguez her fat pad biopsy is negative. (6) Hypotension Is this a current diagnosis for this admission?: Yes Plan: Currently improved. (7) Coarse tremors Is this a current diagnosis for this admission?: Yes Plan: Resolved with restarting propanolol. (8) Dehydration Is this a current diagnosis for this admission?: Yes Plan: Resolved. Advised the patient to maintain her adequate fluid intake upon discharge. (9) Ileostomy present Is this a current diagnosis for this admission?: Yes (10) Solitary kidney, acquired Is this a current diagnosis for this admission?: Yes - Time Time with patient: 15-25 minutes
[2018-11-04 10:26] LABS: MEAN CORPUSCULAR HEMOGLOBIN 33.3 pg (27.0-33.4); MEAN CORPUSCULAR HGB CONC 33.8 g/dL (32.0-36.0); MEAN CORPUSCULAR VOLUME 98 fl (80-97); RED BLOOD COUNT 1.93 10^6/uL (3.72-5.28); RED CELL DISTRIBUTION WIDTH 13.9 % (11.5-14.0); WHITE BLOOD COUNT 13.8 10^3/uL (4.0-10.5)
[2018-11-04 10:38] LABS: HEMOGLOBIN 6.4 g/dL (12.0-15.5)
[2018-11-04] MEDS ORDERED: NORMAL SALINE 250 ML IV PRN ×2 (10:55)
[2018-11-04] MEDS ORDERED: METHYLPREDNISOLONE INJ 40 MG/1 ML SDV IV ONE (10:56)
[2018-11-04] MEDS ORDERED: ACETAMINOPHEN 325 MG SUPP.RECT PR ONE (10:57)
[2018-11-04 10:58] LABS: ABSOLUTE LYMPHOCYTES# (MANUAL) 0.7 10^3/uL (0.5-4.7); ABSOLUTE MONOCYTES # (MANUAL) 0.4 10^3/uL (0.1-1.4); BASOPHILS % (MANUAL) 0 % (0-2); EOSINOPHILS % (MANUAL) 0 % (0-6); LYMPHOCYTES % (MANUAL) 5 % (13-45); MONOCYTES % (MANUAL) 3 % (3-13); SEGMENTED NEUTROPHILS % (MAN) 92 % (42-78); TOTAL CELLS COUNTED 100
[2018-11-04 10:59] LABS: PLATELET CLUMPS PRESENT; POIKILOCYTOSIS SLIGHT; POLYCHROMASIA 1+; TOXIC GRANULATION SLIGHT
[2018-11-04 11:00] LABS: PLATELET COMMENT ADEQUATE; PLATELET COUNT 271 10^3/uL (150-450)
[2018-11-04] MEDS ORDERED: DIPHENHYDRAMINE HCL 50 MG/ML VIAL IV ONE (11:00)
--- NOTE | 2018-11-04 12:59 | EKG REPORT ---
SEVERITY:- ABNORMAL ECG - SINUS RHYTHM ABNORMAL T, CONSIDER ISCHEMIA, ANT-LAT LEADS : Confirmed by: Ryan Ingram MD 04-Nov-2018 12:58:45
--- NOTE | 2018-11-04 14:25 | PDOC CONSULTATION ---
Consultation Consult Date: 11/04/18 Provider Consulted: PETRA CANALES Consult reason:: Hematology/Oncology consulatation was requested for patient with anemia and blood antibody. History of Present Illness Admission Date/PCP: 10/29/18 04:27 Gus KRISHNAMURTHY MD History of Present Illness: SOURAV ALVES is a 78 year old female who presented to the ED with weakness and fall +/- syncope. She states that her legs became suddenly painful and she fell. She has been followed in the past for kidney cancer many years ago. She underwent nephrectomy and at the time of surgery they "nicked her bowel" and she required colostomy. No other treatment for the kidney cancer was needed. She has had chronic renal failure, but denies ever having dialysis treatments. She also has a history of uterine cancer at age 30 for which she receive radiation and surgery. During this hospitalization, she has been evaluated by renal and cardiology. She recently underwent a fat pad biopsy looking for amyloidosis. Her heart and kidneys have improved and she has also been treated with antibiotics for UTI. Today, she states that she is itching uncontrollably. Nurses report that this may be due to renal disease. None of the medications given have helped. Otherwise, she reports that she is eating well. She denies any dyspnea. Past Medical History Cardiac Medical History: Reports: Coronary Artery Disease, Myocardial Infarction, Hypertension Pulmonary Medical History: Reports: None Denies: Asthma, Chronic Obstructive Pulmonary Disease (COPD), Tuberculosis EENT Medical History: Reports: None, Cataracts Denies: Eyes, Ears Neurological Medical History: Denies: Hemorrhagic CVA, Ischemic CVA, Seizures Endocrine Medical History: Reports: None Denies: Diabetes Mellitus Type 1, Diabetes Mellitus Type 2, Hyperthyroidism, Hypothyroidism Renal/ Medical History: Reports: None, End Stage Renal Disease Denies: Nephrolithiasis Malignancy Medical History: Reports: Renal (Kidney) Cancer - Left, Other - [place] rine cancer GI Medical History: Reports: None Denies: Cirrhosis, Crohn's Disease, Hepatitis, Hiatal Hernia, Ulcerative Colitis Musculoskeltal Medical History: Reports: Arthritis - Degenerative arthritis of the spine, Gout - left foot Skin Medical History: Reports: None Denies: Eczema, Psoriasis Psychiatric Medical History: Reports: None Denies: Alcohol Dependency, Depression, Substance Abuse, Tobacco Dependency Traumatic Medical History: Reports: None Hematology: Reports: Anemia - AFTER SURGERY FEB 16 2011 Denies: Bleeding Tendencies Infectious Medical History: Reports: None Past Surgical History Past Surgical History: Reports: Cardiac Catheterization, Colostomy - And bowel resection, Coronary Stent - X 2, Hysterectomy, Orthopedic Surgery - bilat cataracts, Other - bilateral cataracts Denies: Mastectomy, Pacemaker Social History Information Source: Patient Lives with: Spouse/Significant other - The 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 Smoking Status: Never Smoker Last Time Smoked: Valerie last smoked in 1984. Frequency of Alcohol Use: None Hx Recreational Drug Use: No Drugs: None Hx Prescription Drug Abuse: No - Advance Directive Resuscitation Status: Full Code Family History Family History: CAD, Hypertension. denies: DM, Malignancy Parental Family History Reviewed: Yes Children Family History Reviewed: Yes Sibling(s) Family History Reviewed.: Yes Medication/Allergy Home Medications: Bupropion HCl [Bupropion Xl] 150 mg PO DAILY 10/29/18 Calcitriol [Rocaltrol 0.5 mcg Capsule] 0.5 mcg PO DAILY 10/29/18 Cetirizine HCl [Zyrtec 10 mg Tablet] 10 mg PO QHS 10/29/18 Colestipol HCl [Colestid 1 gm Tablet] 2 gm PO TID 10/29/18 Cyanocobalamin (Vitamin B-12) [Vitamin B-12 1000 mcg Tablet] 1,000 mcg PO DAILY 10/29/18 Diphenoxylate HCl/Atrop Sulf [Lomotil 2.5 mg Tablet] 1 tab PO QIDP PRN 10/29/18 Febuxostat [Uloric 80 mg Tablet] 80 mg PO DAILY 10/29/18 Folic Acid [Folvite 1 mg Tablet] 1 mg PO DAILY 10/29/18 Hydroxyzine HCl [Atarax 25 mg Tablet] 25 mg PO QPM 10/29/18 Magnesium Oxide [Mag-Ox 400 mg Tablet] 400 mg PO QID 10/29/18 Midodrine HCl 2.5 mg PO TID 10/29/18 Pravastatin Sodium [Pravachol] 40 mg PO QPM 10/29/18 Propranolol HCl [Inderal 10 mg Tablet] 10 mg PO TID 10/29/18 Pyridoxine HCl (Vitamin B6) [Vitamin B-6] 50 mg PO BID 10/29/18 Sevelamer Carbonate [Renvela] 1,600 mg PO .SNACKS 10/29/18 Sevelamer Carbonate [Renvela] 2,400 mg PO MEALS 10/29/18 Tramadol HCl [Ultram 50 mg Tablet] 100 mg PO Q6HP PRN 10/29/18 Allergies/Adverse Reactions: meperidine HCl [From Demerol] Allergy (Intermediate, Verified 07/23/18 09:07) Hives Sulfa (Sulfonamide Antibiotics) Allergy (Intermediate, Verified 07/23/18 09:07) Hives ciprofloxacin HCl [From Cipro] Allergy (Verified 07/23/18 09:07) RASH prednisone [Prednisone] Allergy (Verified 07/23/18 09:07) MAKES HER CRAZY Review of Systems Constitutional: ABSENT: fever(s), headache(s) Eyes: ABSENT: visual disturbances Ears: ABSENT: hearing changes Cardiovascular: PRESENT: chest pain Respiratory: ABSENT: dyspnea Gastrointestinal: ABSENT: constipation, nausea Genitourinary: ABSENT: dysuria Musculoskeletal: PRESENT: other - Left arm pain Integumentary: PRESENT: pruritus Neurological: PRESENT: as per HPI Hematologic/Lymphatic: ABSENT: easy bleeding Physical Exam Vital Signs: Temp Pulse Resp BP Pulse Ox 97.5 F 86 15 123/66 100 11/04/18 13:04 11/04/18 13:04 11/04/18 13:04 11/04/18 13:04 11/04/18 13:04 Intake & Output 11/03/18 11/04/18 11/05/18 06:59 06:59 06:59 Intake Total 676 200 560 Output Total 2300 1600 275 Balance -1624 -1400 285 Weight 53.8 kg 53.1 kg General appearance: PRESENT: thin, well-developed Exam: 78 year old female. Head exam: PRESENT: atraumatic, normocephalic Eye exam: PRESENT: EOMI Mouth exam: PRESENT: tongue midline Neck exam: ABSENT: lymphadenopathy, tenderness Respiratory exam: PRESENT: clear to auscultation randa, unlabored Cardiovascular exam: PRESENT: RRR GI/Abdominal exam: PRESENT: soft, other - Colostomy seems to be functioning well. Extremities exam: ABSENT: pedal edema Neurological exam: PRESENT: alert, awake Psychiatric exam: PRESENT: appropriate affect Skin exam: ABSENT: rash Results Laboratory Results: 11/04/18 10:15 11/03/18 03:43 11/03/18 11/04/18 08:35 10:15 WBC 13.8 H RBC 1.93 L Hgb 6.4 L Hct 19.0 L MCV 98 H MCH 33.3 MCHC 33.8 RDW 13.9 Plt Count 271 Seg Neutrophils % Not Reportable Blood Type O POSITIVE Antibody Screen NEGATIVE 11/02/18 08:28 Catheterized Urine Urine Culture - Final Klebsiella Pneumoniae 10/29/18 10/29/18 10/29/18 02:05 02:05 07:49 Creatine Kinase 215 H 394 H CK-MB (CK-2) 6.10 H Troponin I 0.263 10/29/18 10/29/18 10/29/18 07:49 15:05 15:05 Creatine Kinase 491 H CK-MB (CK-2) 13.70 H 22.90 H Troponin I 2.610 4.660 10/29/18 10/29/18 10/30/18 20:30 20:30 03:27 Creatine Kinase 414 H CK-MB (CK-2) 25.40 H Troponin I 4.890 3.750 10/31/18 11/02/18 09:27 08:28 Creatine Kinase CK-MB (CK-2) Troponin I 1.620 0.548 Impressions: Cardiac Imaging Nuclear Medicine 10/29/18 00:00 IMPRESSION: Equivocal findings as described above. Probable mild myocardial uptake with 1+ activity at most. Head CT 10/29/18 01:23 IMPRESSION: Mild atrophy and chronic small vessel ischemic changes with no acute intracranial abnormality. Chest CT 11/03/18 00:00 IMPRESSION: Ground-glass opacities in the lungs. Considerations include pulmonary embolism, hypersensitivity pneumonitis and bronchiolitis obliterans among others. Generally, ground-glass opacities can also be seen with pulmonary edema and hemorrhage as well as developing lung fibrosis. Assessment & Plan - Diagnosis (1) Anemia Qualifiers: Anemia type: due to chronic kidney disease Chronic kidney disease stage: stage 4 (severe) Qualified Code(s): N18.4 - Chronic kidney disease, stage 4 (severe); D63.1 - Anemia in chronic kidney disease Is this a current diagnosis for this admission?: Yes Plan: Transfusion has been delayed, in effort to try to avoid this, given her history of an antibody which could potentially cause a hemolytic reaction. However, HGB continues to drop. 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 Dr. Quintero's notes indicate that she received IV iron. She was given solumedrol yesterday, and again today, prior to transfusions. Will monitor very closely. She did have hemoccult Positive stool, although no obvious bleeding. (2) CKD (chronic kidney disease) stage 5, GFR less than 15 ml/min Is this a current diagnosis for this admission?: Yes Plan: Per Dr. Quintero. (3) Fall Qualifiers: Encounter type: initial encounter Qualified Code(s): W19.XXXA - Unspecified fall, initial encounter (4) UTI (urinary tract infection) Is this a current diagnosis for this admission?: Yes Plan: Antibiotics per primary team. (5) Ileostomy present Is this a current diagnosis for this admission?: Yes Plan: Appears to be functioning well. - Plan Summary Plan Summary: Await fat pad biopsy report. Thank you for this consultation. I will continue to follow her with you. She was discussed with Dr. Hansen.
[2018-11-04] MEDS: NITROGLYCERIN 2% OINTMENT 1 GM PACKET TP SCH ×2 (17:19→23:31)
[2018-11-04] MEDS: CEFTRIAXONE 2 GM/D5W RTU 2 GM/50 ML RTUPB IV SCH (19:20)
[2018-11-04 21:35] LABS: HEMATOCRIT 30.8 % (36.0-47.0); MEAN CORPUSCULAR HEMOGLOBIN 31.6 pg (27.0-33.4); PLATELET COUNT 215 10^3/uL (150-450); RED BLOOD COUNT 3.31 10^6/uL (3.72-5.28); RED CELL DISTRIBUTION WIDTH 16.5 % (11.5-14.0); WHITE BLOOD COUNT 13.1 10^3/uL (4.0-10.5)
[2018-11-04 21:42] LABS: HEMOGLOBIN 10.5 g/dL (12.0-15.5)
[2018-11-04 21:43] LABS: MEAN CORPUSCULAR VOLUME 93 fl (80-97)
[2018-11-04] MEDS: ATORVASTATIN CALCIUM 10 MG TABLET PO SCH (21:48)
--- NOTE | 2018-11-04 23:15 | Progress Note ---
Provider Note Provider Note: CARDIOLOGY PROGRESS NOTE by Dr. Christina Rodríguez on 11/04/2018. SUBJECTIVE: The patient denies any chest pain discomfort. She has cough which is nonproductive of any sputum. There is no chest pain or discomfort. The patient denies any shortness of breath. She just did receive 2 units of packed RBCs with the cover of steroids. There is no PND orthopnea or leg edema. There is no atrial or ventricular arrhythmia seen. There is no bradycardia dysrhythmia. Although the patient has no chest pain or discomfort the patient is EKG shows anterior T wave inversion suggestive of ischemia. There is no evidence of active GI bleed. [She has a history of occult positive blood in her stools.] PHYSICAL EXAMINATION: The patient is a frail build. She appears to be chronically ill and malnourished. Selected Entries 11/04/18 17:12 Temperature 97.2 F Pulse Rate 83 Respiratory 16 Rate Blood Pressure 128/79 H [Left upper arm ] Blood Pressure 95 Mean [Left upper arm] O2 Sat by Pulse 100 Oximetry Oxygen Delivery Nasal Cannula Method ( includes room air) HEAD: Is atraumatic normocephalic. EYES: Pupils are equal round regular reactive to light and accommodation. Extraocular movements are normal. There is no conjunctival pallor. There is no scleral icterus. EARS: Tympanic membranes are intact. External auditory canals. NOSE: There is no deviated nasal septum. There is no inflammation nasal mucous membrane. MOUTH: Mucous memories of mouth is very dry tongue is dry there is no ulcers. THROAT: There is no exudates. There is no redness of the oropharynx. SKIN: There are a few scratch maynard. There is no petechia or ecchymosis. There is no skin lesions or skin rashes. NECK: Is supple. There is no JVD. Carotids are equal there is no bruit. There is no lymphadenopathy. There is no accessory muscle off respiration use. Trachea central. LUNGS: Is clear to auscultation percussion. There is no rhonchi rales or wheezing. HEART: S1-S2 is heard. There is no S3 gallop. There is no S4 gallop. There is systolic murmur left sternal border and the apex there is no rub. ABDOMEN: Is soft. Skin turgor is lost. There is no hepatospleno megaly. Bowel sounds are heard. There is a colostomy bag in situ. EXTREMITIES: Femorals are diminished. There is no femoral bruits. Leg pulses are diminished. There is no pedal edema. There is no DVT or cellulitis. There is no cyanosis or clubbing. WINDOW SHADE CUTTER AND MOUNTER: The patient is conscious slightly agitated due to complaints of pruritus of her legs. With no focal deficits. PSYCHIATRIC: The patient is slightly anxious and agitated. Her judgment and insight seem to be intact. Abnormal - 24 hr 11/03/18 11/04/18 11/04/18 08:35 10:15 10:15 WBC 13.8 H RBC 1.93 L Hgb 6.4 L Hct 19.0 L MCV 98 H RDW Seg Neuts % (Manual) 92 H Lymphocytes % (Manual) 5 L Abs Neuts (Manual) 12.7 H Lactate Dehydrogenase 253 H Crossmatch See Detail 11/04/18 21:15 WBC 13.1 H RBC 3.31 L Hgb 10.5 L D Hct 30.8 L MCV RDW 16.5 H Seg Neuts % (Manual) Lymphocytes % (Manual) Abs Neuts (Manual) Lactate Dehydrogenase Crossmatch Cardiac Imaging Nuclear Medicine 10/29/18 00:00 IMPRESSION: Equivocal findings as described above. Probable mild myocardial uptake with 1+ activity at most. Head CT 10/29/18 01:23 IMPRESSION: Mild atrophy and chronic small vessel ischemic changes with no acute intracranial abnormality. Chest X-Ray 10/30/18 12:00 IMPRESSION: Increased bilateral perihilar opacity and probable bilateral pleural effusions. Correlate with clinical findings to exclude volume overload. Chest X-Ray 11/02/18 00:00 IMPRESSION: Moderate mixed interstitial and airpace opacities. Differential etiologies include infectious, inflammatory, and neoplastic processes. Interval worsening. A right jugular central line is present suggesting a pre-existing process. If not, consider further evaluation or short-term interval follow-up including contrast CT and/or CT PET as warranted. Chest CT 11/03/18 00:00 IMPRESSION: Ground-glass opacities in the lungs. Considerations include pulmonary embolism, hypersensitivity pneumonitis and bronchiolitis obliterans among others. Generally, ground-glass opacities can also be seen with pulmonary edema and hemorrhage as well as developing lung fibrosis. IMPRESSION/RECOMMENDATION: 1. Elevated troponin I which is trending down the differential diagnosis of non-ST elevation NM versus supply demand mismatch type II NM versus secondary to amyloid involvement of the heart. The patient did have a abnormal fat pad biopsy which is been sent for [place] red stain. Of note the patient's blood pressure is tenuous, hence apart from aspirin unable to start the patient on any anti-CAD medications. Of note the patient has no chest pain or discomfort. And no shortness of breath. 2. Anemia. Patient has heme positive stools. Later would recommend that the patient have a GI work-up. This is all the more reason which justifies not using full dose anticoagulation on the patient. Recommend blood transfusion to get hemoglobin up to 10 or greater.. We will give the patient's Lasix when the patient receives the blood transfusion. This was done under the cover of steroids. 3.Severe dehydration: The patient has been rehydrated. 4. Suspected amyloidosis. Note the patient's initial fat biopsy was reported as negative as per verbal report of the pathologist. Subsequently she called later in the evening and stated that there was a suspicion that there might be a faint positivity to it and hence has been sent outside for further immunostaining. The final results will be available at the end of the week. 5. End-stage renal disease not yet on dialysis. Nephrology believes that the patient's GFR might improve with hydration, with which I concur. 6. Coronary artery disease: History of myocardial infarction in the past, and history of stents. We will try to get the patient records. Note patient has not had any recent anginal symptoms. 7. History of hypertension in the past. At present low blood pressure secondary to most likely dehydration. 8. Abnormal EKG. is now now T inversion anterior leads. Will add topical nitrates even though the patient has no anginal symptoms. We will repeat EKG in the morning. 9. History of intermittent bowel obstruction, and history of colectomy. 10. Abnormal CHEST X-ray:? 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 Versus interstitial lung disease versus secondary to amyloid deposits versus pulmonary hemorrhage versus infectious process. 11. Essential tremors:: Resolved with propranolol. 12. malnourished state. Note that the patient's hypotension has resolved. Medications reviewed. Management plan discussed with attending physician on the case. Discussed with the patient's daughter Ms. Ana Fitzgerald, and the patient's son-in-law also. Medical decision making is of moderate complexity. 40 minutes spent with the patient with more than 50% of time spent in direct patient care. Will continue the patient on topical nitrates. Later last evening I got a call from the pathologist saying that there is some still suspicion about the presence or absence of amyloid on the slide. Hence if there is been sent for immune staining and further opinion. Hence will sign off. Will follow the patient is an outpatient with the patient and family so desire. Discussed with the attending provider on the case..
[2018-11-05] MEDS: IPRATROPIUM/ALBUTEROL 0.5-2.5 MG/3 ML AMPUL NEB SCH ×3 (02:14→14:32)
[2018-11-05] MEDS: PANTOPRAZOLE SODIUM 20 MG TABLET.DR PO SCH (05:28)
[2018-11-05] MEDS: PROPRANOLOL HCL 10 MG TABLET PO SCH ×2 (05:28→13:38)
[2018-11-05] MEDS: HYDROXYZINE HCL 10 MG TABLET PO PRN ×2 (05:29→11:50)
[2018-11-05] MEDS: NITROGLYCERIN 2% OINTMENT 1 GM PACKET TP SCH ×2 (05:30→13:38)
--- NOTE | 2018-11-05 07:36 | EKG REPORT ---
SEVERITY:- ABNORMAL ECG - SINUS RHYTHM NONSPECIFIC T ABNORMALITIES, DIFFUSE LEADS : Confirmed by: Ryan Ingram MD 05-Nov-2018 07:35:47
--- NOTE | 2018-11-05 07:54 | PDOC PROGRESS REPORT ---
Subjective Progress Note for:: 11/05/18 Subjective:: The patient is resting comfortably in the ICU. She had developed increasing troponins recently. her ECG shows non-specific changes The was diffuse uptake during a pyrophosphate cardiac scan Dr. Townsend wishes to r/o cardiac amyloodoisi. Arrangements have been made for an abdominal fat pad biopsy today. Her peak troioponin was 4.89. The patient denoes chest pain. However, she does have knwon ischemic heart disease and stents in the past. 11/03 The patient has had stedy improvemnt in her renal fn the past few days. She underwwent fat pad biopsy and the results are pending. She has dropped her Hb about 1.5 pts. wee will transfuse her today. her stool ob was positive. There was evidence of a UTI yesterday. The patient had a UA with +LE and many WBCs. She was started on abx therapy 11/04 The patient apparently feels reasonably ok. Has developed worsening anemia. No complaints of sob or chest pain Renal fn remains better with creatinine in the 4-5 range Has remained afebbrile the past 2 days. 11/05 the patient looks comfortbale. feeling better after he rtransfusions Hb came up about 4 pts after 2 units of pRBCs/. Fortunately, we did not have to contend with any significant transfusions resction.I have bee told that the fat pad bioopsy was negative for amyloid. She si still receiving treatment for her UTI. The director of social services and nurse talked with thepatient yesterday and she is considering a short period in rehab before returning home. Reason For Visit: ELEVATED TROPONIN Physical Exam Vital Signs: Temp Pulse Resp BP Pulse Ox 96.8 F L 82 13 150/78 H 97 11/05/18 07:14 11/05/18 07:14 11/05/18 07:14 11/05/18 07:14 11/05/18 07:14 Intake & Output 11/04/18 11/05/18 11/06/18 06:59 06:59 06:59 Intake Total 250 2157 Output Total 1600 1400 Balance -1350 757 Weight 53.1 kg 53.2 kg General appearance: PRESENT: no acute distress, thin Head exam: PRESENT: atraumatic, normocephalic Eye exam: PRESENT: conjunctiva pink Mouth exam: PRESENT: moist Neck exam: ABSENT: tenderness, thyromegaly Respiratory exam: ABSENT: accessory muscle use, prolonged expiratory phas Cardiovascular exam: PRESENT: RRR, +S1, +S2 Pulses: PRESENT: +2 pedal pulses bilateral Vascular exam: PRESENT: normal capillary refill GI/Abdominal exam: PRESENT: mass, soft Rectal exam: PRESENT: black stool Gentrourinary exam: ABSENT: ecchymosis Extremities exam: PRESENT: full ROM. ABSENT: calf tenderness Psychiatric exam: PRESENT: appropriate affect Results Laboratory Results: 11/04/18 21:15 11/03/18 03:43 11/03/18 11/04/18 11/04/18 08:35 10:15 21:15 WBC 13.8 H 13.1 H RBC 1.93 L 3.31 L Hgb 6.4 L 10.5 L D Hct 19.0 L 30.8 L MCV 98 H 93 D MCH 33.3 31.6 MCHC 33.8 34.0 RDW 13.9 16.5 H Plt Count 271 215 Seg Neutrophils % Not Reportable Blood Type O POSITIVE Antibody Screen NEGATIVE 11/02/18 08:28 Catheterized Urine Urine Culture - Final Klebsiella Pneumoniae 10/29/18 10/29/18 10/29/18 02:05 02:05 07:49 Creatine Kinase 215 H 394 H CK-MB (CK-2) 6.10 H Troponin I 0.263 10/29/18 10/29/18 10/29/18 07:49 15:05 15:05 Creatine Kinase 491 H CK-MB (CK-2) 13.70 H 22.90 H Troponin I 2.610 4.660 10/29/18 10/29/18 10/30/18 20:30 20:30 03:27 Creatine Kinase 414 H CK-MB (CK-2) 25.40 H Troponin I 4.890 3.750 10/31/18 11/02/18 09:27 08:28 Creatine Kinase CK-MB (CK-2) Troponin I 1.620 0.548 Impressions: Cardiac Imaging Nuclear Medicine 10/29/18 00:00 IMPRESSION: Equivocal findings as described above. Probable mild myocardial uptake with 1+ activity at most. Head CT 10/29/18 01:23 IMPRESSION: Mild atrophy and chronic small vessel ischemic changes with no acute intracranial abnormality. Chest CT 11/03/18 00:00 IMPRESSION: Ground-glass opacities in the lungs. Considerations include pulmonary embolism, hypersensitivity pneumonitis and bronchiolitis obliterans among others. Generally, ground-glass opacities can also be seen with pulmonary edema and hemorrhage as well as developing lung fibrosis. Assessment & Plan - Diagnosis (1) Anemia Qualifiers: Anemia type: due to chronic kidney disease Chronic kidney disease stage: stage 4 (severe) Qualified Code(s): N18.4 - Chronic kidney disease, stage 4 (severe); D63.1 - Anemia in chronic kidney disease Is this a current diagnosis for this admission?: Yes Plan: The patient appears to be chronically anemia. I'm sure a part of this is due to chronic diseases and her CKD. No recent melna or hematemesis, her hb has trickled down a bit mopre. No overt gi bleeding. Patient administered Procrit yesterday 11/04 I have asked Hematology, Dr. Townsend to weigh in the patient reportedly has a history of Abs that have previously caused a hemolytic reaction. We have therefore been reluctant to readily transfuse her Will continue Procrit. If her Hb continues to drop we will need to transfuse. Does have + guaics as well but no overt gi bleed 11/05 it appeares clear that thepatient will need UGI and perhaps lower gi endoscopy as an outpt to better define the dsource of her blood loss. (2) Chronic renal disease Qualifiers: Chronic kidney disease stage: stage 4 (severe) Qualified Code(s): N18.4 - Chronic kidney disease, stage 4 (severe) Is this a current diagnosis for this admission?: Yes Plan: The patient is thought to be dehydrated. She is getting cautious fluid replacement a tthis time. She has a portacath in place in case dialysis is required at this time. has seen this patient. The patient is fairly oliguric presently. She has been placed on cautious hydration as she was though to be dehydrates. 11/02 Her urine output has increased nicely with fluids. The patient had over 2 liters out in thepast 24 hours. can stop IV fluids. her creatinine is now down to 4.72 from the mid 7 range. (3) Elevated troponin I level Is this a current diagnosis for this admission?: Yes Plan: Patient had fat oad bioposy. I beleieve there si no plan to prerforma repeat cardiac cath at this time. (4) Essential tremor Is this a current diagnosis for this admission?: Yes (5) Elevated troponin Is this a current diagnosis for this admission?: Yes - Time Time Spent with patient: 15-24 minutes Anticipated discharge: Acute Rehab Within: within 24 hours
--- NOTE | 2018-11-05 08:13 | PDOC PROGRESS REPORT ---
Subjective Progress Note for:: 11/05/18 Subjective:: Patient is sleeping peacefully this morning. She arouses only briefly. Nurses report no reaction to blood transfusion this morning. No new events over night. Reason For Visit: ELEVATED TROPONIN Physical Exam Vital Signs: Temp Pulse Resp BP Pulse Ox 96.8 F L 82 13 150/78 H 97 11/05/18 07:14 11/05/18 07:14 11/05/18 07:14 11/05/18 07:14 11/05/18 07:14 Intake & Output 11/04/18 11/05/18 11/06/18 06:59 06:59 06:59 Intake Total 250 2157 Output Total 1600 1400 Balance -1350 757 Weight 53.1 kg 53.2 kg General appearance: PRESENT: no acute distress, thin Head exam: PRESENT: normocephalic Respiratory exam: PRESENT: unlabored Cardiovascular exam: PRESENT: RRR Extremities exam: ABSENT: pedal edema Skin exam: PRESENT: normal color Results Laboratory Results: 11/04/18 21:15 11/03/18 03:43 11/03/18 11/04/18 11/04/18 08:35 10:15 21:15 WBC 13.8 H 13.1 H RBC 1.93 L 3.31 L Hgb 6.4 L 10.5 L D Hct 19.0 L 30.8 L MCV 98 H 93 D MCH 33.3 31.6 MCHC 33.8 34.0 RDW 13.9 16.5 H Plt Count 271 215 Seg Neutrophils % Not Reportable Blood Type O POSITIVE Antibody Screen NEGATIVE 11/02/18 08:28 Catheterized Urine Urine Culture - Final Klebsiella Pneumoniae 10/29/18 10/29/18 10/29/18 02:05 02:05 07:49 Creatine Kinase 215 H 394 H CK-MB (CK-2) 6.10 H Troponin I 0.263 10/29/18 10/29/18 10/29/18 07:49 15:05 15:05 Creatine Kinase 491 H CK-MB (CK-2) 13.70 H 22.90 H Troponin I 2.610 4.660 10/29/18 10/29/18 10/30/18 20:30 20:30 03:27 Creatine Kinase 414 H CK-MB (CK-2) 25.40 H Troponin I 4.890 3.750 09/12/19 09/14/19 09:27 08:28 Creatine Kinase CK-MB (CK-2) Troponin I 1.620 0.548 Impressions: Cardiac Imaging Nuclear Medicine 10/29/18 00:00 IMPRESSION: Equivocal findings as described above. Probable mild myocardial uptake with 1+ activity at most. Head CT 10/29/18 01:23 IMPRESSION: Mild atrophy and chronic small vessel ischemic changes with no acute intracranial abnormality. Chest CT 11/03/18 00:00 IMPRESSION: Ground-glass opacities in the lungs. Considerations include pulmonary embolism, hypersensitivity pneumonitis and bronchiolitis obliterans among others. Generally, ground-glass opacities can also be seen with pulmonary edema and hemorrhage as well as developing lung fibrosis. Assessment & Plan - Diagnosis (1) Anemia Qualifiers: Anemia type: due to chronic kidney disease Chronic kidney disease stage: st age 4 (severe) Qualified Code(s): N18.4 - Chronic kidney disease, stage 4 (severe); D63.1 - Anemia in chronic kidney disease Is this a current diagnosis for this admission?: Yes Plan: She responded well to the blood transfusion, despite the history of antibody. She was given solumedrol prior to transfusion. Await today's blood count. May repeat LDH level as well to check for hemolysis. I would continue Procrit to maintain her HGB. (2) CKD (chronic kidney disease) stage 5, GFR less than 15 ml/min Is this a current diagnosis for this admission?: Yes Plan: Continues to improve. Dr. Quintero following as well. (3) UTI (urinary tract infection) Is this a current diagnosis for this admission?: Yes (4) Ileostomy present Is this a current diagnosis for this admission?: Yes - Plan Summary Plan Summary: No evidence of cancer currently, but consider GI work-up in the near future for the history of heme + stools. Itching has improved. I would hold morphine and try to find narcotics that do not cause itching. Continue atarax PRN.
[2018-11-05 09:15] LABS: HEMATOCRIT 34.8 % (36.0-47.0); HEMOGLOBIN 11.7 g/dL (12.0-15.5); MEAN CORPUSCULAR HEMOGLOBIN 31.5 pg (27.0-33.4); MEAN CORPUSCULAR HGB CONC 33.6 g/dL (32.0-36.0); MEAN CORPUSCULAR VOLUME 94 fl (80-97); PLATELET COUNT 254 10^3/uL (150-450); RED BLOOD COUNT 3.72 10^6/uL (3.72-5.28); RED CELL DISTRIBUTION WIDTH 17.2 % (11.5-14.0); WHITE BLOOD COUNT 16.4 10^3/uL (4.0-10.5)
[2018-11-05] MEDS: DOCUSATE SODIUM 100 MG CAPSULE PO SCH (09:50)
[2018-11-05] MEDS: BUPROPION HCL 75 MG TABLET PO SCH (09:51)
[2018-11-05] MEDS: GABAPENTIN 300 MG CAPSULE PO SCH (09:51)
[2018-11-05] MEDS: MAGNESIUM OXIDE 400 MG TABLET PO SCH (09:51)
[2018-11-05] MEDS: ALLOPURINOL 100 MG TABLET PO SCH (09:52)
[2018-11-05 10:29] LABS: ABSOLUTE MONOCYTES # (MANUAL) 0.5 10^3/uL (0.1-1.4); BAND NEUTROPHILS % (MANUAL) 1 % (3-5); BASOPHILS % (MANUAL) 0 % (0-2); EOSINOPHILS % (MANUAL) 0 % (0-6); LYMPHOCYTES % (MANUAL) 5 % (13-45); METAMYELOCYTES % (MANUAL) 1 % (0); MONOCYTES % (MANUAL) 3 % (3-13); SEGMENTED NEUTROPHILS % (MAN) 89 % (42-78); TOTAL CELLS COUNTED 100
[2018-11-05 10:30] LABS: ANISOCYTOSIS 1+; PLATELET COMMENT ADEQUATE; POLYCHROMASIA 1+; TOXIC VACUOLATION PRESENT
--- NOTE | 2018-11-05 11:33 | PDOC TRANSFER SUMMARY ---
General Admission Date/PCP: 10/29/18 04:27 Gus KRISHNAMURTHY MD Resuscitation Status: Full Code - Transfer Diagnosis (1) Chronic renal disease Is this a current diagnosis for this admission?: Yes Diagnosis Summary: Creatine was up to cklose to 89 on admissionand is now back down to the 4-5 range. the aptient does have a right subclavian portacath but it is yet to be used. (2) Essential tremor Is this a current diagnosis for this admission?: Yes Diagnosis Summary: Her tremor is better now that she is back on her beta cricket (3) Elevated troponin Is this a current diagnosis for this admission?: Yes Diagnosis Summary: Elevated Trop. May have been some demand ischemaui at the time of admission. It has since trended down. No interventions at this time. (4) Anemia Is this a current diagnosis for this admission?: Yes Diagnosis Summary: The patient appears to have a slow gi bleed. Her hb has trickled down into the 6-7 range. Some of her anemia is no doubt secondary to her serious chronic renal disease. The patient was getting weekly procrit injections. Her HB is currently 10 after 2 unitsd. Will need Gi f/u after rehab - Transfer Medications Home Medications: Bupropion HCl [Bupropion Xl] 150 mg PO DAILY 10/29/18 Calcitriol [Rocaltrol 0.5 mcg Capsule] 0.5 mcg PO DAILY 10/29/18 Cetirizine HCl [Zyrtec 10 mg Tablet] 10 mg PO QHS 10/29/18 Colestipol HCl [Colestid 1 gm Tablet] 2 gm PO TID 10/29/18 Cyanocobalamin (Vitamin B-12) [Vitamin B-12 1000 mcg Tablet] 1,000 mcg PO DAILY 10/29/18 Diphenoxylate HCl/Atrop Sulf [Lomotil 2.5 mg Tablet] 1 tab PO QIDP PRN 10/29/18 Febuxostat [Uloric 80 mg Tablet] 80 mg PO DAILY 10/29/18 Folic Acid [Folvite 1 mg Tablet] 1 mg PO DAILY 10/29/18 Hydroxyzine HCl [Atarax 25 mg Tablet] 25 mg PO QPM 10/29/18 Magnesium Oxide [Mag-Ox 400 mg Tablet] 400 mg PO QID 10/29/18 Midodrine HCl 2.5 mg PO TID 10/29/18 Pravastatin Sodium [Pravachol] 40 mg PO QPM 10/29/18 Propranolol HCl [Inderal 10 mg Tablet] 10 mg PO TID 10/29/18 Pyridoxine HCl (Vitamin B6) [Vitamin B-6] 50 mg PO BID 10/29/18 Sevelamer Carbonate [Renvela] 1,600 mg PO .SNACKS 10/29/18 Sevelamer Carbonate [Renvela] 2,400 mg PO MEALS 10/29/18 Tramadol HCl [Ultram 50 mg Tablet] 100 mg PO Q6HP PRN 10/29/18 Transfer Medications: Current Medications Acetaminophen (Tylenol 325 Mg Tablet) 650 mg PO Q4HP PRN PRN Reason: FEVER > 100.4 Stop: 12/02/18 18:26 Last Admin: 11/03/18 11:54 Dose: 650 mg Documented by: Al Hydrox/Mg Hydrox/Simethicone (Maalox Plus Susp 30 Udcup) 30 ml PO Q6HP PRN PRN Reason: HEARTBURN Stop: 11/28/18 05:55 Last Admin: 11/04/18 09:32 Dose: 30 ml Documented by: Albuterol/Ipratropium (Duoneb 3 Ml Ampul) 3 ml NEB RTQ6 MOIZ Stop: 12/03/18 08:14 Last Admin: 11/05/18 08:36 Dose: 3 ml Documented by: Allopurinol (Zyloprim 100 Mg Tablet) 100 mg PO DAILY MOIZ Stop: 11/28/18 09:59 Last Admin: 11/05/18 09:52 Dose: 100 mg Documented by: Atorvastatin Calcium (Lipitor 10 Mg Tablet) 10 mg PO QHS MOIZ Stop: 11/28/18 21:59 Last Admin: 11/04/18 21:48 Dose: 10 mg Documented by: Bupropion HCl (Wellbutrin 75 Mg Tablet) 75 mg PO Q12 MOIZ Stop: 11/28/18 09:59 Last Admin: 11/05/18 09:51 Dose: 75 mg Documented by: Docusate Sodium (Colace 100 Mg Capsule) 100 mg PO BID MOIZ Stop: 11/28/18 09:59 Last Admin: 11/05/18 09:50 Dose: 100 mg Documented by: Gabapentin (Neurontin 300 Mg Capsule) 300 mg PO Q12 MOIZ Stop: 11/28/18 09:59 Last Admin: 11/05/18 09:51 Dose: 300 mg Documented by: Heparin Sodium (Porcine) (Heparin Inj 5,000 Units/Ml 1 Ml Vial) 5,000 unit S UBCUT Q8 MOIZ Stop: 11/28/18 05:59 Last Admin: 11/04/18 05:00 Dose: Not Given Documented by: Hydroxyzine HCl (Atarax 10 Mg Tablet) 10 mg PO Q6HP PRN PRN Reason: ITCHING Stop: 12/04/18 08:13 Last Admin: 11/05/18 05:29 Dose: 10 mg Documented by: Sodium Chloride (Nacl 0.9% 1000 Ml Iv Soln) 1,000 mls @ 50 mls/hr IV CONTINUOUS PRN PRN Reason: THIS MED IS NOT "PRN" Stop: 11/28/18 14:43 Last Admin: 11/01/18 15:38 Dose: 50 mls/hr Documented by: Ceftriaxone Sodium/Dextrose (Rocephin Rtu 2 Gm/D5w 50 Ml Premix Bag) 2 gm in 50 mls @ 100 mls/hr IV QPM [facility] Stop: 11/10/18 17:59 Last Admin: 11/04/18 19:20 Dose: 100 mls/hr, 100 mls/hr Documented by: Epoetin Chinmay-epbx 2,000 unit/Epoetin Chinmay-epbx 6,000 unit/Syringe 3 mls @ 0 mls/hr IV MoWeFr@1000 [facility] Stop: 12/04/18 09:59 Last Admin: 11/04/18 09:40 Dose: 3 mls/hr Documented by: Magnesium Hydroxide (Milk Of Magnesia 30 Ml Udcup) 30 ml PO DAILYP PRN PRN Reason: FOR CONSTIPATION Stop: 11/28/18 05:55 Magnesium Oxide (Mag-Ox 400 Mg Tablet) 400 mg PO BID [facility] Stop: 11/28/18 09:59 Last Admin: 11/05/18 09:51 Dose: 400 mg Documented by: Nitroglycerin (Nitrol 2% Ointment 1gm Packet) 0.5 gm TP Q6 MOIZ Stop: 12/04/18 17:59 Last Admin: 11/05/18 05:30 Dose: 0.5 gm Documented by: Ondansetron HCl (Zofran Inj/Pf 4 Mg/2 Ml Sdv) 4 mg IV Q4HP PRN PRN Reason: FOR NAUSEA/VOMITING Stop: 11/28/18 05:55 Oxycodone/Acetaminophen (Percocet 5-325 Mg Tablet) 1 tab PO Q4HP PRN PRN Reason: PAIN SCALE 1-3 Stop: 11/07/18 16:23 Last Admin: 11/04/18 21:48 Dose: 1 tab Documented by: Pantoprazole Sodium (Protonix [address] Tablet) 20 mg PO Q6AM [facility] Stop: 11/28/18 05:59 Last Admin: 11/05/18 05:28 Dose: 20 mg Documented by: Propranolol HCl (Inderal 10 Mg Tablet) 10 mg PO Q8 [facility] Stop: 11/28/18 05:59 Last Admin: 11/05/18 05:28 Dose: 10 mg Documented by: Sodium Chloride (Saline Flush 2.5 Ml Monoject Prefil Syrin) 2.5 ml IV Q8 [facility] Stop: 11/28/18 05:59 Last Admin: 11/05/18 06:00 Dose: Not Given Documented by: - Allergies Allergies/Adverse Reactions: meperidine HCl [From Demerol] Allergy (Intermediate, Verified 07/23/18 09:07) Hives Sulfa (Sulfonamide Antibiotics) Allergy (Intermediate, Verified 07/23/18 09:07) Hives ciprofloxacin HCl [From Cipro] Allergy (Verified 07/23/18 09:07) RASH prednisone [Prednisone] Allergy (Verified 07/23/18 09:07) MAKES HER CRAZY - Diet/Activity Discharge Diet: Cardiac Hospital Course Hospital Course: ass outlined above. Physical Exam Vital Signs: Temp Pulse Resp BP Pulse Ox 96.8 F L 82 15 150/78 H 96 11/05/18 07:14 11/05/18 09:00 11/05/18 10:00 11/05/18 07:14 11/05/18 10:00 Intake & Output 11/04/18 11/05/18 11/06/18 06:59 06:59 06:59 Intake Total 250 2157 Output Total 1600 1400 Balance -1350 757 Weight 53.1 kg 53.2 kg General appearance: PRESENT: no acute distress, well-developed, well-nourished Head exam: PRESENT: atraumatic, normocephalic Eye exam: PRESENT: conjunctiva pink, EOMI, PERRLA. ABSENT: scleral icterus Ear exam: PRESENT: normal external ear exam Mouth exam: PRESENT: moist, tongue midline Neck exam: ABSENT: carotid bruit, JVD, lymphadenopathy, thyromegaly Respiratory exam: PRESENT: clear to auscultation randa. ABSENT: rales, rhonchi, wheezes Cardiovascular exam: PRESENT: RRR. ABSENT: diastolic murmur, rubs, systolic murmur Pulses: PRESENT: normal dorsalis pedis pul Vascular exam: PRESENT: normal capillary refill GI/Abdominal exam: PRESENT: normal bowel sounds, soft. ABSENT: distended, guarding, mass, organolmegaly, rebound, tenderness Rectal exam: PRESENT: deferred Extremities exam: PRESENT: full ROM. ABSENT: calf tenderness, clubbing, pedal edema Neurological exam: PRESENT: alert, awake, oriented to person, oriented to place, oriented to time, oriented to situation, CN II-XII grossly intact. ABSENT: motor sensory deficit Psychiatric exam: PRESENT: appropriate affect, normal mood. ABSENT: homicidal ideation, suicidal ideation Skin exam: PRESENT: dry, intact, warm. ABSENT: cyanosis, rash Results Laboratory Results: 11/05/18 09:03 11/03/18 03:43 11/03/18 11/04/18 11/05/18 08:35 21:15 09:03 WBC 13.1 H 16.4 H RBC 3.31 L 3.72 Hgb 10.5 L D 11.7 L Hct 30.8 L 34.8 L MCV 93 D 94 MCH 31.6 31.5 MCHC 34.0 33.6 RDW 16.5 H 17.2 H Plt Count 215 254 Seg Neutrophils % Not Reportable Blood Type O POSITIVE Antibody Screen NEGATIVE 11/02/18 08:28 Catheterized Urine Urine Culture - Final Klebsiella Pneumoniae 10/29/18 10/29/18 10/29/18 02:05 02:05 07:49 Creatine Kinase 215 H 394 H CK-MB (CK-2) 6.10 H Troponin I 0.263 10/29/18 10/29/18 10/29/18 07:49 15:05 15:05 Creatine Kinase 491 H CK-MB (CK-2) 13.70 H 22.90 H Troponin I 2.610 4.660 10/29/18 10/29/18 10/30/18 20:30 20:30 03:27 Creatine Kinase 414 H CK-MB (CK-2) 25.40 H Troponin I 4.890 3.750 10/31/18 11/02/18 09:27 08:28 Creatine Kinase CK-MB (CK-2) Troponin I 1.620 0.548 Impressions: Cardiac Imaging Nuclear Medicine 10/29/18 00:00 IMPRESSION: Equivocal findings as described above. Probable mild myocardial uptake with 1+ activity at most. Head CT 10/29/18 01:23 IMPRESSION: Mild atrophy and chronic small vessel ischemic changes with no acute intracranial abnormality. Chest CT 11/03/18 00:00 IMPRESSION: Ground-glass opacities in the lungs. Considerations include pulmonary embolism, hypersensitivity pneumonitis and bronchiolitis obliterans among others. Generally, ground-glass opacities can also be seen with pulmonary edema and hemorrhage as well as developing lung fibrosis.
[2018-11-05 12:30] VITALS: BP 136/74
--- NOTE | 2018-11-05 14:01 | PDOC TRANSFER SUMMARY ---
General - Admit/Disc Date/PCP Admission Date/Primary Care Provider: 10/29/18 04:27 K Robel JUARES MD Discharge Date: 11/05/18 - Discharge Diagnosis (1) Chronic renal disease Is this a current diagnosis for this admission?: Yes Summary: Patient with CKD stage 4. Came in with Creatine over 8 and now 4-5. Has portacath but nit dilyzed yet. (2) Essential tremor Is this a current diagnosis for this admission?: Yes Summary: The patiejt ptakes propranol for her chronic essential tremor (3) Elevated troponin Is this a current diagnosis for this admission?: Yes Summary: Elaveted trop likely due to demand iischemia. patient never had ECG changes or chest pain. 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 (4) Anemia Is this a current diagnosis for this admission?: Yes Summary: Chronic anemia. Had positive OB. needs gi f/u after the SNF stay. Had HB down to 6 but now >10 after 2 PRBCS yesterday. No overt gi bleed. Some of anemiz is due to her chronic renal disease. - Additional Information Resuscitation Status: Full Code Discharge Diet: Cardiac Discharge Activity: Activity As Tolerated Home Medications: Bupropion HCl [Bupropion Xl] 150 mg PO DAILY 10/29/18 Calcitriol [Rocaltrol 0.5 mcg Capsule] 0.5 mcg PO DAILY 10/29/18 Cetirizine HCl [Zyrtec 10 mg Tablet] 10 mg PO QHS 10/29/18 Colestipol HCl [Colestid 1 gm Tablet] 2 gm PO TID 10/29/18 Cyanocobalamin (Vitamin B-12) [Vitamin B-12 1000 mcg Tablet] 1,000 mcg PO DAILY 10/29/18 Diphenoxylate HCl/Atrop Sulf [Lomotil 2.5 mg Tablet] 1 tab PO QIDP PRN 10/29/18 Febuxostat [Uloric 80 mg Tablet] 80 mg PO DAILY 10/29/18 Folic Acid [Folvite 1 mg Tablet] 1 mg PO DAILY 10/29/18 Hydroxyzine HCl [Atarax 25 mg Tablet] 25 mg PO QPM 10/29/18 Magnesium Oxide [Mag-Ox 400 mg Tablet] 400 mg PO QID 10/29/18 Midodrine HCl 2.5 mg PO TID 10/29/18 Pravastatin Sodium [Pravachol] 40 mg PO QPM 10/29/18 Propranolol HCl [Inderal 10 mg Tablet] 10 mg PO TID 10/29/18 Pyridoxine HCl (Vitamin B6) [Vitamin B-6] 50 mg PO BID 10/29/18 Sevelamer Carbonate [Renvela] 1,600 mg PO .SNACKS 10/29/18 Sevelamer Carbonate [Renvela] 2,400 mg PO MEALS 10/29/18 Tramadol HCl [Ultram 50 mg Tablet] 100 mg PO Q6HP PRN 10/29/18 Gabapentin [Neurontin 300 mg Capsule] 300 mg PO Q12 capsule 11/05/18 Ipratropium/Albuterol Sulfate [Duoneb 3 ml Ampul] 3 ml NEB RTQ6 vial.neb 11/05/18 Nitroglycerin [Nitrol 2% Ointment 1Gm Packet] 0.5 gm TP Q6 oint..gm. 11/05/18 Ondansetron HCl/Pf [Zofran Inj/Pf 4 mg/2 ml Sdv] 4 mg IV Q4HP PRN vial 11/05/18 History of Present Illness Admission Date/PCP: 10/29/18 04:27 K Robel JUARES MD History of Present Illness: SOURAV ALVES is a 78 year old female With a history of CKD stage IV with base creatinine of around 5-6 with intermittent acute decompensation from severe dehydration was admitted with a history of generalized weakness, orthostasis and falls. Her who is the main caregiver was recently admitted with stroke and just discharged back home from [facility]. She is quite dependent on him for her care. Patient admits to the fact that she has been having large volume liquid stools into her illeostomy and has not been using her antimotility agents judiciously as she has been instructed. She thinks she has also seen dark- colored liquid stools for the last couple of days. However no complaints of any abdominal pains. She denies any history of chest pain or shortness of breath. Evaluations in the ER revealed that the patient was quiet debilitated and fragile and was hypotensive. She had also deranged labs including anemia, acute on chronic kidney disease.Besides that she had troponins ordered by ER physicians which came back as being elevated and cardiology has also been consulted for the evaluation and management. 10/30 This is an 78 yo who presented to the ED after a series fo falls and hypotension I was asked to thave thepatient transferred to ICU because of rising troponin by the hospitlaist. She denies chest pain. Howver her troponin went up the high 4 range last night. her ECG is abnormal with TWI in 1L and the lateral precordia. The patient had a technetium pyrophosphate scan that showed diffuse mild uptake. Dr. Townsend feels it could suggest possible amyloidosis. The patient just had a new ECHO. She was sen by Dr. townsend. Was never started on IV heparin. From what I understand she is to be started on ASA. The patient has stage 5 CKD and has beenn on the cusp of dialysis thepast little while and Dr. Juares was asked to see her. J. 11/05 The patient has been stable. She has stable vital signs. Hasnot been up and walking yet. Renal status is back to baseline. No active bleeding. Hb >10. Physical Exam Vital Signs: Temp Pulse Resp BP Pulse Ox 97.0 F 87 15 136/74 H 99 11/05/18 12:00 11/05/18 12:00 11/05/18 12:00 11/05/18 12:00 11/05/18 12:00 Intake & Output 11/04/18 11/05/18 11/06/18 06:59 06:59 06:59 Intake Total 250 2157 Output Total 1600 1400 30 Balance -1350 757 -30 Weight 53.1 kg 53.2 kg General appearance: PRESENT: no acute distress, cooperative Head exam: PRESENT: normocephalic Eye exam: PRESENT: EOMI Ear exam: PRESENT: normal external ear exam Mouth exam: PRESENT: moist, neck supple Neck exam: ABSENT: carotid bruit, meningismus, tenderness Respiratory exam: PRESENT: clear to auscultation randa Cardiovascular exam: PRESENT: RRR, +S1, +S2 Pulses: PRESENT: normal dorsalis pedis pul Vascular exam: PRESENT: normal capillary refill GI/Abdominal exam: PRESENT: normal bowel sounds, soft. ABSENT: mass Rectal exam: PRESENT: deferred Extremities exam: PRESENT: full ROM. ABSENT: pedal edema Musculoskeletal exam: PRESENT: ambulatory Neurological exam: PRESENT: alert, awake, oriented to person, oriented to place Results Laboratory Results: 11/05/18 09:03 11/03/18 03:43 11/03/18 11/04/18 11/05/18 08:35 21:15 09:03 WBC 13.1 H 16.4 H RBC 3.31 L 3.72 Hgb 10.5 L D 11.7 L Hct 30.8 L 34.8 L MCV 93 D 94 MCH 31.6 31.5 MCHC 34.0 33.6 RDW 16.5 H 17.2 H Plt Count 215 254 Seg Neutrophils % Not Reportable Blood Type O POSITIVE Antibody Screen NEGATIVE 10/29/18 10/29/18 10/29/18 02:05 02:05 07:49 Creatine Kinase 215 H 394 H CK-MB (CK-2) 6.10 H Troponin I 0.263 10/29/18 10/29/18 10/29/18 07:49 15:05 15:05 Creatine Kinase 491 H CK-MB (CK-2) 13.70 H 22.90 H Troponin I 2.610 4.660 10/29/18 10/29/18 10/30/18 20:30 20:30 03:27 Creatine Kinase 414 H CK-MB (CK-2) 25.40 H Troponin I 4.890 3.750 10/31/18 11/02/18 09:27 08:28 Creatine Kinase CK-MB (CK-2) Troponin I 1.620 0.548 Impressions: Cardiac Imaging Nuclear Medicine 10/29/18 00:00 IMPRESSION: Equivocal findings as described above. Probable mild myocardial uptake with 1+ activity at most. Head CT 10/29/18 01:23 IMPRESSION: Mild atrophy and chronic small vessel ischemic changes with no acute intracranial abnormality. Chest CT 11/03/18 00:00 IMPRESSION: Ground-glass opacities in the lungs. Considerations include pulmonary embolism, hypersensitivity pneumonitis and bronchiolitis obliterans among others. Generally, ground-glass opacities can also be seen with pulmonary edema and hemorrhage as well as developing lung fibrosis. Transfer Plan - Time Spent with Patient Time spent with patient: Greater than 30 Minutes Qualifiers - * PATIENT BEING DISCHARGED WITH ANY OF THE FOLLOWING DIAGNOSIS: No Acute Heart Failure - Is this a Heart Failure Patient?: No
[2018-11-05] MEDS: CEFTRIAXONE 2 GM/D5W RTU 2 GM/50 ML RTUPB IV SCH (17:02)
== END 2018-11-05 17:27 | disposition home health service (06) | DRG 546 ==
LOC: ER 00:51 → EH 04:27 → ICU 20:37
PROVIDERS: ADMIT Emergency Medicine; ATTEND Emergency Medicine
PROC: 0JB80ZX Excision of Abdomen Subcutaneous Tissue and Fascia, Open Approach, Diagnostic (ICD-10-PCS; principal; 2018-10-31)
PROC: 30233N1 Transfusion of Nonautologous Red Blood Cells into Peripheral Vein, Percutaneous Approach (ICD-10-PCS; 2018-11-04)
DX: E85.9 Amyloidosis, unspecified (principal); I12.0 Hypertensive chronic kidney disease with stage 5 chronic kidney disease or end stage renal disease; N18.5 Chronic kidney disease, stage 5; N17.9 Acute kidney failure, unspecified; E46 Unspecified protein-calorie malnutrition; Z68.1 Body mass index [BMI] 19.9 or less, adult; N39.0 Urinary tract infection, site not specified; D63.1 Anemia in chronic kidney disease; I25.10 Atherosclerotic heart disease of native coronary artery without angina pectoris; M46.80 Other specified inflammatory spondylopathies, site unspecified; H26.9 Unspecified cataract; M10.9 Gout, unspecified; E86.0 Dehydration; N25.0 Renal osteodystrophy; E83.42 Hypomagnesemia; I95.9 Hypotension, unspecified; R25.1 Tremor, unspecified; L29.9 Pruritus, unspecified; D50.9 Iron deficiency anemia, unspecified; B96.1 Klebsiella pneumoniae [K. pneumoniae] as the cause of diseases classified elsewhere; Z93.2 Ileostomy status; Z88.2 Allergy status to sulfonamides; Z90.5 Acquired absence of kidney; I25.2 Old myocardial infarction; Z85.038 Personal history of other malignant neoplasm of large intestine; Z85.528 Personal history of other malignant neoplasm of kidney; Z88.1 Allergy status to other antibiotic agents; Z88.8 Allergy status to other drugs, medicaments and biological substances; Z91.81 History of falling; Z92.3 Personal history of irradiation; Z71.3 Dietary counseling and surveillance
CPT/HCPCS: 36415; 36430; 70450; 71045; 71250; 78466; 80048; 80053; 81001; 82272; 82550; 82553; 82607; 82728; 82746; 83540; 83550; 83615; 83735; 84439; 84443; 84481; 84484; 85025; 85027; 85045; 86850; 86900; 86901; 86920; 86922; 87086; 87088; 87186; 88305; 88313; 93005; 93010; 93306; 96374; 99285; A9538; J0696; J1200; J1439; J1644; J2270; J2920; J3490; J7030; J7050; J7620; P9016; Q5105; Q5106; Q9969